=== PATIENT | female | born 1950 | race Caucasian/White ===

== ENCOUNTER 2020-03-15 16:30 | Outpatient (REF) | payer MEDICARE, SELFPAY | END 2020-03-15 16:31 | disposition home or self-care (01) | LOC: HO.LAB 16:30 | PROVIDERS: Visit Provider Internal Medicine | DX: Z20.822 Contact with and (suspected) exposure to COVID-19 (principal) | CPT/HCPCS: 36415; C9803; U0003 ==

== ENCOUNTER 2020-04-11 14:33 | Outpatient (REF) | payer MEDICARE, SELFPAY ==
[2020-04-11 15:01] LABS: MANUAL DIFF FLAG NO
[2020-04-11 15:04] LABS: Basophils Percent Auto 0.1 % (0-2); Eosinophils Absolute Auto 0.1 X10*3/uL (0.0-0.4); Eosinophils Percent Auto 1.2 % (0-4); Hematocrit 39.2 % (37-47); Hemoglobin 11.7 g/dl (12.0-16.0); Imm Gran Abs Auto 0.02 X10*3/uL (0.00-0.03); Imm Gran Pct Auto 0.3 % (0.0-0.4); Immature Retic Fraction 15.6 % (3.0-15.9); Lymphocytes Percent Auto 27.3 % (20-40); Mean Corpuscular HGB Conc 29.8 g/dl (31.0-35.0); Mean Corpuscular Hemoglobin 24.5 pg (27.0-33.0); Mean Platelet Volume 10.2 fL (9.4-12.3); Monocytes Absolute Auto 0.5 X10*3/uL (0.1-1.2); Monocytes Percent Auto 6.7 % (2-11); Neutrophils Absolute Auto 4.7 X10*3/uL (2.0-8.3); Neutrophils Percent Auto 64.4 % (45-73); Platelet Count 243 X10*3/uL (160-400); Red Blood Count 4.78 X10*6/uL (4.20-5.50); Red Cell Distribution Width 14.8 % (11.0-16.0); Retic HGB Equivalent 27.8 pg (30.0-35.0); Reticulocyte Percent 1.4 % (0.5-1.8); Reticulocytes Absolute 0.067 X10*6/uL (0.026-0.095); White Blood Count 7.3 X10*3/uL (4.8-10.8)
[2020-04-11 15:12] LABS: Estimated Average Glucose 128 mg/dL; Hemoglobin A1c % 6.1 %
[2020-04-11 16:00] LABS: Alanine Aminotransferase 18 U/L (0-31); Alkaline Phosphatase 106 U/L (39-117); Anion Gap 15 (12-20); Aspartate Amino Transferase 23 U/L (5-31); Bilirubin Total 0.6 mg/dL (0.0-1.0); Blood Urea Nitrogen 14 mg/dL (9-16); Calcium 8.8 mg/dL (8.4-10.2); Carbon Dioxide 27 mmol/L (22-29); Chloride 102 mmol/L (96-108); Cholesterol 105 mg/dL; Estimated Glomerular Filt Rate > 60; Glucose Random 101 mg/dL (60-115); HDL Cholesterol 34 mg/dL; Iron 47 mcg/dL (30-160); LDL Cholesterol Calculated 56 mg/dl; Percent Iron Saturation 12 % (15-50); Potassium 4.4 mmol/L (3.3-5.1); Sodium 140 mmol/L (135-145); Total Iron Binding Capacity 405 mcg/dL (228-428); Total Protein 6.8 g/dL (6.5-8.0); Triglycerides 75 mg/dL; Unsaturated Iron Binding 358 ug/dL
[2020-04-11 16:01] LABS: Creatinine Urine 208.41 mg/dL; Microalbum/Creatinine Ratio Ur 16.7 ug/mg cr
[2020-04-11 16:22] LABS: Ferritin 16 ng/mL (10-250); Free T4 (Free Thyroxine) 1.02 ng/dL (0.71-1.85); Thyroid Stimulating Hormone 1.38 uIU/mL (0.32-4.0); Vitamin D 25-OH Total 16.1 ng/mL (>30)
[2020-04-11 16:33] LABS: Folate > 20.0 ng/mL (> or = 4.0); Vitamin B12 172 pg/mL (200-900)
== END 2020-04-11 14:34 | disposition home or self-care (01) ==
LOC: HO.LAB 14:33
PROVIDERS: PCP Internal Medicine; Visit Provider Internal Medicine
DX: E78.2 Mixed hyperlipidemia (principal); E78.00 Pure hypercholesterolemia, unspecified; E11.65 Type 2 diabetes mellitus with hyperglycemia; I10 Essential (primary) hypertension; Z86.73 Personal history of transient ischemic attack (TIA), and cerebral infarction without residual deficits
CPT/HCPCS: 36415; 80053; 80061; 82043; 82306; 82607; 82728; 82746; 83036; 83540; 84439; 84443; 85025; 85045

== ENCOUNTER 2020-07-10 13:31 | Outpatient (REF) | payer MEDICARE, SELFPAY ==
--- NOTE | ~2020-07-10 | MM_ITS ---
EXAMINATION: MM SCREENING DIGITAL BREAST TOMOSYNTHESIS, BILATERAL CLINICAL INFORMATION: Screening. Asymptomatic. The lifetime risk of breast cancer based on the Tyrer-Cuzick Model is 8%. COMPARISON: Mammography: 03/19/2018, 02/17/2018, 08/31/2016, 11/06/2015, 10/30/2015 TECHNIQUE: Digital breast tomosynthesis is performed in both the craniocaudal and mediolateral oblique views along with computer-aided detection (CAD). Synthesized 2D images are generated from the tomosynthesis. FINDINGS: There are scattered areas of fibroglandular density (ACR BI-RADS breast composition Category b). Parenchymal pattern is similar to prior studies. There are scattered stable bilateral minor asymmetries. No developing density or interval mass or architectural abnormality. No abnormal calcifications. The axilla and skin contours are unremarkable. No significant changes. MM/MM tomosynthesis screening BI IMPRESSION: No mammographic evidence of malignancy. ASSESSMENT: BI-RADS 2: Benign RECOMMENDATION: Routine annual mammography screening. This patient's information was entered into a reminder system with a target due date for their next mammogram.
== END 2020-07-10 13:32 | disposition home or self-care (01) ==
LOC: HO.MAMMO 13:31
PROVIDERS: PCP Internal Medicine; Visit Provider Internal Medicine
DX: Z12.31 Encounter for screening mammogram for malignant neoplasm of breast (principal)
CPT/HCPCS: 77063; 77067

== ENCOUNTER → 2021-03-04 11:17 | Outpatient (BNVA) | payer MEDICARE, SELFPAY | PROVIDERS: PCP Internal Medicine; Referring Provider Internal Medicine; Visit Provider Nurse Practitioner | DX: Z12.11 Encounter for screening for malignant neoplasm of colon (principal); D12.6 Benign neoplasm of colon, unspecified | CPT/HCPCS: 99202 ==

== ENCOUNTER 2021-03-07 13:54 | Outpatient (REF) | payer MEDICARE, SELFPAY ==
--- NOTE | ~2021-03-07 | MM_ITS ---
EXAMINATION: BONE DENSITOMETRY CLINICAL INDICATION: Osteopenia. COMPARISON: Previous BD dated 02/17/2018 and baseline BD dated 04/17/2006. TECHNIQUE: Using a [employer] DXA System (software version: 13.1) manufactured by [employer], dual-energy x-ray absorptiometry was performed of the lumbar spine and left hip. The images are of good technical quality. Summary results are attached. FINDINGS: AP SPINE L1-L2 (excluding L3 and L4): The data of L1-L4 has been changed to exclude the L3 and L4 vertebral bodies, because hardware at these levels may cause overestimation of lumbar spine density. Current: BMD 1.205 g/cm2, Z-score 1.2, T-score 0.3, normal, 0.8% decrease from previous, 1.7% decrease from baseline (<5% change is not significant). Prior: BMD 1.196 g/cm2. Baseline: BMD 1.224 g/cm2. LEFT FEMUR, NECK: Current: BMD 0.793 g/cm2, Z-score -0.6, T-score -1.8, osteopenia. Prior: BMD 0.825 g/cm2. Baseline: BMD 0.890 g/cm2. LEFT FEMUR, TOTAL: Current: BMD 0.797 g/cm2, Z-score -0.8, T-score -1.7, osteopenia, 6.8% decrease from previous, 12.1% decrease from baseline (<5% change is not significant). Prior: BMD 0.855 g/cm2. Baseline: BMD 0.907 g/cm2. IDENTIFIED RISK FACTORS: Early menopause, history of fracture (adult), hysterectomy, low body weight, recurrent falls, height loss, secondary osteoporosis. HISTORY OF FRACTURE: No insufficiency fracture reported. . MEDICATIONS: Vitamin D. MM/XR DEXA axial skeleton IMPRESSION: 1. DIAGNOSIS: Osteopenia based on the lowest T-score value of -1.8 in the femoral neck applying World Health Organization criteria. 2. 10-YEAR FRACTURE RISK PREDICTION, FRAX: Major osteoporotic fracture (clinical spine, forearm, hip or shoulder) 16.2%. Hip fracture 2.6%. 3. Treatment Recommendations: NOF guidelines recommend consideration for treatment in postmenopausal women and men age 50 and older presenting with the following: -A hip or vertebral (clinical or morphometric) fracture. -T-score less than or equal to -2.5 at the femoral neck or spine after appropriate evaluation to exclude secondary causes. -Low bone mass at the hip or spine and a 10-year fracture probability by FRAX of greater than or equal to 3% for hip fracture or greater than or equal to 20% for major osteoporotic fracture based on the [place] adapted WHO algorithm. 4. Other Recommendations: All treatment decisions require clinical judgment and consideration of individual patient factors, including patient preferences, comorbidities, previous drug use, risk factors not captured in the FRAX model (e.g. frailty, falls, vitamin D deficiency, increased bone turnover, interval significant decline in bone density) and possible under or overestimation of fracture risk by FRAX. Additional medical evaluation for secondary cause of low bone mineral density may be appropriate. FUTURE SCAN RECOMMENDATION: People with diagnosed cases of osteoporosis or at high risk for fracture should have regular bone mineral density tests. For patients eligible for Medicare, routine testing is allowed once every 2 years. The testing frequency can be increased to one year for patients who have rapidly progressing disease, those who are receiving or discontinuing medical therapy to restore bone mass, or have additional risk factors.
== END 2021-03-07 13:55 | disposition home or self-care (01) ==
LOC: HO.MAMMO 13:54
PROVIDERS: PCP Internal Medicine; Visit Provider Internal Medicine
DX: Z13.820 Encounter for screening for osteoporosis (principal); M85.80 Other specified disorders of bone density and structure, unspecified site; Z78.0 Asymptomatic menopausal state; Z79.899 Other long term (current) drug therapy; Z87.81 Personal history of (healed) traumatic fracture; Z98.890 Other specified postprocedural states
CPT/HCPCS: 77080

== ENCOUNTER 2021-06-18 14:49 | Observation (INO) | payer MEDICARE, SELFPAY ==
[2021-06-18] VITALS (8 sets, daily range): BP systolic 157–183; BP diastolic 60–87; PULSE 64–80; RESP 10–19; TEMP 36.4–36.9; O2SAT 95–97; BMI 32.0
--- NOTE | ~2021-06-18 | XR_ITS ---
EXAMINATION: XR PELVIS CLINICAL INFORMATION: Pain to tailbone COMPARISON: None TECHNIQUE: AP view of the pelvis. FINDINGS: Incompletely visualized orthopedic hardware in the lower lumbar spine. No displaced sacral fracture, the mid and distal sacrum and coccyx are obscured by overlying bowel contents. Degenerative changes in both hips. XR/XR pelvis 1-2V IMPRESSION: No displaced sacral fracture. The mid and distal sacrum and coccyx are secured by overlying bowel contents.
--- NOTE | ~2021-06-18 | CT_ITS ---
CT ANGIOGRAM NECK WITH CONTRAST CT ANGIOGRAM BRAIN WITH CONTRAST CLINICAL INFORMATION: Dizziness. COMPARISON: CT head 06/18/2021. TECHNIQUE: Test bolus sequences followed by intravenous administration 75 mL of Omnipaque 350. Helical imaging was performed in the axial plane from the thoracic inlet to the skull vertex. Delayed postcontrast imaging of the head was also performed. The data was processed at the certified neurodiagnostic technologist workstation for generation of MIP sequences. Angled MIPs and volume rendered reformatted images were also generated at an offline 3D workstation under concurrent supervision. Stenoses are assessed in accordance with NASCET criteria unless otherwise indicated. This CT examination was performed using dose optimization techniques as appropriate, variously including the following: *Automated exposure control *Adjustment of mA and/or kV according to patient size (this includes techniques or standardized protocols for targeted exams where dose is matched to indication/reason for exam; i.e. extremities or head) *Use of iterative reconstruction technique FINDINGS: BRAIN: [There is no intracranial hemorrhage, hydrocephalus, extra-axial surface collection, midline shift, or other herniation pattern. Chopra to white matter differentiation is diffusely maintained without evidence of an evolved acute territorial infarct. The basilar cisterns are preserved. No significant soft tissue abnormality. No acute osseous abnormality. The paranasal sinuses and the mastoid air cells are well aerated.] CERVICAL SOFT TISSUES AND LUNG APICES: Postoperative changes following long segment laminectomy at the C3-C7 levels and posterior instrumented fusion at C3-T8 to. Surgical hardware appears intact and there is no evidence of hardware loosening. There is multilevel cervical spondylosis. Imaged upper lungs are clear. NECK CTA: There is atherosclerotic calcification throughout the aortic arch resulting in a moderate stenosis of the left subclavian artery origin. Left common carotid artery arises from the brachiocephalic artery, an anatomic variant. Atherosclerotic disease results in a moderate stenosis of the right vertebral artery origin. The vertebral arteries are codominant and widely patent throughout their cervical course. Retropharyngeal course of the right internal/external carotid arteries and the distal right common carotid artery. There is a surgical clip adjacent to the left carotid bifurcation presumably status post left carotid endarterectomy. Soft tissue encases the distal left common carotid artery, the left carotid bifurcation, and the proximal left cervical internal carotid artery which could reflect postoperative perivascular hematoma or intramural hematoma in the setting of of dissection which can be correlated with the timing of surgery. These vessels remain widely patent without the soft tissue resulting in any significant stenosis. BRAIN CTA: Atherosclerotic calcification results in a severe stenosis of the proximal right cavernous ICA and a moderate to severe stenosis of the right supraclinoid ICA. Atherosclerotic calcification also results in a moderate stenosis of the left cavernous ICA segment. The right A1 anterior cerebral artery is hypoplastic and not well assessed. No acute arterial occlusions intracranially. CT/CT angio head neck IMPRESSION: - No acute intracranial findings. - Atherosclerotic calcification results in a severe stenosis of the proximal right cavernous ICA and a moderate to severe stenosis of the right supraclinoid ICA. Atherosclerotic calcification also results in a moderate stenosis of the left cavernous ICA segment. - There is a surgical clip adjacent to the left carotid bifurcation presumably status post left carotid endarterectomy. Soft tissue encases the distal left common carotid artery, the left carotid bifurcation, and the proximal left cervical internal carotid artery which could reflect postoperative perivascular hematoma or intramural hematoma in the setting of of dissection which can be correlated with the timing of surgery. These vessels remain widely patent without the soft tissue resulting in any significant stenosis. - There is atherosclerotic calcification throughout the aortic arch resulting in a moderate stenosis of the left subclavian artery origin. - Atherosclerotic disease results in a moderate stenosis of the right vertebral artery origin.
--- NOTE | ~2021-06-18 | XR_ITS ---
EXAMINATION: XR CHEST CLINICAL INFORMATION: Weakness COMPARISON: Chest radiograph and chest CT 11/08/2019 TECHNIQUE: 2 views of the chest were obtained. FINDINGS: No significant abnormality is noted involving the heart, lungs, mediastinum, or soft tissues. Cervical spine fixation hardware is again seen. XR/XR chest 2V IMPRESSION: No acute intrathoracic disease.
--- NOTE | ~2021-06-18 | CT_ITS ---
EXAMINATION: CT HEAD WITHOUT CONTRAST CLINICAL INFORMATION: Fall. Headache. COMPARISON: None TECHNIQUE: Contiguous axial imaging was performed from the skull base to vertex without intravenous administration of contrast. This CT examination was performed using dose optimization techniques as appropriate, variously including the following: *Automated exposure control *Adjustment of mA and/or kV according to patient size (this includes techniques or standardized protocols for targeted exams where dose is matched to indication/reason for exam; i.e. extremities or head) *Use of iterative reconstruction technique DLP: 572 mGy-cm FINDINGS: There is no evidence of acute intracranial hemorrhage or territorial infarction. Incidental note of a 5 x 3 mm fat attenuation structure associated with the anterior falx (image 21, series 4), likely a small lipoma. No abnormal mass effect or midline shift is seen. Chopra to white matter differentiation is well preserved. No extra-axial fluid collections are identified. The ventricles are normal in size. There is no abnormal attenuation within the brain parenchyma. The osseous structures and soft tissues are normal. The mastoid air cells and visualized portions of the paranasal sinuses are well aerated. The orbits are notable for sequela of prior lens surgery. CT/CT head/brain wo con IMPRESSION: Incidental note of a tiny lipoma along the anterior falx. There is no acute intracranial abnormality.
--- NOTE | 2021-06-18 15:04 | ED.DIZZY ---
HPI - Dizziness General Chief Complaint: Dizziness Stated Complaint: DIZZY,WEAK,FALL LAST WEAK W/HEAD STRIKE Time Seen by Provider: 06/18/21 15:04 Source: patient Mode of arrival: ambulatory Limitations: no limitations History of Present Illness HPI Narrative: 70-year-old female presents to the emergency department complaining of headache dizziness and weakness. Patient states she had sensation near syncope vertigo and feels unstable on her feet this happened 1 week ago she fell and hit her head states she is on a blood thinner though none is listed in her medications she states she did fall hit the back of her head states her symptoms resolve she has had no dizziness headache and then the symptoms returned today without a fall she called her primary care doctor and was advised to come to the ED. Patient denies fevers chills nausea vomiting or diarrhea. MD elicited complaint: dizziness, lightheadedness, near syncope, vertigo and disequilibrium Related Data Home Medications Medication Instructions Recorded Confirmed clonazepam 0.5 mg tablet 0.5 mg PO BID 12/12/19 09/06/20 duloxetine 30 mg capsule,delayed 30 mg PO BID 12/12/19 09/06/20 release Previous Rx's Medication Instructions Recorded GRAB bar #1 ea 02/16/20 cyanocobalamin (vitamin B-12) 1,000 mcg PO DAILY #30 cap 04/11/20 1,000 mcg capsule clopidogrel 75 mg tablet 75 mg PO DAILY #90 tab 05/28/20 nystatin 100,000 unit/gram topical 1 appl TOPICAL TID #30 g 08/15/20 ointment miconazole nitrate 2 % topical 1 appl TOPICAL BID #71 g 08/25/20 powder (Zeasorb AF) lisinopril 10 mg tablet 10 mg PO DAILY #90 tab 10/09/20 fluticasone propionate 50 2 spray INTRANASAL DAILY #3 ea 10/12/20 mcg/actuation nasal spray,suspension (Flonase Allergy Relief) metformin 1,000 mg tablet 1,000 mg PO BID #180 tab 12/24/20 blood sugar diagnostic 1 strip MISCELLANEOUS TID #100 01/21/21 strip omega-3 acid ethyl esters 1 gram 2 cap PO BID #360 cap 01/31/21 capsule ropinirole 0.5 mg tablet 0.5 mg PO BEDTIME #90 tab 01/31/21 peg 3350-electrolytes 236 240 ml PO Q10M 1 Days #4000 ml 01/10/22 gram-22.74 gram-6.74 gram-5.86 gram solution (Golytely) dulaglutide 0.75 mg/0.5 mL 0.75 mg (0.5 mL) SUBCUT QWEEK 90 03/27/21 subcutaneous pen injector Days #2 ml (Trulicity) famotidine 20 mg tablet 20 mg PO BID 90 Days #180 tab 05/20/21 pen needle, diabetic 31 gauge x #100 ea 05/21/21 3/16 (BD Ultra-Fine Mini Pen Needle) insulin glargine 100 unit/mL (3 60 unit (0.6 mL) SUBCUT QPM #15 ml 05/31/21 mL) subcutaneous pen (Lantus Solostar U-100 Insulin) atorvastatin 40 mg tablet 40 mg PO DAILY #90 tab 06/12/21 pregabalin 200 mg capsule (Lyrica) 200 mg PO BID 90 Days #180 cap 06/14/21 pregabalin 50 mg capsule 50 mg PO BID PRN 90 Days #180 cap 06/14/21 Allergies Allergy/AdvReac Type Severity Reaction Status Date / Time No Known Allergies Allergy Verified 03/04/21 11:35 [No Known Allergies*] Review of Systems Review of Systems: Review of systems: General: Patient denies any fever chills recent illness or falls Musculoskeletal: Denies back pain or body aches or other injuries HEENT: denies headache, runny nose, ear pain Respiratory: denies shortness of breath, cough Cardiovascular: no chest pain or palpitations : denies dysuria, frequency Abdomen: no nausea vomiting denies abdominal pain Extremities: no swelling, no pain Skin: no diaphoresis Yes all other systems are reviewed and are negative [facility] Past Medical History Medical History (Updated 06/18/21 @ 19:54 by Willis Landry DO) Anxiety and depression Carotid stenosis 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 Diabetic nephropathy GERD (gastroesophageal reflux disease) History of CVA (cerebrovascular accident) Hypercholesterolemia with endogenous hyperglyceridemia Hypertension Obesity (BMI 30-39.9) Osteopenia Personal history of malignant neoplasm of cervix uteri Restless leg syndrome Restrictive lung disease Type 2 diabetes mellitus with hyperglycemia Surgical History (Updated 03/04/21 @ 11:36 by LYNETTE Farfan) History of bilateral cataract extraction History of carpal tunnel surgery History of colonoscopy with polypectomy History of loop electrical excision procedure (LEEP) History of lumbar fusion History of neck surgery Family History Family History (Updated 12/10/20 @ 15:11 by LYNETTE Emerson) Father Heart attack Mother Cancer Dementia Breast cancer Hemorrhage Social History Social History Housing: Other Housing Other:: Trailer Alcohol intake: never Patient Tobacco Use Status: Former Tobacco user Tobacco use type: Cigarette e-Cigarette/Vaping Use: Never Used Second Hand Smoke Exposure: No Advance Directives: No Advance Directives Information Provided: No service: No Current occupational status: disabled Physical Exam Vital Signs: Vital Signs: Last Vital Signs Temp 98.0 F 06/18/21 17:31 Pulse 77 06/18/21 18:21 Resp 12 06/18/21 18:21 BP 161/71 H 06/18/21 18:21 Pulse Ox 95 06/18/21 18:21 BMI result Body Mass Index 32.0 Neurological exam: CN II- XII tested. Patient is alert and oriented to person place and time. Patient has no dysphagia or dysarthia, denies good vision in all four vision [place] no nystagmus on exam, good strength to upper and lower extremities with normal reflexes to brachioradialis, wrist, patella and achilles. Negative romberg, good finger to nose and heel to ureña. General: Well-appearing well-nourished in no signs of distress HEENT: Normocephalic atraumatic Neck: No signs of JVD, no masses no tenderness or lymphadenopathy Cardiovascular: Regular rate and rhythm Respiratory: Clear to auscultation bilaterally Abdomen: Soft nontender no masses Extremities: Normal pedal pulses no signs of edema Skin: Dry warm no rashes Back: No tenderness full ROM NIH Stroke Scale Internal: Initial- Upon Arrival Level of Consciousness: Alert Level of Consciousness Questions: Answers both questions correctly Level of Consciousness Commands: Performs both tasks correctly Best Gaze: Normal Visual: No visual loss Facial Palsy: Normal Motor Arm (Right): No drift Motor Arm (Left): No drift Motor Leg (Right): No drift Motor Leg (Left): No drift Limb Ataxia: Absent Sensory: Normal Best Language: No aphasia Dysarthia: Normal Extinction and Inattention: No abnormality Score: 0 MDM - Dizziness MDM Narrative Medical decision making narrative: 70-year-old female multiple complaints he lives alone she probably go get over for CT scan of her head check labs and literally dimension there is nothing of a cousin symptoms unsure of what is the causal kind of dizziness is I will severe patient feeling better with fluids I will give her morphine for her pain to her right shoulder buttocks and back. 1731 patient still unable to ambulate CT is negative labs are unremarkable we tried to ambulate the patient again she failed will try with meclizine Maegan verbal try some Valium. A concern this could be a posterior circulation stroke is the patient has had a stroke in the past. She is on a blood thinners clopidogrel that I can see that she did state that she takes some she has multiple medications that could also make her weak and altered including ropinirole, pregabalin duloxetine and clonazepam 1918 No improvement with ambulation with meclizine or valium. Trauma workup okay unable to send home needs posterior circulation workup and MRI before discharge. 1952 I spoke with [facility] who agreed with the admission. Differential Diagnosis Differential diagnosis: Likely adverse reaction to drug, benign paroxysmal positional vertigo, orthostatic hypotension, vertebral basilar insufficiency, cerebrovascular accident, acute vestibular neuronitis and transient cerebral ischemia Medical Records Attestation: I reviewed the patient's medical records. Lab Data Attestation: I reviewed the patient's lab results. Result diagrams: 06/18/21 15:19 06/18/21 15:19 Labs: Lab Results 06/18/21 06/18/21 06/18/21 Range/Units 15:19 15:19 15:19 WBC 8.1 (4.8-10.8) X10*3/uL RBC 4.89 (4.20-5.50) X10*6/uL Hgb 11.8 L (12.0-16.0) g/dl Hct 39.4 (37.0-47.0) % MCV 80.6 (80.0-98.0) fL MCH 24.1 L (27.0-33.0) pg MCHC 29.9 L (31.0-35.0) g/dl RDW 14.5 (11.0-16.0) % Plt Count 221 (160-400) X10*3/uL MPV 10.2 (9.4-12.3) fL Immature Gran % (Auto) 0.4 (0.0-0.4) % Neut % (Auto) 65.0 (45-73) % Lymph % (Auto) 25.9 (20-40) % [place] % (Auto) 7.3 (2-11) % Eos % (Auto) 1.2 (0-4) % Baso % (Auto) 0.2 (0-2) % Lymph # (Auto) 2.1 (1.2-4.9) X10*3/uL [place] # (Auto) 0.6 (0.1-1.2) X10*3/uL Eos # (Auto) 0.1 (0.0-0.4) X10*3/uL Baso # (Auto) 0.0 (0.0-0.2) X10*3/uL Abs Immat Gran (auto) 0.03 (0.00-0.03) X10*3/uL Absolute Neuts (auto) 5.3 (2.0-8.3) x10*3/uL Absolute Nucleated RBC 0.000 (0.0-0.012) X10*3/uL Nucleated RBC % (auto) 0.0 (0.0-0.2) /100WBC Sodium 141 (135-145) mmol/L Potassium 4.4 (3.3-5.1) mmol/L Chloride 104 (96-108) mmol/L Carbon Dioxide 29 (22-29) mmol/L Anion Gap 12 (12-20) BUN 14 (9-16) mg/dL Creatinine 0.83 (0.5-1.4) mg/dL Estim Creat Clear Calc 68.8 Estimated GFR > 60 Random Glucose 97 (60-115) mg/dL Calcium 9.3 (8.4-10.2) mg/dL Total Bilirubin 0.5 (0.0-1.0) mg/dL Direct Bilirubin 0.2 (0.0-0.5) mg/dL AST 25 (5-31) U/L ALT 21 (0-31) U/L Alkaline Phosphatase 79 D (39-117) U/L Total Protein 6.7 (6.5-8.0) g/dL Albumin 3.7 (3.5-5.0) g/dL Lipase 16 (8-78) U/L COVID-19 (ELIF) Negative (Negative) COVID-19 Clin Com See Note ECG Data Attestation: I personally reviewed and interpreted this ECG as follows: ECG interpretation date: 06/18/21 ECG interpretation time: 15:35 Interpretation: Rate 72 normal sinus rhythm normal intervals no signs of ischemia Critical Care Time Critical Care Time Critical Care Time: Yes Total Critical Care Time: 45 Attestation: Posterior circulation workup with dizziness and inability to ambulate as well as trauma evaluation. Discharge Plan Discharge Clinical Impression: Dizziness, History of CVA (cerebrovascular accident), Acute posterior circulation transient ischemic attack Prescriptions: No Action (DME) GRAB bar See Rx Instructions .Route .MEDSUPPLY Qty: 1 0RF Rx Instructions: As directed cyanocobalamin (vitamin B-12) 1,000 mcg capsule 1,000 mcg PO DAILY Qty: 30 3RF clopidogrel 75 mg tablet 75 mg PO DAILY Qty: 90 2RF nystatin 100,000 unit/gram ointment 1 appl topical TID Qty: 30 5RF Zeasorb AF 2 % powder 1 appl topical BID Qty: 71 3RF lisinopril 10 mg tablet 10 mg PO DAILY Qty: 90 3RF fluticasone propionate [Flonase Allergy Relief] 50 mcg/actuation spray,suspension 2 spray intranasal DAILY Qty: 3 3RF Rx Instructions: administer into each nostril metformin 1,000 mg tablet 1,000 mg PO BID Qty: 180 2RF OneTouch Ultra Blue Test Strip Strip 1 strip miscellaneous TID Qty: 100 11RF omega-3 acid ethyl esters 1 gram capsule 2 cap PO BID Qty: 360 3RF ropinirole 0.5 mg tablet 0.5 mg PO BEDTIME Qty: 90 2RF Trulicity 0.75 mg/0.5 mL pen injector 0.75 mg subcut QWEEK 90 Days Qty: 2 3RF famotidine 20 mg tablet 20 mg PO BID 90 Days Qty: 180 2RF (DME) pen needle, diabetic [BD Ultra-Fine Mini Pen Needle] 31 gauge x 3/16 needle See Rx Instructions .ROUTE .MEDSUPPLY Qty: 100 3RF Rx Instructions: As directed inject 60 units of Lantus q.p.m. Lantus Solostar U-100 Insulin 100 unit/mL (3 mL) insulin pen 60 unit subcut QPM Qty: 15 11RF atorvastatin 40 mg tablet 40 mg PO DAILY Qty: 90 2RF pregabalin [Lyrica] 200 mg capsule 200 mg PO BID 90 Days Qty: 180 1RF Rx Instructions: take with 50 mg = 250 mg BID pregabalin 50 mg capsule 50 mg PO BID PRN (Reason: pain) 90 Days Qty: 180 1RF Rx Instructions: take with 200 mg = 250 mg BID duloxetine 30 mg capsule,delayed release(DR/EC) 30 mg PO BID 0RF clonazepam 0.5 mg tablet 0.5 mg PO BID 0RF peg 3350-electrolytes [Golytely] 236-22.74-6.74 -5.86 gram recon soln 240 ml PO Q10M 1 Days Qty: 4000 0RF Rx Instructions: until fecal effluent is clear; do not exceed a total volume of 2,000 mL
--- NOTE | 2021-06-18 15:10 | ECG_ITS ---
Test Reason : WEAKNESS Blood Pressure : / mmHG Vent. Rate : 072 BPM Atrial Rate : 072 BPM P-R Int : 136 ms QRS Dur : 072 ms QT Int : 380 ms P-R-T Axes : -10 014 048 degrees QTc Int : 416 ms Normal sinus rhythm Normal ECG When compared with ECG of 08-NOV-2019 22:09, No significant change was found Referred By: Willis Landry Electronically Signed By:DILAN PARMAR
[2021-06-18] MEDS: 0.9 % Sodium Chloride 1,000 ML 999 ML IV (15:22)
[2021-06-18 15:23] LABS: MANUAL DIFF FLAG NO
[2021-06-18] MEDS: Morphine Sulfate 4 MG/ML CARTRIDGE IVPUSH (15:25)
[2021-06-18] MEDS: Acetaminophen 325 MG TABLET 650 MG PO (15:26)
[2021-06-18 15:27] LABS: Basophils Percent Auto 0.2 % (0-2); Eosinophils Absolute Auto 0.1 X10*3/uL (0.0-0.4); Eosinophils Percent Auto 1.2 % (0-4); Hematocrit 39.4 % (37.0-47.0); Hemoglobin 11.8 g/dl (12.0-16.0); Imm Gran Abs Auto 0.03 X10*3/uL (0.00-0.03); Imm Gran Pct Auto 0.4 % (0.0-0.4); Lymphocytes Absolute Auto 2.1 X10*3/uL (1.2-4.9); Lymphocytes Percent Auto 25.9 % (20-40); Mean Corpuscular HGB Conc 29.9 g/dl (31.0-35.0); Mean Corpuscular Hemoglobin 24.1 pg (27.0-33.0); Mean Corpuscular Volume 80.6 fL (80.0-98.0); Mean Platelet Volume 10.2 fL (9.4-12.3); Monocytes Absolute Auto 0.6 X10*3/uL (0.1-1.2); Monocytes Percent Auto 7.3 % (2-11); Neutrophils Absolute Auto 5.3 x10*3/uL (2.0-8.3); Platelet Count 221 X10*3/uL (160-400); Red Blood Count 4.89 X10*6/uL (4.20-5.50); Red Cell Distribution Width 14.5 % (11.0-16.0); White Blood Count 8.1 X10*3/uL (4.8-10.8)
[2021-06-18 15:41] LABS: COVID-19 Test Negative (Negative); IDNOW Serial# 16C4AD1C
[2021-06-18 15:43] LABS: Alanine Aminotransferase 21 U/L (0-31); Albumin Level 3.7 g/dL (3.5-5.0); Alkaline Phosphatase 79 U/L (39-117); Anion Gap 12 (12-20); Aspartate Amino Transferase 25 U/L (5-31); Bilirubin Direct 0.2 mg/dL (0.0-0.5); Bilirubin Total 0.5 mg/dL (0.0-1.0); Blood Urea Nitrogen 14 mg/dL (9-16); Calcium 9.3 mg/dL (8.4-10.2); Carbon Dioxide 29 mmol/L (22-29); Chloride 104 mmol/L (96-108); Creatinine Clr Calc Pharmacy 68.8; Estimated Glomerular Filt Rate > 60; Glucose Random 97 mg/dL (60-115); Lipase 16 U/L (8-78); Potassium 4.4 mmol/L (3.3-5.1); Sodium 141 mmol/L (135-145); Total Protein 6.7 g/dL (6.5-8.0)
--- NOTE | 2021-06-18 17:48 | PC.NURSE ---
Pt received pain meds stated pain decreased with meds given. Pt noted to be sleeping. Per MD orders pt ambulated with tech and RN, pt unsteady on her feet and states she is very dizzy with standing and attempting to ambulate. MD made aware and meds to be given. Pt in stretcher safely at this time awaiting a PT consult.
[2021-06-18] MEDS: Meclizine HCl 12.5 MG TABLET PO (18:22)
--- NOTE | 2021-06-18 19:18 | PC.NURSE ---
Pt alert and oriented x4, calm and cooperative. Pt states pain in buttock persists but is manageable, does not want pain meds. Pt states she continues to have dizziness wit movement. Pt trialed for ambulation and noted to be dizzy and unsteady on feet, MD aware. Pt in x-ray now.
[2021-06-18] MEDS: diazePAM 10 MG/2 ML CARTRIDGE 5 MG IVPUSH (19:53)
--- NOTE | 2021-06-18 19:53 | PM.IMHP ---
History of Present Illness Date of Service: 06/18/21 Chief Complaint: dizziness 70-year-old female with a past medical history of hypertension, hyperlipidemia, diabetes, diabetic neuropathy, degenerative spine disease, carotid stenosis, anxiety, depression, restless leg syndrome, restrictive lung disease, obesity, osteoporosis, history of CVA, GERD presented to the hospital today with a chief complaint of dizziness. Patient reports that for the past 1 week she has been having intermittent episodes of dizziness worsens on changing position, movement; feels like room spinning and lightheaded; denies any chest pain or palpitations. Reports he had a fall about 1 week ago, had a head strike; denies any loss of consciousness. Denies any neck pain back pain or hip pain. Denies any chest pain or palpitations. Review of all other systems is negative except mentioned above ER course: Per ER team patient exam was nonfocal; CT head showed no acute findings; pelvis x-ray showed no acute fracture; given a trial of meclizine and Valium and patient still was symptomatic; admitted to the hospital for further management. 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 Diabetic nephropathy GERD (gastroesophageal reflux disease) History of CVA (cerebrovascular accident) Hypercholesterolemia with endogenous hyperglyceridemia Hypertension Obesity (BMI 30-39.9) Osteopenia Personal history of malignant neoplasm of cervix uteri Restless leg syndrome Restrictive lung disease Type 2 diabetes mellitus with hyperglycemia Family History (Updated 12/10/20 @ 15:11 by LYNETTE Emerson) Father Heart attack Mother Cancer Dementia Breast cancer Hemorrhage Surgical History (Updated 03/04/21 @ 11:36 by LYNETTE Farfan) History of bilateral cataract extraction History of carpal tunnel surgery History of colonoscopy with polypectomy History of loop electrical excision procedure (LEEP) History of lumbar fusion History of neck surgery Social History Housing: Other Housing Other:: Trailer Alcohol intake: never Patient Tobacco Use Status: Former Tobacco user Tobacco use type: Cigarette e-Cigarette/Vaping Use: Never Used Second Hand Smoke Exposure: No Use of substances other than those prescribed or required for medical reasons: No Advance Directives: No Advance Directives Information Provided: No service: No Current occupational status: disabled Meds Allergies Allergy/AdvReac Type Severity Reaction Status Date / Time No Known Allergies Allergy Verified 03/04/21 11:35 [No Known Allergies*] Active Medications: Current Medications Acetaminophen (Acetaminophen 325 Mg Tablet) 650 mg PO Q6H PRN PRN Reason: Pain, Mild (Pain Scale 1-3) Meclizine HCl (Meclizine Hcl 25 Mg Tablet) 25 mg PO Q8H PRN PRN Reason: vertigo Melatonin (Melatonin 3 Mg Tablet) 6 mg PO BEDTIME PRN PRN Reason: Insomnia Pharmacy Consult (Consult Rx Perform Med Rec) 1 each MISCELLANE ONCE STA Stop: 06/18/21 19:50 Senna (Sennosides 8.6 Mg Tablet) 17.2 mg PO BEDTIME PRN PRN Reason: Constipation Sodium Chloride (0.9 % Sodium Chloride Flush 3 Ml Syringe) 3 ml IVFLUSH QSHIST. [facility] Home Medications Medication Instructions Recorded Confirmed Last Taken Type clonazepam 0.5 mg tablet 0.5 mg PO BEDTIME PRN 12/12/19 06/18/21 Unknown History buspirone 10 mg tablet 1 tab PO BID 06/18/21 06/18/21 06/18/21 History clonazepam 1 mg tablet 1 mg PO BEDTIME PRN 06/18/21 06/18/21 Unknown History dulaglutide 0.75 mg/0.5 mL 0.75 mg SUBCUT WE 06/18/21 06/18/21 06/12/21 History subcutaneous pen injector (Trulicity) duloxetine 30 mg capsule,delayed 1 cap PO BEDTIME 06/18/21 06/18/21 06/17/21 History release duloxetine 60 mg capsule,delayed 1 cap PO DAILY 06/18/21 06/18/21 06/18/21 History release fluticasone propionate 50 2 spray INTRANASAL DAILY PRN 06/18/21 06/18/21 Unknown History mcg/actuation nasal spray,suspension (Flonase Allergy Relief) insulin glargine 100 unit/mL (3 60 unit SUBCUT BEDTIME 06/18/21 06/18/21 06/17/21 History mL) subcutaneous pen (Lantus Solostar U-100 Insulin) metformin 1,000 mg tablet 1,000 mg PO BIDWM 0406/18/21 06/18/21 History mirtazapine 15 mg tablet 1 tab PO BEDTIME PRN 06/18/21 06/18/21 Unknown History prednisolone acetate 1 % eye 1 drp OPHTHALMIC (EYE) BID 06/18/21 06/18/21 06/18/21 History drops,suspension Physical Exam Vital Signs and Narrative: Vital Signs: Last Vital Signs Temp 98.0 F 06/18/21 17:31 Pulse 77 06/18/21 18:21 Resp 12 06/18/21 18:21 BP 161/71 H 06/18/21 18:21 Pulse Ox 95 06/18/21 18:21 BMI result Body Mass Index 32.0 Gen: Appears be in no acute distress HEENT: NCAT, Moist mucosa. Pulmonary: Vesicular breath sounds, fair air entry CVS: Normal S1-S2 Abdomen: BS+, Soft, Nontender Extremities: Warm well perfused Neuro: Alert and awake. Grossly nonfocal. Normal [id number] and jldn-[id number]-frqa test. Gait not assessed. Results Labs CBC and Chem 7: 06/18/21 15:19 06/18/21 15:19 Labs: Laboratory Results - last 24 hr 06/18/21 06/18/21 06/18/21 15:19 15:19 15:19 MCV 80.6 MCH 24.1 L MCHC 29.9 L RDW 14.5 Plt Count 221 MPV 10.2 Immature Gran % (Auto) 0.4 Neut % (Auto) 65.0 Lymph % (Auto) 25.9 [place] % (Auto) 7.3 Eos % (Auto) 1.2 Baso % (Auto) 0.2 Lymph # (Auto) 2.1 [place] # (Auto) 0.6 Eos # (Auto) 0.1 Baso # (Auto) 0.0 Abs Immat Gran (auto) 0.03 Absolute Neuts (auto) 5.3 Absolute Nucleated RBC 0.000 Nucleated RBC % (auto) 0.0 Anion Gap 12 Estim Creat Clear Calc 68.8 Estimated GFR > 60 Random Glucose 97 Calcium 9.3 Total Bilirubin 0.5 Direct Bilirubin 0.2 AST 25 ALT 21 Alkaline Phosphatase 79 D Total Protein 6.7 Albumin 3.7 Lipase 16 COVID-19 (ELIF) Negative COVID-19 Clin Com See Note Imaging Radiologist's Impressions: Impressions Chest X-Ray 06/18/21 15:43 IMPRESSION: No acute intrathoracic disease. Head CT 06/18/21 15:43 IMPRESSION: Incidental note of a tiny lipoma along the anterior falx. There is no acute intracranial abnormality. Assessment and Plan (1) Dizziness: Status: Acute Plan 70-year-old female with a past medical history of hypertension, hyperlipidemia, diabetes, diabetic neuropathy, degenerative spine disease, carotid stenosis, anxiety, depression, restless leg syndrome, restrictive lung disease, obesity, osteoporosis, history of CVA, GERD presented to the hospital today with a chief complaint of dizziness. Dizziness: Patient reports room spinning Meclizine trial Fall precautions PT/OT eventually EKG nonischemic Troponin pending CT head showed no acute findings Will also obtain CT angio head and neck to rule out any vertebrobasilar insufficiency. Neurology consult History of CVA: Continue home Plavix/statin. History of hypertension/hyperlipidemia: Hold lisinopril; continue home statin. History of anxiety/depression: Continue home was per in/clonazepam/duloxetine History of diabetes: Will reduce the home Lantus to 20 units. Insulin sliding scale. Hold metformin. History of restless leg syndrome: Continue home ropinirole DVT prophylaxis: Subcu heparin Code status: Full code Quality Stroke Does the patient have a stroke diagnosis?: No VTE Prior VTE?: No VTE Risk Level:: Medical - moderate - high VTE Device Contraindication: Treatment Not Indicated VTE Drug Contraindication: N/A - Med Ordered
--- NOTE | 2021-06-18 20:29 | PC.NURSE ---
Addendum entered by Silke Atwood 06/19/21 06:53: Report given to SARIAH Leigh Original Note: report received from SARIAH Ramírez. pt is alert and oriented. resting comfortably in bed. pt on continuos cardiac monitoring. denies any chest pain or sob
--- NOTE | 2021-06-18 20:56 | PHA.MEDREC ---
Addendum entered by Moris Ray [facility] 06/18/21 20:56: Verified with patient that she still takes plavix Original Note: Pharmacy Consult ? Medication Reconciliation Pharmacy has completed the medication reconciliation.
--- NOTE | 2021-06-18 22:04 | MHC.CM.PN ---
HARRY 06/18. HCP at home. HCP/son Moris Gonzáles ([phone]).Vax/boosted x1/[employer]. Lives with daughter. Uses rollator walker and DM supplies. Has 21 hours [employer] services. Cannot remember company. PT pending. D/C plan: Home pending PT recommendations. No referrals placed. Family to provide transportation. CM to follow for d/c needs.
[2021-06-19] VITALS (10 sets, daily range): BP systolic 138–187; BP diastolic 64–92; PULSE 68–78; RESP 12–20; TEMP 36.1–37.2; O2SAT 90–98
[2021-06-19 05:47] LABS: Appearance Urine HAZY; Color Urine DK YELLOW; Glucose Urine UA NEG (NEG); Leukocyte Esterase Urine 1+ (NEG); Nitrite Urine NEG (NEG); PH 6.5 (5.0-8.0); UACC Culture Trigger YES; Urine Blood NEG (NEG); Urine Ketones NEG (NEG); Urine Protein NEG (NEG-TRACE)
[2021-06-19 05:59] LABS: Bacteria Urine TRACE /LPF; RBC Urine 0 /HPF (0); Squamous Epithelial Cell Urine TRACE /LPF; WBC Urine 0-2 /HPF (0-4)
[2021-06-19 07:00] LABS: MANUAL DIFF FLAG NO
[2021-06-19 07:15] LABS: Anion Gap 9 (12-20); Blood Urea Nitrogen 14 mg/dL (9-16); Calcium 8.9 mg/dL (8.4-10.2); Carbon Dioxide 29 mmol/L (22-29); Chloride 108 mmol/L (96-108); Creatinine Clr Calc Pharmacy 73.2; Estimated Glomerular Filt Rate > 60; Glucose Random 76 mg/dL (60-115); Potassium 3.9 mmol/L (3.3-5.1); Sodium 142 mmol/L (135-145)
[2021-06-19 07:21] LABS: Glucose, Whole Blood 74 mg/dL (60-115)
[2021-06-19 07:21] LABS: Basophils Percent Auto 0.3 % (0-2); Eosinophils Absolute Auto 0.1 X10*3/uL (0.0-0.4); Eosinophils Percent Auto 1.8 % (0-4); Hematocrit 36.1 % (37.0-47.0); Imm Gran Abs Auto 0.01 X10*3/uL (0.00-0.03); Imm Gran Pct Auto 0.2 % (0.0-0.4); Lymphocytes Absolute Auto 2.5 X10*3/uL (1.2-4.9); Lymphocytes Percent Auto 39.6 % (20-40); Mean Corpuscular HGB Conc 30.5 g/dl (31.0-35.0); Mean Corpuscular Hemoglobin 24.5 pg (27.0-33.0); Mean Corpuscular Volume 80.4 fL (80.0-98.0); Mean Platelet Volume 10.8 fL (9.4-12.3); Monocytes Absolute Auto 0.5 X10*3/uL (0.1-1.2); Monocytes Percent Auto 7.9 % (2-11); Neutrophils Absolute Auto 3.1 x10*3/uL (2.0-8.3); Neutrophils Percent Auto 50.2 % (45-73); Platelet Count 227 X10*3/uL (160-400); Red Blood Count 4.49 X10*6/uL (4.20-5.50); Red Cell Distribution Width 14.5 % (11.0-16.0); White Blood Count 6.2 X10*3/uL (4.8-10.8)
--- NOTE | 2021-06-19 07:38 | PC.NURSE ---
Report received, patient is resting comfortably on stretcher at this time. Patient is alert and oriented. Reports some pain and dizziness but improved since arrival. Respirations regular and even. Skin PWD. Will continue to monitor. Patient sitting more upright in bed and eating breakfast independently at this time.
[2021-06-19] MEDS: iohexoL 350 MG/ML 100 ML INFUS..BTL IV (09:26)
[2021-06-19] MEDS: busPIRone HCl 10 MG TABLET PO ×2 (09:31→22:15)
[2021-06-19] MEDS: DULoxetine HCl 60 MG CAPSULE.DR PO (09:31)
[2021-06-19] MEDS: Clopidogrel Bisulfate 75 MG TABLET PO (09:31)
[2021-06-19] MEDS: Cyanocobalamin (Vitamin B-12) 1,000 MCG TABLET 1000 MCG PO (09:31)
[2021-06-19] MEDS: Pregabalin 200 MG CAPSULE PO ×2 (09:31→22:14)
--- NOTE | 2021-06-19 10:20 | HO.PM.IMPN ---
Subjective Subjective Date of Service: 06/19/21 Interval History: seen and examined this AM is vague regarding her symptoms -- initially states that they are intermittent and then stating they are not improved reports she fell and hit her head about 1 week ago and since then she has had these symptoms she reports worsening dizziness with eye movement to the left Review of Systems negative except HPI Physical Exam Vital Signs: Vital Signs: Last Vital Signs Temp 97.9 F 06/19/21 07:13 Pulse 75 06/19/21 07:13 Resp 12 06/19/21 07:13 BP 173/80 H 06/19/21 07:13 Pulse Ox 94 06/19/21 07:13 BMI result Body Mass Index 32.0 Const: Other: General - no acute distress, appears comfortable Cardiovascular - regular rate and rhythm, S1-S2 Lungs - normal respiratory effort, clear to auscultation bilaterally, no wheezing Abdomen - soft, nontender, no rebound or guarding Extremities - no edema bilaterally Neuro - awake and alert, no focal deficits; no nystagmus appreciated Objective Data Active Medications Acetaminophen (Acetaminophen 325 Mg Tablet) 650 mg PO Q6H PRN PRN Reason: Pain, Mild (Pain Scale 1-3) Atorvastatin Calcium (Atorvastatin Calcium 40 Mg Tablet) 40 mg PO DAILY@2200 [facility] Buspirone HCl (Buspirone Hcl 10 Mg Tablet) 10 mg PO BID [facility] Last Admin: 06/19/21 09:31 Dose: 10 mg Documented by: CHANELL Clonazepam (Clonazepam 0.5 Mg Tablet) 0.5 mg PO BEDTIME PRN PRN Reason: if 1 mg not effective Clonazepam (Clonazepam 1 Mg Tablet) 1 mg PO BEDTIME PRN PRN Reason: Anxiety Clopidogrel Bisulfate (Clopidogrel Bisulfate 75 Mg Tablet) 75 mg PO DAILY [facility] Last Admin: 06/19/21 09:31 Dose: 75 mg Documented by: CHANELL Cyanocobalamin (Cyanocobalamin (Vitamin B-12) 1,000 Mcg Tablet) 1,000 mcg PO DAILY [facility] Last Admin: 06/19/21 09:31 Dose: 1,000 mcg Documented by: CHANELL Duloxetine HCl (Duloxetine Hcl 30 Mg Capsule.) 30 mg PO BEDTIME [facility] Duloxetine HCl (Duloxetine Hcl 60 Mg Capsule.) 60 mg PO DAILY [facility] Last Admin: 06/19/21 09:31 Dose: 60 mg Documented by: CHANELL Fluticasone Propionate (Fluticasone Propionate Nasal 16 Gm [place]) 2 spray NOSTRIL-B DAILY PRN PRN Reason: Allergy Symptoms Heparin Sodium (Porcine) (Heparin Sodium,Porcine 5,000 Unit/Ml Vial) 5,000 unit SUBCUT Q12H [facility] Last Admin: 06/18/21 23:55 Dose: Not Given Documented by: OKSANA-DORIICL Non-Admin Reason: Patient Refused Insulin Glargine (Insulin Glargine,Hum.Rec.Anlog 100 Unit/Ml 10 Ml Vial) 20 unit SUBCUT BEDTIME RAMONA Meclizine HCl (Meclizine Hcl 25 Mg Tablet) 25 mg PO Q8H PRN PRN Reason: vertigo Melatonin (Melatonin 3 Mg Tablet) 6 mg PO BEDTIME PRN PRN Reason: Insomnia Mirtazapine (Mirtazapine 15 Mg Tablet) 15 mg PO BEDTIME PRN PRN Reason: Sleep Prednisolone Acetate (Prednisolone Acetate 1 % Oph Susp 5 Ml Drpbtl) 1 drop EYE-BOTH BID [facility] Pregabalin (Pregabalin 200 Mg Capsule) 200 mg PO BID [facility] Last Admin: 06/19/21 09:31 Dose: 200 mg Documented by: CHANELL Ropinirole HCl (Ropinirole Hcl 0.5 Mg Tablet) 0.5 mg PO BEDTIME [facility]ONA Senna (Sennosides 8.6 Mg Tablet) 17.2 mg PO BEDTIME PRN PRN Reason: Constipation Sodium Chloride (0.9 % Sodium Chloride Flush 3 Ml Syringe) 3 ml IVFLUSH QSHIFT [facility] Last Admin: 06/19/21 09:32 Dose: Not Given Documented by: CHANELL Non-Admin Reason: Med Not Available Labs CBC & Chem 7: 06/19/21 06:50 06/19/21 06:50 Labs: Laboratory Results - last 24 hr 06/18/21 06/18/21 06/18/21 15:19 15:19 15:19 MCV 80.6 MCH 24.1 L MCHC 29.9 L RDW 14.5 Plt Count 221 MPV 10.2 Immature Gran % (Auto) 0.4 Neut % (Auto) 65.0 Lymph % (Auto) 25.9 [place] % (Auto) 7.3 Eos % (Auto) 1.2 Baso % (Auto) 0.2 Lymph # (Auto) 2.1 [place] # (Auto) 0.6 Eos # (Auto) 0.1 Baso # (Auto) 0.0 Abs Immat Gran (auto) 0.03 Absolute Neuts (auto) 5.3 Absolute Nucleated RBC 0.000 Nucleated RBC % (auto) 0.0 Anion Gap 12 Estim Creat Clear Calc 68.8 Estimated GFR > 60 POC Glucose Random Glucose 97 Calcium 9.3 Total Bilirubin 0.5 Direct Bilirubin 0.2 AST 25 ALT 21 Alkaline Phosphatase 79 D Total Protein 6.7 Albumin 3.7 Lipase 16 Urine Color Urine Appearance Urine pH Ur Specific [place] Urine Protein Urine Glucose (UA) Urine Ketones Urine Blood Urine Nitrite Ur Leukocyte Esterase Urine RBC Urine WBC Ur Squamous Epith Cells Urine Bacteria COVID-19 (ELIF) Negative COVID-19 Clin Com See Note 06/19/21 06/19/21 06/19/21 05:41 06:50 06:50 MCV 80.4 MCH 24.5 L MCHC 30.5 L RDW 14.5 Plt Count 227 MPV 10.8 Immature Gran % (Auto) 0.2 Neut % (Auto) 50.2 Lymph % (Auto) 39.6 [place] % (Auto) 7.9 Eos % (Auto) 1.8 Baso % (Auto) 0.3 Lymph # (Auto) 2.5 [place] # (Auto) 0.5 Eos # (Auto) 0.1 Baso # (Auto) 0.0 Abs Immat Gran (auto) 0.01 Absolute Neuts (auto) 3.1 Absolute Nucleated RBC 0.000 Nucleated RBC % (auto) 0.0 Anion Gap 9 L Estim Creat Clear Calc 73.2 Estimated GFR > 60 POC Glucose Random Glucose 76 Calcium 8.9 Total Bilirubin Direct Bilirubin AST ALT Alkaline Phosphatase Total Protein Albumin Lipase Urine Color DK YELLOW Urine Appearance HAZY Urine pH 6.5 Ur Specific [place] 1.020 Urine Protein NEG Urine Glucose (UA) NEG Urine Ketones NEG Urine Blood NEG Urine Nitrite NEG Ur Leukocyte Esterase 1+ H Urine RBC 0 Urine WBC 0-2 Ur Squamous Epith Cells TRACE Urine Bacteria TRACE COVID-19 (ELIF) COVID-19 Clin Com 06/19/21 07:16 MCV MCH MCHC RDW Plt Count MPV Immature Gran % (Auto) Neut % (Auto) Lymph % (Auto) Burt % (Auto) Eos % (Auto) Baso % (Auto) Lymph # (Auto) Burt # (Auto) Eos # (Auto) Baso # (Auto) Abs Immat Gran (auto) Absolute Neuts (auto) Absolute Nucleated RBC Nucleated RBC % (auto) Anion Gap Estim Creat Clear Calc Estimated GFR POC Glucose 74 Random Glucose Calcium Total Bilirubin Direct Bilirubin AST ALT Alkaline Phosphatase Total Protein Albumin Lipase Urine Color Urine Appearance Urine pH Ur Specific [place] Urine Protein Urine Glucose (UA) Urine Ketones Urine Blood Urine Nitrite Ur Leukocyte Esterase Urine RBC Urine WBC Ur Squamous Epith Cells Urine Bacteria COVID-19 (ELIF) COVID-19 Clin Com Assessment and Plan (1) Dizziness: Status: Acute Plan This is a 70 yo F with a PMH of DM, CVA, anxiety/dperession, HLD, GERD, DJD, amongst others who presented to the hospital with dizziness of about 1 week duration. She reports her symptoms started after a fall about 1 week ago with some head trauma. She has not seen a physician since this event. 1. Dizziness Difficult to ascertain etiology as the patient is a vague historian. CT head is negative; CTA pending she reports her symptoms have improved but then states she feels miserable Neurology evaluation pending May need an MRI to r/o posterior circulation CVA 2. DM type 2 lantus + sling scale hold orals POC QIDAC 3. HTN start her home meds 4. HLD statin 5. Prior CVA statin / antiplatelet Full Code DVT pptx, subcut heparin Reason for continued hospitalization: on going work up for persistent dizziness including further imaging studies + neurology consultation Quality Stroke Does the patient have a stroke diagnosis?: No VTE Prior VTE?: No VTE Risk Level:: Medical - moderate - high VTE Device Contraindication: Treatment Not Indicated VTE Drug Contraindication: N/A - Med Ordered
--- NOTE | 2021-06-19 10:46 | P.CNNE_ITS ---
History of Present Illness Data of Consult Service Date: 06/19/21 Primary Care Provider: Kina Blackburn MD [facility] Reason for consult: Dizziness and unsteadiness 70 years old woman with underlying history of diabetes I was asked to see for dizziness. She said that she woke up with dizziness yesterday but then also stated that this has happened before. Dizziness was a sense of unsteadiness when she has tried to walk. She denied that it was a sense of motion. At 1 point she fell so unsteady that she fell down. She hit her body and head on the ground and since then was having head and neck pain. She used to have headaches with this was little bit worse. There was no recent cold or flu-like illness or change in bowel bladder pattern. She did not pass out. She denied any tingling or numbness in her feet. 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 Diabetic nephropathy GERD (gastroesophageal reflux disease) History of CVA (cerebrovascular accident) Hypercholesterolemia with endogenous hyperglyceridemia Hypertension Obesity (BMI 30-39.9) Osteopenia Personal history of malignant neoplasm of cervix uteri Restless leg syndrome Restrictive lung disease Type 2 diabetes mellitus with hyperglycemia Family History Family History (Updated 12/10/20 @ 15:11 by LYNETTE Emerson) Father Heart attack Mother Cancer Dementia Breast cancer Hemorrhage Surgical History Surgical History (Updated 03/04/21 @ 11:36 by LYNETTE Farfan) History of bilateral cataract extraction History of carpal tunnel surgery History of colonoscopy with polypectomy History of loop electrical excision procedure (LEEP) History of lumbar fusion History of neck surgery Social History Social History Housing: Other Housing Other:: Trailer Alcohol intake: never Patient Tobacco Use Status: Former Tobacco user Tobacco use type: Cigarette e-Cigarette/Vaping Use: Never Used Second Hand Smoke Exposure: No Use of substances other than those prescribed or required for medical reasons: No Advance Directives: No Advance Directives Information Provided: No service: No Current occupational status: disabled Meds Allergies Allergy/AdvReac Type Severity Reaction Status Date / Time No Known Allergies Allergy Verified 03/04/21 11:35 [No Known Allergies*] Active Medications: Current Medications Acetaminophen (Acetaminophen 325 Mg Tablet) 650 mg PO Q6H PRN PRN Reason: Pain, Mild (Pain Scale 1-3) Atorvastatin Calcium (Atorvastatin Calcium 40 Mg Tablet) 40 mg PO DAILY@2200 [facility] Buspirone HCl (Buspirone Hcl 10 Mg Tablet) 10 mg PO BID [facility] Last Admin: 06/19/21 09:31 Dose: 10 mg Documented by: Clonazepam (Clonazepam 0.5 Mg Tablet) 0.5 mg PO BEDTIME PRN PRN Reason: if 1 mg not effective Clonazepam (Clonazepam 1 Mg Tablet) 1 mg PO BEDTIME PRN PRN Reason: Anxiety Clopidogrel Bisulfate (Clopidogrel Bisulfate 75 Mg Tablet) 75 mg PO DAILY [facility] Last Admin: 06/19/21 09:31 Dose: 75 mg Documented by: Cyanocobalamin (Cyanocobalamin (Vitamin B-12) 1,000 Mcg Tablet) 1,000 mcg PO DAILY [facility] Last Admin: 06/19/21 09:31 Dose: 1,000 mcg Documented by: Duloxetine HCl (Duloxetine Hcl 30 Mg Capsule.) 30 mg PO BEDTIME [facility] Duloxetine HCl (Duloxetine Hcl 60 Mg Capsule.) 60 mg PO DAILY [facility] Last Admin: 06/19/21 09:31 Dose: 60 mg Documented by: Fluticasone Propionate (Fluticasone Propionate Nasal 16 Gm [place]) 2 spray NOSTRIL-B DAILY PRN PRN Reason: Allergy Symptoms Heparin Sodium (Porcine) (Heparin Sodium,Porcine 5,000 Unit/Ml Vial) 5,000 unit SUBCUT Q12H [facility] Last Admin: 06/18/21 23:55 Dose: Not Given Documented by: Insulin Glargine (Insulin Glargine,Hum.Rec.Anlog 100 Unit/Ml 10 Ml Vial) 20 unit SUBCUT BEDTIME [facility] Insulin Human Lispro (Insulin Lispro 100 Unit/Ml 3 Ml Vial) 0 unit SUBCUT QIDACHS [facility]; Protocol Lisinopril (Lisinopril 10 Mg Tablet) 10 mg PO DAILY [facility]; Protocol Meclizine HCl (Meclizine Hcl 25 Mg Tablet) 25 mg PO Q8H PRN PRN Reason: vertigo Melatonin (Melatonin 3 Mg Tablet) 6 mg PO BEDTIME PRN PRN Reason: Insomnia Mirtazapine (Mirtazapine 15 Mg Tablet) 15 mg PO BEDTIME PRN PRN Reason: Sleep Prednisolone Acetate (Prednisolone Acetate 1 % Oph Susp 5 Ml Drpbtl) 1 drop EYE-BOTH BID [facility] Pregabalin (Pregabalin 200 Mg Capsule) 200 mg PO BID [facility] Last Admin: 06/19/21 09:31 Dose: 200 mg Documented by: Ropinirole HCl (Ropinirole Hcl 0.5 Mg Tablet) 0.5 mg PO BEDTIME [facility] Senna (Sennosides 8.6 Mg Tablet) 17.2 mg PO BEDTIME PRN PRN Reason: Constipation Sodium Chloride (0.9 % Sodium Chloride Flush 3 Ml Syringe) 3 ml IVFLUSH QSHIFT [facility] Last Admin: 06/19/21 09:32 Dose: Not Given Documented by: Home Medications Medication Instructions Recorded Confirmed Last Taken Type clonazepam 0.5 mg tablet 0.5 mg PO BEDTIME PRN 12/12/19 06/18/21 Unknown History buspirone 10 mg tablet 1 tab PO BID 06/18/21 06/18/21 06/18/21 History clonazepam 1 mg tablet 1 mg PO BEDTIME PRN 06/18/21 06/18/21 Unknown History dulaglutide 0.75 mg/0.5 mL 0.75 mg SUBCUT WE 06/18/21 06/18/21 06/12/21 History subcutaneous pen injector (Trulicity) duloxetine 30 mg capsule,delayed 1 cap PO BEDTIME 06/18/21 06/18/21 06/17/21 History release duloxetine 60 mg capsule,delayed 1 cap PO DAILY 06/18/21 06/18/21 06/18/21 History release fluticasone propionate 50 2 spray INTRANASAL DAILY PRN 06/18/21 06/18/21 Unknown History mcg/actuation nasal spray,suspension (Flonase Allergy Relief) insulin glargine 100 unit/mL (3 60 unit SUBCUT BEDTIME 06/18/21 06/18/21 06/17/21 History mL) subcutaneous pen (Lantus Solostar U-100 Insulin) metformin 1,000 mg tablet 1,000 mg PO BIDWM 06/18/21 06/18/21 06/18/21 History mirtazapine 15 mg tablet 1 tab PO BEDTIME PRN 06/18/21 06/18/21 Unknown History prednisolone acetate 1 % eye 1 drp OPHTHALMIC (EYE) BID 06/18/21 06/18/21 06/18/21 History drops,suspension Physical Exam Vital Signs: Vital Signs: Last Vital Signs Temp 97.9 F 06/19/21 07:13 Pulse 75 06/19/21 07:13 Resp 12 06/19/21 07:13 BP 173/80 H 06/19/21 07:13 Pulse Ox 94 06/19/21 07:13 BMI result Body Mass Index 32.0 Neuro: Other: alert and awake with normal spontaneity of speech fluency comprehension and affect. Pupils are equal and reactive to light and extraocular muscles are intact. Visual [place] are full. Face is symmetrical. Tongue was midline. There is no nystagmus. Visual [place] are full. Drslmi-[id number] testing is normal. Deep tendon reflexes are absent with flexor plantars. She is able to walk in a cautious gait holding hands. Speech is normal. There is no sign of tremor. Results Labs CBC & Chem 7: 06/19/21 06:50 06/19/21 06:50 Labs: Short CBC 06/18/21 06/19/21 Range/Units 15:19 06:50 WBC 8.1 6.2 (4.8-10.8) X10*3/uL Hgb 11.8 L 11.0 L (12.0-16.0) g/dl Hct 39.4 36.1 L (37.0-47.0) % Plt Count 221 227 (160-400) X10*3/uL BMP 06/18/21 06/19/21 15:19 06:50 Sodium 141 142 Potassium 4.4 3.9 Chloride 104 108 Carbon Dioxide 29 29 BUN 14 14 Creatinine 0.83 0.78 Calcium 9.3 8.9 Liver Function 06/18/21 Range/Units 15:19 Total Bilirubin 0.5 (0.0-1.0) mg/dL Direct Bilirubin 0.2 (0.0-0.5) mg/dL AST 25 (5-31) U/L ALT 21 (0-31) U/L Alkaline Phosphatase 79 D (39-117) U/L Albumin 3.7 (3.5-5.0) g/dL Urine 06/19/21 Range/Units 05:41 Urine Color DK YELLOW Urine Appearance HAZY Urine pH 6.5 (5.0-8.0) Ur Specific [place] 1.020 (1.005-1.025) Urine Protein NEG (NEG-TRACE) MG/DL Urine Glucose (UA) NEG (NEG) MG/DL noncontrast head CT revealed mild diffuse cerebral and cerebellar atrophy. CTA of brain and neck revealed mild atherosclerotic changes and intracranial vasculature but no distinct focal lesion in carotids or vertebral basilar system. Assessment and Plan (1) Multifactorial gait disorder: Status: Acute 70 years old woman who probably has combination of reasons to be dizzy or unsteady. He reported that this dizziness was rather unsteadiness when she would try to walk or stand up. Her examination reveals signs of peripheral neuropathy. There was diffuse cerebral and cerebellar atrophy, and some arthritis. I recommend an EMG nerve conduction study, which could be arranged as an outpatient to rule out any acute nature of neuropathy. Otherwise mainstay of management is involvement of PT OT and advising her to use a walker for amb ulation to avoid falls. Headache and neck pain was likely because of the recent fall. Fall was likely triggered by multiple factors making her unsteady. Clinical features were not suggestive of an acute lesion such as stroke. Procedures Date of Service Date of Service: 06/19/21
[2021-06-19] MEDS: prednisoLONE Acetate 1 % Oph Susp 5 ML DRPBTL 1 DROP EYE-BOTH ×2 (11:07→22:18)
--- NOTE | 2021-06-19 12:22 | MHC.CM.PN ---
Copy of HCP obtained from [facility]. Physical therapy eval is ordered and pending. Continue to monitor for d/c needs.
[2021-06-19] MEDS: Acetaminophen 325 MG TABLET 650 MG PO (13:10)
[2021-06-19] MEDS: lisinopriL 10 MG TABLET PO (13:10)
[2021-06-19] MEDS: Heparin Sodium,Porcine 5,000 UNIT/ML VIAL 5000 UNIT SUBCUT (13:11)
--- NOTE | 2021-06-19 13:14 | PC.NURSE ---
pt a&ox3, vss, NSR on monitor. pt c/o 10/10 pain in her buttocks and right arm. pt given pillow to reposition right arm. medicated per provider order - PRN tylenol given for pain. 20G IV left wrist - flushed and patent. no new orders at this time.
[2021-06-19] MEDS: 0.9 % Sodium Chloride Flush 3 ML SYRINGE IVFLUSH (15:34)
--- NOTE | 2021-06-19 15:35 | PC.NURSE ---
pt sleeping, IV flushed and patent.
--- NOTE | 2021-06-19 17:11 | PC.NURSE ---
pt requesting daughter nancy and lynsey be removed from contacts and to add daughter alejandrina menendez- [phone], this nurse called patient registration and spoke with benji who made the changes per patient request
--- NOTE | 2021-06-19 17:23 | PC.NURSE ---
called floor to give report- sent tiger text to nurse, expecing a call back
--- NOTE | 2021-06-19 17:32 | PC.NURSE ---
report called to floor
[2021-06-19 17:45] LABS: Glucose, Whole Blood 139 mg/dL (60-115)
[2021-06-19 17:45] LABS: Glucose, Whole Blood 101 mg/dL (60-115)
[2021-06-19 19:18] LABS: Glucose, Whole Blood 205 mg/dL (60-115)
[2021-06-19] MEDS: lisinopriL 5 MG TABLET PO (20:35)
[2021-06-19] MEDS: Insulin Glargine,Hum.rec.anlog 100 UNIT/ML 10 ML VIAL 20 UNIT SUBCUT (20:40)
[2021-06-19] MEDS: DULoxetine HCl 30 MG CAPSULE.DR PO (22:14)
[2021-06-19] MEDS: Atorvastatin Calcium 40 MG TABLET PO (22:14)
[2021-06-19] MEDS: Melatonin 3 MG TABLET 6 MG PO (22:15)
[2021-06-19] MEDS: Mirtazapine 15 MG TABLET PO (22:15)
[2021-06-19] MEDS: rOPINIRole HCL 0.5 MG TABLET PO (22:15)
[2021-06-19] MEDS: clonazePAM 1 MG TABLET PO (22:15)
[2021-06-20] MEDS: Heparin Sodium,Porcine 5,000 UNIT/ML VIAL 5000 UNIT SUBCUT ×2 (01:50→11:58)
[2021-06-20] MEDS: 0.9 % Sodium Chloride Flush 3 ML SYRINGE IVFLUSH ×2 (01:50→08:54)
[2021-06-20 03:23] VITALS: BP 142/58; PULSE 66; RESP 18; TEMP 36.1; O2SAT 92
[2021-06-20 07:21] LABS: Glucose, Whole Blood 98 mg/dL (60-115)
[2021-06-20 07:42] VITALS: BP 132/68; PULSE 76; RESP 18; TEMP 36.4; O2SAT 93
[2021-06-20] MEDS: Clopidogrel Bisulfate 75 MG TABLET PO (08:53)
[2021-06-20] MEDS: Cyanocobalamin (Vitamin B-12) 1,000 MCG TABLET 1000 MCG PO (08:53)
[2021-06-20] MEDS: Pregabalin 200 MG CAPSULE PO (08:53)
[2021-06-20] MEDS: DULoxetine HCl 60 MG CAPSULE.DR PO (08:53)
[2021-06-20] MEDS: lisinopriL 10 MG TABLET PO (08:53)
[2021-06-20] MEDS: busPIRone HCl 10 MG TABLET PO (08:54)
[2021-06-20] MEDS: prednisoLONE Acetate 1 % Oph Susp 5 ML DRPBTL 1 DROP EYE-BOTH (08:54)
[2021-06-20 10:58] LABS: Glucose, Whole Blood 177 mg/dL (60-115)
[2021-06-20 11:02] VITALS: BP 103/57; PULSE 65; RESP 17; TEMP 36.2; O2SAT 95
--- NOTE | 2021-06-20 11:40 | PM.DS ---
DS: Providers Provider Date of Service: 06/20/21 Date of admission: 06/18/21 19:50 Date of discharge: 06/20/21 Primary care physician: Kina Blackburn MD Consults: 06/18/21 19:50 Consult to Neurology Routine Consulting Provider: Neurology Nadine holbrook [facility] Reason for consultation: dizziness 06/18/21 23:33 Consult to Neurology Routine Consulting Provider: Neurology Nadine [facility] Reason for consultation: dizziness Attending physician on discharge: Isaak Caldwell Discharging clinician: Daily Li DS: Diagnosis Discharge Diagnosis (1) Multifactorial gait disorder: Status: Acute (2) Dizziness: Status: Acute DS: Summary Hospital Course Hospital Course: From H&P on day of admission 70-year-old female with a past medical history of hypertension, hyperlipidemia, diabetes, diabetic neuropathy, degenerative spine disease, carotid stenosis, anxiety, depression, restless leg syndrome, restrictive lung disease, obesity, osteoporosis, history of CVA, GERD presented to the hospital today with a chief complaint of dizziness.? Patient reports that for the past 1 week she has been having intermittent episodes of dizziness worsens on changing position, movement; feels like room spinning and lightheaded; denies any chest pain or palpitations.? Reports he had a fall about 1 week ago, had a head strike; denies any loss of consciousness.? Denies any neck pain back pain or hip pain.? Denies any chest pain or palpitations.? Review of all other systems is negative except mentioned above ER course: Per ER team patient exam was nonfocal; CT head showed no acute findings; pelvis x-ray showed no acute fracture; given a trial of meclizine and Valium and patient still was symptomatic; admitted to the hospital for further management. Dizziness: Brain CT showed no acute intracranial pathology. CTA showed primarily carotid disease bilaterally. There is concern about possible hematoma. She was seen in consultation by Neurology who felt her symptoms were likely multifactorial but did not represent any acute stroke. abnormal findings on CTA were likely due to previous surgery and not acute and would not explain her symptoms in any event. Neurology recommended outpatient EMG studies to evaluate for peripheral neuropathy. She was continued on her home statin and plavix. She was evaluated by Physical therapy who initially recommended short-term rehab. On the day of discharge the patient's symptoms of dizziness have completely resolved. She was re-evaluated by Physical therapy who recommended home with physical therapy. She is currently able to ambulate independently with the use of a walker and is eager to return home. Given the extent of intracranial carotid disease neurology has recommended maintaining high to normal blood pressure and to avoid hypotension. Recommend outpatient follow-up with PCP for close blood pressure monitoring. Status at Discharge Functional status at discharge: uses cane/walker Time Spent with Patient Time attestation: Total time spent providing and/or coordinating discharge services: Discharge coordination time: Greater than 30 minutes Quality: Safe Use of Opioids Does Pt have an Active Cancer Diagnosis on the Problem List?: No Quality: Stroke Does the patient have a stroke diagnosis?: No Physical Exam Vital Signs: Vital Signs: Last Vital Signs Temp 97.1 F 06/20/21 11:02 Pulse 65 06/20/21 11:02 Resp 17 06/20/21 11:02 BP 103/57 L 06/20/21 11:02 Pulse Ox 95 06/20/21 11:02 BMI result Body Mass Index 32.0 Const: General: cooperative, comfortable, alert and awake Nutritional Appearance: overweight Orientation/consciousness: patient oriented x3 Resp: Effort & Inspection: normal respiratory effort and able to speak in complete sentences Cardio: Rate: regular rate GI: Palpation (GI): Soft to palpation and nontender Neuro: General: patient oriented x3 Extrem: General: Yes no pedal edema DS: Data Data Completed and Pending Labs on day of discharge: Laboratory Results - last 24 hr 06/19/21 06/19/21 06/19/21 12:33 16:58 19:13 POC Glucose 101 139 H 205 H 06/20/21 06/20/21 07:18 10:54 POC Glucose 98 177 H Discharge Plan Discharge Patient Disposition: Home Health Service Discharge Diagnosis: Dizziness possible peripheral neuropathy Referrals: [facility] [Outside] - 1 Week Po,Kina Lemons MD [Primary Care Provider] - 1 Week Discharge Medications: Continued cyanocobalamin (vitamin B-12) 1,000 mcg capsule 1,000 mcg PO DAILY Qty: 30 3RF clopidogrel 75 mg tablet 75 mg PO DAILY Qty: 90 2RF lisinopril 10 mg tablet 10 mg PO DAILY Qty: 90 3RF omega-3 acid ethyl esters 1 gram capsule 2 cap PO BID Qty: 360 3RF ropinirole 0.5 mg tablet 0.5 mg PO BEDTIME Qty: 90 2RF atorvastatin 40 mg tablet 40 mg PO DAILY Qty: 90 2RF pregabalin [Lyrica] 200 mg capsule 200 mg PO BID 90 Days Qty: 180 1RF Rx Instructions: take with 50 mg = 250 mg BID pregabalin 50 mg capsule 50 mg PO BID PRN (Reason: pain) 90 Days Qty: 180 1RF Rx Instructions: take with 200 mg = 250 mg BID clonazepam 1 mg tablet 1 mg PO BEDTIME PRN (Reason: Anxiety) 0RF prednisolone acetate 1 % drops,suspension 1 drp ophthalmic (eye) BID 0RF buspirone 10 mg tablet 1 tab PO BID 0RF mirtazapine 15 mg tablet 1 tab PO BEDTIME PRN (Reason: Sleep) 0RF duloxetine 30 mg capsule,delayed release(DR/EC) 1 cap PO BEDTIME 0RF duloxetine 60 mg capsule,delayed release(DR/EC) 1 cap PO DAILY 0RF metformin 1,000 mg tablet 1,000 mg PO BIDWM 0RF fluticasone propionate [Flonase Allergy Relief] 50 mcg/actuation spray,suspension 2 spray intranasal DAILY PRN (Reason: Allergy Symptoms) 0RF Rx Instructions: administer into each nostril Lantus Solostar U-100 Insulin 100 unit/mL (3 mL) insulin pen 60 unit subcut BEDTIME 0RF Trulicity 0.75 mg/0.5 mL pen injector 0.75 mg subcut WE 0RF clonazepam 0.5 mg tablet 0.5 mg PO BEDTIME PRN (Reason: if 1 mg not effective) 0RF No Action (DME) GRAB bar See Rx Instructions .Route .MEDSUPPLY Qty: 1 0RF Rx Instructions: As directed (DME) pen needle, diabetic [BD Ultra-Fine Mini Pen Needle] 31 gauge x 3/16 needle See Rx Instructions .ROUTE .MEDSUPPLY Qty: 100 3RF Rx Instructions: As directed inject 60 units of Lantus q.p.m. Discharge Orders: Discharge Order (Routine); Ordered 06/20/21 Ordered By: Daily Li Diet: advance to usual diet Activity on Discharge: As tolerated Stand Alone Forms: Patient Portal Discharge page Care Plan Goals: see below Health Concerns: dizziness possible peripheral neuropathy Plan of Treatment: call to schedule outpatient neurology follow up for EMG study to evaluate for peripheral neuropathy call to schedule post- hospitalization discharge follow up with PCP you will be discharged home with home PT Assessment: see discharge summary
[2021-06-20] MEDS: Insulin Lispro 100 UNIT/ML 3 ML VIAL SUBCUT (11:58)
--- NOTE | 2021-06-20 12:59 | W.MHC.F2F ---
Service Date Service Date: 06/20/21 Encounter Date of encounter: 06/20/21 Reasons for Services Signs and symptoms assessed: falls, unsteady gait Reason for physical therapy: home safety and mobility, therapeutic exercises and gait/transfer training MD Overseeing Care: Kina Blackburn Homebound: Leaving the home is medically contraindicated at this time without the asist of a device and/or another person due th the listed conditions above and below. Reason homebound: unsteady gait / fall risk and poor balance / fall risk Certification: Based on the above findings, I certify that this patient is confined to the home and needs intermittent senior living care, physical therapy and/or speech therapy, or continues to need occupational therapy. The patient is under my care, and I have initiated the establishment of the plan of care. The patient will be followed by a physician who will periodically review the plan of care.
[2021-06-20 15:03] VITALS: BP 163/77; PULSE 69; RESP 20; TEMP 36.1; O2SAT 91
[2021-06-20 15:53] LABS: Glucose, Whole Blood 121 mg/dL (60-115)
--- NOTE | 2021-06-20 15:55 | MHC.CM.PN ---
Patient has been medically cleared for dc to home today, with services. [facility], who [facility] been made aware of today's dc.
== END 2021-06-20 17:15 | disposition home health service (06) ==
LOC: HO.ED 15:27 → HO.EDOVER 20:04 → HO.IMC 06-19 16:59
PROVIDERS: Family Medicine; Admitting Provider Hospitalist; Emergency Provider Student in an Organized Health Care Education/Training Program; PCP Internal Medicine; Visit Provider Physician Assistant Medical
DX: R42 Dizziness and giddiness (principal); R26.89 Other abnormalities of gait and mobility; R51.9 Headache, unspecified; E11.65 Type 2 diabetes mellitus with hyperglycemia; E11.21 Type 2 diabetes mellitus with diabetic nephropathy; I10 Essential (primary) hypertension; E78.2 Mixed hyperlipidemia; G25.81 Restless legs syndrome; J98.4 Other disorders of lung; F41.8 Other specified anxiety disorders; Z87.891 Personal history of nicotine dependence; Z20.822 Contact with and (suspected) exposure to COVID-19; Z91.81 History of falling; Z86.73 Personal history of transient ischemic attack (TIA), and cerebral infarction without residual deficits; Z73.6 Limitation of activities due to disability; Z79.4 Long term (current) use of insulin; Z79.899 Other long term (current) drug therapy
CPT/HCPCS: 36415; 70450; 70496; 70498; 71046; 72170; 80048; 80076; 81001; 82947; 83690; 85025; 87086; 87635; 93005; 96361; 96372; 96374; 96375; 97116; 97162; 99219; 99285; 99291; J2270; J3360; Q9967

== ENCOUNTER 2021-11-22 15:10 | Outpatient (REF) | payer OTHER, SELFPAY ==
[2021-11-22 15:35] LABS: MANUAL DIFF FLAG NO
[2021-11-22 17:12] LABS: Basophils Percent Auto 0.4 % (0-2); Eosinophils Absolute Auto 0.1 X10*3/uL (0.0-0.4); Eosinophils Percent Auto 1.8 % (0-4); Hematocrit 40.1 % (37.0-47.0); Hemoglobin 12.1 g/dl (12.0-16.0); Imm Gran Abs Auto 0.03 X10*3/uL (0.00-0.03); Imm Gran Pct Auto 0.4 % (0.0-0.4); Lymphocytes Absolute Auto 2.2 X10*3/uL (1.2-4.9); Lymphocytes Percent Auto 30.9 % (20-40); Mean Corpuscular HGB Conc 30.2 g/dl (31.0-35.0); Mean Corpuscular Hemoglobin 24.7 pg (27.0-33.0); Monocytes Absolute Auto 0.6 X10*3/uL (0.1-1.2); Monocytes Percent Auto 9.1 % (2-11); Neutrophils Absolute Auto 4.1 x10*3/uL (2.0-8.3); Neutrophils Percent Auto 57.4 % (45-73); Platelet Count 253 X10*3/uL (160-400); Red Blood Count 4.89 X10*6/uL (4.20-5.50); Red Cell Distribution Width 14.7 % (11.0-16.0); White Blood Count 7.1 X10*3/uL (4.8-10.8)
[2021-11-22 17:20] LABS: Estimated Average Glucose 137 mg/dL; Hemoglobin A1C 149.9952 umol/L; Hemoglobin A1c % 6.4 %
[2021-11-22 17:29] LABS: Creatinine Urine 230.16 mg/dL; Microalbum/Creatinine Ratio Ur 17.3 ug/mg cr
[2021-11-22 17:35] LABS: Alanine Aminotransferase 12 U/L (0-31); Albumin Level 4.1 g/dL (3.5-5.0); Alkaline Phosphatase 69 U/L (39-117); Anion Gap 16 (12-20); Aspartate Amino Transferase 12 U/L (5-31); Bilirubin Total 0.3 mg/dL (0.0-1.0); Blood Urea Nitrogen 17 mg/dL (9-16); Calcium 9.7 mg/dL (8.4-10.2); Carbon Dioxide 26 mmol/L (22-29); Chloride 104 mmol/L (96-108); Cholesterol 109 mg/dL; Estimated Glomerular Filt Rate > 60; Glucose Random 99 mg/dL (60-115); HDL Cholesterol 37 mg/dL; LDL Cholesterol Calculated 54 mg/dl; Potassium 4.7 mmol/L (3.3-5.1); Sodium 141 mmol/L (135-145); Total Protein 6.9 g/dL (6.5-8.0); Triglycerides 92 mg/dL
[2021-11-22 17:57] LABS: Thyroid Stimulating Hormone 2.15 uIU/mL (0.32-4.0); Vitamin D 25-OH Total 40.5 ng/mL (>30)
[2021-11-22 18:02] LABS: Folate 16.7 ng/mL (> or = 4.0); Vitamin B12 200 pg/mL (200-900)
== END 2021-11-22 15:11 | disposition home or self-care (01) ==
LOC: HO.LAB 15:10
PROVIDERS: PCP Internal Medicine; Visit Provider Internal Medicine
DX: E11.65 Type 2 diabetes mellitus with hyperglycemia (principal); E78.00 Pure hypercholesterolemia, unspecified; Z79.4 Long term (current) use of insulin
CPT/HCPCS: 36415; 80053; 80061; 82043; 82306; 82607; 82746; 83036; 84443; 85025

== ENCOUNTER 2022-01-04 14:47 | Emergency (ER) | payer OTHER, SELFPAY ==
--- NOTE | ~2022-01-04 | CT_ITS ---
EXAMINATION: CT CHEST WITH CONTRAST CLINICAL INFORMATION: Trauma. Hypoxia. Right-sided pain. COMPARISON: Most recent chest radiograph dated 06/18/2021 and CTA of the chest dated 11/08/2019. TECHNIQUE: Multidetector volumetric CT imaging of the chest was obtained after the administration of 85 mL of Omnipaque 350 intravenous contrast without immediate adverse reactions. Axial MIP volume rendering provided. Sagittal and coronal reformatted images were obtained. This CT examination was performed using dose optimization techniques as appropriate, variously including the following: *Automated exposure control *Adjustment of mA and/or kV according to patient size (this includes techniques or standardized protocols for targeted exams where dose is matched to indication/reason for exam; i.e. extremities or head) *Use of iterative reconstruction technique DLP: 1192 mGy-cm FINDINGS: AIR DUCT MECHANIC: Unremarkable. LUNGS: Bibasilar dependent atelectatic changes. No focal airspace consolidation. No pulmonary nodule or mass. The central airways are patent. MEDIASTINUM: No cardiomegaly. No pericardial effusion. No significant mediastinal or hilar lymphadenopathy. No septal bowing. No thoracic aortic dilatation or dissection. CORONARY ARTERY CALCIFICATION: Present. PLEURA: No pleural effusion or pneumothorax. AXILLA: No lymphadenopathy. UPPER ABDOMEN: Unremarkable OSSEOUS STRUCTURES: No acute fracture or dislocation. CT/CT chest w IV con IMPRESSION: 1. Bibasilar dependent atelectatic changes. No focal airspace consolidation. 2. No pulmonary nodule, mass, or airspace consolidation. 3. No significant lymphadenopathy. Fleischner guidelines were followed.
--- NOTE | ~2022-01-04 | XR_ITS ---
EXAMINATION: XR WRIST, RIGHT CLINICAL INFORMATION: Fall COMPARISON: None TECHNIQUE: PA, lateral, and oblique views of the right wrist. FINDINGS: The bones and soft tissues are normal. No fracture. Alignment is anatomic with normal joint spaces. Soft tissue calcification distal to the ulna possibly chondrocalcinosis. No erosions or abnormal soft tissue calcifications. XR/XR wrist RT min 3V IMPRESSION: 1. No radiographic evidence of acute fracture. Intra-articular Soft tissue calcification distal to the ulna possibly chondrocalcinosis. Cannot rule out CPPD. Please correlate with laboratory data.
--- NOTE | ~2022-01-04 | CT_ITS ---
EXAMINATION: CT HEAD WITHOUT CONTRAST CT CERVICAL SPINE WITHOUT CONTRAST CLINICAL INFORMATION: Pain following fall. Head and neck pain. COMPARISON: Most recent CT of the head dated 06/18/2021. TECHNIQUE: Contiguous axial imaging was performed from the skull base to vertex without intravenous administration of contrast. Contiguous axial CT images of the cervical spine were obtained without contrast. Sagittal and coronal reformats were provided and reviewed. This CT examination was performed using dose optimization techniques as appropriate, variously including the following: *Automated exposure control *Adjustment of mA and/or kV according to patient size (this includes techniques or standardized protocols for targeted exams where dose is matched to indication/reason for exam; i.e. extremities or head) *Use of iterative reconstruction technique DLP: 1116 mGy-cm FINDINGS: HEAD: There is no evidence of acute intracranial hemorrhage or territorial infarction. No abnormal mass effect or midline shift is seen. Chopra to white matter differentiation is well preserved. No extra-axial fluid collections are identified. Minimal prominence of the ventricles and sulci, unchanged. There is no abnormal attenuation within the brain parenchyma. The osseous structures and soft tissues are normal. The mastoid air cells and visualized portions of the paranasal sinuses are well aerated. CERVICAL SPINE: Posterior laminectomies at C3-C7. Associated posterior stabilization hardware. No hardware fracture. No perihardware lucency to suggest loosening or infection. No acute fracture or subluxation. No loss of vertebral body height. Multilevel loss of intervertebral disc height with endplate degenerative changes at C4-C7. No concerning lytic or blastic osseous lesion. Multilevel bilateral facet arthropathy and partial osseous bridging associated with the hardware. No lytic or blastic osseous lesion. Unremarkable prevertebral soft tissues. No abnormal soft tissue mass or fluid collection. Thyroid within normal limits. Visualized lung apices are clear. No significant central canal or neural foraminal stenosis. CT/CT cervical spine wo IV con IMPRESSION: HEAD: No acute intracranial hemorrhage or mass effect. CERVICAL SPINE: No acute fracture or subluxation. Posterior laminectomies and stabilization hardware without evidence of hardware complication. Multilevel degenerative disc disease and bilateral facet arthropathy without significant central canal or neural foraminal stenosis.
--- NOTE | ~2022-01-04 | CT_ITS ---
EXAMINATION: CT abdomen pelvis w IV con CLINICAL INFORMATION: Reason for Exam right flank pain s/p fall, tender abd COMPARISON: No prior CT available for comparison. TECHNIQUE: Multidetector volumetric imaging was performed from the superior aspect of the liver through the pubic symphysis 85 mL Omnipaque 350 injected Sagittal and coronal reformatted images were obtained on the technologist's workstation. This CT examination was performed using dose optimization techniques as appropriate, variously including the following: *Automated exposure control *Adjustment of mA and/or kV according to patient size (this includes techniques or standardized protocols for targeted exams where dose is matched to indication/reason for exam; i.e. extremities or head) *Use of iterative reconstruction technique DLP: 769 mGy-cm FINDINGS: LOWER THORAX: Mild atelectasis at lung bases. HEPATOBILIARY: No focal hepatic lesions. No biliary ductal dilatation. GALLBLADDER: Gallbladder unremarkable. SPLEEN: Spleen is normal in size. PANCREAS: Small atrophic pancreas. STOMACH AND GASTROINTESTINAL TRACT: Stomach is grossly unremarkable. Excess amount of stool in the colon especially cecum suggests constipation. No CT evidence of appendicitis. ADRENALS: No adrenal nodules. KIDNEYS/URETERS: No hydronephrosis, stones or solid mass lesions. URINARY BLADDER: Partially decompressed. PELVIC VISCERA: Unremarkable PERITONEUM: No free air or fluid. LYMPH NODES: No lymphadenopathy. VASCULAR:There are vascular, this commonly no aneurysm. BONES, ABDOMINAL WALL AND SOFT TISSUES: Degenerative osteoarthritic changes of hip joints, symphysis pubis, SI joints and lumbar spine, no fractures, no destructive bone lesion, hardware posterior fusion of L4 on L5 are intact. CT/CT abdomen pelvis w IV con IMPRESSION: 1. No solid organ injury. No CT evidence of acute intra-abdominal process to explain patient's pain symptoms. 2. Excess amount of stool in the colon especially cecum suggests constipation. 3. Atrophic pancreas. 4. Mild atelectasis at lung bases.
--- NOTE | 2022-01-04 15:26 | ED_ITS ---
HPI - Fall General Chief Complaint: Fall <CARLY De Dios Last Filed: 01/04/22 17:44> Stated Complaint: mechanical fall <CARLY De Dios Last Filed: 01/04/22 17:44> Time Seen by Provider: 01/04/22 15:14 <CARLY De Dios Last Filed: 01/04/22 17:44> Source: patient, EMS and old records reviewed <CARLY De Dios Last Filed: 01/04/22 17:44> Mode of arrival: EMS <CARLY De Dios Last Filed: 01/04/22 17:44> Limitations: no limitations <CARLY De Dios Last Filed: 01/04/22 17:44> History of Present Illness HPI Narrative: 71-year-old female with history of anxiety, depression, diabetes with polyneuropathy, HTN, HLD, unsteady gait, GERD, chronic low back pain who presents to the ER from home via EMS for evaluation of injuries sustained after a fall today At home. She states she was putting things away in the re frigerator when she suddenly lost balance and fell onto her right side. She hit her neck on a case of water bottles that were on the floor. She tried to use her right hand to stop her fall. Her [employer] NIT[employer] NEUTRALIZER heard her fall and came to the kitchen. EMS was called. On EMS arrival patient was found to be saturating 90% on room air with decreased breath sounds at the right base. She was placed on supplemental oxygen. She was noted to have a deformity of her right wrist and was placed in a immobilization. patient reports low back pain, right wrist pain and neck pain. She does have history of surgeries on her neck in the past. She is on Plavix but no other anticoagulation. She denies a headache at this time. <CARLY De Dios Last Filed: 01/04/22 17:44> complaint: fall <CARLY De Dios Last Filed: 01/04/22 17:44> Onset (ago): minute(s) <CARLY De Dios Last Filed: 01/04/22 17:44> Fall from: standing <CARLY De Dios Last Filed: 01/04/22 17:44> Fall witnessed: no <CARLY De Dios - Last Filed: 01/04/22 17:44> Place fall occurred: home <CARLY De Dios - Last Filed: 01/04/22 17:44> Loss of consciousness: none <CARLY De Dios - Last Filed: 01/04/22 17:44> Prolonged down time: no <CARLY De Dios - Last Filed: 01/04/22 17:44> Symptoms prior to fall: none <CARLY De Dios - Last Filed: 01/04/22 17:44> Context: history of frequent falls <CARLY De Dios - Last Filed: 01/04/22 17:44> Location of injury: neck and back <CARLY De Dios - Last Filed: 01/04/22 17:44> Location of injury - extremities: right: hand <CARLY De Dios - Last Filed: 01/04/22 17:44> Severity: moderate <CALRY De Dios - Last Filed: 01/04/22 17:44> Severity scale (1-10): 6 <CARLY De Dios - Last Filed: 01/04/22 17:44> Quality: aching <CARLY De Dios - Last Filed: 01/04/22 17:44> Associated symptoms (after fall): neck pain <CARLY De Dios - Last Filed: 01/04/22 17:44> Related Data Home Medications: Home Medications Medication Instructions Recorded Confirmed buspirone 10 mg tablet 1 tab PO BID 06/18/21 08/16/21 clonazepam 1 mg tablet 1 mg PO BEDTIME PRN Anxiety 06/18/21 08/16/21 insulin glargine 100 unit/mL (3 60 unit subcut BEDTIME 06/18/21 08/16/21 mL) subcutaneous pen (Lantus Solostar U-100 Insulin) mirtazapine 15 mg tablet 1 tab PO BEDTIME PRN Sleep 06/18/21 08/16/21 prednisolone acetate 1 % eye 1 drp ophthalmic (eye) BID 06/18/21 08/16/21 drops,suspension blood sugar diagnostic (OneTouch #10 ea 08/16/21 08/16/21 Ultra Test strips) Previous Rx's Medication Instructions Recorded GRAB bar #1 ea 02/16/20 cyanocobalamin (vitamin B-12) 1,000 mcg PO DAILY #30 caps 04/11/20 1,000 mcg capsule pen needle, diabetic 31 gauge x #100 ea 05/21/21/ (BD Ultra-Fine Mini Pen Needle) atorvastatin 40 mg tablet 40 mg PO DAILY #90 tabs 06/12/21 pregabalin 200 mg capsule (Lyrica) 200 mg PO BID 90 days #180 caps 07/05/21 pregabalin 50 mg capsule 50 mg PO BID PRN pain 90 days #180 07/05/21 caps dulaglutide 0.75 mg/0.5 mL 0.75 mg (0.5 mL) subcut WE #2 mL 07/11/21 subcutaneous pen injector (Trulicity) duloxetine 30 mg capsule,delayed 30 mg PO BEDTIME 90 days #90 caps 07/23/21 release duloxetine 60 mg capsule,delayed 60 mg PO DAILY 90 days #90 caps 07/23/21 release clopidogrel 75 mg tablet 75 mg PO DAILY #90 tabs 08/16/21 lisinopril 10 mg tablet 10 mg PO DAILY #90 tabs 09/09/21 ropinirole 0.5 mg tablet 0.5 mg PO BEDTIME #90 tabs 09/09/21 metformin 1,000 mg tablet 1,000 mg PO BIDWM #180 tabs 12/06/21 fluticasone propionate 50 2 spray intranasal DAILY PRN 12/30/21 mcg/actuation nasal Allergy Symptoms 30 days #16 grams spray,suspension (Flonase Allergy Relief) lidocaine 5 % topical patch 1 patch topical DAILY PRN pain #15 01/04/22 ea <CARLY De Dios - Last Filed: 01/04/22 17:44> Allergies/Adverse Reactions: Allergies Allergy/AdvReac Type Severity Reaction Status Date / Time No Known Allergies Allergy Verified 08/16/21 15:17 [No Known Allergies*] <CARLY De Dios - Last Filed: 01/04/22 17:44> Review of Systems Review of Systems: Constitutional: No Fever, No Chills ENT/Mouth: No sore throat, No Rhinorrhea, No Swallowing Difficulty Eyes: No Eye Pain, No Swelling, No Redness Cardiovascular: No Chest Pain, No SOB, No Orthopnea, No Edema Respiratory: No Cough, No Sputum, No Wheezing, No dyspnea Gastrointestinal: No Nausea, No Vomiting, No Diarrhea, No abdominal Pain Genitourinary: No Dysuria, No Urinary Frequency, No Hematuria Musculoskeletal: + joint pain, + Myalgias Skin: No Skin Lesions, No rash Neuro: No Weakness, No Numbness, No Dizziness, No Headache Psych: No Anxiety/Panic, No Depression Heme/Lymph: No Bruising, No Lymphadenopathy Endocrine: No Polyuria, No Polydipsia <CARLY De Dios - Last Filed: 01/04/22 17:44> [facility] Past Medical History Medical History: Medical History Carotid stenosis 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 Diabetic nephropathy Full dentures History of CVA (cerebrovascular accident) Multifactorial gait disorder Osteopenia Personal history of malignant neoplasm of cervix uteri Restless leg syndrome Restrictive lung disease <CARLY De Dios - Last Filed: 01/04/22 17:44> Surgical History: Surgical History History of bilateral cataract extraction History of carpal tunnel surgery History of colonoscopy with polypectomy History of loop electrical excision procedure (LEEP) History of lumbar fusion History of neck surgery History of partial hysterectomy <CARLY De Dios - Last Filed: 01/04/22 17:44> Family History Family History: Family History Father Heart attack Mother Cancer Dementia Breast cancer Hemorrhage <CARLY De Dios - Last Filed: 01/04/22 17:44> Social History Social History: Social History Household Members Other:: lives with adult daughter Housing: Other Housing Other:: Mobile home Are you a primary care tech to a significant other at home: No Do you presently have visiting nurse or other home services: Yes ([employer]ER) Alcohol intake: never Patient Tobacco Use Status: Former Tobacco user Quit Date: 2009 Tobacco use type: Cigarette Smoked in Last 30 Days: No e-Cigarette/Vaping Use: Never Used Second Hand Smoke Exposure: No Use of substances other than those prescribed or required for medical reasons: No Advance Directives: No Advance Directives Information Provided: No service: No Current occupational status: disabled Cognitive needs: Yes (walker/cane) Hearing needs: No Vision needs: Yes (glasses) <CARLY De Dios - Last Filed: 01/04/22 17:44> Physical Exam Vital Signs: Vital Signs: Last Vital Signs Temp 97.6 F 01/04/22 19:52 Pulse 91 01/04/22 19:52 Resp 17 01/04/22 19:52 BP 171/78 H 01/04/22 19:52 Pulse Ox 97 01/04/22 19:52 O2 Del Method 01/04/22 19:52 BMI result Body Mass Index 30.7 <CARLY De Dios - Last Filed: 01/04/22 17:44> Vital Signs: Last Vital Signs Temp 97.6 F 01/04/22 19:52 Pulse 91 01/04/22 19:52 Resp 17 01/04/22 19:52 BP 171/78 H 01/04/22 19:52 Pulse Ox 97 01/04/22 19:52 O2 Del Method 01/04/22 19:52 BMI result Body Mass Index 30.7 <CARLY Sanders - Last Filed: 01/04/22 23:08> Course Course Course Narrative: 71-year-old female with history of diabetes, polyneuropathy, anxiety, depression, GERD, obesity who presents to the ER for evaluation of a fall at home. She lost her balance, fell backward onto her right side and hitting her neck on a case of water that was on the floor. She reports neck pain, right wrist pain, right flank pain. She was hypoxic per EMS, 90% on room air with no history of smoking or COPD. She is not short of breath on arrival. She has lung sounds throughout. Doubt traumatic pneumothorax. Will get trauma workup with CT of her head, C-spine, chest, abdomen and pelvis. X-rays of her wrist are pending as well. Will also get EKG and troponin given age and comorbidities. She has no chest pain at this time and is hemodynamically stable. <CARLY De Dios - Last Filed: 01/04/22 17:44> Reevaluation(s) Reevaluation #1: Lab workup is unremarkable aside from a magnesium of 1.2. This was r eplaced with 2 g Mag sulfate IV. Troponin is negative. EKG is still pending. X-rays of her wrist do not show any acute abnormalities or fractures. Will place an Vineet wrap for strain/ sprain. She is pending her CT scan for her trauma workup. <CARLY De Dios - Last Filed: 01/04/22 17:44> Reevaluation #2: Chest CT with bibasilar dependent atelectasis, no airspace consolidation noted. CT of the abdomen and with no solid organ injury, no evidence of acute intra-abdominal process, noted to be constipated, atrophic pancreas. Head CT with no acute intracranial hemorrhage or mass effect. CT of the cervical spine with no acute fractures or subluxations. Hardware intact. EKG with normal sinus rhythm, no ST elevations or inversions concerning for ischemia. Troponin was negative. Pending repeat CMP to evaluate magnesium level. Also pending ambulatory trial. <CARLY Sanders - Last Filed: 01/04/22 23:08> Time: 20:10 <CARLY Sanders Last Filed: 01/04/22 23:08> Reevaluation #3: Patient ambulating with steady gait normal coordination. Neuro appears to be nonfocal. Patient feeling better. Pending repeat CMP. <CARLY Sanders - Last Filed: 01/04/22 23:08> Additional Reevaluation(s): Repeat CMP improved. Patient feeling well. Neuro nonfocal. Not complaining of any pain at this time. Ambulatory around department. At this time patient will be discharged. Educated on worrisome signs and symptoms and when to return and outlined on discharge. <CARLY Sanders Last Filed: 01/04/22 23:08> Medications Administered Discontinued Medications Generic Name Dose Route Start Last Admin Trade Name Freq PRN Reason Stop Dose Admin Acetaminophen 975 mg 01/04/22 17:22 01/04/22 19:51 Acetaminophen 325 Mg Tablet PO 01/04/22 17:23 975 mg ONCE ONE Administration Magnesium Sulfate 2 gm in 50 mls @ 25 mls/hr 01/04/22 16:31 01/04/22 20:23 Magnesium Sulfate/H2o IV 01/04/22 18:30 Infused ONCE ONE Infusion Iohexol 100 ml 01/04/22 18:35 01/04/22 18:36 Iohexol 350 Mg/Ml 100 Ml Infus..Btl IV 01/04/22 18:36 85 ml ONCE ONE Administration <CARLY De Dios - Last Filed: 01/04/22 17:44> Medications Administered Discontinued Medications Generic Name Dose Route Start Last Admin Trade Name Joe PRN Reason Stop Dose Admin Acetaminophen 975 mg 01/04/22 17:22 01/04/22 19:51 Acetaminophen 325 Mg Tablet PO 01/04/22 17:23 975 mg ONCE ONE Administration Magnesium Sulfate 2 gm in 50 mls @ 25 mls/hr 01/04/22 16:31 01/04/22 20:23 Magnesium Sulfate/H2o IV 01/04/22 18:30 Infused ONCE ONE Infusion Iohexol 100 ml 01/04/22 18:35 01/04/22 18:36 Iohexol 350 Mg/Ml 100 Ml Infus..Btl IV 01/04/22 18:36 85 ml ONCE ONE Administration <CARLY Sanders - Last Filed: 01/04/22 23:08> MDM - Fall Lab Data Result diagrams: : 01/04/22 15:48 01/04/22 20:55 <CARLY De Dios - Last Filed: 01/04/22 17:44> Labs: Lab Results 01/04/22 01/04/22 01/04/22 Range/Units 15:48 15:48 15:48 WBC 5.6 (4.8-10.8) X10*3/uL RBC 4.39 (4.20-5.50) X10*6/uL Hgb 10.9 L (12.0-16.0) g/dl Hct 36.1 L (37.0-47.0) % MCV 82.2 (80.0-98.0) fL MCH 24.8 L (27.0-33.0) pg MCHC 30.2 L (31.0-35.0) g/dl RDW 14.3 (11.0-16.0) % Plt Count 214 (160-400) X10*3/uL MPV 9.7 (9.4-12.3) fL Immature Gran % (Auto) 0.5 H (0.0-0.4) % Neut % (Auto) 51.7 (45-73) % Lymph % (Auto) 36.2 (20-40) % Falls % (Auto) 8.8 (2-11) % Eos % (Auto) 2.3 (0-4) % Baso % (Auto) 0.5 (0-2) % Lymph # (Auto) 2.0 (1.2-4.9) X10*3/uL Falls # (Auto) 0.5 (0.1-1.2) X10*3/uL Eos # (Auto) 0.1 (0.0-0.4) X10*3/uL Baso # (Auto) 0.0 (0.0-0.2) X10*3/uL Abs Immat Gran (auto) 0.03 (0.00-0.03) X10*3/uL Absolute Neuts (auto) 2.9 (2.0-8.3) x10*3/uL Absolute Nucleated RBC 0.000 (0.0-0.012) X10*3/uL Nucleated RBC % (auto) 0.0 (0.0-0.2) /100WBC PT 11.8 (10.0-13.1) SEC INR 1.0 (0.9-1.1) APTT 33.9 (26.0-36.4) SEC Sodium 141 (135-145) mmol/L Potassium 4.2 (3.3-5.1) mmol/L Chloride 102 (96-108) mmol/L Carbon Dioxide 28 (22-29) mmol/L Anion Gap 15 (12-20) BUN 11 (9-16) mg/dL Creatinine 0.80 (0.5-1.4) mg/dL Estim Creat Clear Calc 71.3 Estimated GFR > 60 Random Glucose 208 H (60-115) mg/dL Calcium 8.8 D (8.4-10.2) mg/dL Magnesium 1.2 L* (1.6-2.6) mg/dL Total Bilirubin 0.3 (0.0-1.0) mg/dL Direct Bilirubin < 0.2 (0.0-0.5) mg/dL AST 20 D (5-31) U/L ALT 16 (0-31) U/L Alkaline Phosphatase 75 (39-117) U/L Troponin I High Sens (<3.5-17.0) ng/L Total Protein 6.3 L (6.5-8.0) g/dL Albumin 3.6 (3.5-5.0) g/dL COVID-19 (ELIF) (Negative) COVID-19 Clin Com 01/04/22 01/04/22 01/04/22 Range/Units 15:48 16:38 20:55 WBC (4.8-10.8) X10*3/uL RBC (4.20-5.50) X10*6/uL Hgb (12.0-16.0) g/dl Hct (37.0-47.0) % MCV (80.0-98.0) fL MCH (27.0-33.0) pg MCHC (31.0-35.0) g/dl RDW (11.0-16.0) % Plt Count (160-400) X10*3/uL MPV (9.4-12.3) fL Immature Gran % (Auto) (0.0-0.4) % Neut % (Auto) (45-73) % Lymph % (Auto) (20-40) % Falls % (Auto) (2-11) % Eos % (Auto) (0-4) % Baso % (Auto) (0-2) % Lymph # (Auto) (1.2-4.9) X10*3/uL Falls # (Auto) (0.1-1.2) X10*3/uL Eos # (Auto) (0.0-0.4) X10*3/uL Baso # (Auto) (0.0-0.2) X10*3/uL Abs Immat Gran (auto) (0.00-0.03) X10*3/uL Absolute Neuts (auto) (2.0-8.3) x10*3/uL Absolute Nucleated RBC (0.0-0.012) X10*3/uL Nucleated RBC % (auto) (0.0-0.2) /100WBC PT (10.0-13.1) SEC INR (0.9-1.1) APTT (26.0-36.4) SEC Sodium 142 (135-145) mmol/L Potassium 4.2 (3.3-5.1) mmol/L Chloride 102 (96-108) mmol/L Carbon Dioxide 30 H (22-29) mmol/L Anion Gap 14 (12-20) BUN 10 (9-16) mg/dL Creatinine 0.78 (0.5-1.4) mg/dL Estim Creat Clear Calc 73.1 Estimated GFR > 60 Random Glucose 120 H (60-115) mg/dL Calcium 8.7 (8.4-10.2) mg/dL Magnesium 1.7 (1.6-2.6) mg/dL Total Bilirubin 0.3 (0.0-1.0) mg/dL Direct Bilirubin (0.0-0.5) mg/dL AST 21 (5-31) U/L ALT 18 (0-31) U/L Alkaline Phosphatase 77 (39-117) U/L Troponin I High Sens < 3.5 (<3.5-17.0) ng/L Total Protein 6.5 (6.5-8.0) g/dL Albumin 3.7 (3.5-5.0) g/dL COVID-19 (ELIF) Negative (Negative) COVID-19 Clin Com See Note <CARLY De Dios - Last Filed: 01/04/22 17:44> Lab Results 01/04/22 01/04/22 01/04/22 Range/Units 15:48 15:48 15:48 WBC 5.6 (4.8-10.8) X10*3/uL RBC 4.39 (4.20-5.50) X10*6/uL Hgb 10.9 L (12.0-16.0) g/dl Hct 36.1 L (37.0-47.0) % MCV 82.2 (80.0-98.0) fL MCH 24.8 L (27.0-33.0) pg MCHC 30.2 L (31.0-35.0) g/dl RDW 14.3 (11.0-16.0) % Plt Count 214 (160-400) X10*3/uL MPV 9.7 (9.4-12.3) fL Immature Gran % (Auto) 0.5 H (0.0-0.4) % Neut % (Auto) 51.7 (45-73) % Lymph % (Auto) 36.2 (20-40) % Falls % (Auto) 8.8 (2-11) % Eos % (Auto) 2.3 (0-4) % Baso % (Auto) 0.5 (0-2) % Lymph # (Auto) 2.0 (1.2-4.9) X10*3/uL Falls # (Auto) 0.5 (0.1-1.2) X10*3/uL Eos # (Auto) 0.1 (0.0-0.4) X10*3/uL Baso # (Auto) 0.0 (0.0-0.2) X10*3/uL Abs Immat Gran (auto) 0.03 (0.00-0.03) X10*3/uL Absolute Neuts (auto) 2.9 (2.0-8.3) x10*3/uL Absolute Nucleated RBC 0.000 (0.0-0.012) X10*3/uL Nucleated RBC % (auto) 0.0 (0.0-0.2) /100WBC PT 11.8 (10.0-13.1) SEC INR 1.0 (0.9-1.1) APTT 33.9 (26.0-36.4) SEC Sodium 141 (135-145) mmol/L Potassium 4.2 (3.3-5.1) mmol/L Chloride 102 (96-108) mmol/L Carbon Dioxide 28 (22-29) mmol/L Anion Gap 15 (12-20) BUN 11 (9-16) mg/dL Creatinine 0.80 (0.5-1.4) mg/dL Estim Creat Clear Calc 71.3 Estimated GFR > 60 Random Glucose 208 H (60-115) mg/dL Calcium 8.8 D (8.4-10.2) mg/dL Magnesium 1.2 L* (1.6-2.6) mg/dL Total Bilirubin 0.3 (0.0-1.0) mg/dL Direct Bilirubin < 0.2 (0.0-0.5) mg/dL AST 20 D (5-31) U/L ALT 16 (0-31) U/L Alkaline Phosphatase 75 (39-117) U/L Troponin I High Sens (<3.5-17.0) ng/L Total Protein 6.3 L (6.5-8.0) g/dL Albumin 3.6 (3.5-5.0) g/dL COVID-19 (ELIF) (Negative) COVID-19 Clin Com 01/04/22 01/04/22 01/04/22 Range/Units 15:48 16:38 20:55 WBC (4.8-10.8) X10*3/uL RBC (4.20-5.50) X10*6/uL Hgb (12.0-16.0) g/dl Hct (37.0-47.0) % MCV (80.0-98.0) fL MCH (27.0-33.0) pg MCHC (31.0-35.0) g/dl RDW (11.0-16.0) % Plt Count (160-400) X10*3/uL MPV (9.4-12.3) fL Immature Gran % (Auto) (0.0-0.4) % Neut % (Auto) (45-73) % Lymph % (Auto) (20-40) % Falls % (Auto) (2-11) % Eos % (Auto) (0-4) % Baso % (Auto) (0-2) % Lymph # (Auto) (1.2-4.9) X10*3/uL Falls # (Auto) (0.1-1.2) X10*3/uL Eos # (Auto) (0.0-0.4) X10*3/uL Baso # (Auto) (0.0-0.2) X10*3/uL Abs Immat Gran (auto) (0.00-0.03) X10*3/uL Absolute Neuts (auto) (2.0-8.3) x10*3/uL Absolute Nucleated RBC (0.0-0.012) X10*3/uL Nucleated RBC % (auto) (0.0-0.2) /100WBC PT (10.0-13.1) SEC INR (0.9-1.1) APTT (26.0-36.4) SEC Sodium 142 (135-145) mmol/L Potassium 4.2 (3.3-5.1) mmol/L Chloride 102 (96-108) mmol/L Carbon Dioxide 30 H (22-29) mmol/L Anion Gap 14 (12-20) BUN 10 (9-16) mg/dL Creatinine 0.78 (0.5-1.4) mg/dL Estim Creat Clear Calc 73.1 Estimated GFR > 60 Random Glucose 120 H (60-115) mg/dL Calcium 8.7 (8.4-10.2) mg/dL Magnesium 1.7 (1.6-2.6) mg/dL Total Bilirubin 0.3 (0.0-1.0) mg/dL Direct Bilirubin (0.0-0.5) mg/dL AST 21 (5-31) U/L ALT 18 (0-31) U/L Alkaline Phosphatase 77 (39-117) U/L Troponin I High Sens < 3.5 (<3.5-17.0) ng/L Total Protein 6.5 (6.5-8.0) g/dL Albumin 3.7 (3.5-5.0) g/dL COVID-19 (ELIF) Negative (Negative) COVID-19 Clin Com See Note <CARLY Sanders - Last Filed: 01/04/22 23:08> Discharge Plan Discharge Clinical Impression: Fall, Hypomagnesemia, Strain of right wrist, Neck pain, Back pain <CARLY De Dios - Last Filed: 01/04/22 17:44> Patient Disposition: Home, Self-Care <CARLY De Dios - Last Filed: 01/04/22 17:44> Additional Instructions: Take your medications as prescribed. If you were prescribed antibiotics today, it is important that you take your medication to their entirety, do not skip any doses, do not finish them early. Follow-up with your primary care provider this week. Return to the emergency department with new or worsening symptoms. Such as fev ers, chills, chest pain, shortness of breath, nausea, vomiting, dizziness, headache, vision changes, lethargy In case of emergency call 911 Unless otherwise contraindicated you can take ibuprofen every 6 hours, Tylenol every 4 as needed for pain or discomfort. <CARLY De Dios - Last Filed: 01/04/22 17:44> Prescriptions: New lidocaine 5 % adhesive patch,medicated 1 patch topical DAILY PRN (Reason: pain) Qty: 15 0RF Rx Instructions: leave on most painful area for up to 12 hrs No Action (DME) GRAB bar See Rx Instructions .Route .MEDSUPPLY Qty: 1 0RF Rx Instructions: As directed cyanocobalamin (vitamin B-12) 1,000 mcg capsule 1,000 mcg PO DAILY Qty: 30 3RF (DME) pen needle, diabetic [BD Ultra-Fine Mini Pen Needle] 31 gauge x 3/16 needle See Rx Instructions .ROUTE .MEDSUPPLY Qty: 100 3RF Rx Instructions: As directed inject 60 units of Lantus q.p.m. atorvastatin 40 mg tablet 40 mg PO DAILY Qty: 90 2RF pregabalin [Lyrica] 200 mg capsule 200 mg PO BID 90 Days Qty: 180 1RF Rx Instructions: take with 50 mg = 250 mg BID pregabalin 50 mg capsule 50 mg PO BID PRN (Reason: pain) 90 Days Qty: 180 1RF Rx Instructions: take with 200 mg = 250 mg BID Trulicity 0.75 mg/0.5 mL pen injector 0.75 mg subcut WE Qty: 2 12RF duloxetine 30 mg capsule,delayed release(DR/EC) 30 mg PO BEDTIME 90 Days Qty: 90 1RF duloxetine 60 mg capsule,delayed release(DR/EC) 60 mg PO DAILY 90 Days Qty: 90 1RF ropinirole 0.5 mg tablet 0.5 mg PO BEDTIME Qty: 90 2RF lisinopril 10 mg tablet 10 mg PO DAILY Qty: 90 3RF metformin 1,000 mg tablet 1,000 mg PO BIDWM Qty: 180 1RF fluticasone propionate [Flonase Allergy Relief] 50 mcg/actuation spray,suspension 2 spray intranasal DAILY PRN (Reason: Allergy Symptoms) 30 Days Qty: 16 3RF Rx Instructions: administer into each nostril clonazepam 1 mg tablet 1 mg PO BEDTIME PRN (Reason: Anxiety) prednisolone acetate 1 % drops,suspension 1 drp ophthalmic (eye) BID buspirone 10 mg tablet 1 tab PO BID mirtazapine 15 mg tablet 1 tab PO BEDTIME PRN (Reason: Sleep) insulin glargine [Lantus Solostar U-100 Insulin] 100 unit/mL (3 mL) insulin pen 60 unit subcut BEDTIME (DME) OneTouch Ultra Test Strip See Rx Instructions .ROUTE TID Qty: 10 Rx Instructions: test blood sugar three times a day clopidogrel 75 mg tablet 75 mg PO DAILY Qty: 90 2RF <CARLY De Dios - Last Filed: 01/04/22 17:44> Referrals: Po,Kina Lemons MD [Primary Care Provider] - 2 days <CARLY De Dios - Last Filed: 01/04/22 17:44> Interventions: ED Discharge Assessment Last Done: 01/04/22 21:57 <CARLY De Dios - Last Filed: 01/04/22 17:44>
[2022-01-04 15:38] VITALS: BP 146/72; BP 160/78; PULSE 103; PULSE 91; RESP 16; TEMP 36.8; O2SAT 90; O2SAT 96; BMI 30.7
--- NOTE | 2022-01-04 15:44 | ECG_ITS ---
Test Reason : FALL Blood Pressure : / mmHG Vent. Rate : 085 BPM Atrial Rate : 085 BPM P-R Int : 146 ms QRS Dur : 070 ms QT Int : 358 ms P-R-T Axes : -26 -01 029 degrees QTc Int : 426 ms Normal sinus rhythm RSR' or QR pattern in V1 suggests right ventricular conduction delay Left axis deviation Abnormal ECG When compared with ECG of 18-JUN-2021 15:17, No significant change was found Referred By: Rosalind Storm Electronically Signed By:RAMÓN TREJO MD
[2022-01-04 15:55] LABS: MANUAL DIFF FLAG NO
[2022-01-04 15:56] LABS: Basophils Percent Auto 0.5 % (0-2); Eosinophils Absolute Auto 0.1 X10*3/uL (0.0-0.4); Eosinophils Percent Auto 2.3 % (0-4); Hematocrit 36.1 % (37.0-47.0); Hemoglobin 10.9 g/dl (12.0-16.0); Imm Gran Abs Auto 0.03 X10*3/uL (0.00-0.03); Imm Gran Pct Auto 0.5 % (0.0-0.4); Lymphocytes Percent Auto 36.2 % (20-40); Mean Corpuscular HGB Conc 30.2 g/dl (31.0-35.0); Mean Corpuscular Hemoglobin 24.8 pg (27.0-33.0); Mean Corpuscular Volume 82.2 fL (80.0-98.0); Mean Platelet Volume 9.7 fL (9.4-12.3); Monocytes Absolute Auto 0.5 X10*3/uL (0.1-1.2); Monocytes Percent Auto 8.8 % (2-11); Neutrophils Absolute Auto 2.9 x10*3/uL (2.0-8.3); Neutrophils Percent Auto 51.7 % (45-73); Platelet Count 214 X10*3/uL (160-400); Red Blood Count 4.39 X10*6/uL (4.20-5.50); Red Cell Distribution Width 14.3 % (11.0-16.0); White Blood Count 5.6 X10*3/uL (4.8-10.8)
[2022-01-04 16:04] LABS: Prothrombin Time 11.8 SEC (10.0-13.1)
[2022-01-04 16:06] LABS: Partial Thromboplastin Time 33.9 SEC (26.0-36.4)
[2022-01-04 16:19] LABS: COVID-19 Test Negative (Negative)
[2022-01-04 16:32] LABS: Alanine Aminotransferase 16 U/L (0-31); Albumin Level 3.6 g/dL (3.5-5.0); Alkaline Phosphatase 75 U/L (39-117); Anion Gap 15 (12-20); Aspartate Amino Transferase 20 U/L (5-31); Bilirubin Direct < 0.2 mg/dL (0.0-0.5); Bilirubin Total 0.3 mg/dL (0.0-1.0); Blood Urea Nitrogen 11 mg/dL (9-16); Calcium 8.8 mg/dL (8.4-10.2); Carbon Dioxide 28 mmol/L (22-29); Chloride 102 mmol/L (96-108); Creatinine Clr Calc Pharmacy 71.3; Estimated Glomerular Filt Rate > 60; Glucose Random 208 mg/dL (60-115); Magnesium 1.2 mg/dL (1.6-2.6); Potassium 4.2 mmol/L (3.3-5.1); Sodium 141 mmol/L (135-145); Total Protein 6.3 g/dL (6.5-8.0)
[2022-01-04 17:05] LABS: Troponin-I High Sensitivity < 3.5 ng/L (<3.5-17.0)
[2022-01-04] MEDS: Magnesium Sulfate/H2O 2 GM/50 ML PIGGYBACK IV (18:02)
[2022-01-04] MEDS: iohexoL 350 MG/ML 100 ML INFUS..BTL IV (18:36)
[2022-01-04] MEDS: Acetaminophen 325 MG TABLET 975 MG PO (19:51)
[2022-01-04 19:52] VITALS: BP 171/78; PULSE 91; RESP 17; TEMP 36.4; O2SAT 97
--- NOTE | 2022-01-04 19:54 | PC.NURSE ---
Patient is alert, oriented to self, birthday, location, and year. She endorses 10/10 back and wrist pain- tylenol provided and awaiting imaging results. O2 98% on 2L NC so weaned to room air at this time with success. Patient able to move all extremities. Pupils are 5mm and equal/briskly reactive to light.
[2022-01-04 21:20] LABS: Alanine Aminotransferase 18 U/L (0-31); Albumin Level 3.7 g/dL (3.5-5.0); Alkaline Phosphatase 77 U/L (39-117); Anion Gap 14 (12-20); Aspartate Amino Transferase 21 U/L (5-31); Bilirubin Total 0.3 mg/dL (0.0-1.0); Blood Urea Nitrogen 10 mg/dL (9-16); Calcium 8.7 mg/dL (8.4-10.2); Carbon Dioxide 30 mmol/L (22-29); Chloride 102 mmol/L (96-108); Creatinine Clr Calc Pharmacy 73.1; Estimated Glomerular Filt Rate > 60; Glucose Random 120 mg/dL (60-115); Potassium 4.2 mmol/L (3.3-5.1); Sodium 142 mmol/L (135-145); Total Protein 6.5 g/dL (6.5-8.0)
[2022-01-04 23:02] LABS: Magnesium 1.7 mg/dL (1.6-2.6)
== END 2022-01-04 23:15 | disposition home or self-care (01) ==
PROVIDERS: Physician Assistant; Emergency Provider Emergency Medicine; PCP Internal Medicine
DX: M54.50 Low back pain, unspecified (principal); M54.2 Cervicalgia; S66.911A Strain of unspecified muscle, fascia and tendon at wrist and hand level, right hand, initial encounter; W01.198A Fall on same level from slipping, tripping and stumbling with subsequent striking against other object, initial encounter; E83.42 Hypomagnesemia; Z20.822 Contact with and (suspected) exposure to COVID-19; Y93.E9 Activity, other interior property and clothing maintenance; Y92.030 Kitchen in apartment as the place of occurrence of the external cause; Y99.9 Unspecified external cause status
CPT/HCPCS: 36415; 70450; 71260; 72125; 73110; 74177; 80048; 80053; 80076; 83735; 84484; 85025; 85610; 85730; 87635; 93005; 96365; 96366; 99284; J3475; Q9967

== ENCOUNTER 2022-03-04 14:17 | Outpatient (REF) | payer OTHER, SELFPAY ==
[2022-03-04 14:33] LABS: MANUAL DIFF FLAG NO
[2022-03-04 15:18] LABS: Basophils Percent Auto 0.4 % (0-2); Eosinophils Absolute Auto 0.2 X10*3/uL (0.0-0.4); Eosinophils Percent Auto 2.4 % (0-4); Hematocrit 38.5 % (37.0-47.0); Hemoglobin 11.6 g/dl (12.0-16.0); Imm Gran Abs Auto 0.04 X10*3/uL (0.00-0.03); Imm Gran Pct Auto 0.6 % (0.0-0.4); Immature Retic Fraction 29.8 % (3.0-15.9); Lymphocytes Percent Auto 30.2 % (20-40); Mean Corpuscular HGB Conc 30.1 g/dl (31.0-35.0); Mean Corpuscular Hemoglobin 25.5 pg (27.0-33.0); Mean Corpuscular Volume 84.6 fL (80.0-98.0); Monocytes Absolute Auto 0.6 X10*3/uL (0.1-1.2); Monocytes Percent Auto 9.1 % (2-11); Neutrophils Absolute Auto 3.9 x10*3/uL (2.0-8.3); Neutrophils Percent Auto 57.3 % (45-73); Platelet Count 224 X10*3/uL (160-400); Red Blood Count 4.55 X10*6/uL (4.20-5.50); Red Cell Distribution Width 14.5 % (11.0-16.0); Retic HGB Equivalent 28.5 pg (30.0-35.0); Reticulocytes Absolute 0.091 X10*6/uL (0.026-0.095); White Blood Count 6.7 X10*3/uL (4.8-10.8)
[2022-03-04 16:32] LABS: Iron 41 mcg/dL (30-160); Percent Iron Saturation 13 % (15-50); Total Iron Binding Capacity 313 mcg/dL (228-428); Unsaturated Iron Binding 272 ug/dL
[2022-03-04 16:50] LABS: Ferritin 13 ng/mL (10-250)
[2022-03-04 17:02] LABS: Vitamin B12 237 pg/mL (200-900)
== END 2022-03-04 14:18 | disposition home or self-care (01) ==
LOC: HO.LAB 14:17
PROVIDERS: PCP Internal Medicine; Visit Provider Internal Medicine
DX: D64.9 Anemia, unspecified (principal); E11.65 Type 2 diabetes mellitus with hyperglycemia; Z79.4 Long term (current) use of insulin
CPT/HCPCS: 36415; 82607; 82728; 82746; 83540; 85025; 85045

== ENCOUNTER 2022-04-02 15:00 | Outpatient (RCR) | payer OTHER, SELFPAY ==
--- NOTE | 2022-03-06 16:36 | MHC.PT.EP ---
[facility] [place] [facility] [place] Office [place] Office [address] Celio Carcamo [address] [phone] F: [phone] F: [phone] F: [phone] F: [phone] Physical Therapy Plan of Care Date of Evaluation: Date of Surgery: Diagnosis: Abnormalities of gait and balance. Assessment: Pt is a 71 y/o female referred to PT for eval and treat of abnormalities of gait and balance resulting in falls in the home secondary to decreased B LE strength, decreased balance, as well as complex cervical and lumbar spine Hx and diabetic neuropathy. Pt is deemed an appropriate candidate to receive skilled PT services to address their physical impairments in order to improve their functional ability. Frequency and Duration: The patient will be seen 2 x/ wk x 4 wks. Short Term Goals: Initiate HEP. Pt will demonstrate upright posture in 4WW or 2WW with ambulation. Care Home Goals: I with home program. Pt will demonstrate at least 1/2 MMT grade improvement of B knee extension; initial 4/5. Pt will demonstrate hip abd MMT improvement of at least 1/2 MMT grade; initial: 4-/5. Improve LEFO outcome questionnaire by at least 9 points in order to demonstrate improved LE function. Treatment Plan: Modalities to reduce pain, spasms and effusion. Manual therapy to restore motion and function. Therapeutic exercise to improve strength and flexibility. Neuromuscular re-education for posture and balance. Therapeutic activities to return to functional activities of daily living. Electronically signed by: Prem Lyn PT. Please sign and return to therapist. Thank you for your referral.
--- NOTE | 2022-05-05 09:22 | MHC.PT.DC ---
[facility] [place] Office [place] Office [place] Office [address] Celio Carcamo [address] [facility] [phone] F: [phone] F: [phone] F: [phone] F: [phone] Physical Therapy Discharge Report Diagnosis: Abnormalities of gait and balance. Date of Surgery: Date of Evaluation: 03/06/22 Date of Discharge: 05/05/22 Treatments to Date: 2 Cancellations to Date: 4 No Shows to Date: 2 Discharge Status: Visit Non-compliance Discharge Summary: . Electronically signed by: Prem Lyn PT Please sign and return to therapist. Thank you for your referral.
== END 2022-05-05 09:23 | disposition home or self-care (01) ==
LOC: HO.PTCHIC 15:00
PROVIDERS: PCP Internal Medicine; Visit Provider Internal Medicine
DX: M50.30 Other cervical disc degeneration, unspecified cervical region (principal); M51.36 Other intervertebral disc degeneration, lumbar region; R26.89 Other abnormalities of gait and mobility
CPT/HCPCS: 97110; 97163

== ENCOUNTER 2022-06-04 14:50 | Outpatient (RCR) | payer OTHER, SELFPAY ==
[2022-06-04 15:04] VITALS: BP 150/85
--- NOTE | 2022-07-15 15:17 | MHC.PT.DC ---
[facility] [place] Office [place] Office [place] Office [address] Celio Carcamo [address] [phone] F: [phone] F: [phone] F: [phone] F: [phone] Physical Therapy Discharge Report Diagnosis: Other abnormalities of gait and mobility. Date of Surgery: Date of Evaluation: 06/04/22 Date of Discharge: 07/15/22 Treatments to Date: 1 Cancellations to Date: 4 No Shows to Date: Discharge Status: Recommend MD Follow-up Discharge Summary: Cat presented to her evaluation reporting a recent fall and demonstrated R shoulder ROM loss, painful movement and significant ecchymosis of her R arm. She was encouraged to go to urgent care for assessment. Unfortunately she has not returned to PT as since and reports she has been having other medical issues and will have discharge from this point of care at this time. Electronically signed by: Prem Lyn PT. Please sign and return to therapist. Thank you for your referral.
== END 2022-07-15 15:16 | disposition home or self-care (01) ==
LOC: HO.PTCHIC 14:50
PROVIDERS: PCP Internal Medicine; Visit Provider Internal Medicine
DX: R26.89 Other abnormalities of gait and mobility (principal)
CPT/HCPCS: 97162

== ENCOUNTER 2022-06-10 14:54 | Outpatient (REF) | payer OTHER, SELFPAY ==
--- NOTE | ~2022-06-10 | XR_ITS ---
X-RAY RIGHT HUMERUS, RIGHT ELBOW, RIGHT FOREARM, RIGHT WRIST AND RIGHT HAND CLINICAL HISTORY: Pain. COMPARISON: No similar priors. TECHNIQUE: 2 views of the right humerus. 2 views of the right elbow. 2 views of the right forearm. 4 views of the right wrist/hand. FINDINGS: Right humerus: No acute fractures or subluxation. Equivocal decreased acromiohumeral interval, suboptimally assessed due to patient's positioning. Query subtle calcifications at the insertion site of the supraspinatus tendon. Right elbow: No acute fractures or subluxation. Bony productive changes in the medial and lateral epicondyles of the humerus, suggesting degenerative changes. Soft tissue thickening in the region of the olecranon bursae. Right forearm: No acute fractures or malalignment. Right wrist/hand: No acute fractures or malalignment. 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 Mild degenerative osteophyte arthritis of the first CMC joint. No erosions. XR/XR hand wrist RT IMPRESSION: 1. No acute fractures or malalignment. 2. Soft tissue thickening in the region of the olecranon bursae, currently with olecranon bursitis. 3. Equivocal decreased acromiohumeral interval, suboptimally assessed due to patient's positioning, suggesting the presence of rotator cuff disease. 4. Subtle calcifications at the insertion site of the supraspinatus tendon which could be related with calcific tendinitis. 5. Mild degenerative changes in the elbow and wrist with chondrocalcinosis in the ulnocarpal joint.
--- NOTE | ~2022-06-10 | XR_ITS ---
X-RAY RIGHT HUMERUS, RIGHT ELBOW, RIGHT FOREARM, RIGHT WRIST AND RIGHT HAND CLINICAL HISTORY: Pain. COMPARISON: No similar priors. TECHNIQUE: 2 views of the right humerus. 2 views of the right elbow. 2 views of the right forearm. 4 views of the right wrist/hand. FINDINGS: Right humerus: No acute fractures or subluxation. Equivocal decreased acromiohumeral interval, suboptimally assessed due to patient's positioning. Query subtle calcifications at the insertion site of the supraspinatus tendon. Right elbow: No acute fractures or subluxation. Bony productive changes in the medial and lateral epicondyles of the humerus, suggesting degenerative changes. Soft tissue thickening in the region of the olecranon bursae. Right forearm: No acute fractures or malalignment. Right wrist/hand: No acute fractures or malalignment. 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 Mild degenerative osteophyte arthritis of the first CMC joint. No erosions. XR/XR forearm RT 2V IMPRESSION: 1. No acute fractures or malalignment. 2. Soft tissue thickening in the region of the olecranon bursae, currently with olecranon bursitis. 3. Equivocal decreased acromiohumeral interval, suboptimally assessed due to patient's positioning, suggesting the presence of rotator cuff disease. 4. Subtle calcifications at the insertion site of the supraspinatus tendon which could be related with calcific tendinitis. 5. Mild degenerative changes in the elbow and wrist with chondrocalcinosis in the ulnocarpal joint.
--- NOTE | ~2022-06-10 | XR_ITS ---
X-RAY RIGHT HUMERUS, RIGHT ELBOW, RIGHT FOREARM, RIGHT WRIST AND RIGHT HAND CLINICAL HISTORY: Pain. COMPARISON: No similar priors. TECHNIQUE: 2 views of the right humerus. 2 views of the right elbow. 2 views of the right forearm. 4 views of the right wrist/hand. FINDINGS: Right humerus: No acute fractures or subluxation. Equivocal decreased acromiohumeral interval, suboptimally assessed due to patient's positioning. Query subtle calcifications at the insertion site of the supraspinatus tendon. Right elbow: No acute fractures or subluxation. Bony productive changes in the medial and lateral epicondyles of the humerus, suggesting degenerative changes. Soft tissue thickening in the region of the olecranon bursae. Right forearm: No acute fractures or malalignment. Right wrist/hand: No acute fractures or malalignment. 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 Mild degenerative osteophyte arthritis of the first CMC joint. No erosions. XR/XR humerus RT IMPRESSION: 1. No acute fractures or malalignment. 2. Soft tissue thickening in the region of the olecranon bursae, currently with olecranon bursitis. 3. Equivocal decreased acromiohumeral interval, suboptimally assessed due to patient's positioning, suggesting the presence of rotator cuff disease. 4. Subtle calcifications at the insertion site of the supraspinatus tendon which could be related with calcific tendinitis. 5. Mild degenerative changes in the elbow and wrist with chondrocalcinosis in the ulnocarpal joint.
--- NOTE | ~2022-06-10 | XR_ITS ---
X-RAY RIGHT HUMERUS, RIGHT ELBOW, RIGHT FOREARM, RIGHT WRIST AND RIGHT HAND CLINICAL HISTORY: Pain. COMPARISON: No similar priors. TECHNIQUE: 2 views of the right humerus. 2 views of the right elbow. 2 views of the right forearm. 4 views of the right wrist/hand. FINDINGS: Right humerus: No acute fractures or subluxation. Equivocal decreased acromiohumeral interval, suboptimally assessed due to patient's positioning. Query subtle calcifications at the insertion site of the supraspinatus tendon. Right elbow: No acute fractures or subluxation. Bony productive changes in the medial and lateral epicondyles of the humerus, suggesting degenerative changes. Soft tissue thickening in the region of the olecranon bursae. Right forearm: No acute fractures or malalignment. Right wrist/hand: No acute fractures or malalignment. 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 Mild degenerative osteophyte arthritis of the first CMC joint. No erosions. XR/XR elbow RT 2V IMPRESSION: 1. No acute fractures or malalignment. 2. Soft tissue thickening in the region of the olecranon bursae, currently with olecranon bursitis. 3. Equivocal decreased acromiohumeral interval, suboptimally assessed due to patient's positioning, suggesting the presence of rotator cuff disease. 4. Subtle calcifications at the insertion site of the supraspinatus tendon which could be related with calcific tendinitis. 5. Mild degenerative changes in the elbow and wrist with chondrocalcinosis in the ulnocarpal joint.
== END 2022-06-10 14:55 | disposition home or self-care (01) ==
LOC: HO.XRAY 14:54
PROVIDERS: Visit Provider Nurse Practitioner Family
DX: M79.601 Pain in right arm (principal)
CPT/HCPCS: 73060; 73070; 73090; 73110; 73130

== ENCOUNTER 2022-07-15 18:01 | Emergency (ER) | payer OTHER, SELFPAY ==
--- NOTE | ~2022-07-15 | XR_ITS ---
EXAMINATION: XR KNEE, RIGHT CLINICAL INFORMATION: Fall. Pain. COMPARISON: None available. TECHNIQUE: Four views of the right knee. FINDINGS: No fracture. No dislocation. No joint effusion. Joint narrowing of the femoral tibial joint with chondrocalcinosis. No bone erosion or bone spurs. No focal bone lesion. Vascular calcification soft tissues of the distal thigh proximal calf. XR/XR knee RT 3V IMPRESSION: 1. No acute abnormality. 2. Degenerative joint disease of the knee with chondrocalcinosis.
--- NOTE | ~2022-07-15 | CT_ITS ---
EXAMINATION: CT HEAD WITHOUT IV CONTRAST INDICATION: Headache status-post fall. COMPARISON: CT head dated 01/04/2022. TECHNIQUE: Multidetector CT acquisitions of the head was obtained without IV contrast. This CT examination was performed using dose optimization techniques as appropriate, variously including the following: *Automated exposure control *Adjustment of mA and/or kV according to patient size (this includes techniques or standardized protocols for targeted exams where dose is matched to indication/reason for exam; i.e. extremities or head) *Use of iterative reconstruction technique DLP: 922 mGy-cm (head and cervical spine) FINDINGS: There is no intracranial hemorrhage, hydrocephalus, extra-axial surface collection, midline shift, or other herniation pattern. Chopra to white matter differentiation is diffusely maintained without evidence of an evolved acute territorial infarct. There are small bilateral basal ganglia lacunar infarctions. There is mild patchy low attenuation change in the periventricular white space. The basilar cisterns are preserved. No significant soft tissue abnormality. No acute osseous abnormality. There is mild bilateral ethmoid, right maxillary and bilateral sphenoid chamber sinusitis. The mastoid air cells are well aerated. CT/CT cervical spine wo IV con IMPRESSION: 1. No acute intracranial abnormality. 2. There is paranasal sinusitis. EXAMINATION: CT CERVICAL SPINE WITHOUT CONTRAST CLINICAL INFORMATION: Neck pain status-post fall. COMPARISON: CT cervical spine dated 01/04/2022. TECHNIQUE: Without the addition of intravenous contrast, multiple contiguous transaxial sections are obtained through the cervical splenic. Multiplanar reformatted images are submitted. This CT examination was performed using dose optimization techniques as appropriate, variously including the following: *Automated exposure control *Adjustment of mA and/or kV according to patient size (this includes techniques or standardized protocols for targeted exams where dose is matched to indication/reason for exam; i.e. extremities or head) *Use of iterative reconstruction technique DLP: See above. FINDINGS: Again, there have been laminectomies extending from C3 through C7. There has been posterior fusion hardware extending from C3 through T2. No hardware failure or loosening is seen. There is no acute fracture or spondylolisthesis. This multi-level cervical degenerative disc disease and spondylosis. The dens is intact. No prevertebral soft tissue swelling is noted. The lung apices appear clear. IMPRESSION: No acute fracture or spondylolisthesis is seen. There are stable postoperative changes, including multi-level laminectomies and posterior fusions. No hardware failure or loosening is seen. Fleischner guidelines were followed.
--- NOTE | ~2022-07-15 | CT_ITS ---
EXAMINATION: CT CHEST, ABDOMEN AND PELVIS WITH CONTRAST CLINICAL INFORMATION: Chest, abdominal and back pain status-post fall. COMPARISON: CT examinations of the chest, abdomen and pelvis dated 01/04/2022. TECHNIQUE: Multidetector volumetric imaging was performed from the thoracic inlet through the pubic symphysis following administration of 85 mL Omnipaque 350 intravenous contrast. Sagittal and coronal reformatted images were obtained on the technologist workstation. This CT examination was performed using dose optimization techniques as appropriate, variously including the following: *Automated exposure control. *Adjustment of mA and/or kV according to patient size (this includes techniques or standardized protocols for targeted exams where dose is matched to indication/reason for exam, i.e., extremities or head). *Use of iterative reconstruction technique. DLP: 994 mGy-cm. FINDINGS: CHEST: LUNGS: The lungs are clear with no evidence of inflammation or noncalcified nodules. A small benign, calcified nodule is seen at the posterior left base. There is mild bibasilar dependent hypoaeration. MEDIASTINUM: The thyroid is unremarkable. There is no thoracic aortic aneurysm or dissection. There are atherosclerotic calcifications of the great vessel origins and thoracic aorta. No mediastinal or hilar lymphadenopathy is seen. PERICARDIUM/PLEURA: There is no significant effusion. No pleural mass or thickening. CHEST WALL/AXILLA: Unremarkable. ABDOMEN/PELVIS: LIVER, GALLBLADDER, BILIARY TREE: The liver is normal in size, shape, and generally diminished in attenuation. No focal hepatic lesion or biliary ductal dilatation is present. The gallbladder is unremarkable with no evidence of radiopaque gallstones, gallbladder wall thickening, or pericholecystic inflammatory changes. PANCREAS: Unremarkable. SPLEEN: Unremarkable. ADRENAL GLANDS: Unremarkable. KIDNEYS AND URETERS: The kidneys are normal in size, shape, and attenuation. No hydronephrosis or hydroureter or calculi seen. There is mild nonspecific bilateral perinephric stranding. BLADDER: Unremarkable. GASTROINTESTINAL TRACT: The small and large bowel are unremarkable. The appendix is unremarkable. ABDOMINAL WALL: No significant hernia is demonstrated. LYMPH NODES: There are shotty, nonpathologically enlarged celiac axis lymph nodes. No sizable abdominopelvic lymphadenopathy is seen. VASCULAR: There is moderate aortoiliac atherosclerotic calcification. No abdominal aortic aneurysm or dissection is seen. PELVIC VISCERA: The uterus and adnexa are unremarkable. OSSEOUS STRUCTURES: There is moderate to marked degenerative disc disease extending from L2-L3 through L5-S1. There is multi-level thoracolumbar spondylosis, most pronounced at L3-L4. There has been a prior posterior fusion at L4-L5. No acute or aggressive osseous abnormality is seen. CT/CT abdomen pelvis w IV con IMPRESSION: 1. No acute thoracic or abdominopelvic traumatic injury is seen. No pneumothorax is seen. There is no pleural effusion or ascites. No free intraperitoneal air is noted. There is no parenchymal organ laceration seen. No acute osseous abnormality is noted. 2. There is mild hepatic steatosis.
[2022-07-15 18:03] VITALS: BP 174/77; PULSE 95; RESP 18; TEMP 36.8; O2SAT 93; BMI 31.6
--- NOTE | 2022-07-15 18:05 | ED_ITS ---
HPI - General Adult General Chief complaint: Fall Stated complaint: migraine/swelling of legs Time Seen by Provider: 07/15/22 20:38 Source: patient Mode of arrival: EMS Limitations: no limitations History of Present Illness HPI narrative: Patient apparently fell 1 week ago unsteady gait with history of diabetes hyp ertension on Plavix complaining of dizziness and swelling of the leg denies nausea no vomiting has some headache family concerned because of the fall patient did go to a hospital in to get evaluated patient does feel weak and dizzy for last 1 month Related Data Home Medications Medication Instructions Recorded Confirmed buspirone 10 mg tablet 1 tab PO BID 06/18/21 07/15/22 clonazepam 1 mg tablet 1 mg PO BEDTIME PRN Anxiety 06/18/21 07/15/22 clonazepam 1 mg tablet 0.5 mg PO BEDTIME PRN Sleep 07/15/22 07/15/22 dulaglutide 0.75 mg/0.5 mL 0.75 mg subcut WE 07/15/22 07/15/22 subcutaneous pen injector (Trulicity) duloxetine 30 mg capsule,delayed 1 cap PO DAILY 07/15/22 07/15/22 release duloxetine 60 mg capsule,delayed 1 cap PO BEDTIME 07/15/22 07/15/22 release pregabalin 200 mg capsule (Lyrica) 200 mg PO BID 07/15/22 07/15/22 Previous Rx's Medication Instructions Recorded GRAB bar #1 ea 02/16/20 cyanocobalamin (vitamin B-12) 1,000 mcg PO DAILY #30 caps 04/11/20 1,000 mcg capsule lisinopril 10 mg tablet 10 mg PO DAILY #90 tabs 09/09/21 pregabalin 50 mg capsule 50 mg PO BID PRN pain 90 days #180 01/23/22 caps pen needle, diabetic 31 gauge x #100 ea 02/01/22 3/16 (BD Ultra-Fine Mini Pen Needle) atorvastatin 40 mg tablet 40 mg PO DAILY #90 tabs 04/01/22 fluticasone propionate 50 2 spray intranasal DAILY PRN 04/23/22 mcg/actuation nasal Allergy Symptoms 30 days #16 grams spray,suspension (Flonase Allergy Relief) clopidogrel 75 mg tablet 75 mg PO DAILY #90 tabs 05/06/22 metformin 1,000 mg tablet 1,000 mg PO BIDWM #180 tabs 05/22/22 ropinirole 0.5 mg tablet 0.5 mg PO BEDTIME #90 tabs 05/22/22 blood sugar diagnostic (OneTouch #10 ea 06/24/22 Ultra Test strips) insulin glargine 100 unit/mL (3 60 unit (0.6 mL) subcut BEDTIME 07/03/22 mL) subcutaneous pen (Lantus #15 mL Solostar U-100 Insulin) magnesium oxide 400 mg PO DAILY #30 tabs 07/15/22 Allergies Allergy/AdvReac Type Severity Reaction Status Date / Time No Known Allergies Allergy Verified 06/10/22 14:06 [No Known Allergies*] Review of Systems Review of Systems: Yes all other systems are reviewed and are negative [facility] Past Medical History Medical History Anxiety and depression Candidal intertrigo Carotid stenosis ROCKY II (cervical intraepithelial neoplasia II) Colon cancer screening Degenerative joint disease of cervical and lumbar spine Diabetic nephropathy Fall Full dentures GERD (gastroesophageal reflux disease) History of CVA (cerebrovascular accident) Hypertension Lower back pain Multifactorial gait disorder Multifactorial gait disorder Obesity (BMI 30-39.9) Osteopenia Peripheral neuropathy Personal history of malignant neoplasm of cervix uteri Restless leg syndrome Restrictive lung disease Right arm pain Routine gynecological examination Type 2 diabetes mellitus with hyperglycemia Surgical History History of bilateral cataract extraction History of carpal tunnel surgery History of colonoscopy with polypectomy History of loop electrical excision procedure (LEEP) History of lumbar fusion History of neck surgery History of partial hysterectomy Family History Family History Father Heart attack Mother Cancer Dementia Breast cancer Hemorrhage Social History Social History Household Members Other:: Daughter Housing: Other Housing Other:: Mobile Home Are you a primary personal care service provider to a significant other at home: No Do you presently have visiting nurse or other home services: Yes (daughter is [employer]) Alcohol intake: never Patient Tobacco Use Status: Tobacco use Unknown Tobacco use type: Cigarette Smoked in Last 30 Days: No e-Cigarette/Vaping Use: Never Used Second Hand Smoke Exposure: No Use of substances other than those prescribed or required for medical reasons: No Advance Directives: Yes Advance Directives on File: Yes Advance Directives Date on File: 06/19/21 service: No Current occupational status: disabled Cognitive needs: Yes (walker/cane) Hearing needs: No Vision needs: Yes (glasses) Physical Exam ED Vital Signs: Vital Signs - 24 hr 07/15/22 18:03 07/15/22 20:45 07/15/22 21:04 Temperature 98.3 F 98 F Pulse Rate 95 85 77 Respiratory Rate 18 14 Blood Pressure 174/77 H 197/95 H 170/84 H Pulse Oximetry 93 100 Oxygen Delivery Method Room Air Room Air 07/15/22 21:04 07/15/22 21:18 07/15/22 22:00 Temperature 97.1 F Pulse Rate 84 88 76 Respiratory Rate 12 Blood Pressure 210/95 H 201/95 H 175/82 H Pulse Oximetry 97 Oxygen Delivery Method Room Air 07/15/22 23:40 Temperature 97.9 F Pulse Rate 77 Respiratory Rate 10 L Blood Pressure 178/78 H Pulse Oximetry 100 Oxygen Delivery Method Room Air BMI result Body Mass Index 31.6 Appearance: Alert. Oriented X3. No acute distress. Eyes: PERRLA, No Nystagmus ENT: Pharynx normal. Oral Mucosa moist Neck: Normal inspection. Neck supple. CVS: Normal heart rate and rhythm. Pulses normal. Respiratory: No respiratory distress. Equal air entry bilateral, no wheezing/rales/rhonchi Abdomen: Soft and nontender. Bowel sounds are present, no mass palpable, no CVA tenderness Skin: Skin warm and dry. Normal skin color. Normal skin turgor. Extremities: 1+ lower extremity edema. No calf tenderness Neuro: Oriented X 3. No motor deficit. No sensory deficit.No cerebellar signs , cranial nerves II-XII intact Course Course Course Narrative: RME: 71-year-old female with a past medical history of hypertension, hyperlipidemia, diabetes, diabetic neuropathy, degenerative spine disease, carotid stenosis, anxiety, depression, restless leg syndrome, restrictive lung disease, obesity, osteoporosis, history of CVA, GERD presented to the?ED c/o CRUZ, chest pain, right knee and bilateral feet pain s/p multiple falls at home. Reports intermittent lightheadedness/dizziness, + hitting head during falls, denies LOC Patient diffusely tender on exam, in wheely walker EKG, labs, orthostatics, granda scan, x-rays ordered Full HPI, ROS and PE to be performed by primary ED provider. Medications Administered Discontinued Medications Generic Name Dose Route Start Last Admin Trade Name Joe PRN Reason Stop Dose Admin Magnesium Sulfate 2 gm in 50 mls @ 100 mls/hr 07/15/22 21:03 07/15/22 23:30 Magnesium Sulfate/H2o IV 07/15/22 21:32 Infused ONCE ONE Infusion Iohexol 100 ml 07/15/22 20:40 07/15/22 20:41 Iohexol 350 Mg/Ml 100 Ml Infus..Btl IV 07/15/22 20:41 85 ml ONCE ONE Administration Medical Decision Making Medical Decision Making [facility] Narrative: Patient's CT scan of the head C-spine chest and abdomen negative for acute likely a mechanical fall with weakness secondary to hypomagnesemia of 1.0 which was replaced in the ER patient will be discharged home on magnesium oxide tablets advised to follow with PCP for rechecking of magnesium level Lab Data [facility] Lab Attestation statement: I reviewed the patient's lab results. 07/15/22 18:52 07/15/22 18:52 Labs: Lab Results 07/15/22 07/15/22 07/15/22 Range/Units 18:52 18:52 18:52 WBC 6.6 (4.8-10.8) X10*3/uL RBC 4.85 (4.20-5.50) X10*6/uL Hgb 12.0 (12.0-16.0) g/dl Hct 39.1 (37.0-47.0) % MCV 80.6 (80.0-98.0) fL MCH 24.7 L (27.0-33.0) pg MCHC 30.7 L (31.0-35.0) g/dl RDW 14.4 (11.0-16.0) % Plt Count 209 (160-400) X10*3/uL MPV 9.6 (9.4-12.3) fL Immature Gran % (Auto) 0.3 (0.0-0.4) % Neut % (Auto) 67.3 (45-73) % Lymph % (Auto) 24.1 (20-40) % [place] % (Auto) 6.0 (2-11) % Eos % (Auto) 2.0 (0-4) % Baso % (Auto) 0.3 (0-2) % Lymph # (Auto) 1.6 (1.2-4.9) X10*3/uL [place] # (Auto) 0.4 (0.1-1.2) X10*3/uL Eos # (Auto) 0.1 (0.0-0.4) X10*3/uL Baso # (Auto) 0.0 (0.0-0.2) X10*3/uL Abs Immat Gran (auto) 0.02 (0.00-0.03) X10*3/uL Absolute Neuts (auto) 4.5 (2.0-8.3) x10*3/uL Absolute Nucleated RBC 0.000 (0.0-0.012) X10*3/uL Nucleated RBC % (auto) 0.0 (0.0-0.2) /100WBC Sodium 141 (135-145) mmol/L Potassium 4.3 (3.3-5.1) mmol/L Chloride 105 (96-108) mmol/L Carbon Dioxide 26 (22-29) mmol/L Anion Gap 14 (12-20) BUN 10 (9-16) mg/dL Creatinine 0.89 (0.5-1.4) mg/dL Estim Creat Clear Calc 62.8 Estimated GFR > 60 POC Glucose (60-115) mg/dL Random Glucose 283 H (60-115) mg/dL Calcium 9.6 D (8.4-10.2) mg/dL Magnesium 1.0 L* (1.6-2.6) mg/dL Total Bilirubin 0.4 (0.0-1.0) mg/dL Direct Bilirubin 0.1 (0.0-0.5) mg/dL AST 12 (5-31) U/L ALT 15 (0-31) U/L Alkaline Phosphatase 82 (39-117) U/L Troponin I High Sens 2.9 (<3.5-17.0) ng/L Total Protein 6.7 (6.5-8.0) g/dL Albumin 3.7 (3.5-5.0) g/dL Urine Color Urine Appearance Urine pH (5.0-9.0) Ur Specific [place] (1.005-1.025) Urine Protein (Neg-Trace) mg/dL Urine Glucose (UA) (Negative) mg/dL Urine Ketones (Negative) mg/dL Urine Blood (Negative) Urine Nitrite (Negative) Ur Leukocyte Esterase (Negative) 07/15/22 07/15/22 Range/Units 21:21 22:41 WBC (4.8-10.8) X10*3/uL RBC (4.20-5.50) X10*6/uL Hgb (12.0-16.0) g/dl Hct (37.0-47.0) % MCV (80.0-98.0) fL MCH (27.0-33.0) pg MCHC (31.0-35.0) g/dl RDW (11.0-16.0) % Plt Count (160-400) X10*3/uL MPV (9.4-12.3) fL Immature Gran % (Auto) (0.0-0.4) % Neut % (Auto) (45-73) % Lymph % (Auto) (20-40) % [place] % (Auto) (2-11) % Eos % (Auto) (0-4) % Baso % (Auto) (0-2) % Lymph # (Auto) (1.2-4.9) X10*3/uL [place] # (Auto) (0.1-1.2) X10*3/uL Eos # (Auto) (0.0-0.4) X10*3/uL Baso # (Auto) (0.0-0.2) X10*3/uL Abs Immat Gran (auto) (0.00-0.03) X10*3/uL Absolute Neuts (auto) (2.0-8.3) x10*3/uL Absolute Nucleated RBC (0.0-0.012) X10*3/uL Nucleated RBC % (auto) (0.0-0.2) /100WBC Sodium (135-145) mmol/L Potassium (3.3-5.1) mmol/L Chloride (96-108) mmol/L Carbon Dioxide (22-29) mmol/L Anion Gap (12-20) BUN (9-16) mg/dL Creatinine (0.5-1.4) mg/dL Estim Creat Clear Calc Estimated GFR POC Glucose 204 H (60-115) mg/dL Random Glucose (60-115) mg/dL Calcium (8.4-10.2) mg/dL Magnesium (1.6-2.6) mg/dL Total Bilirubin (0.0-1.0) mg/dL Direct Bilirubin (0.0-0.5) mg/dL AST (5-31) U/L ALT (0-31) U/L Alkaline Phosphatase (39-117) U/L Troponin I High Sens (<3.5-17.0) ng/L Total Protein (6.5-8.0) g/dL Albumin (3.5-5.0) g/dL Urine Color Yellow Urine Appearance Clear Urine pH 7.5 (5.0-9.0) Ur Specific [place] >= 1.030 H (1.005-1.025) Urine Protein Negative (Neg-Trace) mg/dL Urine Glucose (UA) Negative (Negative) mg/dL Urine Ketones Negative (Negative) mg/dL Urine Blood Negative (Negative) Urine Nitrite Negative (Negative) Ur Leukocyte Esterase Negative (Negative) Independent Interpretation I performed an independent interpretation of an: EKG Interpretation: Normal sinus rhythm heart rate 80 beats per minute normal interval normal axis no acute ST change and no acute ischemia Discharge Plan Discharge Clinical Impression: Fall, Hypomagnesemia Patient Disposition: Home, Self-Care Instructions: Fall Prevention for Older Adults (ED), Hypomagnesemia (ED) Additional Instructions: Care and caution is advised Have food containing high magnesium Take magnesium tablet daily as prescribed Follow with PCP in 1 week to recheck magnesium level Prescriptions: New magnesium oxide 400 mg magnesium tablet 400 mg PO DAILY Qty: 30 0RF No Action (DME) GRAB bar See Rx Instructions .Route .MEDSUPPLY Qty: 1 0RF Rx Instructions: As directed cyanocobalamin (vitamin B-12) 1,000 mcg capsule 1,000 mcg PO DAILY Qty: 30 3RF lisinopril 10 mg tablet 10 mg PO DAILY Qty: 90 3RF pregabalin 50 mg capsule 50 mg PO BID PRN (Reason: pain) 90 Days Qty: 180 1RF Rx Instructions: take with 200 mg = 250 mg BID (DME) pen needle, diabetic [BD Ultra-Fine Mini Pen Needle] 31 gauge x 3/16 needle See Rx Instructions .ROUTE .MEDSUPPLY Qty: 100 3RF Rx Instructions: As directed inject 60 units of Lantus q.p.m. atorvastatin 40 mg tablet 40 mg PO DAILY Qty: 90 2RF fluticasone propionate [Flonase Allergy Relief] 50 mcg/actuation spray,suspension 2 spray intranasal DAILY PRN (Reason: Allergy Symptoms) 30 Days Qty: 16 3RF Rx Instructions: administer into each nostril clopidogrel 75 mg tablet 75 mg PO DAILY Qty: 90 2RF ropinirole 0.5 mg tablet 0.5 mg PO BEDTIME Qty: 90 2RF metformin 1,000 mg tablet 1,000 mg PO BIDWM Qty: 180 1RF (DME) OneTouch Ultra Test Strip See Rx Instructions .ROUTE TID Qty: 10 0RF Rx Instructions: test blood sugar three times a day insulin glargine [Lantus Solostar U-100 Insulin] 100 unit/mL (3 mL) insulin pen 60 unit subcut BEDTIME Qty: 15 10RF clonazepam 1 mg tablet 1 mg PO BEDTIME PRN (Reason: Anxiety) buspirone 10 mg tablet 1 tab PO BID clonazepam 1 mg tablet 0.5 mg PO BEDTIME PRN (Reason: Sleep) duloxetine 30 mg capsule,delayed release(DR/EC) 1 cap PO DAILY duloxetine 60 mg capsule,delayed release(DR/EC) 1 cap PO BEDTIME pregabalin [Lyrica] 200 mg capsule 200 mg PO BID Rx Instructions: take with 50 mg = 250 mg BID Trulicity 0.75 mg/0.5 mL pen injector 0.75 mg subcut WE Interventions: ED Discharge Assessment Last Done: 07/15/22 23:52 Discharge Date/Time: 07/15/22 23:55
--- NOTE | 2022-07-15 18:10 | ECG_ITS ---
Test Reason : CHEST PAIN Blood Pressure : / mmHG Vent. Rate : 080 BPM Atrial Rate : 080 BPM P-R Int : 138 ms QRS Dur : 076 ms QT Int : 362 ms P-R-T Axes : -06 014 039 degrees QTc Int : 417 ms Normal sinus rhythm Cannot rule out Anterior infarct (cited on or before 15-JUL-2022) - could be related to lead placement Borderline ECG When compared with ECG of 04-JAN-2022 18:35, Questionable change in initial forces of Anterior leads Referred By: Aliza Devi Electronically Signed By:DILAN PARMAR
[2022-07-15 18:56] LABS: MANUAL DIFF FLAG NO
[2022-07-15 18:58] LABS: Basophils Percent Auto 0.3 % (0-2); Eosinophils Absolute Auto 0.1 X10*3/uL (0.0-0.4); Hematocrit 39.1 % (37.0-47.0); Imm Gran Abs Auto 0.02 X10*3/uL (0.00-0.03); Imm Gran Pct Auto 0.3 % (0.0-0.4); Lymphocytes Absolute Auto 1.6 X10*3/uL (1.2-4.9); Lymphocytes Percent Auto 24.1 % (20-40); Mean Corpuscular HGB Conc 30.7 g/dl (31.0-35.0); Mean Corpuscular Hemoglobin 24.7 pg (27.0-33.0); Mean Corpuscular Volume 80.6 fL (80.0-98.0); Mean Platelet Volume 9.6 fL (9.4-12.3); Monocytes Absolute Auto 0.4 X10*3/uL (0.1-1.2); Neutrophils Absolute Auto 4.5 x10*3/uL (2.0-8.3); Neutrophils Percent Auto 67.3 % (45-73); Platelet Count 209 X10*3/uL (160-400); Red Blood Count 4.85 X10*6/uL (4.20-5.50); Red Cell Distribution Width 14.4 % (11.0-16.0); White Blood Count 6.6 X10*3/uL (4.8-10.8)
[2022-07-15 19:19] LABS: Troponin-I High Sensitivity 2.9 ng/L (<3.5-17.0)
[2022-07-15 19:23] LABS: Alanine Aminotransferase 15 U/L (0-31); Albumin Level 3.7 g/dL (3.5-5.0); Alkaline Phosphatase 82 U/L (39-117); Anion Gap 14 (12-20); Aspartate Amino Transferase 12 U/L (5-31); Bilirubin Direct 0.1 mg/dL (0.0-0.5); Bilirubin Total 0.4 mg/dL (0.0-1.0); Blood Urea Nitrogen 10 mg/dL (9-16); Calcium 9.6 mg/dL (8.4-10.2); Carbon Dioxide 26 mmol/L (22-29); Chloride 105 mmol/L (96-108); Creatinine Clr Calc Pharmacy 62.8; Estimated Glomerular Filt Rate > 60; Glucose Random 283 mg/dL (60-115); Potassium 4.3 mmol/L (3.3-5.1); Sodium 141 mmol/L (135-145); Total Protein 6.7 g/dL (6.5-8.0)
--- NOTE | 2022-07-15 20:15 | ECG_ITS ---
Test Reason : FALL Blood Pressure : / mmHG Vent. Rate : 073 BPM Atrial Rate : 073 BPM P-R Int : 138 ms QRS Dur : 074 ms QT Int : 366 ms P-R-T Axes : -12 006 022 degrees QTc Int : 403 ms Normal sinus rhythm Normal ECG When compared with ECG of 15-JUL-2022 18:42, No significant change was found Referred By: Jevon Roberts Electronically Signed By:DILAN PARMAR
--- NOTE | 2022-07-15 20:29 | PHA.MEDREC ---
Pharmacy Consult ? Medication Reconciliation Pharmacy has completed the medication reconciliation.
[2022-07-15] MEDS: iohexoL 350 MG/ML 100 ML INFUS..BTL IV (20:41)
[2022-07-15 20:45] VITALS: BP 197/95; PULSE 85; RESP 14; TEMP 36.6; O2SAT 100
[2022-07-15 21:04] VITALS: BP 170/84; BP 210/95; PULSE 77; PULSE 84
[2022-07-15 21:18] VITALS: BP 201/95; PULSE 88
[2022-07-15] MEDS: Magnesium Sulfate/H2O 2 GM/50 ML PIGGYBACK IV (21:20)
[2022-07-15 21:26] LABS: Glucose, Whole Blood 204 mg/dL (60-115)
[2022-07-15 22:00] VITALS: BP 175/82; PULSE 76; RESP 12; TEMP 36.2; O2SAT 97
[2022-07-15 22:48] LABS: Appearance Urine Clear; Color Urine Yellow; Glucose Urine UA Negative (Negative); Leukocyte Esterase Urine Negative (Negative); Nitrite Urine Negative (Negative); PH 7.5 (5.0-9.0); Specific Gravity - Urine >= 1.030 (1.005-1.025); Urine Blood Negative (Negative); Urine Ketones Negative (Negative); Urine Protein Negative (Neg-Trace)
--- NOTE | 2022-07-15 23:31 | PC.NURSE ---
Pt ambulating multiple times to bathroom with personal walker, stand by assist for standing and ambulating, steady slow gait. No acute distress noted.
[2022-07-15 23:40] VITALS: BP 178/78; PULSE 77; RESP 10; TEMP 36.6; O2SAT 100
== END 2022-07-15 23:55 | disposition home or self-care (01) ==
PROVIDERS: Physician Assistant; Emergency Provider Internal Medicine; PCP Internal Medicine
DX: E83.42 Hypomagnesemia (principal); R42 Dizziness and giddiness; G43.909 Migraine, unspecified, not intractable, without status migrainosus; M79.89 Other specified soft tissue disorders; E11.9 Type 2 diabetes mellitus without complications; I10 Essential (primary) hypertension; Z91.81 History of falling; R11.0 Nausea; E78.5 Hyperlipidemia, unspecified
CPT/HCPCS: 36415; 70450; 71260; 72125; 73562; 74177; 80048; 80076; 81003; 82947; 83735; 84484; 85025; 93005; 96365; 96366; 99284; 99285; J3475; Q9967

== ENCOUNTER 2022-11-14 11:44 | Outpatient (AMB) | payer OTHER, SELFPAY ==
--- NOTE | 2022-11-14 11:48 | MHC.PC.OV ---
Vital Signs 11/14/22 11:50 Height 5 ft 5 in Weight 197 lb 4 oz BMI 32.8 BP 138/78 Blood Pressure Location Lt brachial Position Sitting Pulse 89 Pulse Source Pulse Oximeter Pulse Oximetry (%) 92 Oxygen Delivery Method Room Air Intake Visit Reasons: Annual Physical Intake Note: Patient is here today for a physical. 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 Agent Required: No Hydrometer Calibrator: Not Required per policy Accompanied by: Self / Same As Patient Allergies No Known Allergies [No Known Allergies*] Allergy (Verified 11/14/22 12:16) Medication List - Last Reconciled 11/14/22 by SANTOSH Benoit atorvastatin 40 mg PO DAILY bisacodyl (Dulcolax (bisacodyl)) 10 mg (2 x 5 mg) PO ONCE 1 day blood sugar diagnostic ([employer] Ultra Test strips) TEST BLOOD SUGAR THREE TIMES A DAY FOR DIABETES MELLITUS buspirone 1 tab PO BID clonazepam 1 mg PO BEDTIME PRN clonazepam 0.5 mg PO BEDTIME PRN clopidogrel 75 mg PO DAILY cyanocobalamin (vitamin B-12) 1,000 mcg PO DAILY dulaglutide (Trulicity) 0.75 mg subcut WE duloxetine 1 cap PO DAILY duloxetine 1 cap PO BEDTIME fluticasone propionate 50 mcg/actuation (Flonase Allergy Relief) 2 sprays intranasal DAILY PRN 30 days [GRAB bar As directed] insulin glargine (Lantus Solostar U-100 Insulin) 60 units (0.6 mL) subcut BEDTIME lisinopril 10 mg PO DAILY magnesium oxide 400 mg PO DAILY metformin 1,000 mg PO BIDWM pen needle, diabetic (BD Ultra-Fine Mini Pen Needle) As directed inject 60 units of Lantus q.p.m. polyethylene glycol 3350 (Miralax) 238 grams PO ONCE 1 day pregabalin 50 mg PO BID PRN 90 days pregabalin (Lyrica) 200 mg PO BID 30 days ropinirole 0.5 mg PO BEDTIME Tobacco use date assessed: 11/14/22 Fall risk assessment: 2 + Falls in past year Last assessed Fall Risk: 11/14/22 Dental Screening Dental Screen Date: 11/14/22 Did you have a dental visit in the last 12 months?: No Did you have a dental problem in the last 6 months where you did not have access to dental care?: No Was dental information given to patient?: No HPI HPI Comments History of Present Illness Details 71-year-old obese female with a history of hypercholesterolemia lumbar degenerative disc disease GERD generalized anxiety disorder controlled diabetes mellitus, hypertension and peripheral neuropathy history of CVA in 2012. Patient of Dr. Blackburn ;last seen in August presents today for physical exam. Patient denies chest pain, palpitations, shortness of breath and syncope. Hemoglobin A1c today elevated at 8.9%, discussed increasing her Trulicity however patient declines at this time states she would to decrease her A1c by following a low-carbohydrate diet. Patient requesting refill on duloxetine however she states she is prescribed by her psychiatry medication provider, patient recommended to with them for refill. Eye exam: Last summer, recommended annually. Colonoscopy: States was supposed to go in September 2022, states the prep does not work for her. Cologuard considered however patient has history of tubular adenoma so she was recommended follow-up with Gastroenterology to have colonoscopy screening. Mammogram: ordered. 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) Osteopenia History of CVA (cerebrovascular accident) Anxiety and depression Hypertension Type 2 diabetes mellitus with hyperglycemia Surgical History History of carotid endarterectomy History of partial hysterectomy History of colonoscopy with polypectomy History of bilateral cataract extraction History of carpal tunnel surgery History of lumbar fusion History of loop electrical excision procedure (LEEP) History of neck surgery Family History Father Heart attack Mother Cancer Dementia Breast cancer Hemorrhage Social History (Updated 11/14/22 @ 11:57 by LYNETTE Santiago) Household Members Other:: Daughter Housing: Other Housing Other:: Mobile Home Are you a primary medicare specialist to a significant other at home: No Do you presently have visiting nurse or other home services: Yes (daughter is QUANTITY SURVEYOR) Alcohol intake: never Patient Tobacco Use Status: Former Tobacco user Quit Date: 2009 Tobacco use type: Cigarette e-Cigarette/Vaping Use: Never Used Second Hand Smoke Exposure: Yes Advance Directives Date on File: 06/19/21 service: No Current occupational status: disabled Cognitive needs: Yes (walker/cane) Hearing needs: No Vision needs: Yes (glasses) Questionnaire Thrive Questionnaire Date Thrive assessed: 08/16/21 CHERYL-7 AMB Questionnaire CHERYL-7 Date CHERYL - 7 assessed: 06/10/22 Source: Developed by Drs. Luther Huddleston, Summer Guadalupe, Thomas Melissa and colleagues, with an educational jen from [employer]. Review of Systems Const Denies chills, Denies fatigue, Denies fever(s) and Denies poor appetite Eyes Denies no additional complaints ENT Reports Normal hearing present Card Denies chest pain, Denies syncope, Denies rapid heart rate and Denies dyspnea Resp Denies cough and Denies dyspnea GI Denies change in stool character, Denies constipation, Denies diarrhea, Denies nausea and Denies vomiting Denies urinary frequency, Denies dysuria and Denies urinary urgency Neuro Reports Normal hearing present, Denies confusion and Denies syncope Psych Denies confusion Endo Denies fatigue Physical exam (Primary Care) Vital Signs: Last Vital Signs Pulse 89 11/14/22 11:50 BP 138/78 11/14/22 11:50 Pulse Ox 92 11/14/22 11:50 Oxygen Delivery Method Room Air 11/14/22 11:50 BMI result Body Mass Index 32.8 Tobacco/Smoking Status: Tobacco use Status Tobacco use date assessed 11/14/22 11/14/22 11:59 Patient Tobacco Use Status Former Tobacco user 11/14/22 11:59 Tobacco use type Cigarette 11/14/22 11:59 e-Cigarette/Vaping Use Never Used 11/14/22 11:59 Thrive Assessment: Date of Thrive Assessment Date Thrive assessed 08/16/21 11/14/22 11:59 Const General: No confusion Orientation/consciousness: No confusion HENMT Head: Yes normocephalic and Yes atraumatic Ears: external ears normal and TM's normal bilaterally General nose exam: Normal external nose present and Normal nasal mucous membranes and turbinates present Face and sinus: Yes normal facial exam and Yes sinuses nontender Mouth: moist mucous membranes Throat: Yes tonsils normal Eyes Conjunctivae: conjunctivae normal Sclerae: sclerae normal Pupils: Equal, round and reactive pupils present and Pupils normal by confrontation EOM: EOMs intact bilaterally Direct Ophthalmoscopy: normal light reflex Neck Neck: Yes no lymphadenopathy and Yes supple Thyroid: Thyroid normal Chest Chest palpation & inspection: normal inspection of the chest Resp Effort & Inspection: normal respiratory effort Auscultation: clear to auscultation bilaterally, no crackles, no rhonchi and no wheezes Cardio Rate: regular rate Rhythm: regular rhythm Peripheral pulses: radial pulses present and dorsalis pedis present GI Inspection: Yes normal to inspection Palpation (GI): Soft to palpation, nontender and No hepatosplenomegaly present Auscultation: normoactive bowel sounds Skin General skin exam: no rashes or lesions noted Neuro General: No confusion Cranial nerves: Yes Equal, round and reactive pupils present and Yes Normal hearing present Cognition (Neuro): normal cognition Gait exam (Neuro): Normal gait present Motor exam (neuro): 5/5 motor strength present throughout Deep tendon reflexes (DTR's): Right brachioradialis reflex intensity grade: 2+, Left brachioradialis reflex intensity grade: 2+, Right patellar reflex intensity grade: 2+ and Left patellar reflex intensity grade: 2+ Extrem General: No edema Results AMB Hemoglobin A1c AMB Hemoglobin A1c 8.9 % Last Edit by LYNETTE Santiago on 11/14/22 12:04 Results Reviewed Results Reviewed: Laboratory Last Values Hgb A1c (Clinic) 8.9 % (4.0-6.0) H 11/14/22 11:48 Assessment and Plan Assessment & Plan (1) Type 2 diabetes mellitus with hyperglycemia: Code(s): E11.65 - Type 2 diabetes mellitus with hyperglycemia Qualifiers: Diabetes mellitus custodial insulin use: with custodial use Qualified Code(s): E11.65 - Type 2 diabetes mellitus with hyperglycemia; 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 Patient advised to follow low-carbohydrate diet, hemoglobin A1c goal less than 7.5% Discussed increasing Trulicity however patient declines at this time would like to follow low-carbohydrate diet to see if she can decrease her A1c on her own. (2) Hypertension: Code(s): I10 - Essential (primary) hypertension Qualifiers: Hypertension type: essential hypertension Qualified Code(s): I10 - Essential (primary) hypertension Plan: Continue on lisinopril. Blood pressure within goal today. (3) Hypercholesterolemia: Code(s): E78.00 - Pure hypercholesterolemia, unspecified Plan: Fasting lipid panel ordered. Continue on atorvastatin. Follow low-cholesterol diet. (4) Physical exam, annual: Code(s): Z00.00 - Encounter for general adult medical examination without abnormal findings Plan: Follow up in 1 year. Plan Follow up in 3 months. Orders: Orders MM screening mammo BI Today Z12.31 - Encounter for screening mammogram for malignant neoplasm of breast AMB Hemoglobin A1c Today E11.65 - Type 2 diabetes mellitus with hyperglycemia Complete Blood Count Auto Diff Today Z13.0 - Encounter for screening for diseases of the blood and blood-forming organs and certain disorders involving the immune mechanism Comprehensive [place]. 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
[2022-11-14 11:50] VITALS: BP 138/78; PULSE 89; O2SAT 92; BMI 32.8
== END 2022-11-14 12:26 | disposition home or self-care (01) ==
PROVIDERS: PCP Internal Medicine; Visit Provider Nurse Practitioner Family
DX: Z00.00 Encounter for general adult medical examination without abnormal findings (principal); E11.65 Type 2 diabetes mellitus with hyperglycemia; Z79.4 Long term (current) use of insulin; I10 Essential (primary) hypertension; E78.00 Pure hypercholesterolemia, unspecified
CPT/HCPCS: 83036; 99397

== ENCOUNTER 2022-12-03 23:19 | Emergency (ER) | payer OTHER, SELFPAY ==
[2022-12-03 23:24] VITALS: BP 192/62; PULSE 77; RESP 16; TEMP 36.4; O2SAT 94; BMI 30.7
--- NOTE | 2022-12-04 01:05 | PC.NURSE ---
pt has blister about 3 cm wide, 5cm long on left inner foot. Reports she fell a few days ago and the blister has been slowly forming since. Tender to palpation. No discharge
[2022-12-04 04:15] VITALS: BP 194/102; PULSE 82; RESP 17; TEMP 36.4; O2SAT 99
--- NOTE | 2022-12-04 04:15 | PC.NURSE ---
Rn in room to introduce herself. Patient very upset d/t wait time. This RN very apologetic, vitals complete with BP elevated. Pt repors having high bp but does not remember what medications she takes. Offered food, and drinks but patient declined. Warm blanket given and will recheck BP shortly.
--- NOTE | 2022-12-04 05:53 | PC.NURSE ---
Patient growing increasingly frustrated with wait time. This RN discussed with charge and notified but will not be able to see patient. Due to downtime and other critical patients with higher acuity, wait times have increased. Patient notified and informed that another provider would be in at 0630.
--- NOTE | 2022-12-04 06:17 | ED.GENADULT ---
HPI - General Adult General Chief complaint: Skin/Abscess/Foreign Body Stated complaint: large blister on foot Time Seen by Provider: 12/04/22 06:16 Source: patient and family Mode of arrival: ambulatory History of Present Illness HPI narrative: Blister to medial aspect of left foot after patient states that she bumped it on a piece of furniture. She denies any pain to the foot. Related Data Home Medications Medication Instructions Recorded Confirmed buspirone 10 mg tablet 1 tab PO BID 06/18/21 11/14/22 clonazepam 1 mg tablet 1 mg PO BEDTIME PRN Anxiety 06/18/21 11/14/22 clonazepam 1 mg tablet 0.5 mg PO BEDTIME PRN Sleep 07/15/22 11/14/22 dulaglutide 0.75 mg/0.5 mL 0.75 mg subcut WE 07/15/22 11/14/22 subcutaneous pen injector (Trulicity) duloxetine 30 mg capsule,delayed 1 cap PO DAILY 07/15/22 11/14/22 release duloxetine 60 mg capsule,delayed 1 cap PO BEDTIME 07/15/22 11/14/22 release Previous Rx's Medication Instructions Recorded GRAB bar #1 ea 02/16/20 cyanocobalamin (vitamin B-12) 1,000 mcg PO DAILY #30 caps 04/11/20 1,000 mcg capsule pen needle, diabetic 31 gauge x #100 ea 02/01/22/ (BD Ultra-Fine Mini Pen Needle) atorvastatin 40 mg tablet 40 mg PO DAILY #90 tabs 04/01/22 clopidogrel 75 mg tablet 75 mg PO DAILY #90 tabs 05/06/22 metformin 1,000 mg tablet 1,000 mg PO BIDWM #180 tabs 05/22/22 ropinirole 0.5 mg tablet 0.5 mg PO BEDTIME #90 tabs 05/22/22 insulin glargine 100 unit/mL (3 60 unit (0.6 mL) subcut BEDTIME 07/26/22 mL) subcutaneous pen (Lantus #15 mL Solostar U-100 Insulin) fluticasone propionate 50 2 spray intranasal DAILY PRN 08/21/22 mcg/actuation nasal Allergy Symptoms 30 days #16 grams spray,suspension (Flonase Allergy Relief) bisacodyl 5 mg tablet,delayed 10 mg (2 x 5 mg) PO ONCE 1 day #2 07/05/23 release (Dulcolax (bisacodyl)) tabs polyethylene glycol 3350 17 238 g PO ONCE 1 day #238 grams 08/27/22 gram/dose oral powder (Miralax) lisinopril 10 mg tablet 10 mg PO DAILY #90 tabs 09/04/22 pregabalin 200 mg capsule (Lyrica) 200 mg PO BID 30 days #60 caps 10/17/22 pregabalin 50 mg capsule 50 mg PO BID PRN pain 90 days #180 10/17/22 caps blood sugar diagnostic (OneTouch #200 ea 10/29/22 Ultra Test strips) magnesium oxide 400 mg (241.3 mg 400 mg PO DAILY #30 tabs 11/10/22 magnesium) tablet Allergies Allergy/AdvReac Type Severity Reaction Status Date / Time No Known Allergies Allergy Verified 12/03/22 23:23 [No Known Allergies*] Review of Systems Review of Systems: Pertinent positives and negatives as stated in HPI [facility] Past Medical History Source: nursing notes reviewed Medical History Right arm pain Routine gynecological examination Fall Multifactorial gait disorder Peripheral neuropathy Full dentures Multifactorial gait disorder Colon cancer screening Lower back pain Candidal intertrigo Restrictive lung disease Carotid stenosis GERD (gastroesophageal reflux disease) Personal history of malignant neoplasm of cervix uteri Diabetic nephropathy Restless leg syndrome Obesity (BMI 30-39.9) 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) Osteopenia History of CVA (cerebrovascular accident) Anxiety and depression Hypertension Type 2 diabetes mellitus with hyperglycemia Surgical History History of carotid endarterectomy History of partial hysterectomy History of colonoscopy with polypectomy History of bilateral cataract extraction History of carpal tunnel surgery History of lumbar fusion History of loop electrical excision procedure (LEEP) History of neck surgery Family History Family History Father Heart attack Mother Cancer Dementia Breast cancer Hemorrhage Social History Social History Household Members Other:: Daughter Housing: Other Housing Other:: Mobile Home Are you a primary insurance healthcare consultant to a significant other at home: No Do you presently have visiting nurse or other home services: Yes (daughter is BUSINESS ANALYTICS DIRECTOR) Alcohol intake: never Patient Tobacco Use Status: Former Tobacco user Quit Date: 2009 Tobacco use type: Cigarette Smoked in Last 30 Days: No e-Cigarette/Vaping Use: Never Used Second Hand Smoke Exposure: Yes Use of substances other than those prescribed or required for medical reasons: No Advance Directives: Yes Advance Directives on File: Yes Advance Directives Date on File: 06/19/21 service: No Current occupational status: disabled Cognitive needs: Yes (walker/cane) Hearing needs: No Vision needs: Yes (glasses) Physical Exam ED Vital Signs: Vital Signs - 24 hr 12/03/22 23:24 12/04/22 04:15 Temperature 97.5 F 97.6 F Pulse Rate 77 82 Respiratory Rate 16 17 Blood Pressure 192/62 H 194/102 H Pulse Oximetry 94 99 Oxygen Delivery Method Room Air Room Air BMI result Body Mass Index 30.7 VITAL SIGNS: Reviewed. GENERAL: Well developed, well nourished, in no acute distress. HEAD: Normocephalic/atraumatic EYES: PERRLA, EOMI LUNGS: Normal breath sounds. No adventitious sounds or accessory muscle use. SpO2<99> CARDIOVASCULAR: Regular rate and rhythm without noted murmurs ABDOMEN: Soft, non-tender, non-distended with bowel sounds. MUSCULOSKELETAL: No tenderness, deformities, or effusions noted on gross inspection. EXTREMITIES: No cyanosis, clubbing or edema. LEFT FOOT: 4.5 cm blister without noted bloody component SKIN: Inspection of the skin reveals no rashes NEUROLOGIC: Alert and oriented x 4. Strength and sensation to light touch were grossly intact x 4. Medical Decision Making Medical Decision Making MDM Narrative: 71-year-old female with a benign appearing blister to the medial aspect of her left foot and no underlying deformity, drained blister with an 18 gauge needle and then wrapped the foot. She was then discharged home with instructions to follow-up with the primary care doctor. Discharge Plan Discharge Clinical Impression: Blister of foot without infection Patient Disposition: Home, Self-Care Instructions: Blister (ED) Additional Instructions: 1. Resume all home medications as prescribed 2. Please follow-up with your primary care doctor in the next 1-2 days. Return to the ER for any worsening symptoms. Prescriptions: No Action (DME) GRAB bar See Rx Instructions .Route .MEDSUPPLY Qty: 1 0RF Rx Instructions: As directed cyanocobalamin (vitamin B-12) 1,000 mcg capsule 1,000 mcg PO DAILY Qty: 30 3RF (DME) pen needle, diabetic [BD Ultra-Fine Mini Pen Needle] 31 gauge x 3/16 needle See Rx Instructions .ROUTE .MEDSUPPLY Qty: 100 3RF Rx Instructions: As directed inject 60 units of Lantus q.p.m. atorvastatin 40 mg tablet 40 mg PO DAILY Qty: 90 2RF clopidogrel 75 mg tablet 75 mg PO DAILY Qty: 90 2RF ropinirole 0.5 mg tablet 0.5 mg PO BEDTIME Qty: 90 2RF metformin 1,000 mg tablet 1,000 mg PO BIDWM Qty: 180 1RF insulin glargine [Lantus Solostar U-100 Insulin] 100 unit/mL (3 mL) insulin pen 60 unit subcut BEDTIME Qty: 15 10RF fluticasone propionate [Flonase Allergy Relief] 50 mcg/actuation spray,suspension 2 spray intranasal DAILY PRN (Reason: Allergy Symptoms) 30 Days Qty: 16 3RF Rx Instructions: administer into each nostril bisacodyl [Dulcolax (bisacodyl)] 5 mg tablet,delayed release (DR/EC) 10 mg PO ONCE 1 Days Qty: 2 0RF Rx Instructions: take at noon the day before colonoscopy polyethylene glycol 3350 [Miralax] 17 gram/dose powder 238 g PO ONCE 1 Days Qty: 238 0RF Rx Instructions: Take as directed by mouth the day before your procedure. lisinopril 10 mg tablet 10 mg PO DAILY Qty: 90 3RF pregabalin 50 mg capsule 50 mg PO BID PRN (Reason: pain) 90 Days Qty: 180 0RF Rx Instructions: take with 200 mg = 250 mg BID pregabalin [Lyrica] 200 mg capsule 200 mg PO BID 30 Days Qty: 60 0RF Rx Instructions: take with 50 mg = 250 mg BID (DME) OneTouch Ultra Test Strip See Rx Instructions .ROUTE .COMPLEX Qty: 200 0RF Dose Instruction: TEST BLOOD SUGAR THREE TIMES A DAY FOR DIABETES MELLITUS Rx Instructions: TEST BLOOD SUGAR THREE TIMES A DAY FOR DIABETES MELLITUS magnesium oxide 400 mg (241.3 mg magnesium) tablet 400 mg PO DAILY Qty: 30 3RF clonazepam 1 mg tablet 1 mg PO BEDTIME PRN (Reason: Anxiety) buspirone 10 mg tablet 1 tab PO BID clonazepam 1 mg tablet 0.5 mg PO BEDTIME PRN (Reason: Sleep) duloxetine 30 mg capsule,delayed release(DR/EC) 1 cap PO DAILY duloxetine 60 mg capsule,delayed release(DR/EC) 1 cap PO BEDTIME Trulicity 0.75 mg/0.5 mL pen injector 0.75 mg subcut WE Referrals: Alexey,Kina Lemons MD [Primary Care Provider] - Interventions: ED Discharge Assessment Last Done: 12/04/22 06:24 Discharge Date/Time: 12/04/22 06:25
== END 2022-12-04 06:25 | disposition home or self-care (01) ==
PROVIDERS: Emergency Provider Student in an Organized Health Care Education/Training Program; PCP Internal Medicine
DX: S90.822A Blister (nonthermal), left foot, initial encounter (principal); W22.03XA Walked into furniture, initial encounter; E11.9 Type 2 diabetes mellitus without complications; I10 Essential (primary) hypertension; E78.00 Pure hypercholesterolemia, unspecified; Z87.891 Personal history of nicotine dependence; Z79.899 Other long term (current) drug therapy; Z79.4 Long term (current) use of insulin; Y93.9 Activity, unspecified; Y92.9 Unspecified place or not applicable; Y99.9 Unspecified external cause status
CPT/HCPCS: 99282; 99284

== ENCOUNTER 2023-04-20 09:28 | Outpatient (REF) | payer OTHER, SELFPAY ==
[2023-04-20 09:56] LABS: MANUAL DIFF FLAG NO
[2023-04-20 10:10] LABS: Basophils Percent Auto 0.3 % (0-2); Eosinophils Absolute Auto 0.1 X10*3/uL (0.0-0.4); Eosinophils Percent Auto 1.5 % (0-4); Hematocrit 41.6 % (37.0-47.0); Hemoglobin 12.6 g/dl (12.0-16.0); Imm Gran Abs Auto 0.03 X10*3/uL (0.00-0.03); Imm Gran Pct Auto 0.4 % (0.0-0.4); Lymphocytes Percent Auto 29.1 % (20-40); Mean Corpuscular HGB Conc 30.3 g/dl (31.0-35.0); Mean Corpuscular Hemoglobin 25.5 pg (27.0-33.0); Mean Corpuscular Volume 84.2 fL (80.0-98.0); Mean Platelet Volume 10.4 fL (9.4-12.3); Monocytes Absolute Auto 0.6 X10*3/uL (0.1-1.2); Monocytes Percent Auto 9.4 % (2-11); Neutrophils Percent Auto 59.3 % (45-73); Platelet Count 197 X10*3/uL (160-400); Red Blood Count 4.94 X10*6/uL (4.20-5.50); Red Cell Distribution Width 14.4 % (11.0-16.0); White Blood Count 6.7 X10*3/uL (4.8-10.8)
[2023-04-20 11:29] LABS: Alanine Aminotransferase 18 U/L (0-31); Albumin Level 3.7 g/dL (3.5-5.0); Alkaline Phosphatase 105 U/L (39-117); Anion Gap 13 (12-20); Aspartate Amino Transferase 15 U/L (5-31); Bilirubin Total 0.4 mg/dL (0.0-1.0); Blood Urea Nitrogen 11 mg/dL (9-16); Calcium 9.3 mg/dL (8.4-10.2); Carbon Dioxide 30 mmol/L (22-29); Chloride 102 mmol/L (96-108); Cholesterol 127 mg/dL (<200); Estimated Glomerular Filt Rate > 60; Glucose Fasting 193 mg/dL (60-99); HDL Cholesterol 30 mg/dL (>40); LDL Cholesterol Calculated 74 mg/dL (<100); Potassium 4.5 mmol/L (3.3-5.1); Sodium 140 mmol/L (135-145); Triglycerides 119 mg/dL (<150)
[2023-04-20 11:44] LABS: TSH reflex Free T4 2.01 uIU/mL (0.32-4.0)
== END 2023-04-20 09:29 | disposition home or self-care (01) ==
LOC: HO.LAB 09:28
PROVIDERS: Nurse Practitioner Family; PCP Internal Medicine; Visit Provider Internal Medicine
DX: E11.65 Type 2 diabetes mellitus with hyperglycemia (principal); Z13.29 Encounter for screening for other suspected endocrine disorder; Z13.0 Encounter for screening for diseases of the blood and blood-forming organs and certain disorders involving the immune mechanism; Z13.220 Encounter for screening for lipoid disorders
CPT/HCPCS: 36415; 80053; 80061; 84443; 85025

== ENCOUNTER 2023-05-07 11:00 | Outpatient (AMB) | payer OTHER, SELFPAY ==
[2023-05-07 11:03] VITALS: BP 152/90; PULSE 106; O2SAT 90; BMI 33.1
--- NOTE | 2023-05-07 11:03 | A.OFFPC_ITS ---
Vital Signs 05/07/23 11:03 Height 5 ft 5 in Weight 199 lb BMI 33.1 BP 152/90 H Blood Pressure Location Lt brachial Position Sitting Pulse 106 H Pulse Source Pulse Oximeter Pulse Oximetry (%) 90 L Oxygen Delivery Method Room Air Intake Visit Reasons: DM/HTN follow up Allergies No Known Allergies [No Known Allergies*] Allergy (Verified 05/07/23 11:04) Medication List - Last Reconciled 05/07/23 by Kina Blackburn MD atorvastatin 40 mg PO DAILY bisacodyl (Dulcolax (bisacodyl)) 10 mg (2 x 5 mg) PO ONCE 1 day blood sugar diagnostic ([employer] Ultra Test strips) TEST BLOOD SUGAR THREE TIMES A DAY FOR DIABETES MELLITUS buspirone 1 tab PO BID clonazepam 1 mg PO BEDTIME PRN clonazepam 0.5 mg PO BEDTIME PRN clopidogrel 75 mg PO DAILY cyanocobalamin (vitamin B-12) 1,000 mcg PO DAILY dulaglutide (Trulicity) 1.5 mg (0.5 mL) subcut QWEEK duloxetine 1 cap PO DAILY duloxetine 1 cap PO BEDTIME fluticasone propionate 50 mcg/actuation (Flonase Allergy Relief) 2 sprays intranasal DAILY PRN 30 days [GRAB bar As directed] insulin glargine (Lantus Solostar U-100 Insulin) 60 units (0.6 mL) subcut BEDTIME lisinopril 20 mg PO DAILY magnesium oxide 400 mg PO DAILY metformin 1,000 mg PO BIDWM pen needle, diabetic (BD Ultra-Fine Mini Pen Needle) As directed inject 60 units of Lantus q.p.m. polyethylene glycol 3350 (Miralax) 238 grams PO ONCE 1 day pregabalin 50 mg PO BID PRN 90 days pregabalin (Lyrica) 200 mg PO BID 30 days ropinirole 0.5 mg PO BEDTIME Tobacco use date assessed: 05/07/23 Fall risk assessment: 2 + Falls in past year Last assessed Fall Risk: 05/07/23 Dental Screening Dental Screen Date: 05/07/23 Did you have a dental visit in the last 12 months?: No Did you have a dental problem in the last 6 months where you did not have access to dental care?: No Was dental information given to patient?: Patient has dentist HPI DM/HTN follow up HPI Details 72-year-old obese female with diabetes m ellitus hypertension hypercholesterolemia GERD coming in for follow-up. March 2023 blood work . patient complains of having tremors and concern that mom has question of Parkinson's. Otherwise needs to have colonoscopy wants to have it done in [facility], mammogram request made also. [facility] Medical History (Updated 05/07/23 @ 11:40 by Kina Blackburn MD) Colon cancer screening Right arm pain Routine gynecological examination Fall Multifactorial gait disorder Peripheral neuropathy Full dentures Multifactorial gait disorder Lower back pain Candidal intertrigo Restrictive lung disease Carotid stenosis GERD (gastroesophageal reflux disease) Personal history of malignant neoplasm of cervix uteri Diabetic nephropathy Restless leg syndrome Obesity (BMI 30-39.9) 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) Osteopenia History of CVA (cerebrovascular accident) Anxiety and depression Hypertension Type 2 diabetes mellitus with hyperglycemia Surgical History History of carotid endarterectomy History of partial hysterectomy History of colonoscopy with polypectomy History of bilateral cataract extraction History of carpal tunnel surgery History of lumbar fusion History of loop electrical excision procedure (LEEP) History of neck surgery Family History Father Heart attack Mother Cancer Dementia Breast cancer Hemorrhage Social History Household Members Other:: Daughter Housing: Other Housing Other:: Mobile Home Are you a primary customer care team coach to a significant other at home: No Do you presently have visiting nurse or other home services: Yes (daughter is FOREST WORKER) Alcohol intake: never Comment: unsteady gait Patient Tobacco Use Status: Former Tobacco user Quit Date: 2009 Tobacco use type: Cigarette e-Cigarette/Vaping Use: Never Used Second Hand Smoke Exposure: Yes Advance Directives Date on File: 06/19/21 service: No Current occupational status: disabled Cognitive needs: Yes (walker/cane) Hearing needs: No Vision needs: Yes (glasses) Questionnaire PHQ-9 Over the last 2 weeks, how often have you been bothered by any of the following problems? 1. Little interest or pleasure in doing things: nearly every day 2. Feeling down, depressed, or hopeless: nearly every day 3. Trouble falling or staying asleep, or sleeping too much: not at all 4. Feeling tired or having little energy: nearly every day 5. Poor appetite or overeating: not at all 6. Feeling bad about yourself - or that you are a failure or have let yourself or your family down: more than half the days 7. Trouble concentrating on things, such as reading the newspaper or watching television: not at all 8. Moving or speaking so slowly that other people could have noticed. Or the opposite - being so fidgety or restless that you have been moving around a lot more than usual: not at all 9. Thoughts that you would be better off or of hurting yourself in some way: not at all Total score: 11 Depression Screening Interpretation: Positive Depression Screening Done: Yes Source: Developed by Drs. Luther Huddleston, Summer Guadalupe, Thomas Melissa and colleagues, with an educational jen from [employer]. Thrive Questionnaire Date Thrive assessed: 05/07/23 I am a: Patient What is your living situation today?: I have a steady place to live Within the past 12 months, did the food you bought not last and you didn't have the money to get more?: Never true Within the past 12 months, did you worry whether your food would run out before you got money to buy more?: Never true Do you have trouble paying for medicines?: No Do you have trouble getting transportation to medical appointments?: No Do you have trouble paying your heating and electricity bill?: No Do you have trouble taking care of your child, family member or friend?: No Do you have trouble with day-to-day activities such as bathing, preparing meals, shopping, managing finances, etc.?: No Are you currently unemployed and looking for a job?: No Are you interested in more education?: No Currently or been in a relationship where the following occur: no concerns reported THRIVE Score: 0 AUDIT C Alcohol Use Questionnaire (AUDIT-C) 1. How often do you have a drink containing alcohol?: Never Total Score: 0 Score Reviewed/Action Taken: No CHERYL-7 AMB Questionnaire CHERYL-7 Date CHERYL - 7 assessed: 05/07/23 Feeling nervous, anxious, or on edge: 1 = Several days Not being able to stop or control worryin = Several days Worrying too much about different things: 1 = Several days Trouble relaxin = Not at all Being so restless that it is hard to sit still: 0 = Not at all Becoming easily annoyed or irritable: 0 = Not at all Feeling afraid as if something awful might happen: 0 = Not at all Total CHERYL-7 score (0-4 normal; 5-9 mild; 10-14 moderate; 15-21 severe): 3 Source: Developed by Drs. Luther Huddleston, Summer Guadalupe, Thomas Melissa and colleagues, with an educational jen from [employer]. Physical exam (Primary Care) Vital Signs: Last Vital Signs Pulse 106 H 05/07/23 11:03 BP 152/90 H 05/07/23 11:03 Pulse Ox 90 L 05/07/23 11:03 Oxygen Delivery Method Room Air 05/07/23 11:03 BMI result Body Mass Index 33.1 Tobacco/Smoking Status: Tobacco use Status Tobacco use date assessed 05/07/23 05/07/23 11:06 Patient Tobacco Use Status Former Tobacco user 05/07/23 11:06 Tobacco use type Cigarette 05/07/23 11:06 e-Cigarette/Vaping Use Never Used 05/07/23 11:06 PHQ-9: PHQ-9 Score PHQ-9: Total score 11 05/07/23 11:29 Depression Screening Interpretation: Positive Thrive Assessment: Date of Thrive Assessment Date Thrive assessed 05/07/23 05/07/23 11:06 Currently or been in a relationship where the following occur: no concerns reported Const General: alert; No acute distress Eyes Conjunctivae: conjunctivae normal Resp Auscultation: clear to auscultation bilaterally Cardio Rate: regular rate Rhythm: regular rhythm GI Inspection: Yes normal to inspection Extrem General: Yes normal to inspection and No edema Results AMB Hemoglobin A1c AMB Hemoglobin A1c 8.5 % Last Edit by Daily Roberts CMA on 05/07/23 11 :40 Assessment and Plan Assessment & Plan (1) Type 2 diabetes mellitus with hyperglycemia: Comment: Eye and lasik Code(s): E11.65 - Type 2 diabetes mellitus with hyperglycemia Qualifiers: Diabetes mellitus manager terminal insulin use: with usp use Qualified Code(s): E11.65 - Type 2 diabetes mellitus with hyperglycemia; Z79.4 - intermission coordinator (current) use of insulin Plan: Decrease the amount of carbohydrate intake, pasta, bread, rice and potatoes are all sugar and that is aside from all the sweet stuff, remember that fruits are good but they are Sweet also. Hemoglobin A1c goal of less than 7.0. Patient on Trulicity 0.75 Lantus at 60 units once a day metformin 1000 mg twice a day hemoglobin A1c is 8.5. Will increase the dose of Trulicity (2) Obesity (BMI 30-39.9): Code(s): E66.9 - Obesity, unspecified Plan: Diet and exercise (3) Hypertension: Code(s): I10 - Essential (primary) hypertension Qualifiers: Hypertension type: essential hypertension Qualified Code(s): I10 - Essential (primary) hypertension Plan: Continue with blood pressure medication. Decrease salt intake and exercise presently on lisinopril 10 mg once a day. Blood pressure remains to be high increase lisinopril (4) GERD (gastroesophageal reflux disease): Code(s): K21.9 - Gastro-esophageal reflux disease without esophagitis Qualifiers: Esophagitis presence: without esophagitis Qualified Code(s): K21.9 - Gastro-esophageal reflux disease without esophagitis Plan: Avoid the foods that causes that usually spicy foods, tomato products, juices, coffee, soda and foods that your sensitive to. After eating do not lie down, allow 3-4 hours before in lie down. And keep the head of bed above 30 degrees to avoid the acid from going up. (5) Hypercholesterolemia: Code(s): E78.00 - Pure hypercholesterolemia, unspecified Plan: Avoid fried foods, chicken skin, eggs, butter margarine, pastries and meat. Be it pork or beef they have a lot of cholesterol LDL goal of less than 100 and triglyceride of less than 150. On atorvastatin 40 mg once a day March 2023 blood work at goal cholesterol (6) Breast cancer screening by mammogram: Code(s): Z12.31 - Encounter for screening mammogram for malignant neoplasm of breast Plan: Reminded about mammogram (7) Colon cancer screening: Code(s): Z12.11 - Encounter for screening for malignant neoplasm of colon Plan: Reminded about colonoscopy (8) Osteopenia: Code(s): M85.80 - Other specified disorders of bone density and structure, unspecified site Plan: Reminded about bone density test (9) Tremor: Code(s): R25.1 - Tremor, unspecified Plan: referral to neurologist Orders: Orders AMB Hemoglobin A1c Today Z13.9 - Encounter for screening, unspecified XR DEXA axial skeleton Today M81.0 - Age-related osteoporosis without current pathological fracture, M85.80 - Other specified disorders of bone density and structure, unspecified site MM tomosynthesis screening BI Today Z12.31 - Encounter for screening mammogram for malignant neoplasm of breast Referrals Neurology Referral R25.1 - Tremor, unspecified Gastroenterology Referral Z12.11 - Encounter for screening for malignant neoplasm of colon Medications: New dulaglutide (Trulicity) 1.5 mg (0.5 mL) subcut QWEEK 2 mL 3RF E11.65 - Type 2 diabetes mellitus with hyperglycemia, Z79.4 - intermission coordinator (current) use of insulin Changed From lisinopril 10 mg PO DAILY 90 tabs 3RF I10 - Essential (primary) hypertension To lisinopril 20 mg PO DAILY 30 tabs 3RF I10 - Essential (primary) hypertension Refilled pregabalin take with 200 mg = 250 mg BID 50 mg PO BID 90 days PRN 180 caps 0RF pain M79.2 - Neuralgia and neuritis, unspecified metformin 1,000 mg PO BIDWM 180 tabs 1RF E11.65 - Type 2 diabetes mellitus with hyperglycemia, Z79.4 - intermission coordinator (current) use of insulin Coding Level of Care Code Est Pt Level 4 (70134) Diagnoses Type 2 diabetes mellitus with hyperglycemia, with long-term current use of insulin E11.65; Z79.4 Diabetes mellitus manager terminal insulin use: with manager terminal use Obesity (BMI 30-39.9) E66.9 Essential hypertension I10 Hypertension type: essential hypertension Gastroesophageal reflux disease without esophagitis K21.9 Esophagitis presence: without esophagitis Hypercholesterolemia E78.00 Breast cancer screening by mammogram Z12.31 Colon cancer screening Z12.11 Osteopenia M85.80 Tremor R25.1 Additional Codes PHQ-9 - 72317 - PHQ-9 Billing: ([id number])
== END 2023-05-07 11:48 | disposition home or self-care (01) ==
PROVIDERS: PCP Internal Medicine; Visit Provider Internal Medicine
DX: E11.65 Type 2 diabetes mellitus with hyperglycemia (principal); Z79.4 Long term (current) use of insulin; I10 Essential (primary) hypertension; K21.9 Gastro-esophageal reflux disease without esophagitis; E78.00 Pure hypercholesterolemia, unspecified; M85.80 Other specified disorders of bone density and structure, unspecified site; R25.1 Tremor, unspecified
CPT/HCPCS: 83036; 99214

== ENCOUNTER 2023-08-04 10:47 | Outpatient (AMB) | payer OTHER, SELFPAY ==
[2023-08-04 10:54] VITALS: BP 158/82; PULSE 104; O2SAT 94; BMI 32.3
--- NOTE | 2023-08-04 10:54 | MHC.PC.OV ---
Vital Signs 08/04/23 10:54 Height 5 ft 5 in Weight 194 lb BMI 32.3 BP 158/82 H Blood Pressure Location Lt brachial Position Sitting Pulse 104 H Pulse Source Pulse Oximeter Pulse Oximetry (%) 94 Oxygen Delivery Method Room Air Intake Visit Reasons: [facility] [place] Allergies No Known Allergies [No Known Allergies*] Allergy (Verified 08/04/23 10:54) Medication List - Last Reconciled 08/04/23 by Kina Blackburn MD atorvastatin 40 mg PO DAILY bisacodyl (Dulcolax (bisacodyl)) 10 mg (2 x 5 mg) PO ONCE 1 day blood sugar diagnostic ([employer] Ultra Test strips) TEST BLOOD SUGAR THREE TIMES A DAY FOR DIABETES MELLITUS buspirone 1 tab PO BID clonazepam 1 mg PO BEDTIME PRN clonazepam 0.5 mg PO BEDTIME PRN clopidogrel 75 mg PO DAILY cyanocobalamin (vitamin B-12) 1,000 mcg PO DAILY dulaglutide (Trulicity) 1.5 mg (0.5 mL) subcut QWEEK duloxetine 1 cap PO DAILY duloxetine 1 cap PO BEDTIME fluticasone propionate 50 mcg/actuation (Flonase Allergy Relief) 2 sprays intranasal DAILY PRN 30 days [GRAB bar As directed] insulin glargine (Lantus Solostar U-100 Insulin) 60 units (0.6 mL) subcut BEDTIME lisinopril 20 mg PO DAILY magnesium oxide 400 mg PO DAILY metformin 1,000 mg PO BIDWM pen needle, diabetic (BD Ultra-Fine Mini Pen Needle) As directed inject 60 units of Lantus q.p.m. polyethylene glycol 3350 (Miralax) 238 grams PO ONCE 1 day pregabalin 50 mg PO BID PRN 90 days pregabalin (Lyrica) 200 mg PO BID 30 days ropinirole 0.5 mg PO BEDTIME Tobacco use date assessed: 05/07/23 Fall risk assessment: 1 Fall in past year Last assessed Fall Risk: 08/04/23 Dental Screening Dental Screen Date: 08/04/23 Did you have a dental visit in the last 12 months?: No Did you have a dental problem in the last 6 months where you did not have access to dental care?: No Was dental information given to patient?: No HPI [facility] [place] HPI Details 72-year-old obese female with a history of diabetes mellitus hypertension GERD hypercholesterolemia last seen in 05/13/2023. Patient is due for colonoscopy, mammogram bone density.. ER visit 07/21/2023 right-sided chest discomfort after fall in the tub has polysubstance abuse patient admits of using fentanyl in the ER. PAtient states she went to a [facility] and when she entered smoke filed and was able to inhale- states she does not use drugs. 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 walk with a walker [facility] Medical History (Updated 08/04/23 @ 11:36 by Kina Blackburn MD) Colon cancer screening Right arm pain Routine gynecological examination Fall Multifactorial gait disorder Peripheral neuropathy Full dentures Multifactorial gait disorder Lower back pain Candidal intertrigo Restrictive lung disease Carotid stenosis GERD (gastroesophageal reflux disease) Personal history of malignant neoplasm of cervix uteri Diabetic nephropathy Restless leg syndrome Obesity (BMI 30-39.9) 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) Osteopenia History of CVA (cerebrovascular accident) Anxiety and depression Hypertension Type 2 diabetes mellitus with hyperglycemia Surgical History History of carotid endarterectomy History of partial hysterectomy History of colonoscopy with polypectomy History of bilateral cataract extraction History of carpal tunnel surgery History of lumbar fusion History of loop electrical excision procedure (LEEP) History of neck surgery Family History Father Heart attack Mother Cancer Dementia Breast cancer Hemorrhage Social History Household Members Other:: Daughter Housing: Other Housing Other:: Mobile Home Are you a primary family member caretaker to a significant other at home: No Do you presently have visiting nurse or other home services: Yes (daughter is HOSPICE NURSE PRACTITIONER) Alcohol intake: never Comment: unsteady gait Patient Tobacco Use Status: Former Tobacco user Tobacco use type: Cigarette e-Cigarette/Vaping Use: Never Used Second Hand Smoke Exposure: Yes Advance Directives Date on File: 06/19/21 service: No Current occupational status: disabled Cognitive needs: Yes (walker/cane) Hearing needs: No Vision needs: Yes (glasses) Questionnaire PHQ-9 Over the last 2 weeks, how often have you been bothered by any of the following problems? 1. Little interest or pleasure in doing things: nearly every day 2. Feeling down, depressed, or hopeless: nearly every day 3. Trouble falling or staying asleep, or sleeping too much: not at all 4. Feeling tired or having little energy: nearly every day 5. Poor appetite or overeating: not at all 6. Feeling bad about yourself - or that you are a failure or have let yourself or your family down: more than half the days 7. Trouble concentrating on things, such as reading the newspaper or watching television: not at all 8. Moving or speaking so slowly that other people could have noticed. Or the opposite - being so fidgety or restless that you have been moving around a lot more than usual: not at all 9. Thoughts that you would be better off or of hurting yourself in some way: not at all Total score: 11 Depression Screening Interpretation: Positive Depression Screening Done: Yes Source: Developed by Drs. Luther Huddleston, Summer Guadalupe, Thomas Melissa and colleagues, with an educational jen from [employer]. Thrive Questionnaire Date Thrive assessed: 05/07/23 AUDIT C Alcohol Use Questionnaire (AUDIT-C) 1. How often do you have a drink containing alcohol?: Never Total Score: 0 Score Reviewed/Action Taken: No CHERYL-7 AMB Questionnaire CHERYL-7 Date CHERYL - 7 assessed: 05/07/23 Source: Developed by Drs. Luther Huddleston, Thomas Hammonds and colleagues, with an educational jen from [employer]. Physical exam (Primary Care) Vital Signs: Last Vital Signs Pulse 104 H 08/04/23 10:54 BP 158/82 H 08/04/23 10:54 Pulse Ox 94 08/04/23 10:54 Oxygen Delivery Method Room Air 08/04/23 10:54 BMI result Body Mass Index 32.3 Tobacco/Smoking Status: Tobacco use Status Tobacco use date assessed 05/07/23 08/04/23 10:55 Patient Tobacco Use Status Former Tobacco user 08/04/23 10:55 Tobacco use type Cigarette 08/04/23 10:55 e-Cigarette/Vaping Use Never Used 08/04/23 10:55 PHQ-9: PHQ-9 Score PHQ-9: Total score 11 08/04/23 11:17 Depression Screening Interpretation: Positive Thrive Assessment: Date of Thrive Assessment Date Thrive assessed 05/07/23 08/04/23 10:55 Const General: alert; No acute distress Eyes Conjunctivae: conjunctivae normal Resp Auscultation: clear to auscultation bilaterally Cardio Rate: regular rate Rhythm: regular rhythm GI Inspection: Yes normal to inspection Extrem General: Yes normal to inspection and No edema Results AMB Hemoglobin A1c AMB Hemoglobin A1c 9.0 % Last Edit by Daily Roberts CMA on 08/04/23 11:08 Results Reviewed Results Reviewed: Laboratory Last Values Hgb A1c (Clinic) 9.0 % (4.0-6.0) H 08/04/23 10:55 Assessment and Plan Assessment & Plan (1) Recurrent falls: Code(s): R29.6 - Repeated falls Plan: Discussion regarding polysubstance abuse- Patient denies this using. (2) Polysubstance abuse: Comment: July 2023 patient denies using drugs Code(s): F19.10 - Other psychoactive substance abuse, uncomplicated Plan: Patient denies using drugs. (3) Hypercholesterolemia: Code(s): E78.00 - Pure hypercholesterolemia, unspecified Plan: Avoid fried foods, chicken skin, eggs, butter margarine, pastries and meat. Be it pork or beef they have a lot of cholesterol on atorvastatin 40 mg once a day 04/14/2023 last blood work (4) Type 2 diabetes mellitus with hyperglycemia: Comment: Eye and lasik Code(s): E11.65 - Type 2 diabetes mellitus with hyperglycemia Qualifiers: Diabetes mellitus terminal clerk insulin use: with terminal clerk use Qualified Code(s): E11.65 - Type 2 diabetes mellitus with hyperglycemia; Z79.4 - [facility] (current) use of insulin Plan: Decrease the amount of carbohydrate intake, pasta, bread, rice and potatoes are all sugar and that is aside from all the sweet stuff, remember that fruits are good but they are Sweet also. Hemoglobin A1c goal of less than 7.0 patient on Trulicity 1.5 mg once a week Lantus 60 units metformin a 1000 mg twice a day. States 'has not started on trulicity (5) Hypertension: Code(s): I10 - Essential (primary) hypertension Qualifiers: Hypertension type: essential hypertension Qualified Code(s): I10 - Essential (primary) hypertension Plan: Continue with blood pressure medication. Decrease salt intake and exercise on lisinopril 20 mg once a day (6) Obesity (BMI 30-39.9): Code(s): E66.9 - Obesity, unspecified Plan: Diet and exercise (7) GERD (gastroesophageal reflux disease): Code(s): K21.9 - Gastro-esophageal reflux disease without esophagitis Qualifiers: Esophagitis presence: without esophagitis Qualified Code(s): K21.9 - Gastro-esophageal reflux disease without esophagitis Plan: Avoid the foods that causes that usually spicy foods, tomato products, juices, coffee, soda and foods that your sensitive to. After eating do not lie down, allow 3-4 hours before in lie down. And keep the head of bed above 30 degrees to avoid the acid from going up. (8) Tubular adenoma of colon: Comment: Discovered on last scope 6 years ago at [facility] Code(s): D12.6 - Benign neoplasm of colon, unspecified Plan: Patient is reminded about colonoscopy- has a schedule August 10, (9) Recurrent depression: Comment: [place] Code(s): F33.9 - Major depressive disorder, recurrent, unspecified Plan: [facility] [place] counselling. on med Orders: Orders AMB Hemoglobin A1c Today Z13.9 - Encounter for screening, unspecified Medications: Changed From dulaglutide (Trulicity) 1.5 mg (0.5 mL) subcut QWEEK 2 mL 3RF E11.65 - Type 2 diabetes mellitus with hyperglycemia, Z79.4 - termite exterminator (current) use of insulin To dulaglutide 0.75 mg (0.5 mL) subcut QWEEK 2.5 mL 3RF 30 days E11.65 - Type 2 diabetes mellitus with hyperglycemia, Z79.4 - [facility] (current) use of insulin Coding Level of Care Code Est Pt Level 4 (15347) Complex EM visit Add On G2211 Diagnoses Recurrent falls R29.6 Polysubstance abuse F19.10 Hypercholesterolemia E78.00 Type 2 diabetes mellitus with hyperglycemia, with long-term current use of insulin E11.65; Z79.4 Diabetes mellitus alf insulin use: with terminal clerk use Essential hypertension I10 Hypertension type: essential hypertension Obesity (BMI 30-39.9) E66.9 Gastroesophageal reflux disease without esophagitis K21.9 Esophagitis presence: without esophagitis Tubular adenoma of colon D12.6 Recurrent depression F33.9 Additional Codes PHQ-9 - 50186 - PHQ-9 Billing: ([id number])
== END 2023-08-04 11:37 | disposition home or self-care (01) ==
PROVIDERS: PCP Internal Medicine; Visit Provider Internal Medicine
DX: E11.65 Type 2 diabetes mellitus with hyperglycemia (principal); F19.10 Other psychoactive substance abuse, uncomplicated; Z79.4 Long term (current) use of insulin; F33.9 Major depressive disorder, recurrent, unspecified; R29.6 Repeated falls; E78.00 Pure hypercholesterolemia, unspecified; I10 Essential (primary) hypertension; E66.9 Obesity, unspecified; K21.9 Gastro-esophageal reflux disease without esophagitis; D12.6 Benign neoplasm of colon, unspecified
CPT/HCPCS: 83036; 99214; G2211

== ENCOUNTER 2023-11-19 12:19 | Outpatient (AMB) | payer OTHER, SELFPAY ==
--- NOTE | 2023-11-19 12:23 | A.OFFPC_ITS ---
Vital Signs 11/19/23 12:26 Height 5 ft 5 in Weight 182 lb BMI 30.3 BP 142/90 H Blood Pressure Location Lt brachial Position Sitting Pulse 89 Pulse Source Pulse Oximeter Pulse Oximetry (%) 96 Oxygen Delivery Method Room Air Intake Visit Reasons: PE Intake Note: Patient here for a physical exam Primary Products Inspectors Required: No Accompanied by: Self / Same As Patient Allergies No Known Allergies [No Known Allergies*] Allergy (Verified 11/19/23 12:27) Medication List - Last Reconciled 11/19/23 by Kina Blackburn MD atorvastatin 40 mg PO DAILY bisacodyl (Dulcolax (bisacodyl)) 10 mg (2 x 5 mg) PO ONCE 1 day blood sugar diagnostic ([employer] Ultra Test strips) TEST BLOOD SUGAR THREE TIMES A DAY FOR DIABETES MELLITUS buspirone 1 tab PO BID clonazepam 1 mg PO BEDTIME PRN clopidogrel 75 mg PO DAILY cyanocobalamin (vitamin B-12) 1,000 mcg PO DAILY dulaglutide 0.75 mg (0.5 mL) subcut QWEEK 30 days duloxetine 1 cap PO DAILY duloxetine 1 cap PO BEDTIME fluticasone propionate 50 mcg/actuation (Flonase Allergy Relief) 2 sprays intranasal DAILY PRN 30 days [GRAB bar As directed] insulin glargine (Lantus Solostar U-100 Insulin) 60 units (0.6 mL) subcut BEDTIME lisinopril 40 mg PO DAILY magnesium oxide 400 mg PO DAILY metformin 1,000 mg PO BIDWM pen needle, diabetic (BD Ultra-Fine Mini Pen Needle) As directed inject 60 units of Lantus q.p.m. polyethylene glycol 3350 (Miralax) 238 grams PO ONCE 1 day pregabalin 50 mg PO BID PRN 90 days pregabalin (Lyrica) 200 mg PO BID 30 days ropinirole 0.5 mg PO BEDTIME Tobacco use date assessed: 05/07/23 Fall risk assessment: 2 + Falls in past year Last assessed Fall Risk: 11/19/23 Dental Screening Dental Screen Date: 08/04/23 HPI PE HPI Details 72-year-old obese female(noted 12 lb rush ght loss) with a history of polysubstance abuse, hypercholesterolemia diabetes mellitus hypertension GERD and recurrent depression coming in for follow-up. Patient was last seen in 08/13/2023. PAitent nmissed on counselling appointment and so was kicked out- asking for referral again and asking for clonazepam refill. will be seeing GI soon for colon test PENDING SALE TO [facility] Medical History (Updated 11/19/23 @ 12:55 by Kina Blackburn MD) Colon cancer screening Right arm pain Routine gynecological examination Fall Multifactorial gait disorder Peripheral neuropathy Full dentures Multifactorial gait disorder Lower back pain Candidal intertrigo Restrictive lung disease Carotid stenosis GERD (gastroesophageal reflux disease) Personal history of malignant neoplasm of cervix uteri Diabetic nephropathy Restless leg syndrome Obesity (BMI 30-39.9) 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) Osteopenia History of CVA (cerebrovascular accident) Anxiety and depression Hypertension Type 2 diabetes mellitus with hyperglycemia Surgical History History of carotid endarterectomy History of partial hysterectomy History of colonoscopy with polypectomy History of bilateral cataract extraction History of carpal tunnel surgery History of lumbar fusion History of loop electrical excision procedure (LEEP) History of neck surgery Family History Father Heart attack Mother Cancer Dementia Breast cancer Hemorrhage Social History (Updated 11/19/23 @ 12:52 by Kina Blackburn MD) Household Members Other:: Daughter Housing: Other Housing Other:: Mobile Home Are you a primary respiratory care faculty to a significant other at home: No Do you presently have visiting nurse or other home services: Yes (daughter is PEDICURIST) Alcohol intake: never Comment: unsteady gait Patient Tobacco Use Status: Former Tobacco user Tobacco use type: Cigarette Years Smoked: 1989 e-Cigarette/Vaping Use: Never Used Second Hand Smoke Exposure: Yes Advance Directives Date on File: 06/19/21 service: No Current occupational status: disabled Cognitive needs: Yes (walker/cane) Hearing needs: No Vision needs: Yes (glasses) Questionnaire PHQ-9 Over the last 2 weeks, how often have you been bothered by any of the following problems? 1. Little interest or pleasure in doing things: more than half the days 2. Feeling down, depressed, or hopeless: more than half the days 3. Trouble falling or staying asleep, or sleeping too much: more than half the days 4. Feeling tired or having little energy: more than half the days 5. Poor appetite or overeating: several days 6. Feeling bad about yourself - or that you are a failure or have let yourself or your family down: more than half the days 7. Trouble concentrating on things, such as reading the newspaper or watching television: not at all 8. Moving or speaking so slowly that other people could have noticed. Or the opposite - being so fidgety or restless that you have been moving around a lot more than usual: more than half the days 9. Thoughts that you would be better off or of hurting yourself in some way: not at all Total score: 13 Source: Developed by Drs. Lutehr Huddleston, Summer Guadalupe, Thomas Melissa and colleagues, with an educational jen from [employer]. Thrive Questionnaire Date Thrive assessed: 11/19/23 I am a: Patient What is your living situation today?: I have a steady place to live Within the past 12 months, did the food you bought not last and you didn't have the money to get more?: Often true Within the past 12 months, did you worry whether your food would run out before you got money to buy more?: Often true Do you have trouble paying for medicines?: No Do you have trouble getting transportation to medical appointments?: No Do you have trouble paying your heating and electricity bill?: I choose not to answer this question Do you have trouble taking care of your child, family member or friend?: No Do you have trouble with day-to-day activities such as bathing, preparing meals, shopping, managing finances, etc.?: I choose not to answer this question Are you currently unemployed and looking for a job?: No Are you interested in more education?: No Please select the resources that you would like help with: None Currently or been in a relationship where the following occur: I choose not to answer THRIVE Score: 2 AUDIT C Alcohol Use Questionnaire (AUDIT-C) 1. How often do you have a drink containing alcohol?: Never Total Score: 0 CHERYL-7 AMB Questionnaire CHERYL-7 Date CHERYL - 7 assessed: 11/19/23 Feeling nervous, anxious, or on edge: 2 = More than half the days Not being able to stop or control worryin = Not at all Worrying too much about different things: 2 = More than half the days Trouble relaxin = Not at all Being so restless that it is hard to sit still: 0 = Not at all Becoming easily annoyed or irritable: 1 = Several days Feeling afraid as if something awful might happen: 1 = Several days Total CHERYL-7 score (0-4 normal; 5-9 mild; 10-14 moderate; 15-21 severe): 6 Source: Developed by Drs. Luther Huddleston, Summer Guadalupe, Thomas Melissa and colleagues, with an educational jen from [employer]. Review of Systems Const Denies poor appetite and Denies weakness Eyes Denies no additional complaints ENT Reports Normal hearing present, Denies dizziness, Denies nasal congestion, Denies tinnitus and Denies sore throat Card Denies chest pain, Denies syncope, Denies rapid heart rate and Denies dyspnea Resp Denies cough and Denies dyspnea GI Denies change in stool character, Reports constipation, Denies diarrhea, Denies nausea and Denies vomiting Denies urinary frequency, Denies difficulty voiding and Denies dysuria Neuro Reports Normal hearing present, Denies confusion, Denies dizziness, Denies syncope and Denies weakness Psych Denies confusion Physical exam (Primary Care) Vital Signs: Last Vital Signs Pulse 89 11/19/23 12:26 BP 142/90 H 11/19/23 12:26 Pulse Ox 96 11/19/23 12:26 Oxygen Delivery Method Room Air 11/19/23 12:26 BMI result Body Mass Index 30.3 Tobacco/Smoking Status: Tobacco use Status Tobacco use date assessed 05/07/23 11/19/23 12:24 Patient Tobacco Use Status Former Tobacco user 11/19/23 12:24 Tobacco use type Cigarette 11/19/23 12:24 e-Cigarette/Vaping Use Never Used 11/19/23 12:24 PHQ-9: PHQ-9 Score PHQ-9: Total score 13 11/19/23 12:33 Thrive Assessment: Date of Thrive Assessment Date Thrive assessed 11/19/23 11/19/23 12:24 Currently or been in a relationship where the following occur: I choose not to answer Const General: No confusion Orientation/consciousness: No confusion HENMT Head: Yes normocephalic Ears: external ears normal and TM's normal bilaterally Face and sinus: Yes normal facial exam Mouth: moist mucous membranes Throat: Yes tonsils normal Eyes Conjunctivae: conjunctivae normal Pupils: Equal, round and reactive pupils present and Pupil accommodation reflex normal Direct Ophthalmoscopy: normal light reflex Neck Neck: No lymphadenopathy Thyroid: Thyroid normal Chest Chest palpation & inspection: normal inspection of the chest Resp Effort & Inspection: normal respiratory effort and no audible wheezes Auscultation: clear to auscultation bilaterally, no crackles, no wheezes and lung sounds not diminished Cardio Rate: regular rate Rhythm: regular rhythm Peripheral pulses: radial pulses present and dorsalis pedis present GI Palpation (GI): no masses Auscultation: normal bowel sounds and normoactive bowel sounds Rectal Exam - Female: deferred Skin General skin exam: no rashes or lesions noted Rashes: no rashes Neuro General: No confusion Cranial nerves: Yes Equal, round and reactive pupils present and Yes Normal hearing present Cognition (Neuro): normal cognition Gait exam (Neuro): Normal gait present Motor exam (neuro): 5/5 motor strength present throughout Deep tendon reflexes (DTR's): Right brachioradialis reflex intensity grade: 2+, Left brachioradialis reflex intensity grade: 2+, Right patellar reflex intensity grade: 2+ and Left patellar reflex intensity grade: 2+ Extrem General: No edema Results AMB Hemoglobin A1c AMB Hemoglobin A1c 7.6 % Last Edit by LYNETTE Lazcano on 11/19/23 12:3 4 Results Reviewed Results Reviewed: Laboratory Last Values Hgb A1c (Clinic) 7.6 % (4.0-6.0) H 11/19/23 12:22 Assessment and Plan Assessment & Plan (1) Annual physical exam: Code(s): Z00.00 - Encounter for general adult medical examination without abnormal findings Plan: Patient is advised to eat healthy, keep well hydrated, keep active and have adequate sleep. (2) Obesity (BMI 30-39.9): Code(s): E66.9 - Obesity, unspecified Plan: Noted weight loss 12 lb (3) GERD (gastroesophageal reflux disease): Code(s): K21.9 - Gastro-esophageal reflux disease without esophagitis Qualifiers: Esophagitis presence: without esophagitis Qualified Code(s): K21.9 - Gastro-esophageal reflux disease without esophagitis Plan: Avoid the foods that causes that usually spicy foods, tomato products, juices, coffee, soda and foods that your sensitive to. After eating do not lie down, allow 3-4 hours before in lie down. And keep the head of bed above 30 degrees to avoid the acid from going up. (4) Hypertension: Code(s): I10 - Essential (primary) hypertension Qualifiers: Hypertension type: essential hypertension Qualified Code(s): I10 - Essential (primary) hypertension Plan: Continue with blood pressure medication. Decrease salt intake and exercise patient takes lisinopril 20 mg once a day (5) Type 2 diabetes mellitus with hyperglycemia: Comment: Eye and lasik Code(s): E11.65 - Type 2 diabetes mellitus with hyperglycemia Qualifiers: Diabetes mellitus intermission coordinator insulin use: with group home use Qualified Code(s): E11.65 - Type 2 diabetes mellitus with hyperglycemia; Z79.4 - terminal press operator (current) use of insulin Plan: Decrease the amount of carbohydrate intake, pasta, bread, rice and potatoes are all sugar and that is aside from all the sweet stuff, remember that fruits are good but they are Sweet also. Patient on Trulicity and insulin Lantus 60 with metformin a 1000 mg twice a day (6) Hypercholesterolemia: Code(s): E78.00 - Pure hypercholesterolemia, unspecified Plan: Avoid fried foods, chicken skin, eggs, butter margarine, pastries and meat. Be it pork or beef they have a lot of cholesterol LDL goal of less than 100 and triglyceride of less than 150 on atorvastatin 40 mg once a day (7) Breast cancer screening by mammogram: Code(s): Z12.31 - Encounter for screening mammogram for malignant neoplasm of breast Plan: Patient is reminded about mammogram (8) Tubular adenoma of colon: Comment: Discovered on last scope 6 years ago at [facility] Code(s): D12.6 - Benign neoplasm of colon, unspecified Plan: Patient is reminded about colonoscopy also (9) Recurrent depression: Comment: [place] Code(s): F33.9 - Major depressive disorder, recurrent, unspecified Plan: Continue with present medication with buspirone clonazepam duloxetine (10) Urgency incontinence: Code(s): N39.41 - Urge incontinence Orders: Orders AMB Hemoglobin A1c Today E11.65 - Type 2 diabetes mellitus with hyperglycemia, Z79.4 - FPC (current) use of insulin MM tomosynthesis screening BI Today Z12.31 - Encounter for screening mammogram for malignant neoplasm of breast XR DEXA axial skeleton Today M81.0 - Age-related osteoporosis without current pathological fracture, M85.80 - Other specified disorders of bone density and structure, unspecified site Comprehensive Met. Panel Today Z12.31 - Encounter for screening mammogram for malignant neoplasm of breast UA CC w/rflx Micro + Cult Today N39.41 - Urge incontinence, R30.0 - Dysuria Referrals Psychiatry Referral F33.9 - Major depressive disorder, recurrent, unspecified Medications: New clonazepam 1 mg PO BEDTIME PRN 30 tabs 0RF Anxiety F33.9 - Major depressive disorder, recurrent, unspecified Changed From lisinopril 20 mg PO DAILY 90 tabs 1RF I10 - Essential (primary) hypertension To lisinopril 40 mg PO DAILY 90 tabs 1RF I10 - Essential (primary) hypertension Coding Level of Care Code Est Pt Prev Care >65y(37801) Diagnoses Annual physical exam Z00.00 Obesity (BMI 30-39.9) E66.9 Gastroesophageal reflux disease without esophagitis K21.9 Esophagitis presence: without esophagitis Essential hypertension I10 Hypertension type: essential hypertension Type 2 diabetes mellitus with hyperglycemia, with long-term current use of insulin E11.65; Z79.4 Diabetes mellitus intermission coordinator insulin use: with group home use Hypercholesterolemia E78.00 Breast cancer screening by mammogram Z12.31 Tubular adenoma of colon D12.6 Recurrent depression F33.9 Urgency incontinence N39.41
[2023-11-19 12:26] VITALS: BP 142/90; PULSE 89; O2SAT 96; BMI 30.3
== END 2023-11-19 13:10 | disposition home or self-care (01) ==
PROVIDERS: PCP Internal Medicine; Visit Provider Internal Medicine
DX: Z00.00 Encounter for general adult medical examination without abnormal findings (principal); E11.65 Type 2 diabetes mellitus with hyperglycemia; Z79.4 Long term (current) use of insulin; Z68.30 Body mass index [BMI] 30.0-30.9, adult; E66.9 Obesity, unspecified; F33.9 Major depressive disorder, recurrent, unspecified; K21.9 Gastro-esophageal reflux disease without esophagitis; I10 Essential (primary) hypertension; E78.00 Pure hypercholesterolemia, unspecified; Z12.31 Encounter for screening mammogram for malignant neoplasm of breast; D12.6 Benign neoplasm of colon, unspecified; N39.41 Urge incontinence

== ENCOUNTER → 2023-11-19 12:19 | Outpatient (BNVA) | payer OTHER, SELFPAY | PROVIDERS: PCP Internal Medicine; Visit Provider Internal Medicine | DX: Z00.01 Encounter for general adult medical examination with abnormal findings (principal); E66.9 Obesity, unspecified; Z68.30 Body mass index [BMI] 30.0-30.9, adult; K21.9 Gastro-esophageal reflux disease without esophagitis; I10 Essential (primary) hypertension; E11.65 Type 2 diabetes mellitus with hyperglycemia; Z79.4 Long term (current) use of insulin; E78.00 Pure hypercholesterolemia, unspecified; D12.6 Benign neoplasm of colon, unspecified; F33.9 Major depressive disorder, recurrent, unspecified; N39.41 Urge incontinence; Z71.3 Dietary counseling and surveillance | CPT/HCPCS: 83036; 99397 ==

== ENCOUNTER 2023-12-30 12:43 | Outpatient (REF) | payer OTHER, SELFPAY ==
--- NOTE | ~2023-12-30 | MM_ITS ---
EXAMINATION: MM SCREENING DIGITAL BREAST TOMOSYNTHESIS, BILATERAL CLINICAL INFORMATION: Screening. Asymptomatic. COMPARISON: Mammography: Comparison is made with available priors TECHNIQUE: Digital breast mammography with tomosynthesis is performed in both the craniocaudal and mediolateral oblique views along with computer-aided detection (CAD). FINDINGS: There are scattered areas of fibroglandular density (ACR BI-RADS breast composition Category b). Bilateral scattered focal asymmetries are stable dating back to 2017. There are no significant masses, abnormal calcifications, or other abnormalities. MM/MM tomosynthesis screening BI IMPRESSION: No mammographic evidence of malignancy. ASSESSMENT: BI-RADS BI-RADS 2 - Benign Findings RECOMMENDATION: Routine annual mammography screening. 1 year F/U This examination should not preclude the clinical evaluation of a suspicious palpable abnormality. This patient's information was entered into a reminder system with a target due date for their next mammogram. Electronically signed by: Su Pablo DO 01/08/2024 01:40 PM JAN
--- NOTE | ~2023-12-30 | MM_ITS ---
EXAMINATION: BONE DENSITOMETRY CLINICAL INDICATION: Age-related osteoporosis without current pathological fracture. COMPARISON: Previous BD dated 03/07/2021 and baseline BD dated 04/17/2006. TECHNIQUE: Using a [employer] DXA System (software version: 13.1) manufactured by [employer], dual-energy x-ray absorptiometry was performed of the lumbar spine and left hip. The images are of good technical quality. Summary results are attached. FINDINGS: AP SPINE L1-L2 (excluding L3 and L4): The data of L1-L4 has been changed to exclude the L3 and L4 vertebral bodies, because significant degenerative change at these levels may cause overestimation of lumbar spine density. Current: BMD 1.427 g/cm2, Z-score 3.3, T-score 2.2, normal, 18.4% increase from previous, 16.6% increase from baseline (<5% change is not significant). Prior: BMD 1.205 g/cm2. Baseline: BMD 1.224 g/cm2. LEFT FEMUR, NECK: Current: BMD 0.913 g/cm2, Z-score 0.6, T-score -0.9, normal. Prior: BMD 0.793 g/cm2. Baseline: BMD 0.890 g/cm2. LEFT FEMUR, TOTAL: Current: BMD 0.912 g/cm2, Z-score 0.5, T-score -0.8, normal, 14.4% increase from previous, 0.6% increase from baseline (<5% change is not significant). Prior: BMD 0.797 g/cm2. Baseline: BMD 0.907 g/cm2. IDENTIFIED RISK FACTORS: History of adult fracture. Recurrent falls. Height loss. Parental hip fracture. Hysterectomy. Menopause. HISTORY OF FRACTURE: Wrist. Shoulder/humerus. MEDICATIONS: Calcium supplement and/or multivitamin. Vitamin D. MM/XR DEXA axial skeleton IMPRESSION: 1. DIAGNOSIS: Normal bone density based on the lowest T-score value of -0.9 in the femoral neck applying World Health Organization criteria. 2. 10-YEAR FRACTURE RISK PREDICTION, FRAX: According to the guidelines, FRAX calculation should only be performed on patients in the osteopenia bone density category. Therefore, FRAX was not performed on this patient. 3. Treatment Recommendations: NOF guidelines recommend consideration for treatment in postmenopausal women and men age 50 and older presenting with the following: -A hip or vertebral (clinical or morphometric) fracture. -T-score less than or equal to -2.5 at the femoral neck or spine after appropriate evaluation to exclude secondary causes. -Low bone mass at the hip or spine and a 10-year fracture probability by FRAX of greater than or equal to 3% for hip fracture or greater than or equal to 20% for major osteoporotic fracture based on the [place] adapted WHO algorithm. 4. Other Recommendations: All treatment decisions require clinical judgment and consideration of individual patient factors, including patient preferences, comorbidities, previous drug use, risk factors not captured in the FRAX model (e.g. frailty, falls, vitamin D deficiency, increased bone turnover, interval significant decline in bone density) and possible under or overestimation of fracture risk by FRAX. FUTURE SCAN RECOMMENDATION: People with diagnosed cases of osteoporosis or at high risk for fracture should have regular bone mineral density tests. For patients eligible for Medicare, routine testing is allowed once every 2 years. The testing frequency can be increased to one year for patients who have rapidly progressing disease, those who are receiving or discontinuing medical therapy to restore bone mass, or have additional risk factors. Electronically signed by: Emily Virgen MD 01/06/2024 04:47 PM JAN WALKER
== END 2023-12-30 12:44 | disposition home or self-care (01) ==
LOC: HO.MAMMO 12:43
PROVIDERS: PCP Internal Medicine; Visit Provider Internal Medicine
DX: Z12.31 Encounter for screening mammogram for malignant neoplasm of breast (principal); M81.0 Age-related osteoporosis without current pathological fracture; M85.80 Other specified disorders of bone density and structure, unspecified site
CPT/HCPCS: 77063; 77067; 77080

== ENCOUNTER → 2023-12-30 12:45 | Outpatient (BNV) | payer OTHER, SELFPAY | PROVIDERS: PCP Internal Medicine; Visit Provider Internal Medicine | DX: Z12.31 Encounter for screening mammogram for malignant neoplasm of breast (principal) | CPT/HCPCS: 77063; 77067 ==

== ENCOUNTER 2024-01-11 07:28 | Emergency (ER) | payer OTHER, SELFPAY ==
[2024-01-11] VITALS (8 sets, daily range): BP systolic 148–203; BP diastolic 72–95; PULSE 88–100; RESP 16–20; TEMP 36.6; O2SAT 90–98; BMI 30.8
--- NOTE | ~2024-01-11 | CT_ITS ---
EXAMINATION: CT HEAD WITHOUT CONTRAST CLINICAL INFORMATION: Fall, right forehead hematoma, headache R/O fractu COMPARISON: CT dated July 15, 2022 TECHNIQUE: Contiguous axial imaging was performed from the skull base to vertex without intravenous administration of contrast. This CT examination was performed using dose optimization techniques as appropriate, variously including the following: *Automated exposure control *Adjustment of mA and/or kV according to patient size (this includes techniques or standardized protocols for targeted exams where dose is matched to indication/reason for exam; i.e. extremities or head) *Use of iterative reconstruction technique DLP: 641 mGy-cm FINDINGS: Soft tissue contusion/hematoma right forehead extending to the superior right preseptal orbit. The bony calvarium is intact. The skull base is intact. There is a 4 mm maximal thickness hyperdensity along the anterior mid interhemispheric falx involving mostly the superior frontal region. No mass effect, midline shift, hydrocephalus or herniation. Chopra-white matter differentiation is normal. There is a 6 mm fat density in the anterior inferior interhemispheric falx. Bilateral multifocal patchy deep periventricular white matter hypodensities involving centrum semiovale and nina radiata and probably the cerebellum. Posterior cranial fossa contents demonstrated no acute intracranial hemorrhage or mass effect. Sellar/suprasellar region demonstrated no gross hemorrhage or mass effect. Calcified plaques in the cavernous supraclinoid segments both ICA and V4 segments Tympanic cavities and mastoid air cells are aerated. No air-fluid levels in the included paranasal sinuses. CT/CT head/brain wo IV con IMPRESSION: 4 mm acute subdural hemorrhage, anterior mid interhemispheric falx. Soft tissue contusion/hematoma right forehead. No acute fracture. Small vessel occlusive disease. Discussed with the emergency physician Dr. Wes Noble at 9:20 AM.. Electronically signed by: Raul Saenz MD 01/11/2024 09:27 AM [facility] [place]
--- NOTE | ~2024-01-11 | CT_ITS ---
EXAMINATION: CT FACIAL BONES WITHOUT CONTRAST CLINICAL INFORMATION: Status post fall. Hematoma, right forehead/periorbital. COMPARISON: None available. TECHNIQUE: Contiguous axial images through the maxillofacial bones using 1.5 mm collimation with bone and soft tissue algorithm. Sagittal and coronal reformatted images acquired. This CT examination was performed using dose optimization techniques as appropriate, variously including the following: *Automated exposure control *Adjustment of mA and/or kV according to patient size (this includes techniques or standardized protocols for targeted exams where dose is matched to indication/reason for exam; i.e. extremities or head) *Use of iterative reconstruction technique DLP: 268 mGy-cm FINDINGS: Right orbit: Heterogeneous hyperdense preseptal to upper right orbit extending into the right femoral head/frontal soft tissue scalp. The alignment is intact. No hematoma, intraconal or extraconal compartment right orbit. Right orbital rim is intact. Right orbital fissures and orbital apex are intact. Right zygomatic arc is intact. Extraocular muscles demonstrate normal morphology. Left orbit: Left thyroid is intact. No gross hematoma in the preseptal compartment. No hematoma in the intraconal or the extraconal compartment. The extraocular muscles demonstrate normal morphology. The left orbital rim is intact. The left orbital fissures and orbital apex are intact. The left zygomatic arch is intact. Nasal bones, nasal septum and vomer demonstrated no acute cortical disruption. Maxillae/pterygoid plates are intact. Mandible is intact. Temporomandibular joints are intact with normal alignment. Edentulous, maxilla and mandible. Mucosal thickening without air-fluid levels in the ethmoid air cells and maxillary sinuses. Osteopenia versus osteoporosis. Sound Engineer Audio Control spaces, parapharyngeal spaces and included carotid spaces demonstrate no gross hematoma or fluid collections. Skull base, nasopharynx oropharynx and hypopharynx demonstrated no gross fluid collection or masses. Tympanic cavities and included mastoid air cells are aerated. Metallic hardware from a posterior cervical fusion no fully included in the exam. Calcified plaques in the cavernous supraclinoid segments both ICA. CT/CT facial bones wo IV con IMPRESSION: Hematoma/soft tissue contusion, right preseptal orbit. No retrobulbar hematoma. No acute fracture. Electronically signed by: Raul Saenz MD 01/11/2024 09:16 AM EST
--- NOTE | ~2024-01-11 | CT_ITS ---
EXAMINATION: CT CERVICAL SPINE WITHOUT CONTRAST CLINICAL INFORMATION: Status post fall. Neck pain. COMPARISON: CT dated July 15, 2022 TECHNIQUE: Contiguous axial images through the cervical spine from the skull base to T1 using 3 mm collimation with bone and soft tissue algorithm. Sagittal and coronal reformatted images acquired. This CT examination was performed using dose optimization techniques as appropriate, variously including the following: *Automated exposure control *Adjustment of mA and/or kV according to patient size (this includes techniques or standardized protocols for targeted exams where dose is matched to indication/reason for exam; i.e. extremities or head) *Use of iterative reconstruction technique DLP: 403 mGy-cm FINDINGS: Craniocervical junction is intact. Degenerative changes in the periodontal C1 region involving the jaime ligament. Status post posterior cervical fusion with transpedicular screws from C3 to T2. Incomplete ankylosis, C4 C7. Osteopenia versus osteoporosis. C1 is intact. C2 is intact. C3: No acute fracture. Status post bilateral laminectomy and posterior spinous process resection. C4: No acute fracture. Status post bilateral laminectomy and posterior spinous process resection. C5: No acute fracture. Status post bilateral laminectomy and posterior spinous processes resection. C6: No acute fracture. Status post bilateral laminectomy and posterior spinous process resection. C7: No acute fracture. No gross malalignment. Reverse curvature apex at C5-6. No prevertebral compartment hematoma. Retropharyngeal trajectory right carotic artery. Calcified plaques in the right ICA/carotid bulb. Bilateral apical lung scarring. No dominant nodules in the thyroid gland. CT/CT cervical spine wo IV con IMPRESSION: Multilevel spondylosis without acute fracture or trauma-related listhesis. Overall no gross change. Fleischner guidelines were followed. Electronically signed by: Raul Saenz MD 01/11/2024 09:39 AM JAN
--- NOTE | 2024-01-11 07:36 | ED_ITS ---
HPI - Fall General Chief Complaint: Fall Stated Complaint: Fall, Hit Head,+ thiners, no LOC, r eyebrow lump Time Seen by Provider: 01/11/24 07:29 Source: patient and EMS Mode of arrival: EMS Limitations: no limitations History of Present Illness ED Provider: Dr. Wes Noble HPI Narrative: 70-year-old female with a past medical history of hypertension, hyperlipidemia, diabetes, diabetic neuropathy, degenerative spine disease, carotid stenosis, anxiety, depression, restless leg syndrome, restrictive lung disease, obesity, osteoporosis, history of CVA, GERD who presents emergency department for evaluation of trip, fall and head injury. The patient states she was in her home and walking towards the bathroom when she tripped and fell falling forward and striking her head. The patient denies any loss of consciousness. She did have dizziness with nausea and since the fall she was developed a severe headache which is 10/10. Patient was also complaining of right elbow pain and pain in both of her knees. Patient did sustain a small abrasion to her right elbow and states that her tetanus shot was given within the last 5 years. Related Data Home Medications ?Medication ?Instructions ?Recorded ?Confirmed buspirone 10 mg tablet 1 tab PO BID 06/18/21 11/19/23 duloxetine 30 mg capsule,delayed 1 cap PO DAILY 07/15/22 11/19/23 release duloxetine 60 mg capsule,delayed 1 cap PO BEDTIME 07/15/22 11/19/23 release Previous Rx's ?Medication ?Instructions ?Recorded GRAB bar #1 ea 02/16/20 cyanocobalamin (vitamin B-12) 1,000 mcg PO DAILY #30 caps 04/11/20 1,000 mcg capsule pen needle, diabetic 31 gauge x #100 ea 02/01/22/16 (BD Ultra-Fine Mini Pen Needle) atorvastatin 40 mg tablet 40 mg PO DAILY #90 tabs 04/01/22 ropinirole 0.5 mg tablet 0.5 mg PO BEDTIME #90 tabs 05/22/22 bisacodyl 5 mg tablet,delayed 10 mg (2 x 5 mg) PO ONCE 1 day #2 08/27/22 release (Dulcolax (bisacodyl)) tabs polyethylene glycol 3350 17 238 g PO ONCE 1 day #238 grams 08/27/22 gram/dose oral powder (Miralax) insulin glargine 100 unit/mL (3 60 unit (0.6 mL) subcut BEDTIME 01/13/23 mL) subcutaneous pen (Lantus #15 mL Solostar U-100 Insulin) clopidogrel 75 mg tablet 75 mg PO DAILY #90 tabs 04/21/23 blood sugar diagnostic (OneTouch #200 ea 08/17/23 Ultra Test strips) fluticasone propionate 50 2 spray intranasal DAILY PRN 08/17/23 mcg/actuation nasal Allergy Symptoms 30 days #16 grams spray,suspension (Flonase Allergy Relief) pregabalin 50 mg capsule 50 mg PO BID PRN pain 90 days #180 10/16/23 caps dulaglutide 0.75 mg/0.5 mL 0.75 mg (0.5 mL) subcut QWEEK 30 10/22/23 subcutaneous pen injector days #2.5 mL metformin 1,000 mg tablet 1,000 mg PO BIDWM #180 tabs 11/03/23 magnesium oxide 400 mg (241.3 mg 400 mg PO DAILY #30 tabs 11/18/23 magnesium) tablet clonazepam 1 mg tablet 1 mg PO BEDTIME PRN Anxiety #30 11/19/23 tabs lisinopril 40 mg tablet 40 mg PO DAILY #90 tabs 11/19/23 pregabalin 200 mg capsule (Lyrica) 200 mg PO BID 30 days #60 caps 01/06/24 Allergies Allergy/AdvReac Type Severity Reaction Status Date / Time No Known Allergies Allergy Verified 01/11/24 07:37 [No Known Allergies*] Review of Systems 2 Review of Systems: Yes all other systems are reviewed and are negative PENDING SALE TO [facility] Past Medical History PENDING SALE TO [facility] Narrative: Social history: She lives at home with her daughter. 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) Osteopenia History of CVA (cerebrovascular accident) Anxiety and depression Hypertension Type 2 diabetes mellitus with hyperglycemia Surgical History History of carotid endarterectomy History of partial hysterectomy History of colonoscopy with polypectomy History of bilateral cataract extraction History of carpal tunnel surgery History of lumbar fusion History of loop electrical excision procedure (LEEP) History of neck surgery Family History Family History Father Heart attack Mother Cancer Dementia Breast cancer Hemorrhage Social History Social History (Updated 11/19/23 @ 12:52 by Kina Blackburn MD) Household Members Other:: Daughter Housing: Other Housing Other:: Mobile Home Are you a primary long term care phlebotomist to a significant other at home: No Do you presently have visiting nurse or other home services: Yes (daughter is [employer]) Alcohol intake: never Comment: unsteady gait Patient Tobacco Use Status: Former Tobacco user Tobacco use type: Cigarette Years Smoked: 1989 e-Cigarette/Vaping Use: Never Used Second Hand Smoke Exposure: Yes Use of substances other than those prescribed or required for medical reasons: No Advance Directives: Yes Advance Directives on File: Yes Advance Directives Date on File: 06/19/21 service: No Current occupational status: disabled Cognitive needs: Yes (walker/cane) Hearing needs: No Vision needs: Yes (glasses) Physical Exam 2 Vital Signs: Vital Signs: Last Vital Signs Temp 97.9 F 01/11/24 11:11 Pulse 94 01/11/24 11:11 Resp 16 01/11/24 11:11 BP 148/72 H 01/11/24 11:11 Pulse Ox 95 01/11/24 11:11 O2 Del Method Nasal Cannula 01/11/24 11:11 O2 Flow Rate 3 01/11/24 11:11 BMI result Body Mass Index 30.8 Blood pressure elevated 197/86 Exam: General: Awake, alert, in distress secondary to her headache and face pain, answers all questions appropriately Head: Normocephalic, 4 x 4 cm ecchymotic hematoma to the right forehead with right periorbital ecchymosis and upper I lid swelling EENT: PERRL, sclera normal, conjunctiva normal, nose normal , ears normal, throat without erythema or exudates Neck: Supple, no adenopathy Lung: breath sounds symmetric, no wheezing, rales or rhonchi Chest: symmetric movement, nontender Heart: regular rate and rhythm, normal S1, S2 no murmurs or rubs Abdomen: soft, non-tender, nondistended, normal bowel sounds Back: no vertebral tenderness, no CVAT Extremities: no deformities, moves all extremities symmetrically, no pain with movement of her hip knee or ankle joints bilaterally, small puncture wound/abrasion to the right elbow with ecchymosis Neuro: Awake, alert, oriented, normal speech, cranial nerves intact, moves all extremities symmetrically Psych: Pleasant, cooperative Medications Administered Discontinued Medications Generic Name Dose Route Start Last Admin Trade Name Freq PRN Reason Stop Dose Admin Bacitracin 1 appl 01/11/24 10:17 01/11/24 10:28 Bacitracin Oint 0.9 Gm Packet TOPICAL 01/11/24 10:18 1 appl ONCE ONE Administration Protocol Hydromorphone HCl 0.5 mg 01/11/24 10:10 01/11/24 10:17 Hydromorphone Hcl 0.5 Mg/0.5 Ml Syringe IVPUSH 01/11/24 10:11 0.5 mg ONCE ONE Administration Protocol Magnesium Sulfate/Dextrose 1 gm in 100 mls @ 100 mls/hr 01/11/24 10:15 01/11/24 10:28 Magnesium Sulfate/D5w IV 01/11/24 11:14 100 mls/hr ONCE ONE Administration Nicardipine HCl 25 mg/ Sodium 250 mls @ 0 mls/hr 01/11/24 10:30 01/11/24 10:48 Chloride IVCONT 5 mg/hr .Q0M RAMONA 50 mls/hr Administration Protocol Per Protocol Morphine Sulfate 2 mg 01/11/24 07:37 01/11/24 07:48 Morphine Sulfate 4 Mg/Ml Cartridge IVPUSH 01/11/24 07:38 2 mg ONCE STA Administration Protocol Morphine Sulfate 4 mg 01/11/24 08:17 01/11/24 08:21 Morphine Sulfate 4 Mg/Ml Cartridge IVPUSH 01/11/24 08:18 4 mg ONCE STA Administration Protocol Ondansetron HCl 4 mg 01/11/24 07:37 01/11/24 07:48 Ondansetron Hcl 4 Mg/2 Ml Vial IVPUSH 01/11/24 07:38 4 mg ONCE ONE Administration Medical Decision Making Medical Decision Making MDM Narrative: 70-year-old female with a past medical history of hypertension, hyperlipidemia, diabetes, diabetic neuropathy, degenerative spine disease, carotid stenosis, anxiety, depression, restless leg syndrome, restrictive lung disease, obesity, osteoporosis, history of CVA, GERD who presents emergency department for evaluation of trip, fall with head injury without LOC, right forehead ecchymotic hematoma with right periorbital ecchymosis. Patient complained of 10/10 headache. She had a small right ecchymotic abrasion to her right elbow with full range of motion of all of her joints without pain including her hip and knee joints. Patient was complaining of a 10/10 headache. Vital signs did reveal elevated blood pressure with systolic blood pressure ranging from to 203 to 181 and diastolics ranging from 86 to 92. Differential diagnosis: ?Includes but is not limited to skull fracture, intracranial bleed, right orbital fracture, cervical fracture, cervical sprain, anemia, electrolyte abnormalities Following evaluation was ordered: CBC, CMP, magnesium, lipase, PT/INR, PTT, troponin, urinalysis, COVID-19, influenza, RSV Course: 10:47 CT scan of the cervical spine and facial bones did not reveal any acute fractures. CT scan of the head without IV contrast did reveal an acute 4 mm subdural hematoma at the falx. I did discuss this patient's presentation and CT findings with the [facility] trauma surgeon, and he accepted the patient as an ED to ED transfer. Given the subdural hematoma and elevated blood pressure the patient will was started on nicardipine drip with a goal of getting the patient's blood pressure between the 140 and 160 range. Patient was initially treated with morphine 2 mg IV and then 4 mg IV with only minimal relief for pain. She was given Dilaudid 0.5 mg IV with some improvement of her headache. He was also given Zofran 4 mg IV for nausea. I did discuss the findings with the patient in the need to transfer to [facility] for higher level of care. I also discuss the patient's findings in the need for transfer with her daughter, Babs Squires at . Admission/Observation Consideration of admission/observation: Escalation of care including admission/observation considered (Yes) Consult Healthcare Provider Management of the patient was discussed with: Documentation Engineer ([facility], trauma surgeon, ) Lab Data MDM Lab Attestation statement: I reviewed the patient's lab results. My independent interpretation patient's laboratory evaluation is as follows: CBC was normal with an H&H of 13.2 and 41.5 with a platelet count of 223. WBC was normal 9500. PT/INR and PTT were normal. Glucose elevated 165. Magnesium low 1.3. LFTs were normal. Lipase was normal. High sensitive troponin I was below detectable limits. 01/11/24 09:47 01/11/24 09:47 Labs: Lab Results 01/11/24 01/11/24 Range/Units 09:47 10:19 WBC 9.5 (4.8-10.8) X10*3/uL RBC 4.87 (4.20-5.50) X10*6/uL Hgb 13.2 (12.0-16.0) g/dl Hct 41.5 (37.0-47.0) % MCV 85.2 (80.0-98.0) fL MCH 27.1 (27.0-33.0) pg MCHC 31.8 (31.0-35.0) g/dl RDW 13.3 (11.0-16.0) % Plt Count 223 (160-400) X10*3/uL MPV 10.7 (9.4-12.3) fL Immature Gran % (Auto) 0.2 (0.0-0.4) % Neut % (Auto) 53.1 (45-73) % Lymph % (Auto) 37.5 (20-40) % Addison % (Auto) 7.6 (2-11) % Eos % (Auto) 1.5 (0-4) % Baso % (Auto) 0.1 (0-2) % Lymph # (Auto) 3.6 (1.2-4.9) X10*3/uL Addison # (Auto) 0.7 (0.1-1.2) X10*3/uL Eos # (Auto) 0.1 (0.0-0.4) X10*3/uL Baso # (Auto) 0.0 (0.0-0.2) X10*3/uL Abs Immat Gran (auto) 0.02 (0.00-0.03) X10*3/uL Absolute Neuts (auto) 5.0 (2.0-8.3) x10*3/uL Absolute Nucleated RBC 0.000 (0.0-0.012) X10*3/uL Nucleated RBC % (auto) 0.0 (0.0-0.2) /100WBC PT 11.4 (10.9-12.4) SEC INR 1.0 (0.9-1.1) APTT 32.6 (26.0-36.8) SEC Sodium 140 (135-145) mmol/L Potassium 3.8 (3.3-5.1) mmol/L Chloride 103 (96-108) mmol/L Carbon Dioxide 28 (22-29) mmol/L Anion Gap 13 (12-20) BUN 8 L (9-16) mg/dL Creatinine 0.89 (0.5-1.4) mg/dL Estim Creat Clear Calc 60.2 Estimated GFR > 60 Random Glucose 165 H (60-115) mg/dL Calcium 9.8 (8.4-10.2) mg/dL Magnesium 1.3 L* (1.6-2.6) mg/dL Total Bilirubin 0.5 (0.0-1.0) mg/dL AST 21 (5-31) U/L ALT 22 (0-31) U/L Alkaline Phosphatase 105 (39-117) U/L Troponin I High Sens < 2.7 (<3.5-17.0) ng/L Total Protein 7.0 (6.5-8.0) g/dL Albumin 3.7 (3.5-5.0) g/dL Lipase 16 (8-78) U/L Influenza Type A (PCR) NEGATIVE (Negative) Influenza Type B (PCR) NEGATIVE (Negative) RSV RNA Qual (PCR) NEGATIVE (Negative) SARS-CoV-2 RNA (RT-PCR) NEGATIVE (Negative) Independent Interpretation I performed an independent interpretation of an: EKG Interpretation: My interpretation patient's 12 EKG done at 00:53 hours is as follows: Normal sinus rhythm with a rate of 97, normal HI interval, prolonged QRS duration of 136 milliseconds and prolonged QTC interval 477 milliseconds, left bundle-branch block, when compared to 07/15/2022 the left bundle-branch block was present and is not new Radiology Impression Discussion of test interpretation with radiology: I have reviewed the radiologist's reading. Radiologist Impression: CT head/brain wo IV con IMPRESSION: 4 mm acute subdural hemorrhage, anterior mid interhemispheric falx. Soft tissue contusion/hematoma right forehead. No acute fracture. Small vessel occlusive disease. Discussed with the emergency physician Dr. Wes Noble at 9:20 AM.. Electronically signed by: Raul Saenz MD CT cervical spine wo IV con IMPRESSION: Multilevel spondylosis without acute fracture or trauma-related listhesis. Overall no gross change. Fleischner guidelines were followed. Electronically signed by: Raul Saenz MD CT facial bones wo IV con IMPRESSION: Hematoma/soft tissue contusion, right preseptal orbit. No retrobulbar hematoma. No acute fracture. Electronically signed by: Raul Saenz MD 01/11/2024 09:16 AM [facility] [place] Dictated By: Raul Mane MD Independent Historian Clinical information obtained from an independent historian. History obtained from or confirmed by: Other (Daughter, Babs) External Record Review External record reviewed: Inpatient record Chronic Conditions Patient?s care impacted by: Diabetes and Hypertension Critical Care Time Critical Care Time Critical Care Time: Yes Total Critical Care Time: 45 Attestation: Critical Care: The patient was critically ill with a high probability of imminent or life threatening deterioration. I spent greater than 30 minutes of discontinuous time evaluating the patient,delivering critical care at the bedside, discussing and evaluating pertinent data with consultants. Critical care time does not include time spent performing separately billable procedures or teaching. Total time spent performing critical care was 45 minutes. Discharge Plan Discharge Clinical Impression: Fall, Acute subdural hematoma, Contusion of face, Periorbital ecchymosis of right eye Patient Disposition: er [facility] Transfer Details: [facility] ED Prescriptions: No Action (DME) GRAB bar See Rx Instructions .Route .MEDSUPPLY Qty: 1 0RF Rx Instructions: As directed cyanocobalamin (vitamin B-12) 1,000 mcg capsule 1,000 mcg PO DAILY Qty: 30 3RF (DME) pen needle, diabetic [BD Ultra-Fine Mini Pen Needle] 31 gauge x 3/16 needle See Rx Instructions .ROUTE .MEDSUPPLY Qty: 100 3RF Rx Instructions: As directed inject 60 units of Lantus q.p.m. atorvastatin 40 mg tablet 40 mg PO DAILY Qty: 90 2RF ropinirole 0.5 mg tablet 0.5 mg PO BEDTIME Qty: 90 2RF bisacodyl [Dulcolax (bisacodyl)] 5 mg tablet,delayed release (DR/EC) 10 mg PO ONCE 1 Days Qty: 2 0RF Rx Instructions: take at noon the day before colonoscopy polyethylene glycol 3350 [Miralax] 17 gram/dose powder 238 g PO ONCE 1 Days Qty: 238 0RF Rx Instructions: Take as directed by mouth the day before your procedure. insulin glargine [Lantus Solostar U-100 Insulin] 100 unit/mL (3 mL) insulin pen 60 unit subcut BEDTIME Qty: 15 10RF clopidogrel 75 mg tablet 75 mg PO DAILY Qty: 90 2RF (DME) OneTouch Ultra Test Strip See Rx Instructions .ROUTE .COMPLEX Qty: 200 10RF Dose Instruction: TEST BLOOD SUGAR THREE TIMES A DAY FOR DIABETES MELLITUS Rx Instructions: TEST BLOOD SUGAR THREE TIMES A DAY FOR DIABETES MELLITUS fluticasone propionate [Flonase Allergy Relief] 50 mcg/actuation spray,suspension 2 spray intranasal DAILY PRN (Reason: Allergy Symptoms) 30 Days Qty: 16 10RF Rx Instructions: administer into each nostril pregabalin 50 mg capsule 50 mg PO BID PRN (Reason: pain) 90 Days Qty: 180 0RF Rx Instructions: take with 200 mg = 250 mg BID dulaglutide 0.75 mg/0.5 mL pen injector 0.75 mg subcut QWEEK 30 Days Qty: 2.5 3RF metformin 1,000 mg tablet 1,000 mg PO BIDWM Qty: 180 1RF magnesium oxide 400 mg (241.3 mg magnesium) tablet 400 mg PO DAILY Qty: 30 1RF pregabalin [Lyrica] 200 mg capsule 200 mg PO BID 30 Days Qty: 60 0RF Rx Instructions: take with 50 mg = 250 mg BID buspirone 10 mg tablet 1 tab PO BID duloxetine 30 mg capsule,delayed release(DR/EC) 1 cap PO DAILY duloxetine 60 mg capsule,delayed release(DR/EC) 1 cap PO BEDTIME lisinopril 40 mg tablet 40 mg PO DAILY Qty: 90 1RF clonazepam 1 mg tablet 1 mg PO BEDTIME PRN (Reason: Anxiety) Qty: 30 0RF Referrals: Po,Kina Lemons MD [Primary Care Provider] - Interventions: Acute Care Transfer Worksheet (ED) Last Done: 01/11/24 11:11 Discharge Date/Time: 01/11/24 11:12 Print Language: Syriac
--- NOTE | 2024-01-11 07:37 | ECG_ITS ---
Test Reason : FALL Blood Pressure : / mmHG Vent. Rate : 097 BPM Atrial Rate : 097 BPM P-R Int : 146 ms QRS Dur : 136 ms QT Int : 376 ms P-R-T Axes : 061 -19 091 degrees QTc Int : 477 ms Normal sinus rhythm Left bundle branch block Abnormal ECG When compared with ECG of 15-JUL-2022 20:15, Left bundle branch block is now Present Referred By: Wes Noble Electronically Signed By:MIGUEL CAMPA MD
[2024-01-11] MEDS: ondansetron HCL 4 MG/2 ML VIAL IVPUSH (07:48)
[2024-01-11] MEDS: Morphine Sulfate 4 MG/ML CARTRIDGE 2 MG IVPUSH (07:48)
[2024-01-11] MEDS: Morphine Sulfate 4 MG/ML CARTRIDGE IVPUSH (08:21)
[2024-01-11 09:51] LABS: MANUAL DIFF FLAG NO
[2024-01-11 09:54] LABS: Basophils Percent Auto 0.1 % (0-2); Eosinophils Absolute Auto 0.1 X10*3/uL (0.0-0.4); Eosinophils Percent Auto 1.5 % (0-4); Hematocrit 41.5 % (37.0-47.0); Hemoglobin 13.2 g/dl (12.0-16.0); Imm Gran Abs Auto 0.02 X10*3/uL (0.00-0.03); Imm Gran Pct Auto 0.2 % (0.0-0.4); Lymphocytes Absolute Auto 3.6 X10*3/uL (1.2-4.9); Lymphocytes Percent Auto 37.5 % (20-40); Mean Corpuscular HGB Conc 31.8 g/dl (31.0-35.0); Mean Corpuscular Hemoglobin 27.1 pg (27.0-33.0); Mean Corpuscular Volume 85.2 fL (80.0-98.0); Mean Platelet Volume 10.7 fL (9.4-12.3); Monocytes Absolute Auto 0.7 X10*3/uL (0.1-1.2); Monocytes Percent Auto 7.6 % (2-11); Neutrophils Percent Auto 53.1 % (45-73); Platelet Count 223 X10*3/uL (160-400); Red Blood Count 4.87 X10*6/uL (4.20-5.50); Red Cell Distribution Width 13.3 % (11.0-16.0); White Blood Count 9.5 X10*3/uL (4.8-10.8)
[2024-01-11 09:57] LABS: Prothrombin Time 11.4 SEC (10.9-12.4)
[2024-01-11 10:00] LABS: Partial Thromboplastin Time 32.6 SEC (26.0-36.8)
[2024-01-11 10:15] LABS: Alanine Aminotransferase 22 U/L (0-31); Albumin Level 3.7 g/dL (3.5-5.0); Alkaline Phosphatase 105 U/L (39-117); Anion Gap 13 (12-20); Aspartate Amino Transferase 21 U/L (5-31); Bilirubin Total 0.5 mg/dL (0.0-1.0); Blood Urea Nitrogen 8 mg/dL (9-16); Calcium 9.8 mg/dL (8.4-10.2); Carbon Dioxide 28 mmol/L (22-29); Chloride 103 mmol/L (96-108); Creatinine Clr Calc Pharmacy 60.2; Estimated Glomerular Filt Rate > 60; Glucose Random 165 mg/dL (60-115); Lipase 16 U/L (8-78); Magnesium 1.3 mg/dL (1.6-2.6); Potassium 3.8 mmol/L (3.3-5.1); Sodium 140 mmol/L (135-145); Troponin-I High Sensitivity < 2.7 ng/L (<3.5-17.0)
[2024-01-11] MEDS: HYDROmorphone HCl 0.5 MG/0.5 ML SYRINGE IVPUSH (10:17)
[2024-01-11] MEDS: Magnesium Sulfate/D5W 1 GM/100 ML PIGGYBACK IV (10:28)
[2024-01-11] MEDS: Bacitracin Oint 0.9 GM PACKET 1 APPL TOPICAL (10:28)
[2024-01-11] MEDS: niCARdipine HCL 25 MG in 0.9 % Sodium Chloride 240 ML 50 MG IVCONT (10:48)
[2024-01-11 11:11] LABS: Influenza A PCR NEGATIVE (Negative); Influenza B PCR NEGATIVE (Negative); Resp Syncy Virus RNA Qual PCR NEGATIVE (Negative); SARS COV2 PCR INHOUSE NEGATIVE (Negative)
== END 2024-01-11 11:12 | disposition short-term general hospital (02) ==
PROVIDERS: Emergency Provider Emergency Medicine Emergency Medical Services; PCP Internal Medicine
DX: S06.5X0A Traumatic subdural hemorrhage without loss of consciousness, initial encounter (principal); S00.11XA Contusion of right eyelid and periocular area, initial encounter; S00.83XA Contusion of other part of head, initial encounter; W18.30XA Fall on same level, unspecified, initial encounter; E11.9 Type 2 diabetes mellitus without complications; I10 Essential (primary) hypertension; E78.5 Hyperlipidemia, unspecified; Z87.891 Personal history of nicotine dependence; Y93.89 Activity, other specified; Y92.039 Unspecified place in apartment as the place of occurrence of the external cause; Y99.9 Unspecified external cause status; Z79.02 Long term (current) use of antithrombotics/antiplatelets; Z79.899 Other long term (current) drug therapy; Z79.4 Long term (current) use of insulin; Z03.818 Encounter for observation for suspected exposure to other biological agents ruled out
CPT/HCPCS: 0241U; 36415; 70450; 70486; 72125; 80053; 83690; 83735; 84484; 85025; 85610; 85730; 93005; 96374; 96375; 96376; 99285; J1171; J2270; J2404; J2405; J3475

== ENCOUNTER → 2024-01-11 07:37 | Outpatient (BNV) | payer OTHER, SELFPAY | PROVIDERS: Emergency Provider Emergency Medicine Emergency Medical Services; PCP Internal Medicine; Visit Provider Internal Medicine Cardiovascular Disease | DX: R94.31 Abnormal electrocardiogram [ECG] [EKG] (principal) | CPT/HCPCS: 93010 ==

== ENCOUNTER → 2024-01-11 07:38 | Outpatient (BNV) | payer OTHER, SELFPAY | PROVIDERS: Emergency Provider Emergency Medicine Emergency Medical Services; PCP Internal Medicine; Visit Provider Radiology Diagnostic Radiology | DX: S00.83XA Contusion of other part of head, initial encounter (principal); M54.2 Cervicalgia | CPT/HCPCS: 70450; 70486; 72125 ==

== ENCOUNTER 2024-02-26 12:50 | Outpatient (AMB) | payer OTHER, SELFPAY ==
--- NOTE | 2024-02-26 13:00 | A.OFFPC_ITS ---
Vital Signs 02/26/24 13:01 Height 5 ft 5 in Weight 181 lb 8 oz BMI 30.2 BP 130/60 Blood Pressure Location Lt brachial Position Sitting Pulse 98 Pulse Source Pulse Oximeter Pulse Oximetry (%) 93 Oxygen Delivery Method Room Air Intake Visit Reasons: DM/ED follow up [facility] 01/29 Allergies No Known Allergies [No Known Allergies*] Allergy (Verified 02/26/24 13:04) Tobacco use date assessed: 02/26/24 Fall risk assessment: 2 + Falls in past year Last assessed Fall Risk: 02/26/24 Dental Screening Dental Screen Date: 02/26/24 Did you have a dental visit in the last 12 months?: No Did you have a dental problem in the last 6 months where you did not have access to dental care?: No Was dental information given to patient?: Yes HPI DM/ED follow up [facility] 01/29 HPI Details The patient is a 73-year-old female presenting with concerns following a fall that resulted in head trauma and a subsequent intracranial hemorrhage. The incident occurred outside the bathroom door, where the patient was unsure of what caused the fall as there were no apparent obstacles. Following the fall, she experienced a headache and was evaluated in the emergency department, where an intracranial hemorrhage was identified. The hemorrhage has shown resolution over time, but the fall instigated significant concern due to the head impact. The patient has been on clopidogrel, a blood thinner, which necessitates caution in managing falls. She reported no recent episodes of hypoglycemia. The patient acknowledges the use of chlorazepam, although this has not been renewed as she is waiting for a therapist's appointment. She mentioned pregabalin use but denies it causes sleepiness. Current management includes a weekly Trulicity injection, which will be increased. Additionally, the patient reports significant insomnia. She previously utilized zolpidem (Ambien), which was discontinued upon her relocation back from [place] due to age-related concerns. She has also trialed Seroquel at 25 mg during rehabilitation, which she found intolerable. Insomnia persists with diff iculty falling asleep until late hours. [facility] Medical History (Updated 02/26/24 @ 13:25 by Kina Blackburn MD) Colon cancer screening Right arm pain Routine gynecological examination Fall Multifactorial gait disorder Peripheral neuropathy Full dentures Multifactorial gait disorder Lower back pain Candidal intertrigo Restrictive lung disease Carotid stenosis GERD (gastroesophageal reflux disease) Personal history of malignant neoplasm of cervix uteri Diabetic nephropathy Restless leg syndrome Obesity (BMI 30-39.9) 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) Osteopenia History of CVA (cerebrovascular accident) Anxiety and depression Hypertension Type 2 diabetes mellitus with hyperglycemia Surgical History History of carotid endarterectomy History of partial hysterectomy History of colonoscopy with polypectomy History of bilateral cataract extraction History of carpal tunnel surgery History of lumbar fusion History of loop electrical excision procedure (LEEP) History of neck surgery Family History Father Heart attack Mother Cancer Dementia Breast cancer Hemorrhage Social History (Updated 11/19/23 @ 12:52 by Kina Blackburn MD) Household Members Other:: Daughter Housing: Other Housing Other:: Mobile Home Are you a primary director career services to a significant other at home: No Do you presently have visiting nurse or other home services: Yes (daughter is BALLOON ARTIST) Alcohol intake: never Comment: unsteady gait Patient Tobacco Use Status: Former Tobacco user Tobacco use type: Cigarette Years Smoked: stopped 1989 e-Cigarette/Vaping Use: Never Used Second Hand Smoke Exposure: Yes Advance Directives Date on File: 06/19/21 service: No Current occupational status: disabled Cognitive needs: Yes (walker/cane) Hearing needs: No Vision needs: Yes (glasses) Questionnaire Thrive Questionnaire Date Thrive assessed: 02/26/24 CHERYL-7 AMB Questionnaire CHERYL-7 Date CHERYL - 7 assessed: 11/19/23 Source: Developed by Drs. Luther Huddleston, Summer Guadalupe, Thomas Melissa and colleagues, with an educational jen from [employer]. Physical exam (Primary Care) Vital Signs: Last Vital Signs Pulse 98 02/26/24 13:01 BP 130/60 02/26/24 13:01 Pulse Ox 93 02/26/24 13:01 Oxygen Delivery Method Room Air 02/26/24 13:01 BMI result Body Mass Index 30.2 Tobacco/Smoking Status: Tobacco use Status Tobacco use date assessed 02/26/24 02/26/24 13:06 Patient Tobacco Use Status Former Tobacco user 02/26/24 13:06 Tobacco use type Cigarette 02/26/24 13:06 e-Cigarette/Vaping Use Never Used 02/26/24 13:06 Thrive Assessment: Date of Thrive Assessment Date Thrive assessed 02/26/24 02/26/24 13:06 Const General: alert; No acute distress Eyes Conjunctivae: conjunctivae normal Resp Auscultation: clear to auscultation bilaterally Cardio Rate: regular rate Rhythm: regular rhythm GI Inspection: Yes normal to inspection Extrem General: Yes normal to inspection and No edema Results AMB Hemoglobin A1c AMB Hemoglobin A1c 7.8 % Last Edit by Ninfa Zurita CMA on 02/26/24 13:13 Results Reviewed Results Reviewed: Laboratory Last Values Hgb A1c (Clinic) 7.8 % (4.0-6.0) H 02/26/24 13:12 Coding Level of Care Code Est Pt Level 4 (48105) Diagnoses Subdural hematoma S06.5XAA Essential hypertension I10 Hypertension type: essential hypertension Gastroesophageal reflux disease without esophagitis K21.9 Esophagitis presence: without esophagitis Type 2 diabetes mellitus with hyperglycemia, with long-term current use of insulin E11.65; Z79.4 Diabetes mellitus long term acute care registered nurse insulin use: with long term acute care registered nurse use Lumbar degenerative disc disease M51.36 Insomnia G47.00 Assessment & Plan Assessment & Plan (1) Subdural hematoma: Comment: FallJanuary 2024 Code(s): S06.5XAA - Traumatic subdural hemorrhage with loss of consciousness status unknown, initial encounter Category: Medical Plan: Patient is doing good. (2) Hypertension: Code(s): I10 - Essential (primary) hypertension Category: Medical Qualifiers: Hypertension type: essential hypertension Qualified Code(s): I10 - Essential (primary) hypertension Plan: Continue with blood pressure medication. Decrease salt intake and exercise (3) GERD (gastroesophageal reflux disease): Code(s): K21.9 - Gastro-esophageal reflux disease without esophagitis Category: Medical Qualifiers: Esophagitis presence: without esophagitis Qualified Code(s): K21.9 - Gastro-esophageal reflux disease without esophagitis Plan: Avoid the foods that causes that usually spicy foods, tomato products, juices, coffee, soda and foods that your sensitive to. After eating do not lie down, allow 3-4 hours before in lie down. And keep the head of bed above 30 degrees to avoid the acid from going up. 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 Hemoglobin A1c goal of less than 7.0. Continue with metformin insulin Trulicity. But will increase the Trulicity does (5) Lumbar degenerative disc disease: Code(s): M51.36 - Other intervertebral disc degeneration, lumbar region Category: Medical Plan: Advised to continue to be active (6) Insomnia: Code(s): G47.00 - Insomnia, unspecified Category: Medical Plan: Medication Ambien 5 mg at bedtime as needed Plan and nutrition. Orders: Orders AMB Hemoglobin A1c Today Z13.9 - Encounter for screening, unspecified Complete Blood Count Auto Diff 3 Months E78.00 - Pure hypercholesterolemia, unspecified Free T4 (Free Thyroxine) 3 Months E78.00 - Pure hypercholesterolemia, unspecified Thyroid Stimulating Hormone 3 Months E78.00 - Pure hypercholesterolemia, unspecified Vitamin B12 and Folate 3 Months E78.00 - Pure hypercholesterolemia, unspecified Vitamin D 25-OH Total 3 Months E78.00 - Pure hypercholesterolemia, unspecified Lipid Panel 3 Months E78.00 - Pure hypercholesterolemia, unspecified Comprehensive Met. Panel 3 Months E78.00 - Pure hypercholesterolemia, unspecified Microalbumin, Random (w Creat) 3 Months E11.65 - Type 2 diabetes mellitus with hyperglycemia, E78.00 - Pure hypercholesterolemia, unspecified Creatinine Urine 3 Months E11.65 - Type 2 diabetes mellitus with hyperglycemia, E78.00 - Pure hypercholesterolemia, unspecified Hemoglobin A1c 3 Months E78.00 - Pure hypercholesterolemia, unspecified Magnesium 3 Months F41.1 - Generalized anxiety disorder Medications: New zolpidem (Ambien) 5 mg PO BEDTIME 30 tabs 0RF G47.00 - Insomnia, unspecified Changed From dulaglutide 0.75 mg (0.5 mL) subcut QWEEK 30 days 2.5 mL 3RF E11.65 - Type 2 diabetes mellitus with hyperglycemia, Z79.4 - retirement (current) use of insulin To dulaglutide 1.5 mg (0.5 mL) subcut QWEEK 1 month 2.5 mL 6RF E11.65 - Type 2 diabetes mellitus with hyperglycemia, Z79.4 - retirement (current) use of insulin
[2024-02-26 13:01] VITALS: BP 130/60; PULSE 98; O2SAT 93; BMI 30.2
--- OUTSIDE RECORDS SUMMARY | 2024-02-26 14:23 | XMS_ITS | Clinical Summary ---
Author Organization Unknown Care Team Providers Care Pole Maker Name Role Phone AMINAH SCHAEFER, YUSRA Unavailable Unavailable HAKEEM ROLLE, NAOMI Unavailable Unavailable Payers Payer Name Policy Type Policy Number Effective Date Expira tion Date [facility] [place] [place] [id number] [place] [id number] [place] [id number] Problems Condition Name Condition Details Condition Category Status Onset Date Resolution Date Last Treatment Date Treating Clinician Comments ANXIETY DISORDER, UNSPECIFIED Active 2023-02 00:00: 00 TRAUM SUBDR HEM WITH LOC STATUS UNKNOWN, INITIAL ENCOUNTER Active 2023-02 00:00: 00 TYPE 2 DIABETES MELLITUS WITHOUT COMPLICATION S Active 2023-02 00:00: 00 OTHER ABNORMALITIE S OF GAIT AND MOBILITY Active 2023-02 00:00: 00 MUSCLE WEAKNESS (GENERALIZED ) Active 2023-02 00:00: 00 Allergies, Adverse Reactions, Alerts Allergy Name Allergy Type Status Severity Reaction(s) Onset Date Inactive Date Treating Clinician Comments MORPHINE ANALOUGES Propensity to adverse reactions Active 2023-02 06:35: 51 Medications Ordered Medication Name Filled Medication Name Start Date Stop Date Current Medication? Ordering Clinician Indication Dosage Frequency Signature (SIG) Comments Components clopidogrel 75 mg tablet 07-23 00:00: 00 01-20 23:59 :00 No [id number] Per instruc tions DAILY Per instructio ns DAILY (route: oral) Med Classific ation: Hematolog ical Agents lisinopril 10 mg tablet 07-15 00:00: 00 07-23 00:00 :00 No [id number] Per instruc tions DAILY Per instructio ns DAILY (route: oral) Med Classific ation: Cardiovas cular Therapy Agents pregabalin 200 mg capsule 07-23 00:00: 00 01-20 23:59 :00 No [id number] Per instruc tions DAILY Per instructio ns DAILY (route: oral) Med Classific ation: Central Nervous System Agents Lantus Solostar U-100 Insulin 100 unit/mL (3 mL) subcutaneou s pen 07-23 00:00: 00 01-20 23:59 :00 No [id number] Per instruc tions (06 ML) SUBCUTANEO USLY AT BEDTIME Per instructio ns (06 ML) SUBCUTANEO USLY AT BEDTIME (route: subcutaneo us) Med Classific ation: Endocrine clonazepam 1 mg tablet 07-23 00:00: 00 01-20 23:59 :00 No [id number] Per instruc tions AT BEDTIME NEEDED Per instructio ns AT BEDTIME NEEDED (route: oral) Med Classific ation: Central Nervous System Agents atorvastati n 40 mg tablet 07-23 00:00: 00 01-20 23:59 :00 No [id number] 1 tablet DAILY 1 tablet DAILY (route: oral) Med Classific ation: Cardiovas cular Therapy Agents buspirone 10 mg tablet 07-23 00:00: 00 01-20 23:59 :00 No [id number] 1 tablet 2 TIMES DAILY 1 tablet 2 TIMES DAILY (route: oral) Med Classific ation: Central Nervous System Agents duloxetine 60 mg capsule,del ayed release 07-23 00:00: 00 01-20 23:59 :00 No [id number] 1 capsule DAILY 1 capsule DAILY (route: oral) Med Classific ation: Central Nervous System Agents magnesium 400 mg (as magnesium oxide) tablet 07-23 00:00: 00 01-20 23:59 :00 No [id number] 1 tablet DAILY 1 tablet DAILY (route: oral) Med Classific ation: Electroly te Balance-N utritiona l Products metformin 1,000 mg tablet 07-23 00:00: 00 01-20 23:59 :00 No [id number] 1 tablet 2 TIMES DAILY 1 tablet 2 TIMES DAILY (route: oral) Med Classific ation: Endocrine pregabalin 50 mg capsule 07-23 00:00: 00 01-20 23:59 :00 No [id number] 1 capsule DAILY 1 capsule DAILY (route: oral) Med Classific ation: Central Nervous System Agents Trulicity 0.75 mg/0.5 mL subcutaneou s pen injector 07-23 00:00: 00 08-10 23:59 :00 No [id number] 0.5 mL WEEKLY 0.5 mL WEEKLY (route: subcutaneo us) Med Classific ation: Endocrine lisinopril 20 mg tablet 07-23 00:00: 00 01-20 23:59 :00 No [id number] 1 tablet DAILY 1 tablet DAILY (route: oral) Med Classific ation: Cardiovas cular Therapy Agents Trulicity 0.75 mg/0.5 mL subcutaneou s pen injector 08-10 00:00: 00 01-20 23:59 :00 No [id number] 0.75 mg WEEKLY 0.75 mg WEEKLY (route: subcutaneo us) Med Classific ation: Endocrine acetaminoph en 325 mg capsule 2023-02 00:00: 00 Yes [id number] 1 capsule EVERY 4 HOURS 1 capsule EVERY 4 HOURS (route: oral) Med Classific ation: Analgesic , Anti-infl ammatory or Antipyret ic acetaminoph en 325 mg capsule 2023-02 00:00: 00 Yes [id number] 3 capsule EVERY 8 HOURS 3 capsule EVERY 8 HOURS (route: oral) Med Classific ation: Analgesic , Anti-infl ammatory or Antipyret ic Admelog U-100 Insulin lispro 100 unit/mL subcutaneou s solution 2023-02 00:00: 00 02-08 23:59 :00 No [id number] 2-12 unit 3 TIMES DAILY 2-12 unit 3 TIMES DAILY (route: subcutaneo us) Med Classific ation: Endocrine amlodipine 5 mg tablet 2023-02 00:00: 00 Yes [id number] 1 tablet BEDTIME 1 tablet BEDTIME (route: oral) Med Classific ation: Cardiovas cular Therapy Agents Dulcolax (bisacodyl) 10 mg rectal suppository 2023-02 00:00: 00 Yes [id number] 1 supposi tory, rectal EVERY PM 1 suppositor y, rectal EVERY PM (route: rectal) Med Classific ation: Gastroint estinal Therapy Agents duloxetine 30 mg capsule,del ayed release 2023-02 00:00: 00 Yes [id number] 1 capsule 2 TIMES DAILY 1 capsule 2 TIMES DAILY (route: oral) Med Classific ation: Central Nervous System Agents folic acid 1 mg tablet 2023-02 00:00: 00 Yes [id number] 1 tablet EVERY AM 1 tablet EVERY AM (route: oral) Med Classific ation: Electroly te Balance-N utritiona l Products insulin glargine-yf gn (U-100) 100 unit/mL subcutaneou s solution 2023-02 00:00: 00 Yes [id number] 50 unit BEDTIME 50 unit BEDTIME (route: subcutaneo us) Med Classific ation: Endocrine lidocaine 5 % topical cream 2023-02 00:00: 00 Yes [id number] 1 inch 4 TIMES DAILY 1 inch 4 TIMES DAILY (route: topical) Med Classific ation: Dermatolo gical lisinopril 40 mg tablet 2023-02 00:00: 00 Yes [id number] 1 tablet EVERY AM 1 tablet EVERY AM (route: oral) Med Classific ation: Cardiovas cular Therapy Agents magnesium 400 mg (as magnesium oxide) capsule 2023-02 00:00: 00 Yes [id number] 1 capsule EVERY AM 1 capsule EVERY AM (route: oral) Med Classific ation: Electroly te Balance-N utritiona l Products metformin 1,000 mg tablet 2023-02 00:00: 00 Yes [id number] 1 tablet 2 TIMES DAILY 1 tablet 2 TIMES DAILY (route: oral) Med Classific ation: Endocrine mirtazapine 15 mg tablet 2023-02 00:00: 00 Yes [id number] 1 tablet BEDTIME 1 tablet BEDTIME (route: oral) Med Classific ation: Central Nervous System Agents oxycodone 5 mg capsule 2023-02 00:00: 00 Yes [id number] 1 capsule DIRECTED 1 capsule DIRECTED (route: oral) Med Classific ation: Analgesic , Anti-infl ammatory or Antipyret ic Plavix 75 mg tablet 2023-02 00:00: 00 Yes [id number] 1 tablet EVERY PM 1 tablet EVERY PM (route: oral) Med Classific ation: Hematolog ical Agents pregabalin 225 mg capsule 2023-02 00:00: 00 Yes [id number] 1 capsule 2 TIMES DAILY 1 capsule 2 TIMES DAILY (route: oral) Med Classific ation: Central Nervous System Agents ropinirole 0.25 mg tablet 2023-02 00:00: 00 Yes [id number] 1 tablet EVERY PM 1 tablet EVERY PM (route: oral) Med Classific ation: Central Nervous System Agents simvastatin 80 mg tablet 2023-02 00:00: 00 Yes [id number] 1 tablet BEDTIME 1 tablet BEDTIME (route: oral) Med Classific ation: Cardiovas cular Therapy Agents aspirin 81 mg tablet,alicia yed release 2023-02 00:00: 00 Yes [id number] 1 tablet EVERY AM 1 tablet EVERY AM (route: oral) Med Classific ation: Hematolog ical Agents cefdinir 300 mg capsule 2023-02 00:00: 00 Yes [id number] 1 capsule BEDTIME 1 capsule BEDTIME (route: oral) Med Classific ation: Anti-Infe ctive Agents ClearLax 17 gram oral powder packet 2023-02 00:00: 00 Yes [id number] 1 powder in packet EVERY AM 1 powder in packet EVERY AM (route: oral) Med Classific ation: Gastroint estinal Therapy Agents naloxone 4 mg/actuatio n nasal spray 2023-02 00:00: 00 Yes [id number] Per instruc tions NEEDED Per instructio ns NEEDED (route: nasal) Med Classific ation: Antidotes and other Reversal Agents omega-3 acid ethyl esters 1 gram capsule 2023-02 00:00: 00 Yes [id number] 2 capsule 2 TIMES DAILY 2 capsule 2 TIMES DAILY (route: oral) Med Classific ation: Cardiovas cular Therapy Agents ondansetron 4 mg disintegrat ing tablet 2023-02 00:00: 00 Yes [id number] 1 tablet EVERY 8 HOURS 1 tablet EVERY 8 HOURS (route: oral) Med Classific ation: Gastroint estinal Therapy Agents simethicone 80 mg chewable tablet 2023-02 00:00: 00 Yes [id number] 1 tablet 2 TIMES DAILY 1 tablet 2 TIMES DAILY (route: oral) Med Classific ation: Gastroint estinal Therapy Agents Trulicity 0.75 mg/0.5 mL subcutaneou s pen injector 2023-02 00:00: 00 Yes [id number] 0.5 mL WEEKLY 0.5 mL WEEKLY (route: subcutaneo us) Med Classific ation: Endocrine Vital Signs Vital Name Observation Time Observation Value Commen ts Temperature 2024-02-11 16:00:00.000 98.1 [degF] Temperature 2024-02-03 11:00:00.000 98.6 [degF] BMI (%) 2024-02-11 16:00:00.000 29 kg/m2 BMI (%) 2024-02-03 11:00:00.000 27 kg/m2 Height 2024-02-11 16:00:00.000 65 [in_us] Height 2024-02-03 11:00:00.000 65 [in_us] Pulse 2024-02-11 16:00:00.000 96 /min Pulse 2024-02-03 11:00:00.000 60 /min O2 Saturation (%) 2024-02-11 16:00:00.000 99 % O2 Saturation (%) 2024-02-03 11:02:00.000 98 % Respirations 2024-02-11 16:00:00.000 18 /min Respirations 2024-02-03 11:00:00.000 18 /min Weight (lbs) 2024-02-11 16:00:00.000 176 [lb_av] Weight (lbs) 2024-02-03 11:00:00.000 167 [lb_av] Systolic Blood Pressure 2024-02-11 16:00:00.000 154 mm [Hg] Systolic Blood Pressure 2024-02-03 11:00:00.000 140 mm [Hg] Diastolic Blood Pressure 2024-02-11 16:00:00.000 84 mm [Hg] Diastolic Blood Pressure 2024-02-03 11:00:00.000 80 mm [Hg] Plan of Treatment Planned Activity Planned Date Details Comments Future Scheduled Test SKILLED NU RSE TO PERFORM HOME SAFETY AND FALL ASSESSMENT AND PROVIDE INSTRUCTION TO IMPLEMENT HOME SAFETY AND FALL PREVENTION STRATEGIES. [code = SKILLED NURSE TO PERFORM HOME SAFETY AND FALL ASSESSMENT AND PROVIDE INSTRUCTION TO IMPLEMENT HOME SAFETY AND FALL PREVENTION STRATEGIES.] Future Scheduled Test SKILLED NU RSE FOR OBSERVATION AND ASSESSMENT OF PATIENTS PAIN LEVEL AND EFFECTIVENESS OF PAIN MANAGEMENT REGIMEN. SKILLED NURSE TO INSTRUCT PATIENT/CAREGIVER REGARDING PHARMACOLOGIC AND NON-PHARMACOLOGIC PAIN CONTROL MEASURES. SKILLED NURSE TO REPORT TO PHYSICIAN IF PAIN IS UNCONTROLLED WITH CURRENT PAIN MANAGEMENT REGIMEN. [code = SKILLED NURSE FOR OBSERVATION AND ASSESSMENT OF PATIENTS PAIN LEVEL AND EFFECTIVENESS OF PAIN MANAGEMENT REGIMEN. SKILLED NURSE TO INSTRUCT PATIENT/CAREGIVER REGARDING PHARMACOLOGIC AND NON-PHARMACOLOGIC PAIN CONTROL MEASURES. SKILLED NURSE TO REPORT TO PHYSICIAN IF PAIN IS UNCONTROLLED WITH CURRENT PAIN MANAGEMENT REGIMEN.] Future Scheduled Test PATIENT CRUZ S A RISK OF HOSPITALIZATION AND ED USE. SKILLED NURSE TO ESTABLISH SUPPORT MEASURES TO MINIMIZE RISK OF HOSPITALIZATION AND ED USE, AND INSTRUCT PATIENT/CAREGIVER ON METHODS TO REDUCE AVOIDABLE HOSPITALIZATION AND ED USE. [code = PATIENT HAS A RISK OF HOSPITALIZATION AND ED USE. SKILLED NURSE TO ESTABLISH SUPPORT MEASURES TO MINIMIZE RISK OF HOSPITALIZATION AND ED USE, AND INSTRUCT PATIENT/CAREGIVER ON METHODS TO REDUCE AVOIDABLE HOSPITALIZATION AND ED USE.] Future Scheduled Test SKILLED NU RSE TO PROVIDE INSTRUCTION TO PATIENT/CAREGIVER RELATED TO DISCHARGE PLANNING. [code = SKILLED NURSE TO PROVIDE INSTRUCTION TO PATIENT/CAREGIVER RELATED TO DISCHARGE PLANNING.] Future Scheduled Test SKILLED NU RSE WILL MAINTAIN SITUATIONAL AWARENESS FOR SAFETY AND WILL NOTIFY CLINICAL CHEMICAL TANK WORKER AND PHYSICIAN/PROVIDER WITH ANY CHANGE IN CONDITION. [code = SKILLED NURSE WILL MAINTAIN SITUATIONAL AWARENESS FOR SAFETY AND WILL NOTIFY CLINICAL CHEMICAL TANK WORKER AND PHYSICIAN/PROVIDER WITH ANY CHANGE IN CONDITION.] Future Scheduled Test SKILLED NU RSE TO O/A OF PATIENTS MENTAL/BEHAVIORAL STATUS, ASSESS VITAL SIGNS 3WK8 ALLOW 2 PRNS FOR MEDICATION MANAGEMENT. [code = SKILLED NURSE TO O/A OF PATIENTS MENTAL/BEHAVIORAL STATUS, ASSESS VITAL SIGNS 3WK8 ALLOW 2 PRNS FOR MEDICATION MANAGEMENT.] Future Scheduled Test SKILLED NU RSE TO REVIEW PATIENT MEDICATIONS. INSTRUCT PATIENT/CAREGIVER ON MONITORING OF EFFECTIVENESS, ADVERSE DRUG REACTIONS, SIDE EFFECTS OF ALL MEDICATIONS (PRESCRIPTION/-OTC), AND HOW AND WHEN TO REPORT PROBLEMS. [code = SKILLED NURSE TO REVIEW PATIENT MEDICATIONS. INSTRUCT PATIENT/CAREGIVER ON MONITORING OF EFFECTIVENESS, ADVERSE DRUG REACTIONS, SIDE EFFECTS OF ALL MEDICATIONS (PRESCRIPTION/-OTC), AND HOW AND WHEN TO REPORT PROBLEMS.] Future Scheduled Test SKILLED NU RSE FOR O/A AND SKILLED TEACHING RELATED TO MANAGEMENT OF DEPRESSIVE SYMPTOMS AND/OR DEPRESSION. SN TO REPORT SIGNIFICANT CHANGE IN DEPRESSIVE SYMPTOMS TO CLINICAL PROVIDER FOR EARLY INTERVENTION. [code = SKILLED NURSE FOR O/A AND SKILLED TEACHING RELATED TO MANAGEMENT OF DEPRESSIVE SYMPTOMS AND/OR DEPRESSION. SN TO REPORT SIGNIFICANT CHANGE IN DEPRESSIVE SYMPTOMS TO CLINICAL PROVIDER FOR EARLY INTERVENTION.] Future Scheduled Test SKILLED NU RSE TO ASSESS PATIENTS PSYCHOSOCIAL STATUS TO IDENTIFY POTENTIAL ISSUES THAT MAY COMPLICATE THE PROVISION OF THE PLAN OF CARE INCLUDING THE PATIENTS ABILITY TO ACCESS COMMUNITY RESOURCES AND PSYCHOSOCIAL SUPPORT SERVICES. [code = SKILLED NURSE TO ASSESS PATIENTS PSYCHOSOCIAL STATUS TO IDENTIFY POTENTIAL ISSUES THAT MAY COMPLICATE THE PROVISION OF THE PLAN OF CARE INCLUDING THE PATIENTS ABILITY TO ACCESS COMMUNITY RESOURCES AND PSYCHOSOCIAL SUPPORT SERVICES.] Future Scheduled Test SKILLED NU RSE FOR O/A AND TEACHING OF DIABETIC MANAGEMENT INCLUDING BLOOD SUGAR MONITORING/USE OF GLUCOMETER, DIABETIC DIET, LOWER EXTREMITY SKIN INSPECTION, PROPER SKIN/FOOT CARE, AND SIGNS AND SYMPTOMS HYPO/HYPERGLYCEMIA TO REPORT. [code = SKILLED NURSE FOR O/A AND TEACHING OF DIABETIC MANAGEMENT INCLUDING BLOOD SUGAR MONITORING/USE OF GLUCOMETER, DIABETIC DIET, LOWER EXTREMITY SKIN INSPECTION, PROPER SKIN/FOOT CARE, AND SIGNS AND SYMPTOMS HYPO/HYPERGLYCEMIA TO REPORT.] Future Scheduled Test SKILLED NU RSE FOR O/A OF MUSCULOSKELETAL STATUS AND TEACHING ON MEASURES TO MANAGE FALL RISK AND TO MAINTAIN SAFETY WITH ACTIVITY [code = SKILLED NURSE FOR O/A OF MUSCULOSKELETAL STATUS AND TEACHING ON MEASURES TO MANAGE FALL RISK AND TO MAINTAIN SAFETY WITH ACTIVITY] Future Scheduled Test SKILLED NU RSE FOR O/A AND SKILLED TEACHING OF COPING SKILLS TO MANAGE ANXIETY AND MAINTAIN SAFETY. [code = SKILLED NURSE FOR O/A AND SKILLED TEACHING OF COPING SKILLS TO MANAGE ANXIETY AND MAINTAIN SAFETY.] Future Scheduled Test SKILLED NU RSE FOR O/A OF ALTERED MOOD [code = SKILLED NURSE FOR O/A OF ALTERED MOOD] Goal Patient Goal - P ATIENT VERBALIZED GOAL OF IMPROVING STAMINA, STRENGH AND AMBULATION. Goal Provider Goal - PATIENT/CAREGIVER WILL VERBALIZE/DEMONSTRATE EFFECTIVE HOME SAFETY AND FALL PREVENTION STRATEGIES THROUGHOUT CERTIFICATION PERIOD. Goal Provider Goal - PATIENT/CAREGIVER WILL DEMONSTRATE UNDERSTANDING OF PHARMACOLOGIC AND NONPHARMACOLOGIC PAIN CONTROL MEASURES AND PATIENT WILL HAVE IMPROVEMENT IN PAIN INTERFERING WITH ACTIVITY EVIDENCED BY PAIN CONTROLLED AT LEVEL OF 0OR LESS BY END OF CERTIFICATION PERIOD. Goal Provider Goal - PATIENT WILL HAVE SUPPORT MEASURES ESTABLISHED TO PREVENT HOSPITALIZATION AND ED USE AND PATIENT/CAREGIVER WILL VERBALIZE/DEMONSTRATE METHODS TO REDUCE AVOIDABLE HOSPITALIZATION AND ED USE BY END OF EPISODE. Goal Provider Goal - PATIENT/CAREGIVER WILL VERBALIZE UNDERSTANDING OF DISCHARGE PLANNING INSTRUCTIONS BY DATE OF DISCHARGE. Goal Provider Goal - PATIENT WILL REMAIN SAFE IN THE COMMUNITY AND WILL BE FREE OF DANGER TO SELF AND OTHERS THROUGHOUT THE CERTIFICATION PERIOD. Goal Provider Goal - ALTERED MENTAL/BEHAVIORAL STATUS WILL BE IDENTIFIED PROMPTLY AND INTERVENTION INITIATED QUICKLY TO MINIMIZE ASSOCIATED RISKS THROUGHOUT CERTIFICATION PERIOD. Goal Provider Goal - PATIENT/CAREGIVER WILL VERBALIZE UNDERSTANDING OF EDUCATION PROVIDED ON MEDICATIONS BY THE END OF THE CERTIFICATION PERIOD. Goal Provider Goal - PATIENT WILL REMAIN SAFE WITHOUT DECOMPENSATION IN DEPRESSIVE CONDITION, WHILE MAINTAINING OPTIMAL LEVEL OF MENTAL HEALTH AND WELL BEING THROUGHOUT CERTIFICATION PERIOD. Goal Provider Goal - PSYCHOSOCIAL NEEDS WILL BE IDENTIFIED AND PLAN IMPLEMENTED TO MINIMIZE RISK THROUGHOUT CERTIFICATION PERIOD. Goal Provider Goal - PATIENT/CAREGIVER WILL VERBALIZE/DEMONSTRATE KNOWLEDGE OF DIABETIC MANAGEMENT. CHANGES IN DIABETIC STATUS WILL BE IDENTIFIED AND REPORTED TO PHYSICIAN FOR PROMPT INTERVENTION THROUGHOUT THE CERTIFICATION PERIOD. Goal Provider Goal - PATIENT/CAREGIVER WILL VERBALIZE/DEMONSTRATE ABILITY TO MANAGE FALL RISK MUSCULOSKELETAL DISEASE WHILE MAINTAINING SAFETY THROUGHOUT THE EPISODE. Goal Provider Goal - PATIENT WILL BE ABLE TO PERFORM DAILY FUNCTIONS AND HAVE OPTIMAL IMPROVEMENT IN LEVEL OF ANXIETY THROUGHOUT CERTIFICATION PERIOD. Goal Provider Goal - PATIENT WILL BE ABLE TO PERFORM DAILY FUNCTIONS AND HAVE OPTIMAL IMPROVEMENT IN MOOD STABILITY THROUGHOUT CERTIFICATION PERIOD. Encounters Start Date/Time End Date/Time Encounter Type Admission Type Attending [facility] Care [facility] Care Department Encounter ID Discharge Date Discharge Status Discharge Condition Discharge Reason Percent Goals Met 2024-02-03 00:00:00 2024-04-02 00:00:00 Outpatient NAOMI BELTRAN [facility] [id number]
--- OUTSIDE RECORDS SUMMARY | 2024-02-26 14:24 | XMS_ITS | Continuity of Care Document ---
Author Organization [facility] Address [address] [place] [address] Phone Care Team Providers Care Satellite Dish Technician Name Role Phone Provider, Conversion Unavailable Unavailable [...] Diagnoses Date Provider Providers Copied on Encounter [address] [place], [id number], [place] tel:[phone] [facility] No Information 4 Provider Conversion. . 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 [address] [place] [address], [address], [place]. tel:[phone] [place] [address] [place], [id number], [place] tel:[phone] [facility] No Information 3 Joey Stover. [address] [place] [address], [address], [place]. tel:[phone] [place] [address] [place], [id number], [place] tel:[phone] [facility] No Information 3 Provider Conversion. . [address] [place], [id number], [place] tel:[phone] [facility] No Information 3 Unidentified Provider. [address] [place] [address], [facility], . [address] , [place], [place], [id number], tel:[phone] [facility] No Information 2 Unidentified Provider. [address] [place] [address], [facility], . [address] , [place], [place], [id number], tel:[phone] [facility] No Information 2 Unidentified Provider. [address] [place] [address], [facility], . [address] , [place], [place], [id number], tel:[phone] [facility] No Information 1 Unidentified Provider. [address] [place] [address], [facility], . Family History Family Member Type Diagnosis Age At Onset No Information Payers Payer name Insurance type Covered republican ID Authoriza tion(s) No Information Social History [...]
== END 2024-02-26 13:31 | disposition home or self-care (01) ==
PROVIDERS: PCP Internal Medicine; Visit Provider Internal Medicine
DX: S06.5XAA Traumatic subdural hemorrhage with loss of consciousness status unknown, initial encounter (principal); E11.65 Type 2 diabetes mellitus with hyperglycemia; Z79.4 Long term (current) use of insulin; I10 Essential (primary) hypertension; K21.9 Gastro-esophageal reflux disease without esophagitis; M51.369 Other intervertebral disc degeneration, lumbar region without mention of lumbar back pain or lower extremity pain; G47.00 Insomnia, unspecified

== ENCOUNTER → 2024-02-26 12:50 | Outpatient (BNVA) | payer OTHER, SELFPAY | PROVIDERS: PCP Internal Medicine; Visit Provider Internal Medicine | DX: I10 Essential (primary) hypertension (principal); K21.9 Gastro-esophageal reflux disease without esophagitis; E11.65 Type 2 diabetes mellitus with hyperglycemia; M51.369 Other intervertebral disc degeneration, lumbar region without mention of lumbar back pain or lower extremity pain; G47.00 Insomnia, unspecified; S06.5XAA Traumatic subdural hemorrhage with loss of consciousness status unknown, initial encounter; X58.XXXA Exposure to other specified factors, initial encounter; Y93.9 Activity, unspecified; Y92.9 Unspecified place or not applicable; Y99.9 Unspecified external cause status; Z79.4 Long term (current) use of insulin | CPT/HCPCS: 83036; 99212 ==

== ENCOUNTER 2024-04-15 13:52 | Outpatient (AMB) | payer OTHER, SELFPAY ==
--- NOTE | 2024-04-15 14:09 | MHC.PC.OV ---
Vital Signs 04/15/24 14:12 Height 5 ft 5 in Weight 180 lb 4 oz BMI 30.0 BP 150/90 H Blood Pressure Location Lt brachial Position Sitting Pulse 100 Pulse Source Pulse Oximeter Temp 97.1 F Temp Source Temporal Artery Scan Pulse Oximetry (%) 96 Oxygen Delivery Method Room Air Intake Visit Reasons: hip pain Intake Note: Patient is here to follow up on Left Hip pain. Division Chair Required: No Laser Systems Engineer: Present Accompanied by: Daughter Allergies No Known Allergies [No Known Allergies*] Allergy (Verified 04/15/24 14:11) Tobacco use date assessed: 04/15/24 Fall risk assessment: No Falls in past year Last assessed Fall Risk: 04/15/24 Dental Screening Dental Screen Date: 02/26/24 HPI hip pain HPI Details 73-year-old female with past medical history of GERD, obesity, hypertension, diabetes mellitus, polysubstance abuse, depression, generalized anxiety disorder last seen 03/19 coming in for acute problem. Presenting with hip pain that began a couple of months ago. There have been no recent falls, but there was a significant fall in December leading to hospitalization for a brain hematoma. Hip and knee x-rays were not obtained post-fall. Previous physical therapy targeted general mobility and gait, not specifically the hip. Hip pain worsens while sitting and walking, extending down to the knee. There is also reported pain in the right wrist, attributed to using the wrist as a brace during falls and left knee pain, primarily due to recurrent falls onto the knees. The patient has recently developed left calf pain within the last week, raising concerns over possible deep vein thrombosis related to ongoing clopidogrel therapy. There is a noted ganglion cyst on the wrist, symptomatic with pain and increasing in size, accompanied by noticeable vein prominence. 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) Osteopenia History of CVA (cerebrovascular accident) Anxiety and depression Hypertension Type 2 diabetes mellitus with hyperglycemia Surgical History History of carotid endarterectomy History of partial hysterectomy History of colonoscopy with polypectomy History of bilateral cataract extraction History of carpal tunnel surgery History of lumbar fusion History of loop electrical excision procedure (LEEP) History of neck surgery Family History Father Heart attack Mother Cancer Dementia Breast cancer Hemorrhage Social History Household Members Other:: Daughter Housing: Other Housing Other:: Mobile Home Are you a primary care partner to a significant other at home: No Do you presently have visiting nurse or other home services: Yes (daughter is VICE PRESIDENT OF DEVELOPMENT) Alcohol intake: never Comment: unsteady gait Patient Tobacco Use Status: Former Tobacco user Tobacco use type: Cigarette Years Smoked: stopped 1989 e-Cigarette/Vaping Use: Never Used Second Hand Smoke Exposure: Yes Advance Directives Date on File: 06/19/21 service: No Current occupational status: disabled Cognitive needs: Yes (walker/cane) Hearing needs: No Vision needs: Yes (glasses) Questionnaire PHQ-9 Over the last 2 weeks, how often have you been bothered by any of the following problems? 1. Little interest or pleasure in doing things: not at all 2. Feeling down, depressed, or hopeless: not at all 3. Trouble falling or staying asleep, or sleeping too much: not at all 4. Feeling tired or having little energy: not at all 5. Poor appetite or overeating: not at all 6. Feeling bad about yourself - or that you are a failure or have let yourself or your family down: not at all 7. Trouble concentrating on things, such as reading the newspaper or watching television: not at all 8. Moving or speaking so slowly that other people could have noticed. Or the opposite - being so fidgety or restless that you have been moving around a lot more than usual: not at all 9. Thoughts that you would be better off or of hurting yourself in some way: not at all Total score: 0 Depression Screening Interpretation: Negative Depression Screening Done: Yes Source: Developed by Drs. Luther Huddleston, Summer Guadalupe, Thomas Melissa and colleagues, with an educational jen from [employer]. Thrive Questionnaire Date Thrive assessed: 02/26/24 AUDIT C Alcohol Use Questionnaire (AUDIT-C) 1. How often do you have a drink containing alcohol?: Never 3. How often do you have six or more drinks on one occasion?: Never Total Score: 0 CHERYL-7 AMB Questionnaire CHERYL-7 Date CHERYL - 7 assessed: 04/15/24 Feeling nervous, anxious, or on edge: 0 = Not at all Not being able to stop or control worryin = Not at all Worrying too much about different things: 0 = Not at all Trouble relaxin = Not at all Being so restless that it is hard to sit still: 0 = Not at all Becoming easily annoyed or irritable: 0 = Not at all Feeling afraid as if something awful might happen: 0 = Not at all Total CHERYL-7 score (0-4 normal; 5-9 mild; 10-14 moderate; 15-21 severe): 0 Source: Developed by Drs. Luther Huddleston, Summer Guadalupe, Thomas Melissa and colleagues, with an educational jen from [employer]. Review of Systems Const Denies body aches, Denies chills, Denies fever(s), Denies headache(s) and Denies poor appetite Eyes Reports no additional complaints ENT Denies dysphagia, Denies dizziness, Denies headache(s) and Denies odynophagia Card Denies chest pain, Denies syncope, Denies edema, Denies irregular heart rhythm, Denies lightheadedness and Denies dyspnea Resp Denies cough and Denies dyspnea GI Denies abdominal pain, Denies constipation, Denies dysphagia, Denies diarrhea, Denies nausea, Denies odynophagia and Denies vomiting Reports no additional complaints Musc Reports as per HPI and Reports abnormal gait Skin/Breast Reports system reviewed and no additional complaints, except as documented Neuro Reports abnormal gait, Denies dizziness, Denies syncope and Denies headache(s) Psych Reports no additional complaints Physical exam (Primary Care) Vital Signs: Last Vital Signs Temp 97.1 F 04/15/24 14:12 Pulse 100 04/15/24 14:12 BP 150/90 H 04/15/24 14:12 Pulse Ox 96 04/15/24 14:12 Oxygen Delivery Method Room Air 04/15/24 14:12 BMI result Body Mass Index 30.0 Tobacco/Smoking Status: Tobacco use Status Tobacco use date assessed 04/15/24 04/15/24 14:17 Patient Tobacco Use Status Former Tobacco user 04/15/24 14:17 Tobacco use type Cigarette 04/15/24 14:17 e-Cigarette/Vaping Use Never Used 04/15/24 14:17 PHQ-9: PHQ-9 Score PHQ-9: Total score 0 04/15/24 14:17 Depression Screening Interpretation: Negative Thrive Assessment: Date of Thrive Assessment Date Thrive assessed 02/26/24 04/15/24 14:17 Const General: cooperative, healthy appearing, comfortable and no acute distress Orientation/consciousness: patient oriented x3 HENMT Head: Yes normocephalic Ears: hearing grossly normal bilaterally General nose exam: Normal external nose present Eyes General: appearance normal, both eyes and all related structures Conjunctivae: conjunctivae normal Neck Neck: Yes full ROM and Yes no lymphadenopathy Resp Effort & Inspection: normal respiratory effort Auscultation: clear to auscultation bilaterally, no crackles, no rales, no rhonchi and no wheezes Cardio Rate: regular rate Rhythm: regular rhythm Back/Spine/Pelvis Other: Tenderness to palpation over lateral aspect of the left hip Skin General skin exam: no rashes or lesions noted Neuro General: patient oriented x3 Gait exam (Neuro): Normal gait present Extrem Other: Tenderness to palpation over left knee and left calf. Bony protrusion over left knee concerning for bone spur with extreme tenderness to palpation. Soft mass dorsal aspect of right wrist tenderness to palpation unable to complete good exam General: Yes normal to inspection, Yes full ROM and No edema Psych Affect: normal affect Attitude: cooperative Insight: Good insight present (Psych) Judgement: Good judgement present (Psych) Coding Level of Care Code Est Pt Level 4 (38955) Diagnoses Hypercholesterolemia E78.00 Type 2 diabetes mellitus with hyperglycemia, with long-term current use of insulin E11.65; Z79.4 Diabetes mellitus parts counterman insulin use: with parts counterman use Obesity (BMI 30-39.9) E66.9 Essential hypertension I10 Hypertension type: essential hypertension Lower extremity pain M79.606 Right wrist pain M25.531 Left knee pain M25.562 Left hip pain M25.552 Assessment & Plan Assessment & Plan (1) Hypercholesterolemia: Code(s): E78.00 - Pure hypercholesterolemia, unspecified Category: Medical Plan: Avoid foods that are high in cholesterol such as red meat, fried foods, eggs and baked goods. Triglyceride goal of less than 150 and LDL goal of less than 70. (2) Type 2 diabetes mellitus with hyperglycemia: Comment: Eye and lasik Code(s): E11.65 - Type 2 diabetes mellitus with hyperglycemia Category: Medical Qualifiers: Diabetes mellitus fdc insulin use: with parts counterman use Qualified Code(s): E11.65 - Type 2 diabetes mellitus with hyperglycemia; Z79.4 - exterminator helper termite (current) use of insulin Plan: Decrease the amount of carbohydrates such as pasta, bread, rice, and potatoes and limit the amount of sweets. Although fruits are generally healthy they should be eaten in moderation as they are still high in sugar. Hemoglobin A1c goal of less than 7%. (3) Obesity (BMI 30-39.9): Code(s): E66.9 - Obesity, unspecified Category: Medical Plan: Healthy diet and regular exercise is encouraged. (4) Hypertension: Code(s): I10 - Essential (primary) hypertension Category: Medical Qualifiers: Hypertension type: essential hypertension Qualified Code(s): I10 - Essential (primary) hypertension Plan: Continue on current blood pressure medication. Avoid salt intake and encourage healthy diet and regular exercise. (5) Lower extremity pain: Code(s): M79.606 - Pain in leg, unspecified Category: Medical Plan: Calf pain raises suspicion for DVT, particularly with the use of clopidogrel. An ultrasound is ordered stat, with potential anticoagulation therapy contingent on findings. On exam patient has extreme tenderness to palpation of left calf and mild swelling concerning for DVT. Given patient has adopted more of a sedentary lifestyle DVT should be ruled out stat ultrasound. (6) Right wrist pain: Code(s): M25.531 - Pain in right wrist Category: Medical Plan: On exam there is a soft mass concerning for ganglion cyst however there is extreme tenderness on palpation. An x-ray will determine the extent of any underlying issues, with potential aspiration or excision discussed based on results. (7) Left knee pain: Code(s): M25.562 - Pain in left knee Category: Medical Plan: Left knee pain warrants x-ray evaluation for possible injury from frequent falls, followed by conservative management as deemed appropriate. (8) Left hip pain: Code(s): M25.552 - Pain in left hip Category: Medical Plan: A comprehensive evaluation for hip pain is required, with x-rays ordered to investigate possibilities of fracture or arthritis. Given muscle relaxer for nighttime pain. Plan Patient was informed and verbally consented to the use of an ambient scribe for clinic note documentation during this visit. This note was constructed using voice recognition software. While every effort has been made to ensure accuracy and shoe stainer, still areas may have been included sometimes these areas may affect the content or meeting of the given symptoms. Total time spent caring for the patient today was 20 minutes. This includes time spent before the visit reviewing the chart, time spent during the visit, and time spent after the visit and documentation. Orders: Orders US venous duplex LE LT Today M79.606 - Pain in leg, unspecified XR hip LT w PEL1V Today M25.552 - Pain in left hip XR knee LT 2V Today M25.562 - Pain in left knee XR hand wrist RT Today M25.531 - Pain in right wrist Medications: New methocarbamol 500 mg PO BEDTIME 30 tabs 0RF Refilled zolpidem (Ambien) 5 mg PO BEDTIME 30 tabs 0RF G47.00 - Insomnia, unspecified
[2024-04-15 14:12] VITALS: BP 150/90; PULSE 100; TEMP 36.2; O2SAT 96
--- OUTSIDE RECORDS SUMMARY | 2024-04-15 14:19 | XMS_ITS | Encounter Summary ---
Author Organization [facility] Address [address] [place] [address] Care Team Providers Care Door Slinger Name Role Phone Shabnam Frias DO Primary Care Pro vider Unavailable Kina Blackburn MD Primary Care Provider Unavailabl e Encounter Details Date Type Department Care Team Description 09/05[facility] [address] [place] [address] Fer Lomeli MD Social History Tobacco Use Types Packs/Day Years Used Date Smoking Tobacco: Former Cigarettes 2 34 Smokeless Tobacco: Never Comments:quit 2005 Alcohol Use Standard Drinks/Week Comments No 0 (1 standard drink = 0.6 oz pur e alcohol) Sex Assigned at Date Recorded Not on file documented as of this encounter Plan of Treatment Not on file documented as of this encounter Visit Diagnoses Not on filedocumented in this encounter Care Teams Door Slinger Relationship Specialty Start Date End Date Shabnam Frias DO PCP - General Internal Medicine 08/30/14 08/05/17 Kina Blackburn MD PCP - General Internal Medicine 08/06/17 documented as of this encounter
--- OUTSIDE RECORDS SUMMARY | 2024-04-15 14:19 | XMS_ITS | Encounter Summary ---
Author Organization [facility] Address [address] [place] [address] Care Team Providers Care Heel Sewer Name Role Phone Shabnam Frias DO Primary Care Pro vider Unavailable Kina Blackburn MD Primary Care Provider Unavailabl e Reason for Visit * Reason Onset Date Comments Provider Call Back 09/11/2016 Encounter Details Date Type Department Care Team Description 09/11/2016 Telephone Adult Medicine [address] [address] Shabnam Frias DO Provider Call Back Social History Tobacco Use Types Packs/Day Years Used Date Smoking Tobacco: Former Cigarettes 2 34 Smokeless Tobacco: Never Comments:quit 2006 Alcohol Use Standard Drinks/Week Comments No 0 (1 standard drink = 0.6 oz pur e alcohol) Sex Assigned at Date Recorded Not on file documented as of this encounter Miscellaneous Notes * Telephone Encounter - Shabnam Chowdhury DO - 09/12/2016 8:23 PM EDT Thank you, I spoke to hosp Dr. Brown yesterday. Made note in fyi * Telephone Encounter - Juliana Mckeon R.N. - 09/11/2016 3:31 PM EDT Pt is at [facility] and states she is in pain, explained that as an inpatient she needs to discuss with the provider ordering her care at [facility], will discuss with her nurses. Call and let them know to discuss with pt * Telephone Encounter - Sofie Vann M.A. - 09/11/2016 3:23 PM EDT To triage to eval * Telephone Encounter - Regi Mosqueda - 09/11/2016 3:18 PM EDT Caller requesting call back from provider: Is the caller the patient? YES If caller is not the patient, what is the callers name? N/A Callers relationship to patient? N/A If person calling is not the patient themselves, is there a verbal release in FYI or permanent comments for this person: NO Reason for call back: Pt needs to speak with Dr. Haque or nurse, pt is in a rehab facility, from a bad fall and the oxycodone is not helping with the pain. Pt crying and is very bad pain and would like to speak to someone. Caller offered to speak with the nurse for assistance: YES Response: Patient offered to speak with nurse for assistance and patient agreed. Message forwarded to nurse. documented in this encounter Plan of Treatment Not on file documented as of this encounter Visit Diagnoses Not on filedocumented in this encounter Care Teams Heel Sewer Relationship Specialty Start Date End Date Shabnam Frias DO PCP - General Internal Medicine 08/30/14 08/05/17 Kina Blackburn MD PCP - General Internal Medicine 08/06/17 documented as of this encounter
--- OUTSIDE RECORDS SUMMARY | 2024-04-15 14:19 | XMS_ITS | Encounter Summary ---
Author Organization [facility] Address [address] [place] [address] Care Team Providers Care Business Services Representative Name Role Phone Shabnam Frias DO Primary Care Pro vider Unavailable Kina Blackburn MD Primary Care Provider Unavailabl e Encounter Details Date Type Department Care Team Description 12/18/2014 Controlled Substance Contract with Plan Medical Records [address] [place] [id number] Abstract, Provider Social History Tobacco Use Types Packs/Day Years Used Date Smoking Tobacco: Former Comments:quit 2005 Alcohol Use Standard Drinks/Week Comments Not Asked 0 (1 standard drink = 0.6 oz pur e alcohol) Sex Assigned at Date Recorded Not on file documented as of this encounter Plan of Treatment Not on file documented as of this encounter Visit Diagnoses Not on filedocumented in this encounter Care Teams Business Services Representative Relationship Specialty Start Date End Date Shabnam Frias DO PCP - General Internal Medicine 08/30/14 08/05/17 Kina Blackburn MD PCP - General Internal Medicine 08/06/17 documented as of this encounter
--- OUTSIDE RECORDS SUMMARY | 2024-04-15 14:19 | XMS_ITS | Encounter Summary ---
Author Organization [facility] Address [address] [place] [address] Care Team Providers Care Operative Supervisor Name Role Phone Shabnam Frias DO Primary Care Pro vider Unavailable PoKina MD Primary Care Provider Unavailabl e Reason for Visit * Reason Onset Date Comments Testing 06/14/2015 UDS Encounter Details Date Type Department Care Team Description 06/14/2015 Telephone Adult Medicine [address] [address] Shabnam Frias DO Testing (UDS) Social History Tobacco Use Types Packs/Day Years Used Date Smoking Tobacco: Former Comments:quit 2006 Alcohol Use Standard Drinks/Week Comments Not Asked 0 (1 standard drink = 0.6 oz pur e alcohol) Sex Assigned at Date Recorded Not on file documented as of this encounter Miscellaneous Notes * Telephone Encounter - Vivienne Mason M.A. - 06/21/2015 3:57 PM EDT Lab informed to do confirmation on benzo and opiate * Telephone Encounter - Shabnam Chowdhury DO - 06/17/2015 6:45 PM EDT Pls ask benzo and opiate to be sent for confirmation * Telephone Encounter - Sofie Vann M.A. - 06/15/2015 3:59 PM EDT Component Value Date URINEOXYCOD POSITIVE 06/14/2015 URBENZO POSITIVE 06/14/2015 URAMPHETAMIN NEGATIVE 06/14/2015 URMARIJUANA NEGATIVE 06/14/2015 UROPIATES POSITIVE 06/14/2015 URBARBITUATE NEGATIVE 06/14/2015 URCOCAINE NEGATIVE 06/14/2015 HYDROCODONE Negative 12/14/2014 Pt came in for her uds * Telephone Encounter - Sofie Vann M.A. - 06/14/2015 11:31 AM EDT Pt advised to report to the lab within 24 hours for uds documented in this encounter Plan of Treatment Scheduled Orders Name Type Priority Associated Diagnoses Orde r Schedule [facility] DRUG SCREENING OPIATES 1 OR MORE Lab Routine Encounter for long-term (current) use of other high-risk medications Expected: 06/14/2015, Expires: 06/13/2016 [facility] DRUG SCREENING BENZODIAZEPINES 1-12 Lab Routine Encounter for long-term (current) use of other high-risk medications Expected: 06/14/2015, Expires: 06/13/2016 documented as of this encounter Results * ASSAY, DIHYDROCODEINONE (06/14/2015 4:18 PM EDT) HYDROCODONE UR GCMS Negative . ng/mL 06/20/2015 8:49 AM EDT [facility] HYDROMORPHONE UR GCMS Negative . ng/mL 06/20/2015 8:49 AM EDT [facility] Comment: Performed at: ?? - [facility] [address] [place] [address] ??[id number] Associate Attorney: Davy Frazier MD, Phone: ??[phone] 06/14/2015 4:18 PM EDT 06/14/2015 4:19 PM EDT Shabnam Carrillo [employer] DO LAB Performing Organization Address City/[facility]/ZIP Co de Phone Number LIAT ROSA * (ABNORMAL) OXYCODONE, URINE (06/14/2015 4:18 PM EDT) URINE OXYCODONE LEVEL POSITIVE( A) NEGATIVE 06/14/2015 6:15 PM EDT [facility] Comment: CONFIRMED Semi-quantitative urine assay for screening purposes only. Unconfirmed screening results should not be used for non-medical purposes. ALTERNATE METHOD CONFIRMATION DONE UPON REQUEST ONLY 06/14/2015 4:18 PM EDT 06/14/2015 4:19 PM EDT Shabnam [employer] LAB Performing Organization Address [facility] [[email or web address]] Co de Phone Number [facility] [address] [facility] * (ABNORMAL) DRUG OF ABUSE SCREEN (06/14/2015 4:18 PM EDT) AMPHETAMINE, URINE NEGATIVE NEGATIVE 06/14/2015 5:56 PM EDT [facility] BARBITURATES, URINE NEGATIVE NEGATIVE 06/14/2015 5:56 PM T [facility] BENZODIAZEPINE, URINE POSITIVE(A) NEGATIVE 06/14/2015 6:15 PM T [facility] Comment: CONFIRMED Semi-quantitative urine assay for screening purposes only. Unconfirmed screening results should not be used for non-medical purposes. ALTERNATE METHOD CONFIRMATION DONE UPON REQUEST ONLY COCAINE, URINE NEGATIVE NEGATIVE 06/14/2015 5:56 PM EDT [facility] OPIATES, URINE POSITIVE(A) NEGATIVE 6 6:15 PM [facility] Comment: CONFIRMED Semi-quantitative urine assay for screening purposes only. Unconfirmed screening results should not be used for non-medical purposes. ALTERNATE METHOD CONFIRMATION DONE UPON REQUEST ONLY MARIJUANA(THC), URINE NEGATIVE NEGATIVE 06/14/2015 5:56 PM T [facility] 06/14/2015 4:18 PM EDT 06/14/2015 4:19 PM EDT Shabnam Chowdhury DO LAB Performing Organization Address City/State/[facility] [[email or web address]] Co de Phone Number [facility] MEDICAL [address] documented in this encounter Visit Diagnoses Diagnosis Encounter for long-term (current) use of other high-risk medications- Primary Encounter for long-term (current) use of other medications documented in this encounter Care Teams Operative Supervisor Relationship Specialty Start Date End Date Shabnam Frias DO PCP - General Internal Medicine 08/30/14 08/05/17 Kina Blackburn MD PCP - General Internal Medicine 08/06/17 documented as of this encounter
--- OUTSIDE RECORDS SUMMARY | 2024-04-15 14:19 | XMS_ITS | Encounter Summary ---
Author Organization [facility] Address [address] [place] [address] Care Team Providers Care Binding Machine Operator Name Role Phone Shabnam Frias DO Primary Care Pro vider Unavailable Kina Blackburn MD Primary Care Provider Unavailabl e Encounter Details Date Type Department Care Team Description 04/08/2016 Business Doc Medical Records [address] [place] [id number] Abstract, Provider Social History Tobacco Use Types [...] on filedocumented in this encounter Care Teams Binding Machine Operator Relationship Specialty Start Date End Date Shabnam Frias DO PCP - General Internal Medicine 08/30/14 08/05/17 Kina Blackburn MD PCP - General Internal Medicine 08/06/17 documented as of this encounter
--- OUTSIDE RECORDS SUMMARY | 2024-04-15 14:19 | XMS_ITS | Encounter Summary ---
Author Organization [facility] Address [address] [place] [address] Care Team Providers Care Director Community Center Name Role Phone Shabnam Frias DO Primary Care Pro vider Unavailable Kina Blackburn MD Primary Care Provider Unavailabl e Encounter Details Date Type Department Care Team Description 07/25/2016 Refill Adult Medicine [address] [address] Shabnam Frias DO Social History Tobacco Use Types Packs/Day Years [...] on filedocumented in this encounter Care Teams Director Community Center Relationship Specialty Start Date End Date Shabnam Frias DO PCP - General Internal Medicine 08/30/14 08/05/17 Kina Blackburn MD PCP - General Internal Medicine 08/06/17 documented as of this encounter
--- OUTSIDE RECORDS SUMMARY | 2024-04-15 14:19 | XMS_ITS | Encounter Summary ---
Author Organization [facility] Address [address] [place] [address] Care Team Providers Care Barrel Ribs Solderer Name Role Phone Shabnam Frias DO Primary Care Pro vider Unavailable Kina Blackburn MD Primary Care Provider Unavailabl e Encounter Details Date Type Department Care Team Description 05/23/2015 Refill Adult Medicine [address] [address] Shabnam Frias DO Social History Tobacco Use [...] on filedocumented in this encounter Care Teams Barrel Ribs Solderer Relationship Specialty Start Date End Date Shabnam Frias DO PCP - General Internal Medicine 08/30/14 08/05/17 Kina Blackburn MD PCP - General Internal Medicine 08/06/17 documented as of this encounter
--- OUTSIDE RECORDS SUMMARY | 2024-04-15 14:19 | XMS_ITS | Encounter Summary ---
Author Organization [facility] Address [address] [place] [address] Care Team Providers Care Brattice Builder Name Role Phone Shabnam Frias DO Primary Care Pro vider Unavailable Kina Blackburn MD Primary Care Provider Unavailabl e Encounter Details Date Type Department Care Team Description 06/03/2016 [facility] Medical Records [address] [place] [id number] Abstract, Provider Social History Tobacco Use Types [...] on filedocumented in this encounter Care Teams Brattice Builder Relationship Specialty Start Date End Date Shabnam Frias DO PCP - General Internal Medicine 08/30/14 08/05/17 Kina Blackburn MD PCP - General Internal Medicine 08/06/17 documented as of this encounter
--- OUTSIDE RECORDS SUMMARY | 2024-04-15 14:19 | XMS_ITS | Encounter Summary ---
Author Organization [facility] Address [address] [place] [address] Care Team Providers Care City Auditor Name Role Phone Shabnam Frias DO Primary Care Pro vider Unavailable Kina Blackburn MD Primary Care Provider Unavailabl e Encounter Details Date Type Department Care Team Description 12/14/2015 Release of Information Medical Records [address] [place] [address] Abstract, Provider Social History Tobacco Use Types [...] on filedocumented in this encounter Care Teams City Auditor Relationship Specialty Start Date End Date Shabnam Frias DO PCP - General Internal Medicine 08/30/14 08/05/17 Kina Blackburn MD PCP - General Internal Medicine 08/06/17 documented as of this encounter
--- OUTSIDE RECORDS SUMMARY | 2024-04-15 14:19 | XMS_ITS | Encounter Summary ---
Author Organization [facility] Address [address] [place] [address] Care Team Providers Care Safety And Occupational Health Manager Name Role Phone Shabnam Frias DO Primary Care Pro vider Unavailable PoKina MD Primary Care Provider Unavailabl e Reason for Visit * Reason Onset Date Comments Medication 08/27/2016 Encounter Details Date Type Department Care Team Description 08/27/2016 Telephone Adult Medicine [address] [address] Shabnam Frias DO Medication Social History Tobacco Use Types Packs/Day Years Used Date Smoking Tobacco: Former Cigarettes 2 34 Smokeless Tobacco: Never Comments:quit 2005 Alcohol Use Standard Drinks/Week Comments No 0 (1 standard drink = 0.6 oz pur e alcohol) Sex Assigned at Date Recorded Not on file documented as of this encounter Miscellaneous Notes * Telephone Encounter - Sofie Vann M.A. - 09/02/2016 4:43 PM EDT [facility] to pcp for review * Telephone Encounter - Sofie Vann M.A. - 09/02/2016 4:37 PM EDT I pulled MAssPAt on 08/22/16 Oxycodone 10mg #112 were filled * Telephone Encounter - Juliana Mckeon R.N. - 09/02/2016 2:40 PM EDT Did pt fill rx of 08/22 for 112 oxycodone ? * Telephone Encounter - Sofie Vann M.A. - 08/27/2016 4:33 PM EDT Vivienne was advised by pt's insurance that the following medications will be covered: Oxycodone HCL ER in 10mg, 15mg, 20mg or 30mg -OR- Xtampza ER in 9mg., 13.5mg, 18mg, or 36 mg. documented in this encounter Plan of Treatment Not on file documented as of this encounter Visit Diagnoses Not on filedocumented in this encounter Care Teams Safety And Occupational Health Manager Relationship Specialty Start Date End Date Shabnam Frias DO PCP - General Internal Medicine 08/30/14 08/05/17 Kina Blackburn MD PCP - General Internal Medicine 08/06/17 documented as of this encounter
--- OUTSIDE RECORDS SUMMARY | 2024-04-15 14:19 | XMS_ITS | Encounter Summary ---
Author Organization [facility] Address [address] [place] [address] Care Team Providers Care Control Clerk Name Role Phone Shabnam Frias DO Primary Care Pro vider Unavailable Kina Blackburn MD Primary Care Provider Unavailabl e Encounter Details Date Type Department Care Team Description 02/21/2015 Wellness Visit Medical Records [address] [place] [id number] Shabnam Frias DO Social History Tobacco Use [...] on filedocumented in this encounter Care Teams Control Clerk Relationship Specialty Start Date End Date Shabnam Frias DO PCP - General Internal Medicine 08/30/14 08/05/17 Kina Blackburn MD PCP - General Internal Medicine 08/06/17 documented as of this encounter
--- OUTSIDE RECORDS SUMMARY | 2024-04-15 14:19 | XMS_ITS | Encounter Summary ---
Author Organization [facility] Address [address] [place] [address] Care Team Providers Care Boilermaker Loftsman Name Role Phone Shabnam Frias DO Primary Care Pro vider Unavailable Kina Blackburn MD Primary Care Provider Unavailabl e Encounter Details Date Type Department Care Team Description 09/08/2011 [facility] Medical Records [address] [place] [address] Abstract, Provider Social History Tobacco Use Types [...] on filedocumented in this encounter Care Teams Boilermaker Loftsman Relationship Specialty Start Date End Date Shabnam Frias DO PCP - General Internal Medicine 08/30/14 08/05/17 Kina Blackburn MD PCP - General Internal Medicine 08/06/17 documented as of this encounter
--- OUTSIDE RECORDS SUMMARY | 2024-04-15 14:19 | XMS_ITS | Encounter Summary ---
Author Organization [facility] Address [address] [place] [address] Care Team Providers Care Critical Care Paramedic Name Role Phone Shabnam Frias DO Primary Care Pro vider Unavailable PoKina MD Primary Care Provider Unavailabl e Encounter Details Date Type Department Care Team Description 11/27/2015 Orders Only Adult Medicine [address] [address] Shabnam Frias DO Temporal pain (Primary Dx) Social History Tobacco Use Types Packs/Day Years Used Date Smoking Tobacco: Former Comments:quit 2005 Alcohol Use Standard Drinks/Week Comments No 0 (1 standard drink = 0.6 oz pur e alcohol) Sex Assigned at Date Recorded Not on file documented as of this encounter Plan of Treatment Not on file documented as of this encounter Results * C-REACTIVE PROTEIN HIGH SENSITIVITY (11/27/2015 2:45 PM EDT) Pathologist [facility] CARDIO CRP- HIGH SENSITIVE 1.6 mg/L 11/27/2015 5:41 PM EDT [facility] Comment: Cardio CRP Relative Risk Categories Low ? <1.0 mg/L Average ?? 1.0 - 3.0 mg/L High ?>3.0 mg/L Levels >10.0 should be ignored and repeated when the patient is stable and infection or inflammation is ruled out. HRT (estrogens) consistently increase cardio CRP levels. Risk estimates for women on HRT may need to be calibrated downward. 11/27/2015 2:45 PM EDT 11/27/2015 2:46 PM EDT Shabnam Chowdhury DO LAB [facility] * RBC SEDIMENTATION RATE, NON-AUTO (11/27/2015 2:45 PM EDT) ESR 8 0 - 30 mm/hr 11/27/2015 6:12 PM EDT [facility] 11/27/2015 2:45 PM EDT 11/27/2015 2:46 PM EDT Shabnam Chowdhury DO LAB Performing Organization Address City[facility] Co de Phone Number [address] documented in this encounter Visit Diagnoses Diagnosis Temporal pain- Primary Headache documented in this encounter Care Teams Critical Care Paramedic Relationship Specialty Start Date End Date Shabnam Frias DO PCP - General Internal Medicine 08/30/14 08/05/17 Kina Blackburn MD PCP - General Internal Medicine 08/06/17 documented as of this encounter
--- OUTSIDE RECORDS SUMMARY | 2024-04-15 14:19 | XMS_ITS | Encounter Summary ---
Author Organization [facility] Address [address] [place] [address] Care Team Providers Care Bending Press Operator Name Role Phone Shabnam Frias DO Primary Care Pro vider Unavailable Kina Blcakburn MD Primary Care Provider Unavailabl e Encounter Details Date Type Department Care Team Description 11/01/2015 [facility] Medical Records [address] [place] [address] Abstract, Provider Social History Tobacco Use Types [...] on filedocumented in this encounter Care Teams Bending Press Operator Relationship Specialty Start Date End Date Shabnam Frias DO PCP - General Internal Medicine 08/30/14 08/05/17 Kina Blackburn MD PCP - General Internal Medicine 08/06/17 documented as of this encounter
--- OUTSIDE RECORDS SUMMARY | 2024-04-15 14:19 | XMS_ITS ---
Author Name PATRICK MARMOLEJO, RN, VIOLET, ZAIN Address [address] [place] [address] Phone [phone] [facility] [facility] Care Team Providers Care Practice Director Name Role Phone ZAIN NGUYEN Unavailable [phone] Unavailable Unavailable Unavailable Unavailable Unavailable [phone] Reason for Referral Not Available Allergies, adverse reactions, alerts No known allergies History of medication use Medication Class Instructions Start Date End Date metFORMIN 1000 mg Tab TAKE 1 TABLET BY M OUTH 2 TIMES A DAY WITH MEALS 2023-05-07 No Data Available DULoxetine 60 mg Cap delayed rel TAKE 1 CAPSULE BY MOUTH TWICE A DAY 2023-04-29 No Data Available Pregabalin 200 mg Cap TAKE 1 CAPSULE BY MOUTH TWICE DAILY WITH 50 MG TO EQUAL 250 MG TWICE DAILY 2023-07-17 No Data Available OneTouch Ultra Strip USE TO TEST BLOOD S UGAR 3 TIMES DAILY FOR DIABETES MELLITUS 2022-12-29 No Data Available MAGNESIUM OXIDE 400 MG TABLET TAKE 1 TABLET (400 MG TOTAL) BY MOUTH 2 TIMES A DAY 2023-06-11 No Data Available Fluticasone Propionate 50 MCG/ACT Suspension INSTILL 2 SPRAYS IN EACH NOSTRIL DAILY NEEDED FOR ALLERGY SYMPTOMS 2023-04-21 No Data Available Lantus SoloStar 100 UNIT/ML Solution Pen-injector INJECT 60 UNITS (0.6 ML) SUBCUTANEOUSLY AT BEDTIME 2023-01-13 No Data Available clonazePAM 1 mg Tab TAKE 1 TABLET ORALLY BEDTIME NEEDED FOR ANXIETY 2023-08-25 No Data Available Trulicity 0.75 mg/0.5ML Solution Auto-injector Subcutaneous INJECT 0.75 MG (0.5 ML) SUBCUTANEOUSLY EVERY WEEK FOR 30 DAYS 2023-08-04 No Data Available Lisinopril 40 mg Tab TAKE 1 TABLET BY MO UTH EVERY DAY 2023-09-21 No Data Available GaviLyte-G 236 GM Solution PER INSTRUCTIONS FROM GI. 2 2024-02-03 Acetaminophen 325 mg Tab TAKE 3 TABLETS (975 MG TOTAL) BY MOUTH EVERY 8 (EIGHT) HOURS FOR 10 DAYS. 2024-01-30 No Data Available Senna-Time 8.6 mg Tab TAKE 2 TABLETS BY MOUTH AT BEDTIME. 2024-01-30 No Data Available Ondansetron 4 mg Tab Disintegrating TAKE 1 TABLET (4 MG) BY MOUTH EVERY 8 HOURS NEEDED FOR NAUSEA AND VOMITING FOR UP TO 7 DAYS 2024-01-30 No Data Available Lidocaine 5 % Oint APPLY TOPICALLY 3 TO 4 TIMES DAILY TO POSTERIOR NECK NEEDED FOR NECK PAIN 2024-01-30 No Data Available [facility] Gentle Laxative 10 mg Suppository INSERT 1 SUPPOSITORY (10 MG TOTAL) INTO THE RECTUM 1 (ONE) TIME EACH DAY IF NEEDED FOR CONSTIPATION. 2024-01-30 No Data Available Cefdinir 300 mg Cap TAKE 1 CAPSULE (300 MG TOTAL) BY MOUTH 2 (TWO) TIMES A DAY FOR 12 DAYS. 2024-01-30 No Data Available Problem List No known problems Encounters Encounters Type Facility Date of Service Diagnosis/Co mplaint RN, CN or CP time with patient by phone; use with 1111F, BP, A1c or other CPTII codes [facility], ([place]) 02/03/2024 Encounter for other specifie d aftercare RN, CN or CP time with patient by phone; use with 1111F, BP, A1c or other CPTII codes [facility], ([place]) 02/03/2024 Social History Sex Female History of Procedures Procedures Service Procedure code Service date Servicing provider Phone# RN, CN or CP time with patient by phone; use with 1111F, BP, A1c or other CPTII codes 35778 2024-02-03 No Data Available No Data Avai lable Medications prescribed in hospital were reviewed and reconciled against what they were taking prior to admission during today's visit. (1111F) 1111F 2024-02-03 No Data Available No Data Availa ble Functional Status No Information Mental Status No Information Assessments Not Available Plan of Care Date of Service Plans 2024-02-03 08:12:04 Appointment schedule d for: Feb 11, 2024, 1:00 PM
--- OUTSIDE RECORDS SUMMARY | 2024-04-15 14:19 | XMS_ITS | Encounter Summary ---
Author Organization [facility] Address [address] [place] [address] Care Team Providers Care Computer Support Technician Name Role Phone Shabnam Frias DO Primary Care Pro vider Unavailable Kina Blackburn MD Primary Care Provider Unavailabl e Encounter Details Date Type Department Care Team Description 10/07/2016 [facility] Medical Records [address] [place] [id number] Abstract, Provider Social History Tobacco Use Types [...] on filedocumented in this encounter Care Teams Computer Support Technician Relationship Specialty Start Date End Date Shabnam Frias DO PCP - General Internal Medicine 08/30/14 08/05/17 Kina Blackburn MD PCP - General Internal Medicine 08/06/17 documented as of this encounter
--- OUTSIDE RECORDS SUMMARY | 2024-04-15 14:19 | XMS_ITS | Clinical Summary ---
Author Organization [facility] Address [address] [place] [address] Phone Care Team Providers Care [employer]man Name Role Phone Kina Blackburn MD Primary Care Provider [phone] Allergies Active Allergy Reactions Criticality Noted Date Comments Melatonin GI intolerance Medium 01/15/2024 Morphine 10/30/2015 Upset stomach,headache,still takes Medications clopidogreL (PLAVIX) 75 mg tablet Take 1 tablet (75 mg total) by mouth 1 (one) time each day. Active DULoxetine (CYMBALTA) [address] capsule Take by mouth 2 (two) times a day. Take 60 mg each morning and 30 mg nightly Active folic acid (FOLVITE) 1 mg tablet Take 1 tablet (1 mg total) by mouth 1 (one) time each day. Active rOPINIRole (REQUIP) 0.25 mg tablet Take 1 tablet (0.25 mg total) by mouth 3 (three) times a day. Active simethicone (MYLICON) 80 mg chewable tablet Chew 1 tablet (80 mg total) 2 (two) times a day. PRN FOR GAS Active simvastatin (ZOCOR) 80 mg tablet Take 1 tablet (80 mg total) by mouth at bedtime. Active aspirin 81 mg EC tablet Take 1 tablet (81 mg total) by mouth 1 (one) time each day. Active insulin glargine (LANTUS) 100 unit/mL injection Inject 30 Units under the skin at bedtime. Active lisinopril (PRINIVIL,ZESTR IL) 40 mg tablet Take 1 tablet (40 mg total) by mouth 1 (one) time each day. Active dulaglutide (TRULICITY) 0.75 mg/0.5 mL pen injector injection Inject 0.5 mL (0.75 mg total) under the skin every 7 (seven) days. Active metFORMIN (GLUCOPHAGE) 1,000 mg tablet Take 1 tablet (1,000 mg total) by mouth 2 (two) times a day with meals. Active mirtazapine (REMERON) 15 mg tablet Take 1 tablet (15 mg total) by mouth at bedtime. Active naloxone (NARCAN) 4 mg/0.1 mL nasal spray Administer 1 each (4 mg total) into affected nostril(s). Give 4 mg (1 spray) into one nostril. May repeat every 2-3 minutes if needed, alternating nostrils, until medical assistance becomes available. Active omega-3 acid ethyl esters (LOVAZA) 1 gram capsule Take 2 capsules (2 g total) by mouth 2 (two) times a day. Active pregabalin (LYRICA) 200 mg capsule Take 1 capsule (200 mg total) by mouth 2 (two) times a day. Max Daily Amount: 400 mg Active lidocaine (XYLOCAINE) 5 % ointment Apply topically 4 (four) times a day. 3-4 times daily prn neck pain, apply to posterior neck for pain prn 35.44 g 01/30/20 24 Active bisacodyL (DULCOLAX) 10 mg suppository Insert 1 suppository (10 mg total) into the rectum 1 (one) time each day if needed for constipation. 12 suppository 01/30/20 24 Active oxyCODONE (OXY-IR) 5 mg immediate release capsule Take 1-2 capsules (5-10 mg total) by mouth every 6 (six) hours if needed for severe pain or moderate pain. 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 01/28/2024 Restless leg syndrome 01/28/2024 Anxiety 01/28/2024 Acute kidney injury 01/28/2024 Subdural hematoma 01/15/2024 Encounters Date Type Department Care Team Description 01/28/2024 2:06 AM EST - 01/30/2024 4:33 PM EST Hospital Encounter [facility] Surgical Unit [address] [place] [address] Donnie Mcfarland MD Santoyo-Pacheco, Omar D, MD Discharge Disposition: [place] [facility] Plan of Care Documentation [facility] [address] [place] [phone] 01/20/2024 Plan of Care Documentation [facility] [address] [place] [phone] 01/19/2024 1:22 PM EST - 01/19/2024 4:51 PM EST Emergency [facility] Emergency [address] [place] [address] Rex Menchaca MD Post-traumatic headache, not intractable, unspecified chronicity pattern (Primary Dx) Discharge Disposition: Rehab Facility 01/15/2024 3:44 PM EST - 01/28/2024 1:00 AM EST Hospital Encounter [facility] [address] [place] [address] Jenn Uribe DO Subdural hematoma (CMS/HCC) (Primary Dx) Discharge Disposition: Short Term Hospital from Last 3 Months Surgical History Surgery Date Site/Laterality Comments TOTAL ABDOMINAL HYSTERECTOMY W/ BILATERAL SALPINGOOPHORECTOMY CAROTID ENDARTERECTOMY COLONOSCOPY 05/08/2015 ESOPHAGOGASTRODUODENOSCOPY 06/14/2010 CATARACT EXTRACTION CARPAL TUNNEL RELEASE Bilateral LUMBAR SPINE SURGERY 02/23/2013 - 02/22/2014 Medical History Medical History Date Comments CVA (cerebral vascular accident) (CMS/HCC) HTN (hypertension) HLD (hyperlipidemia) DM (diabetes mellitus) (CMS/HCC) Subdural hematoma (CMS/HCC) Adenocarcinoma of cervix (CMS/HCC) Restless leg syndrome GERD (gastroesophageal reflux disease) Thyroid nodule Anxiety Family History Medical History Relation Name Comments Coronary artery disease Brother Hypertension Brother Cataracts Father Coronary artery disease Father Hypertension Father Hypothyroidism Father Breast cancer Mother Cataracts Mother Dementia Mother Hypertension Mother Hypothyroidism Mother Relation Name Status Comments Brother Father Mother Social History Tobacco Use Types Packs/Day Years Used Date Smoking Tobacco: Former Cigarettes Q uit: 1984 Smokeless Tobacco: Former Tobacco Cessation:Counseling Given: Yes Alcohol Use Standard Drinks/Week Comments Not Currently 0 (1 standard drink = 0.6 oz pur e alcohol) 20 years ago Health Literacy Answer Date Recorded How often do you need to hav e someone help you when you read instructions, pamphlets, or other written material from your doctor or pharmacy? Never 01/16/2024 Caregiver: How often do you need to have someone help you when you read instructions, pamphlets, or other written material from your doctor or pharmacy? Not on file 01/16/2024 Transportation Answer Date Recorded Has the lack of transportati on kept you from meetings, work, or from getting things needed for daily living? No Has the lack of transportati on kept you from medical appointments or from getting medications? No 01/15/2024 Social Isolation Answer Date Recorded How often do you feel lonely or isolated from those around you? Sometimes 01/15/2024 Interpersonal Safety Answer Date Record ed Physical Abuse 01/28/2024 Verbal Abuse 01/28/2024 Comments No Sex and Gender Information Value Date Recorded Sex Assigned at Not on file Legal Sex Female 8:05 AM EST Gender Identity Not on file Sexual Orientation Straight 01/28/2024 2: 32 AM EST Obstetrics History Last Filed Vital Signs Vital Sign Reading Time Taken Comments Blood Pressure 131/65 01/30/2024 3:34 PM EST Pulse 85 01/30/2024 3:34 PM EST Temperature 35.9 ??C (96.7 ??F) 01/30/2024 3:34 PM ES T Respiratory Rate 14 01/30/2024 3:34 PM EST Oxygen Saturation 93% 01/30/2024 3:34 PM EST Inhaled Oxygen Concentration - - Weight 79.7 kg (175 lb 9.6 oz) 01/28/2024 3:00 A M EST Height 180 cm (5' 10.87 ) 01/28/2024 3:00 AM EST Body Mass Index 24.58 01/28/2024 3:00 AM EST Plan of Treatment Health Maintenance Due Date Last Done Comments Diabetes: Annual Foot Exam 1960 Diabetes: Annual Retina Eye Exam 1960 RSV Immunization Patients 60+ Years Old (1 - Risk 60-74 years 1-dose series) 2010 Breast Cancer Screening 10/30/2018 10/30/2016 COVID-19 Vaccine ( season) 2023 03/13/2021, 05/23/2020, 05/02/2020 Cholesterol Screening (Lipid Panel) 01/14/2024 Colorectal Cancer Screening: Colonoscopy 01/14/2024 Diabetes: Annual Urine Albumin-Creatinine Ratio (uACR) 01/14/2024 Diabetes: Blood Sugar Control Test (HGBA1C) 01/14/2024 Hepatitis C Screening 01/14/2024 Medicare Annual Wellness Visit 01/14/2024 Depression Screening 01/14/2025 01/15/2024 Social Influencers of Health Screening 01/15/2025 01/16/2024 Diabetes: Annual GFR (Glomerular Filtration Rate) 01/29/2025 01/30/2024, 01/29/2024, 01/28/2024, Additional history exists Falls Risk Assessment 01/29/2025 01/30/2024 Hypertension/CHF/CAD Annual BMP Blood Test 01/29/2025 01/30/2024, 01/29/2024, 01/28/2024, Additional history exists Osteoporosis Screening (Bone Density Screening) 04/30/2026 04/30/2016 DTaP,Tdap,and Td Vaccines (3 - Td or Tdap) 12/26/2027 12/25/2017, 08/27/2016 Influenza Vaccine Completed 12/12/2023, , 03/13/2021, Additional history exists Pneumococcal Vaccine: 50+ Years Completed 12/12/2023, 12/26/2017, 12/19/2016, Additional history exists Zoster Vaccines Completed 12/12/2023, 01/18/2018 HIB Vaccines Aged Out No longer eligi ble based on patient's age to complete this topic HPV Vaccines Aged Out No longer eligi ble based on patient's age to complete this topic Hepatitis A Vaccines Aged Out No long er eligible based on patient's age to complete this topic Hepatitis B Vaccines Aged Out No long er eligible based on patient's age to complete this topic IPV Vaccines Aged Out No longer eligi ble based on patient's age to complete this topic MMR Vaccines Aged Out No longer eligi ble based on patient's age to complete this topic Meningococcal ACWY Vaccine Aged Out N o longer eligible based on patient's age to complete this topic Meningococcal B Vacine Aged Out No lo nger eligible based on patient's age to complete this topic RSV Immunization Patients Under 20 months Aged Out No longer eligible based on patient's age to complete this topic Varicella Vaccines Aged Out No longer eligible based on patient's age to complete this topic Procedures Procedure Name Priority Date/Time Associated Diagnosis Comments POCT GLUCOSE BLOOD Routine 01/30/2024 3: 36 PM EST POCT GLUCOSE BLOOD Routine 01/30/2024 11 :26 AM EST POCT GLUCOSE BLOOD Routine 01/30/2024 7: 38 AM EST CBC WITH AUTO DIFFERENTIAL Routine 01/30/2024 6:31 AM EST MAGNESIUM Routine 01/30/2024 6:31 AM EST CBC AND DIFFERENTIAL Routine 01/30/2024 6:31 AM EST BASIC METABOLIC PANEL Routine 01/30/2024 6:31 AM EST POCT GLUCOSE BLOOD Routine 01/29/2024 7: 29 PM EST POCT GLUCOSE BLOOD Routine 01/29/2024 6: 03 PM EST POCT GLUCOSE BLOOD Routine 01/29/2024 4: 22 PM EST POCT GLUCOSE BLOOD Routine 01/29/2024 10 :57 AM EST POCT GLUCOSE BLOOD Routine 01/29/2024 8: 26 AM EST CBC WITH AUTO DIFFERENTIAL Routine 01/29/2024 6:53 AM EST MAGNESIUM Routine 01/29/2024 6:53 AM EST CBC AND DIFFERENTIAL Routine 01/29/2024 6:53 AM EST BASIC METABOLIC PANEL Routine 01/29/2024 6:53 AM EST POCT GLUCOSE BLOOD Routine 01/28/2024 9: 22 PM EST US RETROPERITONEAL COMPLETE Routine 01/28/2024 4:54 PM EST POCT GLUCOSE BLOOD Routine 01/28/2024 4: 24 PM EST POCT GLUCOSE BLOOD Routine 01/28/2024 11 :27 AM EST POCT GLUCOSE BLOOD Routine 01/28/2024 9: 05 AM EST CBC WITH AUTO DIFFERENTIAL Routine 01/28/2024 5:42 AM EST CBC AND DIFFERENTIAL Routine 01/28/2024 5:42 AM EST BASIC METABOLIC PANEL Routine 01/28/2024 5:42 AM EST CHOPRA URINE CULTURE TUBE Routine 01/27/2024 9:35 PM EST URINALYSIS WITH REFLEX MICROSCOPIC AND CULTURE Routine 01/27/2024 9:35 PM EST URINALYSIS WITH REFLEX MICROSCOPIC AND CULTURE Routine 01/27/2024 9:35 PM EST CULTURE URINE Routine 01/27/2024 9:35 PM EST POCT GLUCOSE BLOOD Routine 01/27/2024 8: 17 PM EST POCT GLUCOSE BLOOD Routine 01/27/2024 4: 11 PM EST XR CHEST 2 VIEWS Routine 01/27/2024 1:[address] HEAD WO CONTRAST STAT 01/27/2024 1 :35 PM EST POCT GLUCOSE BLOOD Routine 01/27/2024 11 :10 AM EST CULTURE BLOOD STAT 01/27/2024 9:35 AM EST CBC WITH AUTO DIFFERENTIAL Routine 01/27/2024 9:26 AM EST MAGNESIUM Routine 01/27/2024 9:26 AM EST COMPREHENSIVE METABOLIC PANEL Routine 01/27/2024 9:26 AM EST CBC AND DIFFERENTIAL Routine 01/27/2024 9:26 AM EST BLOOD CULTURE PATHOGENS BY PCR Routine 01/27/2024 9:26 AM EST CULTURE BLOOD STAT 01/27/2024 9:26 AM EST POCT GLUCOSE BLOOD Routine 01/27/2024 7: 33 AM EST POCT GLUCOSE BLOOD Routine 01/26/2024 7: 59 PM EST POCT GLUCOSE BLOOD Routine 01/26/2024 3: 53 PM EST POCT GLUCOSE BLOOD Routine 01/26/2024 11 :21 AM EST POCT GLUCOSE BLOOD Routine 01/26/2024 7: 17 AM EST POCT GLUCOSE BLOOD Routine 01/25/2024 8: 17 PM EST POCT GLUCOSE BLOOD Routine 01/25/2024 4: 00 PM EST POCT GLUCOSE BLOOD Routine 01/25/2024 11 :07 AM EST POCT GLUCOSE BLOOD Routine 01/25/2024 7: 26 AM EST POCT GLUCOSE BLOOD Routine 01/24/2024 8: 11 PM EST POCT GLUCOSE BLOOD Routine 01/24/2024 3: 16 PM EST POCT GLUCOSE BLOOD Routine 01/24/2024 11 :04 AM EST POCT GLUCOSE BLOOD Routine 01/24/2024 7: 43 AM EST POCT GLUCOSE BLOOD Routine 01/23/2024 8: 25 PM EST POCT GLUCOSE BLOOD Routine 01/23/2024 3: 32 PM EST POCT GLUCOSE BLOOD Routine 01/23/2024 11 :23 AM EST POCT GLUCOSE BLOOD Routine 01/23/2024 7: 40 AM EST POCT GLUCOSE BLOOD Routine 01/22/2024 8: 09 PM EST POCT GLUCOSE BLOOD Routine 01/22/2024 3: 51 PM EST POCT GLUCOSE BLOOD Routine 01/22/2024 10 :58 AM EST POCT GLUCOSE BLOOD Routine 01/22/2024 7: 17 AM EST POCT GLUCOSE BLOOD Routine 01/21/2024 8: 37 PM EST POCT GLUCOSE BLOOD Routine 01/21/2024 4: 33 PM EST POCT GLUCOSE BLOOD Routine 01/21/2024 12 :27 PM EST POCT GLUCOSE BLOOD Routine 01/21/2024 7: 43 AM EST COMPLETE BLOOD COUNT Routine 01/21/2024 5:50 AM EST COMPREHENSIVE METABOLIC PANEL Routine 01/21/2024 5:50 AM EST POCT GLUCOSE BLOOD Routine 01/20/2024 8: 44 PM EST RESPIRATORY VIRUS PANEL MOLECULAR STUDY Routine 01/20/2024 12:15 PM EST POCT GLUCOSE BLOOD Routine 01/20/2024 11 :04 AM EST POCT GLUCOSE BLOOD Routine 01/20/2024 7: 22 AM EST CBC WITH AUTO DIFFERENTIAL Routine 01/20/2024 5:43 AM EST CBC AND DIFFERENTIAL Routine 01/20/2024 5:43 AM EST SST - GOLD Routine 01/20/2024 5:41 AM EST EXTRA TUBES Routine 01/20/2024 5:41 AM EST ECG 12-LEAD Routine 01/20/2024 5:14 AM EST POCT GLUCOSE BLOOD Routine 01/19/2024 8: 27 PM EST POCT GLUCOSE BLOOD Routine 01/19/2024 4: [address] HEAD WO CONTRAST STAT 01/19/2024 1 :46 PM EST POCT GLUCOSE BLOOD Routine 01/19/2024 1: 30 PM EST ECG 12-LEAD Routine 01/19/2024 12:59 PM EST POCT GLUCOSE BLOOD Routine 01/19/2024 11 :29 AM EST POCT GLUCOSE BLOOD Routine 01/19/2024 7 :13 AM EST MAGNESIUM Routine 01/19/2024 5:50 AM EST COMPLETE BLOOD COUNT Routine 01/19/2024 5:50 AM EST BASIC METABOLIC PANEL Routine 01/19/2024 5:50 AM EST POCT GLUCOSE BLOOD Routine 01/18/2024 8: 25 PM EST POCT GLUCOSE BLOOD Routine 01/18/2024 3: 57 PM EST POCT GLUCOSE BLOOD Routine 01/18/2024 11 :03 AM EST POCT GLUCOSE BLOOD Routine 01/18/2024 7: 30 AM EST MAGNESIUM Routine 01/18/2024 5:49 AM EST BASIC METABOLIC PANEL Routine 01/18/2024 5:49 AM EST POCT GLUCOSE BLOOD Routine 01/17/2024 7: 56 PM EST MAGNESIUM Routine 01/17/2024 5:58 PM EST POCT GLUCOSE BLOOD Routine 01/17/2024 3: 23 PM EST TROPONIN I HIGH SENSITIVITY Routine 01/17/2024 12:06 PM EST POCT GLUCOSE BLOOD Routine 01/17/2024 11 :04 AM EST ECG 12-LEAD Routine 01/17/2024 10:27 AM EST THYROID STIMULATING HORMONE WITH REFLEX TO FREE T4 AND FREE T3 Routine 01/17/2024 10:22 AM EST MAGNESIUM Routine 01/17/2024 10:22 AM EST COMPLETE BLOOD COUNT Routine 01/17/2024 10:22 AM EST BASIC METABOLIC PANEL Routine 01/17/2024 10:22 AM EST POCT GLUCOSE BLOOD Routine 01/17/2024 9: 46 AM EST POCT GLUCOSE BLOOD Routine 01/17/2024 7: 44 AM EST POCT GLUCOSE BLOOD Routine 01/16/2024 7: 58 PM EST POCT GLUCOSE BLOOD Routine 01/16/2024 3: [address] HEAD WO CONTRAST STAT 01/16/2024 1 1:50 AM EST POCT GLUCOSE BLOOD Routine 01/16/2024 11 :12 AM EST POCT GLUCOSE BLOOD Routine 01/16/2024 10 :16 AM EST POCT GLUCOSE BLOOD Routine 01/16/2024 7: 21 AM EST SST - GOLD Routine 01/16/2024 6:01 AM EST EXTRA TUBES Routine 01/16/2024 6:01 AM EST CBC WITH AUTO DIFFERENTIAL Routine 01/16/2024 6:00 AM EST CBC AND DIFFERENTIAL Routine 01/16/2024 6:00 AM EST POCT GLUCOSE BLOOD Routine 01/15/2024 9: 21 PM EST POCT GLUCOSE BLOOD Routine 01/15/2024 5: 23 PM EST ECG ANNOTATED 01/15/2024 ECG ANNOTATED 01/15/2024 SCR MAMMO BI INCL CAD Routine 10/30/2016 2:30 PM EDT Family history of malignant neoplasm of breast Encounter for screening mammogram for malignant neoplasm of breast DXA BONE DENSITY STUDY 1+ SITS AXIAL SKEL Routine 04/30/2016 2:09 PM EST Hyperlipidemia, unspecified Essential (primary) hypertension Type 2 diabetes mellitus with diabetic polyneuropathy (CMS/HCC) Type 2 diabetes mellitus with other diabetic neurological complication (CMS/HCC) from Last 3 Months or Most Recently Relevant to Health Maintenance Results * (ABNORMAL) POCT Glucose, blood (01/30/2024 3:36 PM EST) Only the most recent of64 resultswithin the time period is included. [facility] Glucose POCT 183(H) 70 - 100 mg/dL 01/30/2024 3:37 PM [facility] Blood Capillary blood specimen / Unknown 01/30/2024 3:36 PM EST 01/30/2024 3:38 PM EST Pradip Vega MD LAB POINT OF C ARE TEST DOCKED DEVICE UNSOLICITED RESULTS Final Result [facility] [address] [place] [address], * (ABNORMAL) CBC auto differential (01/30/2024 6:31 AM EST) Only the most recent of6 resultswithin the time period is included. [facility] WBC 7.6 4.8 - 10.8 K/mcL LAB HEMETOLOGY METHOD 01/30/2024 7:09 AM [facility] RBC 4.10 3.80 - 4.80 M/mcL LAB HEMETOLOGY METHOD 01/30/2024 7:09 AM [facility] Hemoglobin 10.7(L) 11.5 - 16.0 g/dL LAB HEMETOLOGY METHOD 01/30/2024 7:09 AM [facility] Hematocrit 35.1 35.0 - 47.0 % LAB HEMETOLOGY METHOD 01/30/2024 7:09 AM [facility] MCV 86.7 79.0 - 98.0 FL LAB HEMETOLOGY METHOD 01/30/2024 7:09 AM [facility] MCH 26.4(L) 27.0 - 32.0 pcg LAB HEMETOLOGY METHOD 01/30/2024 7:09 AM [facility] MCHC 30.5(L) 32.0 - 37.0 g/dL LAB HEMETOLOGY METHOD 01/30/2024 7:09 AM [facility] RDW 14.2 11.0 - 15.0 % LAB HEMETOLOGY METHOD 01/30/2024 7:09 AM [facility] Platelets 213 130 - 400 K/mcL LAB HEMETOLOGY METHOD 01/30/2024 7:09 AM [facility] MPV 10.9 7.0 - 11.0 FL LAB HEMETOLOGY METHOD 01/30/2024 7:09 AM [facility] NRBC 0.0 <1.0 % LAB HEMETOLOGY METHOD 01/30/2024 7:09 AM [facility] NRBC Absolute 0.00 <0.10 K/mcL LAB HEMETOLOGY METHOD 01/30/2024 7:09 AM [facility] Neutrophils Relative 64.5 % LAB HEMETOLOGY METHOD 01/30/2024 7:09 AM [facility] Lymphocytes Relative 21.1 % LAB HEMETOLOGY METHOD 01/30/2024 7:09 AM [facility] Monocytes Relative 13.3 % LAB HEMETOLOGY METHOD 01/30/2024 7:09 AM [facility] Eosinophils Relative 0.3 % LAB HEMETOLOGY METHOD 01/30/2024 7:09 AM [facility] Basophils Relative 0.1 % LAB HEMETOLOGY METHOD 01/30/2024 7:09 AM [facility] Immature Granulocytes Relative 0.7 % LAB HEMETOLOGY METHOD 01/30/2024 7:09 AM [facility] Neutrophils Absolute 4.89 1.50 - 7.00 K/mcL LAB HEMETOLOGY METHOD 01/30/2024 7:09 AM EST [facility] Lymphocytes Absolute 1.60 1.00 - 5.00 K/mcL LAB HEMETOLOGY METHOD 01/30/2024 7:09 AM EST [facility] Monocytes Absolute 1.01(H) 0.20 - 1.00 K/[facility] LAB HEMETOLOGY METHOD 01/30/2024 7:09 AM EST [facility] Eosinophils Absolute 0.02 0.00 - 0.50 K/[facility] LAB HEMETOLOGY METHOD 01/30/2024 7:09 AM EST [facility] Basophils Absolute 0.01 0.00 - 0.20 K/[facility] LAB HEMETOLOGY METHOD 01/30/2024 7:09 AM [facility] Immature Granulocytes Absolute 0.05(H) 0.00 - 0.03 K/[facility] HEMETOLOGY METHOD 01/30/2024 7:09 AM [facility] Blood Venous blood specimen / Unknown Venipuncture / Unknown 01/30/2024 6:31 AM EST 01/30/2024 6:54 AM EST Pradip Vega MD LAB BLOOD ORDERABLES F inal Result [facility] [address] [place] [address], * (ABNORMAL) Magnesium (01/30/2024 6:31 AM EST) Only the most recent of7 resultswithin the time period is included. Magnesium 1.6(L) 1.9 - 2.6 mg/dL LAB CHEMISTRY METHOD 01/30/2024 7:35 AM EST [facility] Blood Venous blood specimen / Unknown Venipuncture / Unknown 01/30/2024 6:31 AM EST 01/30/2024 6:54 AM EST Pradip Vega MD LAB BLOOD ORDERABLES F inal Result [facility] [address] [place] [address], * (ABNORMAL) Basic metabolic panel (01/30/2024 6:31 AM EST) Only the most recent of6 resultswithin the time period is included. Sodium 139 133 - 145 mmol/L LAB CHEMISTRY METHOD 01/30/2024 7:35 AM [facility] Potassium 5.3 3.5 - 5.5 mmol/L LAB CHEMISTRY METHOD 01/30/2024 7:35 AM [facility] Chloride 105 96 - 110 mmol/L LAB CHEMISTRY METHOD 01/30/2024 7:35 AM [facility] CO2 29 21 - 32 mmol/L LAB CHEMISTRY METHOD 01/30/2024 7:35 AM [facility] Anion Gap 5 3 - 11 LAB CHEMISTRY METHOD 01/30/2024 7:35 AM [facility] Glucose 175(H) 70 - 100 mg/dL LAB CHEMISTRY METHOD 01/30/2024 7:35 AM [facility] BUN 21 5 - 25 mg/dL LAB CHEMISTRY METHOD 01/30/2024 7:35 AM [facility] Creatinine 1.07 0.50 - 1.10 mg/dL LAB CHEMISTRY METHOD 01/30/2024 7:35 AM [facility] eGFR 55(L) >=60 mL/min/1. 73m2 LAB CHEMISTRY METHOD 01/30/2024 7:35 AM [facility] Comment:Calculation based on the??Chronic Kidney Disease Epidemiology Collaboration (CKD-EPI) equation refit??without adjustment for race. BUN/Creatinine Ratio 19.6 LAB CHEMISTRY METHOD 01/30/2024 7:35 AM [facility] Calcium 9.6 8.5 - 10.5 mg/dL LAB CHEMISTRY METHOD 01/30/2024 7:35 AM EST [facility] Blood Venous blood specimen / Unknown Venipuncture / Unknown 01/30/2024 6:31 AM EST 01/30/2024 6:54 AM EST us Pradip Vega MD LAB BLOOD ORDERABLES F inal Result [facility] [address] [place] [address], [place] [phone] * US Retroperitoneal Complete (01/28/2024 4:54 PM EST) Anatomical Region Laterality Modality Body Ultrasound 01/28/2024 5:09 PM EST Impressions 01/28/2024 5:09 PM EST No stone or hydronephrosis of the kidneys. The right ureteral jet is not visualized. This document has been electronically signed by: Sheyla Glass MD on 01/28/2024 17:09:51 Narrative 01/28/2024 5:09 PM EST US Renal Comparison: None Findings: Right kidney normal size and echotexture, 11 cm length. Left kidney normal size and echotexture, 11 cm length. No hydronephrosis of either kidney. Normal color Doppler. Urinary bladder is unremarkable. The left ureteral jet is seen. The right side jet is not visualized. Procedure Note Sheyla Glass MD - 01/28/2024 US Renal Comparison: None Findings: Right kidney normal size and echotexture, 11 cm length. Left kidney normal size and echotexture, 11 cm length. No hydronephrosis of either kidney. Normal color Doppler. Urinary bladder is unremarkable. The left ureteral jet is seen. The right side jet is not visualized. IMPRESSION: No stone or hydronephrosis of the kidneys. The right ureteral jet is not visualized. This document has been electronically signed by: Sheyla Glass MD on 01/28/2024 17:09:51 us Pradip Vega MD IMG US PROCEDURES Daniela l Result * (ABNORMAL) Urinalysis with reflex microscopic and culture (01/27/2024 9:35 PM EST) Specific [place] Urine 1.022 1.003 - 1.030 LAB URINALYSIS - AUTOMATED METHOD 01/27/2024 10:02 PM [facility] pH, Urine 6.0 5.0 - 8.0 pH LAB URINALYSIS - AUTOMATED METHOD 01/27/2024 10:02 PM [facility] Leukocytes, Urine Small(A) Negative LAB URINALYSIS - AUTOMATED METHOD 01/27/2024 10:02 PM [facility] Nitrite, Urine Negative Negative LAB URINALYSIS - AUTOMATED METHOD 01/27/2024 10:02 PM [facility] Protein, Urine 300(A) <=Trace mg/dL LAB URINALYSIS - AUTOMATED METHOD 01/27/2024 10:02 PM [facility] Glucose, Urine 100(A) Negative mg/dL LAB URINALYSIS - AUTOMATED METHOD 01/27/2024 10:02 PM [facility] Ketones, Urine Trace(A) Negative mg/dL LAB URINALYSIS - AUTOMATED METHOD 01/27/2024 10:02 PM [facility] Urobilinogen, Urine 1.0 0.2 - 1.0 mg/dL LAB URINALYSIS - AUTOMATED METHOD 01/27/2024 10:02 PM [facility] Bilirubin, Urine Negative Negative LAB URINALYSIS - AUTOMATED METHOD 01/27/2024 10:02 PM [facility] Blood, Urine Trace(A) Negative LAB URINALYSIS - AUTOMATED METHOD 01/27/2024 10:02 PM [facility] RBC, Urine 3.0 0 - 4 /HPF LAB URINALYSIS - AUTOMATED METHOD 01/27/2024 10:02 PM [facility] WBC, Urine 143.4(H) 0 - 4 /HPF LAB URINALYSIS - AUTOMATED METHOD 01/27/2024 10:02 PM [facility] Squamous Epithelial, Urine 20 0 - 60 /LPF LAB URINALYSIS - AUTOMATED METHOD 01/27/2024 10:02 PM [facility] Bacteria, Urine Many(A) Negative /HPF LAB URINALYSIS - AUTOMATED METHOD 01/27/2024 10:02 PM [facility] Hyaline Casts, Urine 5.5(H) 0 - 3 /LPF LAB URINALYSIS - AUTOMATED METHOD 01/27/2024 10:02 PM [facility] Urine Urine specimen from urinary conduit / Unknown Non-blood Collection / Unknown 01/27/2024 9:35 PM EST 01/27/2024 9:44 PM EST [facility] LAB URINE ORDERABLES Daniela l Result Performing Organization Address [facility]/ZIP Co de Phone Number [facility] [address] [place] [address], [place] [phone] * Chopra urine culture tube (01/27/2024 9:35 PM EST) Pathologist [facility] Extra Tube Hold for add-ons. 01/27/2024 11:01 PM EST [facility] Comment:Auto resulted. Urine Urine specimen from urinary conduit / Unknown Non-blood Collection / Unknown 01/27/2024 9:35 PM EST 01/27/2024 9:44 PM EST [email or web address] LAB URINE ORDERABLES Daniela l Result Performing Organization Address [facility]/ZIP Co de Phone Number [facility] [address] [place] [address], [place] [phone] * (ABNORMAL) Culture urine (01/27/2024 9:35 PM EST) Culture, Urine >100,000 CFU/mL Escherichia coli(A) KELECHI 01/29/2024 9:59 AM EST [facility] Urine Urine specimen from urinary conduit / Unknown Non-blood Collection / Unknown 01/27/2024 9:35 PM EST 01/27/2024 10:02 PM EST Narrative Organism Antibiotic Method Susceptibility Escherichia coli Amoxicillin/Clavulanate KELECHI <=2 ug/ml: Susceptible Escherichia coli Ampicillin/Sulbactam KELECHI <=2 ug/ml: Susceptible Escherichia coli Piperacillin/Tazobactam KELECHI <=4 ug/ml: Susceptible Escherichia coli Cefazolin (Urine) KELECHI <=1 ug/ml: Susceptible Escherichia coli Cefoxitin KELECHI <=4 ug/ml: Susceptible Escherichia coli Ceftazidime KELECHI <=0.5 ug/ml: Susceptible Escherichia coli Ceftriaxone KELECHI <=0.25 ug/ml: Susceptible Escherichia coli Cefepime KELECHI <=0.12 ug/ml: Susceptible Escherichia coli Meropenem KELECHI <=0.25 ug/ml: Susceptible Escherichia coli Amikacin KELECHI 4 ug/ml: Susceptible Escherichia coli Gentamicin KELECHI <=1 ug/ml: Susceptible Escherichia coli Ciprofloxacin KELECHI <=0.06 ug/ml: Susceptible Escherichia coli Levofloxacin KELECHI <=0.12 ug/ml: Susceptible Escherichia coli Nitrofurantoin KELECHI <=16 ug/ml: Susceptible Escherichia coli Trimethoprim/Sulfamethoxazole KELECHI <=20 ug/ml: Susceptible us Jenn Uribe DO LAB MICROBIOLOGY - GENERA L ORDERABLES Final Result [facility] [address] [place] [address], * XR Chest 2 Views (01/27/2024 1:50 PM EST) Anatomical Region Laterality Modality Body Radiographic Kesha ging 01/27/2024 1:55 PM EST Impressions 01/27/2024 2:00 PM EST No acute findings. -------- FINAL REPORT -------- Dictated By: Nomi Steele Dictated Date: 01/27/2024 13:55 ET Assigned Physician: Nomi Steele Reviewed and Electronically Signed By: Nomi Steele Signed Date: 01/27/2024 14:00 ET Workstation ID: [id number] Transcribed By: Self Edit Transcribed Date: 01/27/2024 13:56 ET Narrative 01/27/2024 2:00 PM EST PA and lateral views of the chest dated 01/27/2024. HISTORY: fever. COMPARISON: None. FINDINGS: Lungs are clear. ??No pleural effusion, pulmonary edema, or pneumothorax. ??Atherosclerotic calcifications of the aorta. ??Partially visible fusion hardware at the cervicothoracic junction. ??Mild degenerative changes of the spine. Procedure Note Nomi Steele MD - 01/27/2024 PA and lateral views of the chest dated 01/27/2024. HISTORY: fever. COMPARISON: None. FINDINGS: Lungs are clear. No pleural effusion, pulmonary edema, or pneumothorax.Atherosclerotic calcifications of the aorta. Partially visible fusionhardware at the cervicothoracic junction. Mild degenerative changes ofthe spine. IMPRESSION: No acute findings. -------- FINAL REPORT -------- Dictated By: Nomi Steele Dictated Date: 01/27/2024 13:55 ET Assigned Physician: Nomi Steele Reviewed and Electronically Signed By: Nomi Steele Signed Date: 01/27/2024 14:00 ET Workstation ID: [id number] Transcribed By: Self Edit Transcribed Date: 01/27/2024 13:56 ET us Jenn Uribe DO IMG XR PROCEDURES Final R esult * CT Head wo Contrast (01/27/2024 1:35 PM EST) Only the most recent of3 resultswithin the time period is included. Anatomical Region Laterality Modality Head and Neck Computed Tomogra phy 01/27/2024 1:44 PM EST Impressions 01/27/2024 1:54 PM EST Stable small subdural hematoma along the falx. ??No new findings. -------- FINAL REPORT -------- Dictated By: Nomi Steele Dictated Date: 01/27/2024 13:44 ET Assigned Physician: Nomi Steele Reviewed and Electronically Signed By: Nomi Steele Signed Date: 01/27/2024 13:54 ET Workstation ID: [id number] Transcribed By: Self Edit Transcribed Date: 01/27/2024 13:45 ET Narrative 01/27/2024 1:[address] dated 01/27/2024. HISTORY: SDH, worsening headache, fever, right arm numbness - assess for any increased bleed. COMPARISON: 01/19/2024. TECHNIQUE: Noncontrast head CT with coronal and sagittal reformats. Dose length product: 1070 mGy-cm. FINDINGS: Brain: There is a stable small subdural hematoma along the falx. ??No new intracranial hemorrhage. ??Stable small low-attenuation foci in the basil ganglia, compatible with remote lacunar infarcts or prominent Virchow-Eleazar spaces. ??Atherosclerotic calcifications of the carotid siphons and vertebral arteries. ??No edema, mass, or extra-axial fluid collection. ??No CT evidence of an acute large vessel infarct. ??Ventricles and sulci are age commensurate. Sinuses/mastoids: Minimal mucosal thickening in the ethmoids. Orbits: Lens implants. Calvarium: Normal. Other: Right supraorbital scalp hematoma. Procedure Note Nomi Steele MD - 01/27/[address] dated 01/27/2024. HISTORY: SDH, worsening headache, fever, right arm numbness - assess forany increased bleed. COMPARISON: 01/19/2024. TECHNIQUE: Noncontrast head CT with coronal and sagittal reformats. Dose length product: 1070 mGy-cm. FINDINGS: Brain: There is a stable small subdural hematoma along the falx. No newintracranial hemorrhage. Stable small low-attenuation foci in the basilganglia, compatible with remote lacunar infarcts or prominentVirchow-Eleazar spaces. Atherosclerotic calcifications of the carotidsiphons and vertebral arteries. No edema, mass, or extra-axial fluidcollection. No CT evidence of an acute large vessel infarct. Ventriclesand sulci are age commensurate. Sinuses/mastoids: Minimal mucosal thickening in the ethmoids. Orbits: Lens implants. Calvarium: Normal. Other: Right supraorbital scalp hematoma. IMPRESSION: Stable small subdural hematoma along the falx. No new findings. -------- FINAL REPORT -------- Dictated By: Nomi Steele Dictated Date: 01/27/2024 13:44 ET Assigned Physician: Nomi Steele Reviewed and Electronically Signed By: Nomi Steele Signed Date: 01/27/2024 13:54 ET Workstation ID: [id number] Transcribed By: Self Edit Transcribed Date: 01/27/2024 13:45 ET Jenn Uribe DO IMG CT PROCEDURES Final R esult * (ABNORMAL) Blood Culture, Peripheral Draw #1 (01/27/2024 9:35 AM EST) Only the most recent of2 resultswithin the time period is included. [facility] Culture, Blood Escherichia coli(AA) KELECHI 01/30/2024 8:16 AM EST [facility] Comment: Refer to previous culture for susceptibility ??01/25/24 @ 0934 The organism value for this result has been updated. These results have been appended to the previously preliminary verified report. This is an edited result. Previous organism was Gram negative bacilli on 01/28/2024 at 0917 EST. Gram Stain Result Aerobic and Anaerobic bottles Gram negative bacilli(AA) 01/30/2024 8:16 AM EST [facility] Comment: This is an appended report. These results have been appended to a previously preliminary verified report. Corrected result: Previously reported as Anaerobic bottle Gram negative bacilli on 01/28/2024 at 0017 EST. Blood Venous blood specimen / Unknown Venipuncture / Unknown 01/27/2024 9:35 AM EST 01/27/2024 9:46 AM EST us Jenn Uribe DO LAB MICROBIOLOGY - GENERA L ORDERABLES Final Result [facility] [address] [place] [address], [place] [phone] * (ABNORMAL) Blood culture pathogens molecular study (01/27/2024 9:26 AM EST) [facility] Escherichia coli Detected (A) Not Detected LAB MICROBIOLOGY METHOD 01/28/2024 6:53 AM [facility] Blood Venous blood specimen / Unknown Venipuncture / Unknown 01/27/2024 9:26 AM EST 01/27/2024 9:46 AM EST us Jenn Uribe DO LAB MICROBIOLOGY - GENERA L ORDERABLES Final Result [facility] [address] [place] [address], [place] [phone] * (ABNORMAL) Comprehensive metabolic panel (01/27/2024 9:26 AM EST) Only the most recent of2 resultswithin the time period is included. [facility] Sodium 131(L) 133 - 145 mmol/L LAB CHEMISTRY METHOD 01/27/2024 10:43 AM [facility] Potassium 5.0 3.5 - 5.5 mmol/L LAB CHEMISTRY METHOD 01/27/2024 10:43 AM [facility] Chloride 98 96 - 110 mmol/L LAB CHEMISTRY METHOD 01/27/2024 10:43 AM [facility] CO2 25 21 - 32 mmol/L LAB CHEMISTRY METHOD 01/27/2024 10:43 AM [facility] Anion Gap 8 3 - 11 LAB CHEMISTRY METHOD 01/27/2024 10:43 AM [facility] Glucose 241(H) 70 - 100 mg/dL LAB CHEMISTRY METHOD 01/27/2024 10:43 AM [facility] BUN 43(H) 5 - 25 mg/dL LAB CHEMISTRY METHOD 01/27/2024 10:43 AM [facility] Comment:Results verified by repeat testing Creatinine 1.70(H) 0.50 - 1.10 mg/dL LAB CHEMISTRY METHOD 01/27/2024 10:43 AM [facility] eGFR 32(L) >=60 mL/min/1. 73m2 LAB CHEMISTRY METHOD 01/27/2024 10:43 AM [facility] Comment:Calculation based on the??Chronic Kidney Disease Epidemiology Collaboration (CKD-EPI) equation refit??without adjustment for race. BUN/Creatinine Ratio 25.3 LAB CHEMISTRY METHOD 01/27/2024 10:43 AM [facility] Calcium 10.0 8.5 - 10.5 mg/dL LAB CHEMISTRY METHOD 01/27/2024 10:43 AM [facility] AST (SGOT) 17 10 - 42 unit/L LAB CHEMISTRY METHOD 01/27/2024 10:43 AM [facility] ALT (SGPT) 22 10 - 60 unit/L LAB CHEMISTRY METHOD 01/27/2024 10:43 AM [facility] Alkaline Phosphatase 108 42 - 121 unit/L LAB CHEMISTRY METHOD 01/27/2024 10:43 AM [facility] Total Protein 7.6 6.0 - 8.0 g/dL LAB CHEMISTRY METHOD 01/27/2024 10:43 AM [facility] Albumin 3.3 3.2 - 5.0 g/dL LAB CHEMISTRY METHOD 01/27/2024 10:43 AM [facility] Total Bilirubin 0.5 0.0 - 1.4 mg/dL LAB CHEMISTRY METHOD 01/27/2024 10:43 AM [facility] Blood Venous blood specimen / Unknown Venipuncture / Unknown 01/27/2024 9:26 AM EST 01/27/2024 9:45 AM EST us Jenn Uribe DO LAB BLOOD ORDERABLES Daniela jluis Result [facility] [address] [place] [address], * (ABNORMAL) Complete blood count (01/21/2024 5:50 AM EST) Only the most recent of3 resultswithin the time period is included. WBC 7.8 4.8 - 10.8 K/mcL LAB HEMETOLOGY METHOD 01/21/2024 7:19 AM [facility] RBC 4.60 3.80 - 4.80 M/mcL LAB HEMETOLOGY METHOD 01/21/2024 7:19 AM [facility] Hemoglobin 12.4 11.5 - 16.0 g/dL LAB HEMETOLOGY METHOD 01/21/2024 7:19 AM [facility] Hematocrit 40.2 35.0 - 47.0 % LAB HEMETOLOGY METHOD 01/21/2024 7:19 AM [facility] MCV 87.6 79.0 - 98.0 FL LAB HEMETOLOGY METHOD 01/21/2024 7:19 AM [facility] MCH 27.0 27.0 - 32.0 pcg LAB HEMETOLOGY METHOD 01/21/2024 7:19 AM [facility] MCHC 30.8(L) 32.0 - 37.0 g/dL LAB HEMETOLOGY METHOD 01/21/2024 7:19 AM [facility] RDW 14.2 11.0 - 15.0 % LAB HEMETOLOGY METHOD 01/21/2024 7:19 AM [facility] Platelets 214 130 - 400 K/mcL LAB HEMETOLOGY METHOD 01/21/2024 7:19 AM [facility] MPV 11.2(H) 7.0 - 11.0 FL LAB HEMETOLOGY METHOD 01/21/2024 7:19 AM EST [facility] NRBC 0.0 <1.0 % LAB HEMETOLOGY METHOD 01/21/2024 7:19 AM EST [facility] NRBC Absolute 0.00 <0.10 K/mcL LAB HEMETOLOGY METHOD 01/21/2024 7:19 AM EST [facility] Blood Venous blood specimen / Unknown Venipuncture / Unknown 01/21/2024 5:50 AM EST 01/21/2024 7:04 AM EST us Sulma CARROLL LAB BLOOD ORDERABLES Final R esult [facility] [address] [place] [address], [place] [phone] * (ABNORMAL) Respiratory virus panel molecular study (01/20/2024 12:15 PM EST) Adenovirus Detection by PCR Not Detected Not Detected LAB MICROBIOLOGY METHOD 01/20/2024 2:27 PM [facility] Influenza A PCR Not Detected Not Detected LAB MICROBIOLOGY METHOD 01/20/2024 2:27 PM [facility] Influenza B PCR Not Detected Not Detected LAB MICROBIOLOGY METHOD 01/20/2024 2:27 PM [facility] Coronavirus 229E Not Detected Not Detected LAB MICROBIOLOGY METHOD 01/20/2024 2:27 PM [facility] Coronavirus HKU1 Not Detected Not Detected LAB MICROBIOLOGY METHOD 01/20/2024 2:27 PM [facility] Coronavirus OC43 Not Detected Not Detected LAB MICROBIOLOGY METHOD 01/20/2024 2:27 PM [facility] Coronavirus NL63 Not Detected Not Detected LAB MICROBIOLOGY METHOD 01/20/2024 2:27 PM EST [facility] Parainfluenza Virus 1 Not Detected Not Detected LAB MICROBIOLOGY METHOD 01/20/2024 2:27 PM [facility] Parainfluenza Virus 2 Not Detected Not Detected LAB MICROBIOLOGY METHOD 01/20/2024 2:27 PM [facility] Parainfluenza Virus 3 Not Detected Not Detected LAB MICROBIOLOGY METHOD 01/20/2024 2:27 PM [facility] Parainfluenza Virus 4 Not Detected Not Detected LAB MICROBIOLOGY METHOD 01/20/2024 2:27 PM [facility] RSV PCR Not Detected Not Detected LAB MICROBIOLOGY METHOD 01/20/2024 2:27 PM [facility] Human Metapneumovirus A and B Not Detected Not Detected LAB MICROBIOLOGY METHOD 01/20/2024 2:27 PM [facility] Rhinovirus/Entero virus Not Detected Not Detected LAB MICROBIOLOGY METHOD 01/20/2024 2:27 PM [facility] Bordetella pertussis Not Detected Not Detected LAB MICROBIOLOGY METHOD 01/20/2024 2:27 PM [facility] Bordetella parapertussis Not Detected Not Detected LAB MICROBIOLOGY METHOD 01/20/2024 2:27 PM [facility] Mycoplasma pneumo by PCR Not Detected Not Detected LAB MICROBIOLOGY METHOD 01/20/2024 2:27 PM [facility] Chlamydia pneumoniae Not Detected Not Detected LAB MICROBIOLOGY METHOD 01/20/2024 2:27 PM [facility] SARS COV-2 Detected(A ) Not Detected LAB MICROBIOLOGY METHOD 01/20/2024 2:27 PM [facility] Swab Both anterior nares / Unknown Non-blood Collection / Unknown 01/20/2024 12:15 PM EST 01/20/2024 12:[address] [facility] - 01/20/2024 2:27 PM EST Testing was performed using the [place] Respiratory Pathogen PCR Assay. All results must be correlated with the clinical findings. Results should not be used as the sole basis for diagnosis. False Negative results may occur from the presence of sequence variants in the region targeted by the assay or the presence of inhibitors. Results may be affected by concurrent antiviral/antimicrobial therapy or levels of organisms that are below the limit of detection. Sulma CARROLL LAB MICROBIOLOGY - GENERAL O RDERABLES Final Result Performing Organization Address [facility]/ZIP Co de Phone Number [facility] [address] [place] [address], [place] [phone] * SST tube (01/20/2024 5:41 AM EST) Only the most recent of2 resultswithin the time period is included. Pathologist [facility] Extra Tube Hold for add-ons. 01/20/2024 8:01 AM EST [facility] Comment:Auto resulted. Blood Venous blood specimen / Unknown Venipuncture / Unknown 01/20/2024 5:41 AM EST 01/20/2024 6:17 AM EST Jenn Uribe DO LAB BLOOD ORDERABLES Daniela l Result Performing Organization Address [facility] Co de Phone Number [facility] [address] [place] [address], * ECG 12 lead (01/20/2024 5:14 AM EST) Only the most recent of3 resultswithin the time period is included. Ventricular Rate ECG 116 BPM GEMUSE Atrial Rate 116 BPM GEMUSE P-R Interval 138 ms GEMUSE QRS Duration 122 ms GEMUSE Q-T Interval 354 ms GEMUSE QTc 492 ms GEMUSE P Wave [place] 46 degrees GEMUSE R [place] -21 degrees GEMUSE T [place] 119 degrees GEMUSE ECG Interpretation Sinus tachycardia Left bundle branch block Abnormal ECG When compared with ECG of 19-JAN-2024 12:59, (unconfirmed) No significant change was found Confirmed by Ashu WEBBER JAMES ([id number]) on 01/20/2024 2:30:56 PM GEMUSE 01/20/2024 5:14 AM EST 01/20/2024 2:30 PM EST Eda CARROLL ECG ORDERABLES Final Result Performing Organization Address City/[facility]/ZIP Co de Phone Number [facility] * Troponin I high sensitivity (01/17/2024 12:06 PM EST) [facility] High Sensitivity Troponin I 9 <=54 ng/L LAB CHEMISTRY METHOD 01/17/2024 12:56 PM EST [facility] Blood Venous blood specimen / Unknown Venipuncture / Unknown 01/17/2024 12:06 PM EST 01/17/2024 12:22 PM EST Narrative [facility] - 01/17/2024 12:56 PM EST High levels of biotin in samples may falsely decrease hsTroponin values. ??Use caution when interpreting hsTroponin results in patients taking biotin who exhibit renal impairment (eGFR <60) or in patients taking more than 20 mg/day of biotin. Noreen Correa NP LAB BLOOD ORDERABLES Final Result Performing Organization Address [facility] Co de Phone Number [facility] [address] [place] [address], [place] [phone] * Thyroid stimulating hormone with reflex to free t4 and free t3 (01/17/2024 10:22 AM EST) [facility] TSH 3.31 0.40 - 4.00 mcIU/mL LAB CHEMISTRY METHOD 01/17/2024 11:42 AM EST [facility] Blood Venous blood specimen / Unknown Venipuncture / Unknown 01/17/2024 10:22 AM EST 01/17/2024 10:51 AM EST Noreen Correa NP LAB BLOOD ORDERABLES Final Result Performing Organization Address City/[facility]/ZIP Co de Phone Number [facility] [address] [place] [address], [place] [phone] * ECG-Annotated (01/15/2024) Only the most recent of2 resultswithin the time period is included. us Provider Onbase ECG ORDERABLES Final Result * SCR MAMMO BI INCL CAD (10/30/2016 2:30 PM EDT) Anatomical Region Laterality Modality Radiographic Kesha ging 10/30/2015 2:05 PM EDT Narrative 10/31/2016 10:41 AM EDT This is a summary report. The complete report is available in the patient's medical record. If you cannot access the medical record, please contact the sending organization for a detailed fax or copy. Full field digital screening mammography, reviewed with CAD and compared to previous. ??The breasts are composed of fatty and fibroglandular tissue. ??No suspicious mass, architectural distortion or suspicious calcifications are identified. IMPRESSION: : No mammographic evidence of malignancy. BIRADS 1-Negative; N. 5 year breast cancer risk assessment 3.4 % Lifetime breast cancer risk assessment 12.4 % Breast cancer risk category Low (<15%) Procedure Note Eda Jackman MD - 03/27/2023 This is a summary report. The complete report is available in thepatient's medical record. If you cannot access the medical record, pleasecontact the sending organization for a detailed fax or copy. Full field digital screening mammography, reviewed with CAD and comparedto previous. The breasts are composed of fatty and fibroglandular tissue.No suspicious mass, architectural distortion or suspicious calcificationsare identified. IMPRESSION: : No mammographic evidence of malignancy. BIRADS 1-Negative; N. 5 year breast cancer risk assessment 3.4 % Lifetime breast cancer risk assessment 12.4 % Breast cancer risk category Low (<15%) Meli Brown MD IMG XR PROCEDURES Final Result * DXA BONE DENSITY STUDY 1+ SITS AXIAL SKEL (04/30/2016 2:09 PM EST) Anatomical Region Laterality Modality Bone Densitometr y 04/04/2016 2:17 PM EST Narrative 04/30/2016 3:35 PM EST BONE DENSITY ? Lumbar Spine T-score is +0.8 ?? (SD relative to 20-29 y/o adult) Z-score is +2.6 ??(SD relative to age matched peers) This is normal by criteria defined by the WHO. Left Hip T-score is ??0.8 Z-score is +0.7 This is normal by criteria defined by the WHO. Impression: Based on the World Health Organization criteria, Cat Krishna should be classified as having normal bone density. [facility] Department of Internal Medicine recommends using National Osteoporosis Foundation (NOF) guidelines in treatment decisions related to osteoporosis. NOF guidelines suggest considering treatment for postmenopausal women and men aged 50 or older presenting with the following: History of hip or vertebral fracture. T-score less than or equal to -2.5 (DXA) at the femoral neck, total hip, or spine, after appropriate evaluation to exclude secondary causes. Low bone mass (T-score between -1.0 and -2.5 at the femoral neck or spine) AND a 10-year probability of a hip fracture greater than or equal to 3% OR a 10-year probability of a major osteoporosis-related fracture greater than or equal to 20% based on the [place]-adapted WHO algorithm Please note that all treatment decisions require clinical judgment and consideration of individual patient factors, including patient preferences, co-morbidities, previous drug use, risk factors not captured in the FRAX model (e.g., frailty, falls, vitamin D deficiency, increased bone turnover, interval significant decline in bone density) and possible under- or over-estimation of fracture risk by FRAX. Procedure Note Eda Jackman MD - 03/27/2023 BONE DENSITY Lumbar Spine T-score is +0.8 (SD relative to 20-29 y/o adult) Z-score is +2.6 (SD relative to age matched peers) This is normal by criteria defined by the WHO. Left Hip T-score is 0.8 Z-score is +0.7 This is normal by criteria defined by the WHO. Impression: Based on the World Health Organization criteria, Cat Krishna should beclassified as having normal bone density. [facility] Department of Internal Medicine recommendsusing National Osteoporosis Foundation (NOF) guidelines in treatmentdecisions related to osteoporosis. NOF guidelines suggest consideringtreatment for postmenopausal women and men aged 50 or older presentingwith the following: History of hip or vertebral fracture. T-score less than or equal to -2.5 (DXA) at the femoral neck, total hip,or spine, after appropriate evaluation to exclude secondary causes. Low bone mass (T-score between -1.0 and -2.5 at the femoral neck or spine)AND a 10-year probability of a hip fracture greater than or equal to 3% ORa 10-year probability of a major osteoporosis-related fracture greaterthan or equal to 20% based on the [place]-adapted WHO algorithm Please note that all treatment decisions require clinical judgment andconsideration of individual patient factors, including patientpreferences, co-morbidities, previous drug use, risk factors not capturedin the FRAX model (e.g., frailty, falls, vitamin D deficiency, increasedbone turnover, interval significant decline in bone density) and possibleunder- or over-estimation of fracture risk by FRAX. Rosibel GUZMAN DXA PROCEDURES Final Resu lt from Last 3 Months or Most Recently Relevant to Health Maintenance Insurance [facility] [address] [place] [address] MEDICAID - [place] [employer] MEDICARE Advance Directives Documents on File Type Date Recorded Patient Camp Tender Expl anation Advance Directives and Living Will 02/01/2024 2:10 PM Advance Directives and Living Will 01/18/2024 10:12 AM HEALTH CARE PROXY * No CPR/Do Not Intubate (Latest Code Status on File) Date Activated Date Inactivated Comments 01/28/2024 2:29 AM 01/30/2024 6:[address] atus was ascertained in the following way: Code status discussion: per living will or healthcare instructions To update the patient's code status, place a code status order. Do not modify or discontinue any currently active code status orders. * No CPR/Do Not Intubate Date Activated Date Inactivated Comments 01/15/2024 4:09 PM 01/28/2024 2:06 AM This code s tatus was ascertained in the following way: Code status discussion: discussion with patient To update the patient's code status, place a code status order. Do not modify or discontinue any currently active code status orders. Care Teams Automobile Salesman Relationship Specialty Start Date End Date Kina Blackburn MD [address] [place] [address] [address] [facility] [place] [address] PCP - General Internal Medicine 08/06/17
--- OUTSIDE RECORDS SUMMARY | 2024-04-15 14:19 | XMS_ITS | Encounter Summary ---
Author Organization [facility] Address [address] [place] [address] Care Team Providers Care Office Rn Name Role Phone Shabnam Frias DO Primary Care Pro vider Unavailable Kina Blackburn MD Primary Care Provider Unavailabl e Encounter Details Date Type Department Care Team Description 03/27/2016 Wellness Visit Medical Records [address] [place] [address] Shabnam Frias DO Social History Tobacco Use [...] on filedocumented in this encounter Care Teams Office Rn Relationship Specialty Start Date End Date Shabnam Frias DO PCP - General Internal Medicine 08/30/14 08/05/17 Kina Blackburn MD PCP - General Internal Medicine 08/06/17 documented as of this encounter
--- OUTSIDE RECORDS SUMMARY | 2024-04-15 14:19 | XMS_ITS | Encounter Summary ---
Author Organization [facility] Address [address] [place] [address] Care Team Providers Care Rv Repairer Name Role Phone Shabnam Frias DO Primary Care Pro vider Unavailable Kina Blackburn MD Primary Care Provider Unavailabl e Encounter Details Date Type Department Care Team Description 07/26/2015 Orders Only Adult Medicine [address] [address] Shabnam Frias DO Chronic back pain (Primary Dx) Social History Tobacco Use Types Packs/Day Years Used Date Smoking Tobacco: Former Comments:quit 2005 Alcohol Use Standard Drinks/Week Comments Not Asked 0 (1 standard drink = 0.6 oz pur e alcohol) Sex Assigned at Date Recorded Not on file documented as of this encounter Plan of Treatment Not on file documented as of this encounter Visit Diagnoses Diagnosis Chronic back pain- Primary Backache, unspecified documented in this encounter Care Teams Rv Repairer Relationship Specialty Start Date End Date Shabnam Frias DO PCP - General Internal Medicine 08/30/14 08/05/17 Kina Blackburn MD PCP - General Internal Medicine 08/06/17 documented as of this encounter
--- OUTSIDE RECORDS SUMMARY | 2024-04-15 14:19 | XMS_ITS ---
Author Organization [facility] Address Unknown Problems Problem Status Start Date End Date CONTUSION OF RIGHT THIGH, COLEMAN BSEQUENT ENCOUNTER (S70.11XD - ICD-10-CM) ACTIVE 09/10/2016 HISTORY OF FALLING (Z91.81 - ICD-10-CM) ACTIVE 0 09/10/2016 UNSPECIFIED PHYSEAL FRACTURE OF [place]AN[place] OF RIGHT TOE, SEQUELA (S99.201S - ICD-10-CM) ACTIVE 09/10/2016 ESSENTIAL (PRIMARY) HYPERTENSION (I10 - ICD-10-CM) ACT LUZ 09/10/2016 PAIN IN UNSPECIFIED SHOULDER (M25.519 - ICD-10-CM) ACT LUZ 09/10/2016 VITAMIN D DEFICIENCY, UNSPECIFIED (E55.9 - ICD-10-CM) ACTIVE 09/10/2016 TYPE 2 DIABETES MELLITUS WIT H DIABETIC NEUROPATHY, UNSPECIFIED (E11.40 - ICD-10-CM) ACTIVE 09/10/2016 DIZZINESS AND GIDDINESS (R42 - ICD-10-CM) ACTIVE 09/10/2016 Encounters Encounter Performer Performer Role Encounter Diagnoses Location Date Discharge - Home - Private home/apt. with home health services [facility] 09/10/2016 04:28 pm EDT - 09/25/2016 01:16 pm EDT Social History
--- OUTSIDE RECORDS SUMMARY | 2024-04-15 14:19 | XMS_ITS | Encounter Summary ---
[facility] Organization [facility] Address [address] [place] [address] Care Team Providers Care Office Clin Asst Name Role Phone Shabnam Frias DO Primary Care Pro vider Unavailable Kina Blackburn MD Primary Care Provider Unavailabl e Encounter Details Date Type Department Care Team Description 11/10/2014 Orders Only Adult Medicine [address] [address] Shabnam Frias DO Social History Tobacco Use [...] filedocumented in this encounter Care Teams Office Clin Asst Relationship Specialty Start Date End Date Shabnam Frias DO PCP - General Internal Medicine 08/30/14 08/05/17 Kina Blackburn MD PCP - General Internal Medicine 08/06/17 documented as of this encounter
--- OUTSIDE RECORDS SUMMARY | 2024-04-15 14:19 | XMS_ITS | Continuity of Care Document ---
Author Organization [facility] Address [address] [place] [address] Phone Care Team Providers Care Administrative Office Clerk Name Role Phone Provider, Conversion Unavailable Unavailable [...] Diagnoses Date Provider Providers Copied on Encounter [address] [place], [id number], [place] tel:[phone] [facility] No Information 4 Provider Conversion. . 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 [address] [place] [address], [address], [place]. tel:[phone] [place] [address] [place], [id number], [place] tel:[phone] [facility] No Information 3 Joey Stover. [address] [place] [address], [address], [place]. tel:[phone] [place] [address] [place], [id number], [place] tel:[phone] [facility] No Information 3 Provider Conversion. . [address] [place], [id number], [place] tel:[phone] [facility] No Information 3 Unidentified Provider. [address] [place] [address], [facility], . [address] , [place], [place], [id number], tel:[phone] [facility] No Information 2 Unidentified Provider. [address] [place] [address], [facility], . [address] , [place], [place], [id number], tel:[phone] [facility] No Information 2 Unidentified Provider. [address] [place] [address], [facility], . [address] , [place], [place], [id number], tel:[phone] [facility] No Information 1 Unidentified Provider. [address] [place] [address], [facility], . Family History Family Member Type Diagnosis Age At Onset No Information Payers Payer name Insurance type Covered democrat ID Authoriza tion(s) No Information Social History Type Description Quantity Date Captured Comments Sex Female Smoking Status No Information Chief Complaint And Reason For Visit No Information Reason For Referral Reason For Referral No Information Plan Of Treatment Date Type Action Status Goal Dental exam. Due on 014 due Goal Urine microalbumin. Due on due Goal Influenza vaccine. Due on due Goal Dilated eye exam. Due on Jul due Goal Foot exam. Due on 4 due Goal Hemoglobin A1C. Due on due Goal GFR. Due on due Goal Lipid panel. Due on 014 due Goal Depression screening. Due on due Goal Pneumococcal vaccine. Due on due History Of Present Illness Encounter Date Complaint History Of Prese nt Illness No Information Functional Status Date Functional Assessmen t No Information Instructions Date Instruction Additional Infor mation No Information Assessments Type Assessment Date No Information Patient Care Teams Name Effective Dates (start - stop) Status Members No Information
== END 2024-04-15 14:58 | disposition home or self-care (01) ==
PROVIDERS: PCP Internal Medicine
DX: E11.65 Type 2 diabetes mellitus with hyperglycemia (principal); Z79.4 Long term (current) use of insulin; E66.9 Obesity, unspecified; Z68.30 Body mass index [BMI] 30.0-30.9, adult; E78.00 Pure hypercholesterolemia, unspecified; I10 Essential (primary) hypertension; M79.606 Pain in leg, unspecified; M25.531 Pain in right wrist; M25.562 Pain in left knee; M25.552 Pain in left hip

== ENCOUNTER 2024-04-15 15:13 | Outpatient (REF) | payer OTHER, SELFPAY ==
--- NOTE | ~2024-04-15 | XR_ITS ---
EXAMINATION: XR HIP, LEFT CLINICAL INFORMATION: M25.552 - Pain in left hip COMPARISON: None available. TECHNIQUE: Two views of the left hip. FINDINGS: No fracture or dislocation. No suspicious bone lesion. Mild degenerative arthritis in both hip joints. Chondrocalcinosis present bilaterally with diffuse labral calcification. Normal acetabular coverage. Mild degenerative SI joint changes. Hardware in the imaged lower lumbar spine with severe disc degeneration L5-S1. No soft tissue abnormality aside from vascular calcifications. XR/XR hip LT w PEL1V IMPRESSION: 1. Mild degenerative arthritis in both hip joints. 2. Hip joint chondrocalcinosis consistent with CPPD Electronically signed by: Maxi Enriquez MD 04/15/2024 04:04 PM JAN
--- NOTE | ~2024-04-15 | US_ITS ---
EXAMINATION: US TRIPLEX LOWER EXTREMITY, LEFT CLINICAL INFORMATION: Left leg pain, unspecified. COMPARISON: None available. TECHNIQUE: Color-flow triplex imaging with spectral analysis and compression Doppler were performed on the left lower extremity. FINDINGS: Respiratory variation, normal compression and augmented flow are noted throughout the left lower extremity. The visualized common femoral vein, superficial femoral vein, profunda femoral vein, popliteal vein and midcalf peroneal and posterior tibial venous segments show no evidence of deep venous thrombosis. There is no Firtz's cyst. There is plaque incidentally noticed in the left common femoral artery. US/US venous duplex LE IMPRESSION: No evidence of deep venous thrombosis involving the left lower extremity. Electronically signed by: Maxi Enriquez MD 04/15/2024 04:14 PM JAN WALKER
--- NOTE | ~2024-04-15 | XR_ITS ---
EXAMINATION: XR KNEE, LEFT CLINICAL INFORMATION: M25.562 - Pain in left knee COMPARISON: None available. TECHNIQUE: AP and lateral views of the left knee. FINDINGS: No fracture, dislocation, or suspicious bone lesion. Normal bone mineralization. Normal alignment. Joint spaces are preserved. There is diffuse chondrocalcinosis. No significant joint effusion. Soft tissues demonstrate vascular calcifications. XR/XR knee LT 2V IMPRESSION: 1. No acute findings left knee. 2. Chondrocalcinosis suggesting CPPD. Electronically signed by: Maxi Enriquez MD 04/15/2024 04:01 PM JAN
--- NOTE | ~2024-04-15 | XR_ITS ---
EXAMINATION: XR HAND/WRIST, RIGHT CLINICAL INFORMATION: M25.531 - Pain in right wrist COMPARISON: 06/10/2022. TECHNIQUE: PA, lateral, and oblique views of the right hand and wrist. FINDINGS: No fracture, dislocation, or suspicious bone lesion. Normal bone mineralization. Normal alignment. Mild arthritis in the first CMC joint. Joint spaces otherwise normal. Chondrocalcinosis of the TFCC and radial cartilage. Dorsal wrist joint capsular calcification noted. XR/XR hand wrist RT IMPRESSION: 1. No acute findings of the right hand and wrist. 2. Chondrocalcinosis, and dorsal joint capsular calcification, findings consistent with CPPD. Electronically signed by: Maxi Enriquez MD 04/15/2024 04:08 PM JAN WALKER
--- OUTSIDE RECORDS SUMMARY | 2024-04-15 15:17 | XMS_ITS | Encounter Summary ---
Author Organization [facility] Address [address] [place] [address] Care Team Providers Care Safety Administrator Name Role Phone Shabnam Frias DO Primary Care Pro vider Unavailable Kina Blackburn MD Primary Care Provider Unavailabl e Encounter Details Date Type Department Care Team Description 09/09/2016 Hospital Medical Records [address] [place] [address] Pilo Brown Social History Tobacco Use Types Packs/Day Years [...] filedocumented in this encounter Care Teams Safety Administrator Relationship Specialty Start Date End Date Shabnam Frias DO PCP - General Internal Medicine 08/30/14 08/05/17 Kina Blackburn MD PCP - General Internal Medicine 08/06/17 documented as of this encounter
--- OUTSIDE RECORDS SUMMARY | 2024-04-15 15:17 | XMS_ITS | Encounter Summary ---
Author Organization [facility] Address [address] [place] [address] Care Team Providers Care Data Warehouse Administrator Name Role Phone Shabnam Frias DO Primary Care Pro vider Unavailable Kina Blackburn MD Primary Care Provider Unavailabl e Encounter Details Date Type Department Care Team Description 04/08/2016 Business Doc Medical Records [address] [place] [id number] Abstract, Provider Social History Tobacco Use Types [...] on filedocumented in this encounter Care Teams Data Warehouse Administrator Relationship Specialty Start Date End Date Shabnam Frias DO PCP - General Internal Medicine 08/30/14 08/05/17 Kina Blackburn MD PCP - General Internal Medicine 08/06/17 documented as of this encounter
--- OUTSIDE RECORDS SUMMARY | 2024-04-15 15:17 | XMS_ITS | Continuity of Care Document ---
Author Organization [facility] Address [address] [place] [address] Phone Care Team Providers Care Vision Care Associate Name Role Phone Provider, Conversion Unavailable Unavailable [...] Diagnoses Date Provider Providers Copied on Encounter [address] [place], [id number], [place] tel:[phone] [facility] No Information 4 Provider Conversion. . 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 [address] [place] [address], [address], [place]. tel:[phone] [place] [address] [place], [id number], [place] tel:[phone] [facility] No Information 3 Joey Stover. [address] [place] [address], [address], [place]. tel:[phone] [place] [address] [place], [id number], [place] tel:[phone] [facility] No Information 3 Provider Conversion. . [address] [place], [id number], [place] tel:[phone] [facility] No Information 3 Unidentified Provider. [address] [place] [address], [facility], . [address] , [place], [place], [id number], tel:[phone] [facility] No Information 2 Unidentified Provider. [address] [place] [address], [facility], . [address] , [place], [place], [id number], tel:[phone] [facility] No Information 2 Unidentified Provider. [address] [place] [address], [facility], . [address] , [place], [place], [id number], tel:[phone] [facility] No Information 1 Unidentified Provider. [address] [place] [address], [facility], . Family History Family Member Type Diagnosis Age At Onset No Information Payers Payer name Insurance type Covered libertarian ID Authoriza tion(s) No Information Social History [...]
--- OUTSIDE RECORDS SUMMARY | 2024-04-15 15:17 | XMS_ITS | Clinical Summary ---
Author Organization Unknown Care Team Providers Care Hospice Aide Name Role Phone AMINAH SCHAEFER, YUSRA Unavailable Unavailable HAKEEM ROLLE, NAOMI Unavailable Unavailable Payers Payer Name Policy Type Policy Number Effective Date Expira tion Date [facility] ADV [id number] MEDICAID [facility] [id number] MEDICARE - [facility] - [place] [id number] Problems Condition Name Condition Details Condition Category Status Onset Date Resolution Date Last Treatment Date Treating Clinician Comments ANXIETY DISORDER, UNSPECIFIED Active 04-05 00:00: 00 Allergies, Adverse Reactions, Alerts Allergy Name Allergy Type Status Severity Reaction(s) Onset Date Inactive Date Treating Clinician Comments NKA Propensity to adverse reactions Active 2024-03 11:59:4 6 Medications Ordered Medication Name Filled Medication Name Start Date Stop Date Current Medication? Ordering Clinician Indication Dosage Frequency Signature (SIG) Comments Components clopidogrel 75 mg tablet 07-23 00:00: 00 01-20 23:59 :00 No [id number] Per instruc tions DAILY Per instructio ns DAILY (route: oral) Med Classific ation: Hematolog ical Agents lisinopril 10 mg tablet 07-15 00:00: 00 07-23 00:00 :00 No [id number] Per instruc tions DAILY Per instructio ns DAILY (route: oral) Med Classific ation: Cardiovas cular Therapy Agents pregabalin 200 mg capsule 07-23 00:00: 00 01-20 23:59 :00 No [id number] Per instruc tions DAILY Per instructio ns DAILY (route: oral) Med Classific ation: Central Nervous System Agents Lantus Solostar U-100 Insulin 100 unit/mL (3 mL) subcutaneou s pen 07-23 00:00: 01-20 23:59 :00 No [id number] Per instruc tions (06 ML) SUBCUTANEO USLY AT BEDTIME Per instructio ns (06 ML) SUBCUTANEO USLY AT BEDTIME (route: subcutaneo us) Med Classific ation: Endocrine clonazepam 1 mg tablet 07-23 00:00: 00 01-20 23:59 :00 No [id number] Per instruc tions AT BEDTIME NEEDED Per instructio ns AT BEDTIME NEEDED (route: oral) Med Classific ation: Central Nervous System Agents atorvastati n 40 mg tablet 07-23 00:00: 00 01-20 23:59 :00 No [id number] 1 tablet DAILY 1 tablet DAILY (route: oral) Med Classific ation: Cardiovas cular Therapy Agents buspirone 10 mg tablet 07-23 00:00: 00 01-20 23:59 :00 No [id number] 1 tablet 2 TIMES DAILY 1 tablet 2 TIMES DAILY (route: oral) Med Classific ation: Central Nervous System Agents duloxetine 60 mg capsule,del ayed release 07-23 00:00: 00 01-20 23:59 :00 No [id number] 1 capsule DAILY 1 capsule DAILY (route: oral) Med Classific ation: Central Nervous System Agents magnesium 400 mg (as magnesium oxide) tablet 07-23 00:00: 00 01-20 23:59 :00 No [id number] 1 tablet DAILY 1 tablet DAILY (route: oral) Med Classific ation: Electroly te Balance-N utritiona l Products metformin 1,000 mg tablet 07-23 00:00: 00 01-20 23:59 :00 No [id number] 1 tablet 2 TIMES DAILY 1 tablet 2 TIMES DAILY (route: oral) Med Classific ation: Endocrine pregabalin 50 mg capsule 07-23 00:00: 00 01-20 23:59 :00 No [id number] 1 capsule DAILY 1 capsule DAILY (route: oral) Med Classific ation: Central Nervous System Agents Trulicity 0.75 mg/0.5 mL subcutaneou s pen injector 07-23 00:00: 00 08-10 23:59 :00 No [id number] 0.5 mL WEEKLY 0.5 mL WEEKLY (route: [facility]) Med Classific ation: Endocrine lisinopril 20 mg tablet 07-23 00:00: 00 01-20 23:59 :00 No [id number] 1 tablet DAILY 1 tablet DAILY (route: oral) Med Classific ation: Cardiovas cular Therapy Agents Trulicity 0.75 mg/0.5 mL subcutaneou s pen injector 08-10 00:00: 00 01-20 23:59 :00 No [id number] 0.75 mg WEEKLY 0.75 mg WEEKLY (route: [facility]) Med Classific ation: Endocrine acetaminoph en 325 mg capsule 2023-02- 00:00: 00 04-04 23:59 :00 No [id number] 1 capsule EVERY 4 HOURS 1 capsule EVERY 4 HOURS (route: oral) Med Classific ation: Analgesic , Anti-infl ammatory or Antipyret ic acetaminoph en 325 mg capsule 2023-02- 00:00: 00 04-04 23:59 :00 No [id number] 3 capsule EVERY 8 HOURS 3 capsule EVERY 8 HOURS (route: oral) Med Classific ation: Analgesic , Anti-infl ammatory or Antipyret ic Admelog U-100 Insulin lispro 100 unit/mL subcutaneou s solution 2023-02 00:00: 00 02-08 23:59 :00 No [id number] 2-12 unit 3 TIMES DAILY 2-12 unit 3 TIMES DAILY (route: [facility]) Med Classific ation: Endocrine amlodipine 5 mg tablet 2023-02 2- 00:00: 00 04-04 23:59 :00 No [id number] 1 tablet BEDTIME 1 tablet BEDTIME (route: oral) Med Classific ation: Cardiovas cular Therapy Agents Dulcolax (bisacodyl) 10 mg rectal suppository 2023-02 2- 00:00: 00 04-04 23:59 :00 No [id number] 1 supposi tory, rectal EVERY PM 1 suppositor y, rectal EVERY PM (route: rectal) Med Classific ation: Gastroint estinal Therapy Agents duloxetine 30 mg capsule,del ayed release 2023-02 00:00: 00 04-04 23:59 :00 No [id number] 1 capsule 2 TIMES DAILY 1 capsule 2 TIMES DAILY (route: oral) Med Classific ation: Central Nervous System Agents folic acid 1 mg tablet 2023-02 00:00: 00 04-04 23:59 :00 No [id number] 1 tablet EVERY AM 1 tablet EVERY AM (route: oral) Med Classific ation: Electroly te Balance-N utritiona l Products insulin glargine-yf gn (U-100) 100 unit/mL subcutaneou s solution 2023-02 00:00: 00 04-04 23:59 :00 No [id number] 50 unit BEDTIME 50 unit BEDTIME (route: subcutaneo us) Med Classific ation: Endocrine lidocaine 5 % topical cream 2023-02 00:00: 00 04-04 23:59 :00 No [id number] 1 inch 4 TIMES DAILY 1 inch 4 TIMES DAILY (route: topical) Med Classific ation: Dermatolo gical lisinopril 40 mg tablet 2023-02 00:00: 00 04-04 23:59 :00 No [id number] 1 tablet EVERY AM 1 tablet EVERY AM (route: oral) Med Classific ation: Cardiovas cular Therapy Agents magnesium 400 mg (as magnesium oxide) capsule 2023-02 00:00: 00 04-04 23:59 :00 No [id number] 1 capsule EVERY AM 1 capsule EVERY AM (route: oral) Med Classific ation: Electroly te Balance-N utritiona l Products metformin 1,000 mg tablet 2023-02 00:00: 00 04-04 23:59 :00 No [id number] 1 tablet 2 TIMES DAILY 1 tablet 2 TIMES DAILY (route: oral) Med Classific ation: Endocrine mirtazapine 15 mg tablet 2023-02 00:00: 00 04-04 23:59 :00 No [id number] 1 tablet BEDTIME 1 tablet BEDTIME (route: oral) Med Classific ation: Central Nervous System Agents oxycodone 5 mg capsule 2023-02 00:00: 00 04-04 23:59 :00 No [id number] 1 capsule DIRECTED 1 capsule DIRECTED (route: oral) Med Classific ation: Analgesic , Anti-infl ammatory or Antipyret ic Plavix 75 mg tablet 2023-02 00:00: 00 04-04 23:59 :00 No [id number] 1 tablet EVERY PM 1 tablet EVERY PM (route: oral) Med Classific ation: Hematolog ical Agents pregabalin 225 mg capsule 2023-02 00:00: 00 04-04 23:59 :00 No [id number] 1 capsule 2 TIMES DAILY 1 capsule 2 TIMES DAILY (route: oral) Med Classific ation: Central Nervous System Agents ropinirole 0.25 mg tablet 2023-02 00:00: 00 04-04 23:59 :00 No [id number] 1 tablet EVERY PM 1 tablet EVERY PM (route: oral) Med Classific ation: Central Nervous System Agents simvastatin 80 mg tablet 2023-02 00:00: 00 04-04 23:59 :00 No [id number] 1 tablet BEDTIME 1 tablet BEDTIME (route: oral) Med Classific ation: Cardiovas cular Therapy Agents aspirin 81 mg tablet,alicia yed release 2023-02 00:00: 00 04-04 23:59 :00 No [id number] 1 tablet EVERY AM 1 tablet EVERY AM (route: oral) Med Classific ation: Hematolog ical Agents cefdinir 300 mg capsule 2023-02 00:00: 00 04-04 23:59 :00 No [id number] 1 capsule BEDTIME 1 capsule BEDTIME (route: oral) Med Classific ation: Anti-Infe ctive Agents ClearLax 17 gram oral powder packet 2023-02 00:00: 00 04-04 23:59 :00 No [id number] 1 powder in packet EVERY AM 1 powder in packet EVERY AM (route: oral) Med Classific ation: Gastroint estinal Therapy Agents naloxone 4 mg/actuatio n nasal spray 2023-02 00:00: 00 04-04 23:59 :00 No [id number] Per instruc tions NEEDED Per instructio ns NEEDED (route: nasal) Med Classific ation: Antidotes and other Reversal Agents omega-3 acid ethyl esters 1 gram capsule 2023-02 00:00: 00 04-04 23:59 :00 No [id number] 2 capsule 2 TIMES DAILY 2 capsule 2 TIMES DAILY (route: oral) Med Classific ation: Cardiovas cular Therapy Agents ondansetron 4 mg disintegrat ing tablet 2023-02 00:00: 00 04-04 23:59 :00 No [id number] 1 tablet EVERY 8 HOURS 1 tablet EVERY 8 HOURS (route: oral) Med Classific ation: Gastroint estinal Therapy Agents simethicone 80 mg chewable tablet 2023-02 00:00: 00 04-04 23:59 :00 No [id number] 1 tablet 2 TIMES DAILY 1 tablet 2 TIMES DAILY (route: oral) Med Classific ation: Gastroint estinal Therapy Agents Trulicity 0.75 mg/0.5 mL subcutaneou s pen injector 2023-02 00:00: 00 04-04 23:59 :00 No [id number] 0.5 mL WEEKLY 0.5 mL WEEKLY (route: subcutaneo us) Med Classific ation: Endocrine Vital Signs Vital Name Observation Time Observation Value Commen ts BMI (%) 2024-04-08 11:55:00.000 29 kg/m2 Height 2024-04-08 11:55:00.000 65 [in_us] Weight (lbs) 2024-04-08 11:55:00.000 176 [lb_av] Systolic Blood Pressure 2024-04-08 11:58:00.000 136 mm [Hg] Diastolic Blood Pressure 2024-04-08 11:58:00.000 80 mm [Hg] Plan of Treatment Planned Activity Planned Date Details Comments Future Scheduled Test SKILLED NU RSE TO EVALUATE PATIENT, IDENTIFY PRIMARY AND CO-MORBID CONDITIONS CODED PER CODING GUIDELINES, AND DEVELOP PATIENT SPECIFIC PLAN OF CARE THAT INCLUDES PATIENT GOAL FOR HOME HEALTH. [code = SKILLED NURSE TO EVALUATE PATIENT, IDENTIFY PRIMARY AND CO-MORBID CONDITIONS CODED PER CODING GUIDELINES, AND DEVELOP PATIENT SPECIFIC PLAN OF CARE THAT INCLUDES PATIENT GOAL FOR HOME HEALTH.] Future Scheduled Test SKILLED NU RSE WILL MAINTAIN SITUATIONAL AWARENESS FOR SAFETY AND WILL NOTIFY CLINICAL COMPUTER ART INSTRUCTOR AND PHYSICIAN/PROVIDER WITH ANY CHANGE IN CONDITION. [code = SKILLED NURSE WILL MAINTAIN SITUATIONAL AWARENESS FOR SAFETY AND WILL NOTIFY CLINICAL COMPUTER ART INSTRUCTOR AND PHYSICIAN/PROVIDER WITH ANY CHANGE IN CONDITION.] Future Scheduled Test SKILLED NU RSE TO O/A OF PATIENTS MENTAL/BEHAVIORAL STATUS, ASSESS VITAL SIGNS 1WK8 ALLOW 2 PRNS FOR MEDICATION MANAGEMENT. [code = SKILLED NURSE TO O/A OF PATIENTS MENTAL/BEHAVIORAL STATUS, ASSESS VITAL SIGNS 1WK8 ALLOW 2 PRNS FOR MEDICATION MANAGEMENT.] Future [...] SAFETY.] Future Scheduled Test SKILLED NU RSE TO [...] REPORT.] Future Scheduled Test SKILLED NU RSE TO PROVIDE TEACHING ON SIGNS AND SYMPTOMS AND MANAGEMENT OF HYPERTENSION. [code = SKILLED NURSE TO PROVIDE TEACHING ON SIGNS AND SYMPTOMS AND MANAGEMENT OF HYPERTENSION.] Goal Patient Goal - BE ABLE TO DO MORE Goal Provider Goal - A PLAN OF CARE WILL BE ESTABLISHED THAT MEETS PATIENT'S SENIOR CARE NEEDS AND INCLUDES PATIENT GOAL FOR HOME HEALTH. Goal Provider Goal - PATIENT WILL REMAIN [...] Goal Provider Goal - PATIENT/CAREGIVER WILL VERBALIZE SIGNS AND SYMPTOMS OF HYPERTENSION AND WILL BE ABLE TO DEMONSTRATE ABILITY TO MANAGE EXACERBATION BY END OF THE EPISODE. Encounters Start Date/Time End Date/Time Encounter Type Admission Type Attending [facility] Care Department Encounter ID Discharge Date Discharge Status Discharge Condition Discharge Reason Percent Goals Met 2024-04-08 00:00:00 2024-06-06 00:00:00 Outpatient SHANTE Wilson [facility] [id number] 60.00
--- OUTSIDE RECORDS SUMMARY | 2024-04-15 15:17 | XMS_ITS | Encounter Summary ---
Author Organization [facility] Address [address] [place] [address] Care Team Providers Care Revenue Cycle Consultant Name Role Phone Shabnam Frias DO Primary Care Pro vider Unavailable PoKina MD Primary Care Provider Unavailabl e Reason for Visit * Reason Onset Date Comments refill request 09/26/2016 Encounter Details Date Type Department Care Team Description 09/26/2016 Refill Adult Medicine [address] [address] Shabnam Frias DO refill request Social History Tobacco Use Types Packs/Day Years Used Date Smoking Tobacco: Former Cigarettes 2 34 Smokeless Tobacco: Never Comments:quit 2005 Alcohol Use Standard Drinks/Week Comments No 0 (1 standard drink = 0.6 oz pur e alcohol) Sex Assigned at Date Recorded Not on file documented as of this encounter Miscellaneous Notes * Telephone Encounter - Vivienne Mason M.A. - 09/26/2016 1:45 PM EDT Pt informed that we are not filling this until notes from [facility] in [facility] is obtained. They are to fax them to Dr Lorena Chowdhury's fax machine. Pt was d/c'd from there on 09/25/16 with 17 tabs of oxycodone 10 mg, 3 tabs of Klonopin, 15 tabs of Ambien, and 12 tabs of Lyrica appt given for 10/03/16 @ 1:30 for hospital f/u * Telephone Encounter - Vivienne Mason M.A. - 09/26/2016 10:32 AM EDT [facility] in your bin Controlled substance contract and last issue date of medication reviewed. Patient is due for medication. Lab Results Component Value Date URINEOXYCOD POSITIVE 08/27/2016 URBENZO POSITIVE 08/27/2016 URAMPHETAMIN NEGATIVE 08/27/2016 URMARIJUANA NEGATIVE 08/27/2016 UROPIATES POSITIVE 08/27/2016 URBARBITUATE NEGATIVE 08/27/2016 URCOCAINE NEGATIVE 08/27/2016 HYDROCODONE Negative 08/27/2016 * Telephone Encounter - Rebecca Cruz - 09/26/2016 10:27 AM EDT Patient would like script to be: PLACED IN PATIENT HUMAN RESOURCE ASSISTANT WHEN WAS THE PATIENT'S LAST APPOINTMENT IN ADULT MEDICINE? 08/27/16 WHEN WAS THE LAST TIME THE PATIENT SAW THEIR PCP? Same as above Does patient have an upcoming appointment? Yes 12/10/16 (THE MEDICATION REQUESTED IS ON THE MED LIST ABOVE) All of the medications requested were on the CURRENT MEDS list Did you check the Pharmacy information above?: NO Patient wants: 30 -day supply Is this a mail order prescription request ? NO Patients current insurance carrier is: Payor: [facility] / Plan: O $0 [place] [id number]/ Product Type: HMO [id number] documented in this encounter Plan of Treatment Not on file documented as of this encounter Visit Diagnoses Not on filedocumented in this encounter Care Teams Revenue Cycle Consultant Relationship Specialty Start Date End Date Shabnam Frias DO PCP - General Internal Medicine 08/30/14 08/05/17 Kina Blackburn MD PCP - General Internal Medicine 08/06/17 documented as of this encounter
--- OUTSIDE RECORDS SUMMARY | 2024-04-15 15:17 | XMS_ITS | Encounter Summary ---
Author Organization [facility] Address [address] [place] [address] Care Team Providers Care Medical Coordinator Pesticide Use Name Role Phone Shabnam Frias DO Primary Care Pro vider Unavailable PoKina MD Primary Care Provider Unavailabl e Reason for Visit * Reason Onset Date Comments Medication 08/27/2016 Encounter Details Date Type Department Care Team Description 08/27/2016 Telephone Adult Medicine [address] [address] Shabnam Frias DO Medication Social History Tobacco [...] on filedocumented in this encounter Care Teams Medical Coordinator Pesticide Use Relationship Specialty Start Date End Date Shabnam Frias DO PCP - General Internal Medicine 08/30/14 08/05/17 Kina Blackburn MD PCP - General Internal Medicine 08/06/17 documented as of this encounter
--- OUTSIDE RECORDS SUMMARY | 2024-04-15 15:17 | XMS_ITS | Encounter Summary ---
Author Organization [facility] Address [address] [place] [address] Care Team Providers Care Radio Installer Name Role Phone Shabnam Frias DO Primary Care Pro vider Unavailable Kina Blackburn MD Primary Care Provider Unavailabl e Encounter Details Date Type Department Care Team Description 03/27/2016 Wellness Visit Medical Records [address] [place] [id number] Shabnam Frias DO Social History Tobacco Use [...] on filedocumented in this encounter Care Teams Radio Installer Relationship Specialty Start Date End Date Shabnam Frias DO PCP - General Internal Medicine 08/30/14 08/05/17 Kina Blackburn MD PCP - General Internal Medicine 08/06/17 documented as of this encounter
--- OUTSIDE RECORDS SUMMARY | 2024-04-15 15:17 | XMS_ITS | Clinical Summary ---
Author Organization [facility] Address [address] [place] [address] Care Team Providers Care Track Equipment Operator Name Role Phone Kina Blackburn MD Primary Care Provider Unavailabl e Allergies Active Allergy Reactions Severity Noted Date Comments Morphine 10/30/2015 Upset stomach,headache,still takes Medications Medication Sig Dispensed Refills Start Date End Date Status Docusate Calcium (STOOL SOFTENER OR) Take by mouth daily. 0 Active Multiple Vitamins-Minerals (MULTIVITAMIN OR) Take 1 Tab by mouth daily. 0 Active lidocaine (XYLOCAINE) 5 % ointmentIndications:M yofascial pain Apply as needed 3-4 times daily to the posterior neck for pain 35.44 g 5 04/05/2015 Active B-D ULTRA FINE LANCETS Misc Use to test blood sugar 3 times daily 100 Each 3 07/02/2015 Active valacyclovir (VALTREX) 500 MG tablet Take 500 mg by mouth at bedtime. 0 Active Clobetasol Prop Emollient Base (CLOBETASOL PROPIONATE E) 0.05 % Cream Apply topically twice weekly. Wash hands following application. 15 g 0 01/01/2016 Active clonazepam (KLONOPIN) 0.5 MG tablet TAKE 1 TABLET BY MOUTH EVERY DAY NEEDED FOR ANXIETY 28 Tab 0 04/30/2016 Active RESTASIS 0.05 % ophthalmic emulsion 1 Drop 2 times daily. IN EACH EYE 0 04/28/2016 Active glucose blood test strips (ONE TOUCH ULTRA TEST STRIPS) strip USE TO TEST THREE TIMES DAILY DIRECTED 300 Strip 5 05/19/2016 Active Insulin Glargine (LANTUS SOLOSTAR) 100 UNIT/ML Solution Pen-injector Inject 55 units as directed at bedtime 55 mL 5 05/19/2016 Active naproxen (NAPROSYN) 500 MG tablet TAKE 1 TABLET BY MOUTH TWICE DAILY WITH MEALS 180 Tab 0 05/19/2016 Active Zolpidem Tartrate 10 MG Tab Take 10 mg by mouth at bedtime. 0 08/15/2016 Active venlafaxine (EFFEXOR-XR) 150 MG 24 hr capsule Take 150 mg by mouth daily. 0 08/15/2016 Active Insulin Pen Needle (B-D ULTRAFINE III SHORT PEN) 31G X 8 MM MiscIndications:DM (diabetes mellitus), type 2 with peripheral vascular complications (HCC) USE ONCE DAILY 100 Each 1 10/08/2016 Active omega-3 acid ethyl esters (LOVAZA) 1 G capsule TAKE 2 CAPSULES BY MOUTH TWICE DAILY 360 Cap 1 10/10/2016 Active ropinirole (REQUIP) 0.25 MG tablet TAKE 1 TABLET BY MOUTH THREE TIMES DAILY 270 Tab 1 10/13/2016 Active simvastatin (ZOCOR) 80 MG tablet Take 1 tablet by mouth at bedtime 90 Tab 1 10/14/2016 Active citalopram (CELEXA) 20 MG tablet Take 1 tablet by mouth daily 90 Tab 1 10/14/2016 Active clopidogrel (PLAVIX) 75 MG tablet Take 1 tablet by mouth daily 90 Tab 1 10/14/2016 Active lisinopril (PRINIVIL,ZESTRIL) 5 MG tablet Take 1 tablet by mouth daily 90 Tab 1 10/14/2016 Active fluticasone 50 MCG/ACT nasal spray SHAKE WELL AND USE 2 SPRAYS IN EACH NOSTRIL EVERY DAY 3 Bottle 1 10/15/2016 Active LYRICA 225 MG capsuleIndications:Ty pe 2 diabetes mellitus with neurological manifestations, controlled (HCC) TAKE 1 CAPSULE BY MOUTH TWICE DAILY 60 Cap 0 02/03/2017 Active metformin (GLUCOPHAGE) 1000 MG tablet TAKE 1 TABLET BY MOUTH TWICE DAILY WITH MEALS 180 Tab 0 02/24/2017 Active simvastatin (ZOCOR) 80 MG tablet TAKE 1 TABLET BY MOUTH AT BEDTIME 90 Tab 0 02/24/2017 Active omega-3 acid ethyl esters (LOVAZA) 1 G capsule TAKE 2 CAPSULES BY MOUTH TWICE DAILY 360 Cap 0 04/08/2017 Active Insulin Glargine (LANTUS SOLOSTAR) 100 UNIT/ML Solution Pen-injector INJECT 55 UNITS UNDER THE SKIN AT BEDTIME DIRECTED 5 Device 0 04/08/2017 Active fluticasone 50 MCG/ACT nasal spray SHAKE LIQUID then instill 2 sprays into each nostril once daily 1 Bottle 0 07/14/2017 Active Active Problems Problem Noted Date Lichen sclerosis 12/19/2015 Chronic back pain 09/26/2015 GERD (gastroesophageal reflux disease) 1 Hiatal hernia 12/04/2014 Overview: Without reflux esophagitis, EGD 06/14/10 Goiter 12/04/2014 Overview: 5 mm cyst left thyroid Breast nodule 12/04/2014 Overview: Mammogram 03/31/12 stable, benign applearing left breast nodule, unchanged since 2009 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, controlled 10/12/2014 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 10/12/2014 PVD (peripheral vascular disease) 2014 DM (diabetes mellitus), type 2 with holden pheral vascular complications 10/12/2014 RLS (restless legs syndrome) 10/12/2014 Anxiety 09/22/2014 History of tobacco abuse 09/22/2014 TIA (transient ischemic attack) Dyslipidemia HTN (hypertension) Diabetic neuropathy Microalbuminuria Resolved Problems Problem Noted Date Resolved Date Multiple sclerosis 10/12/2014 10/19/2014 Carotid arterial disease 017 Overview: s/p cea Immunizations Name Administration Dates Next Due Influenza (> 6 Months) 12/04/2015 Pneumococcal Conjugate PCV-13 04/04/2016 TD (STATE SUPPLIED FOR ADULTS AND CHILDREN) 06/2016 Family History Medical History Relation Name Comments CAD Brother HTN CAD Father HTN, cataract, hypothyroidism CA Breast Mother x2 40s,60s dementia, catar act, HTN, hypothyroidism Cataract Mother x2 40s,60s Cancer, Other Paternal Grandmother uncert ain type Blindness Negative Hx Glaucoma Negative Hx Macular Degeneration Negative Hx Strabismus Negative Hx Relation Name Status Comments Brother Father Mother x2 40s,60s Paternal Grandmother Social History Tobacco Use Types Packs/Day Years Used Date Smoking Tobacco: Former Cigarettes 2 34 Smokeless Tobacco: Never Comments:quit 2005 Alcohol Use Standard Drinks/Week Comments No 0 (1 standard drink = 0.6 oz pur e alcohol) Sex Assigned at Date Recorded Not on file Last Filed Vital Signs Vital Sign Reading Time Taken Comments Blood Pressure 120/80 10/03/2016 1:05 PM EDT Pulse 120 10/03/2016 1:05 PM EDT Temperature 36.5 ??C (97.7 ??F) 10/03/2016 1:05 PM ED T Respiratory Rate 22 10/03/2016 1:05 PM EDT Oxygen Saturation 96% 03/26/2016 3:00 PM EST Inhaled Oxygen Concentration - - Weight 85.7 kg (189 lb) 10/03/2016 1:05 PM EDT Height 167.6 cm (5' 6 ) 10/03/2016 1:05 PM EDT Body Mass Index 30.51 10/03/2016 1:05 PM EDT Plan of Treatment Health Maintenance Due Date Last Done Comments Covid-19 Vaccine (#1) 06/23/1951 SHINGLES VACCINE (1 of 2) 2000 DTAP/TDAP/TD (1 - Tdap) 08/28/2016 08/27/2016 DIABETES: BLOOD SUGAR CONTROL TEST (HGBA1C) 11/27/2016 08/27/2016, 02/22/2016, 11/27/2015, Additional history exists DIABETES: ANNUAL EYE EXAM 01/13/20172015, 01/14/2016 (External Completion), 11/27/2015, Additional history exists FALL RISK ASSESSMENT 02/25/2017 02/26/2016, 02/26/2016, 02/21/2015 DEPRESSION SCREEN 03/26/2017 03/26/2016, , 02/26/2016, Additional history exists PNEUMOCOCCAL VACCINE (2 - PPSV23 or PCV20) 04/04/2017 04/04/2016 DIABETES: ANNUAL FOOT EXAM 05/12/2017 05/12/2016 DIABETES/HEART DISEASE: ANNUAL CHOLESTEROL (LDL) 08/27/2017 08/27/2016, 02/22/2016, 08/30/2015, Additional history exists DIABETES: ANNUAL URINE PROTEIN TEST (MICROALBUMIN) 08/27/2017 08/27/2016, 02/22/2016, 08/31/2015, Additional history exists MAMMOGRAM 10/30/2017 10/30/2016, 10/24, 10/30/2015, Additional history exists BONE DENSITY SCREENING 04/30/2018 04/30/2016 COLON CANCER SCREENING 05/07/2020 6, 06/14/2010 (External Completion), 06/14/2010 INFLUENZA (#1) 2023 12/04/2015 (Comp leted), 12/04/2015 BMI CHECK/ADVISE 02/24/2024 10/03/2016, 06/2016, 04/04/2016, Additional history exists HEPATITIS C SCREENING Addressed 12/14/2015 Overri dden with the intention of not completing the topic Care Teams Track Equipment Operator Relationship Specialty Start Date End Date Kina Blackburn MD PCP - General Internal Medicine 08/06/17
--- OUTSIDE RECORDS SUMMARY | 2024-04-15 15:17 | XMS_ITS | Encounter Summary ---
Author Organization [facility] Address [address] [place] [address] Care Team Providers Care Junior Bookkeeper Name Role Phone Shabnam Frias DO Primary Care Pro vider Unavailable PoKina MD Primary Care Provider Unavailabl e Reason for Visit * Reason Onset Date Comments Testing 06/14/2015 UDS Encounter Details Date Type Department Care Team Description 06/14/2015 Telephone Adult Medicine [address] [address] Shabnam Frias DO Testing (UDS) Social History [...] Type Priority Associated Diagnoses Orde r Schedule [facility] DRUG SCREENING OPIATES 1 OR MORE Lab Routine Encounter for long-term (current) use of other high-risk medications Expected: 06/14/2015, Expires: 06/13/2016 [facility] DRUG SCREENING BENZODIAZEPINES 1-12 Lab Routine Encounter for long-term (current) use of other high-risk medications Expected: 06/14/2015, Expires: 06/13/2016 documented as of this encounter Results * ASSAY, DIHYDROCODEINONE (06/14/2015 4:18 PM EDT) HYDROCODONE UR GCMS Negative . ng/mL 06/20/2015 8:49 AM EDT [facility] HYDROMORPHONE UR GCMS Negative . ng/mL 06/20/2015 8:49 AM EDT [facility] Comment: Performed at: ?? - [employer] [address] [place] [address] ??[phone] Heel Emery Buffer: Davy Frazier MD, Phone: ??[phone] 06/14/2015 4:18 PM EDT 06/14/2015 4:19 PM EDT Shabnam Carrillo Game [employer] DO LAB Performing Organization Address City/[facility]/ZIP Co de Phone Number LIAT ROSA * (ABNORMAL) OXYCODONE, URINE (06/14/2015 4:18 PM EDT) URINE OXYCODONE LEVEL POSITIVE( A) NEGATIVE 06/14/2015 6:15 PM EDT [facility] Comment: CONFIRMED Semi-quantitative urine assay for screening purposes only. Unconfirmed screening results should not be used for non-medical purposes. ALTERNATE METHOD CONFIRMATION DONE UPON REQUEST ONLY 06/14/2015 4:18 PM EDT 06/14/2015 4:19 PM EDT Shabnam kwirygeoPorphyriodarinel Game [employer]s LAB Performing Organization Address [facility] Co de Phone Number [facility] [address] [facility] * (ABNORMAL) DRUG OF ABUSE SCREEN (06/14/2015 4:18 PM EDT) AMPHETAMINE, URINE NEGATIVE NEGATIVE 06/14/2015 5:56 PM EDT [facility] BARBITURATES, URINE NEGATIVE NEGATIVE 06/14/2015 5:56 PM T [facility] BENZODIAZEPINE, URINE POSITIVE(A) NEGATIVE 06/14/2015 6:15 PM T [facility] Comment: CONFIRMED Semi-quantitative urine assay for screening purposes only. Unconfirmed screening results should not be used for non-medical purposes. ALTERNATE METHOD CONFIRMATION DONE UPON REQUEST ONLY COCAINE, URINE NEGATIVE NEGATIVE 06/14/2015 5:56 PM EDT [facility] OPIATES, URINE POSITIVE(A) NEGATIVE 6 6:15 PM [facility] Comment: CONFIRMED Semi-quantitative urine assay for screening purposes only. Unconfirmed screening results should not be used for non-medical purposes. ALTERNATE METHOD CONFIRMATION DONE UPON REQUEST ONLY MARIJUANA(THC), URINE NEGATIVE NEGATIVE 06/14/2015 5:56 PM T [facility] 06/14/2015 4:18 PM EDT 06/14/2015 4:19 PM EDT Shabnam Chowdhury DO LAB Performing Organization Address City/State/[facility] Co de Phone Number [facility] [address] documented in this encounter Visit Diagnoses Diagnosis Encounter for long-term (current) use of other high-risk medications- Primary Encounter for long-term (current) use of other medications documented in this encounter Care Teams Junior Bookkeeper Relationship Specialty Start Date End Date Shabnam Frias DO PCP - General Internal Medicine 08/30/14 08/05/17 Kina Blackburn MD PCP - General Internal Medicine 08/06/17 documented as of this encounter
--- OUTSIDE RECORDS SUMMARY | 2024-04-15 15:17 | XMS_ITS | Clinical Summary ---
Author Organization [facility] Address [address] [place] [address] Phone Care Team Providers Care Entry Level Management Name Role Phone Kina Blackburn MD Primary Care Provider [phone] Allergies Active Allergy Reactions Criticality Noted Date [...] - 01/30/2024 4:33 PM EST Hospital Encounter [facility] Medical Surgical Unit [address] [place] [address] Donnie Mcfarland MD Santoyo-Pacheco, Omar D, MD Discharge Disposition: Home-Health Care [facility] 01/27/2024 Plan of Care Documentation [facility] Inpatient Rehab [address] [place] [phone] 01/20/2024 Plan of Care Documentation [facility] Inpatient Rehab [address] [place] [phone] 01/19/2024 1:22 PM EST - 01/19/2024 4:51 PM EST Emergency [facility] Emergency [address] [place] [address] Rex Menchaca MD Post-traumatic headache, not intractable, unspecified chronicity pattern (Primary Dx) Discharge Disposition: Rehab Facility 01/15/2024 3:44 PM EST - 01/28/2024 1:00 AM EST Hospital Encounter [facility] Inpatient Rehab [address] [place] [address] Jenn Uribe DO Subdural hematoma (CMS/HCC) (Primary [...] of64 resultswithin the time period is included. [facility] Glucose POCT 183(H) 70 - 100 mg/dL 01/30/2024 3:37 PM [facility] Blood Capillary blood specimen / Unknown 01/30/2024 3:36 PM EST 01/30/2024 3:38 PM EST Pradip Vega MD LAB POINT OF C ARE TEST DOCKED DEVICE UNSOLICITED RESULTS Final Result [facility] [address] [place] [address], * (ABNORMAL) CBC auto differential (01/30/2024 6:31 AM EST) Only the most recent of6 resultswithin the time period is included. [facility] WBC 7.6 4.8 - 10.8 K/mcL LAB HEMETOLOGY METHOD 01/30/2024 7:09 AM [facility] RBC 4.10 3.80 - 4.80 M/mcL LAB HEMETOLOGY METHOD 01/30/2024 7:09 AM [facility] Hemoglobin 10.7(L) 11.5 - 16.0 g/dL LAB HEMETOLOGY METHOD 01/30/2024 7:09 AM [facility] Hematocrit 35.1 35.0 - 47.0 % LAB HEMETOLOGY METHOD 01/30/2024 7:09 AM [facility] MCV 86.7 79.0 - 98.0 FL LAB HEMETOLOGY METHOD 01/30/2024 7:09 AM [facility] MCH 26.4(L) 27.0 - 32.0 pcg LAB HEMETOLOGY METHOD 01/30/2024 7:09 AM [facility] MCHC 30.5(L) 32.0 - 37.0 g/dL LAB HEMETOLOGY METHOD 01/30/2024 7:09 AM [facility] RDW 14.2 11.0 - 15.0 % LAB HEMETOLOGY METHOD 01/30/2024 7:09 AM [facility] Platelets 213 130 - 400 K/mcL LAB HEMETOLOGY METHOD 01/30/2024 7:09 AM [facility] MPV 10.9 7.0 - 11.0 FL LAB HEMETOLOGY METHOD 01/30/2024 7:09 AM [facility] NRBC 0.0 <1.0 % LAB HEMETOLOGY METHOD 01/30/2024 7:09 AM [facility] NRBC Absolute 0.00 <0.10 K/mcL LAB HEMETOLOGY METHOD 01/30/2024 7:09 AM [facility] Neutrophils Relative 64.5 % LAB HEMETOLOGY METHOD 01/30/2024 7:09 AM [facility] Lymphocytes Relative 21.1 % LAB HEMETOLOGY METHOD 01/30/2024 7:09 AM [facility] Monocytes Relative 13.3 % LAB HEMETOLOGY METHOD 01/30/2024 7:09 AM [facility] Eosinophils Relative 0.3 % LAB HEMETOLOGY METHOD 01/30/2024 7:09 AM [facility] Basophils Relative 0.1 % LAB HEMETOLOGY METHOD 01/30/2024 7:09 AM [facility] Immature Granulocytes Relative 0.7 % LAB HEMETOLOGY METHOD 01/30/2024 7:09 AM [facility] Neutrophils Absolute 4.89 1.50 - 7.00 K/mcL LAB HEMETOLOGY METHOD 01/30/2024 7:09 AM EST [facility] Lymphocytes Absolute 1.60 1.00 - 5.00 K/mcL LAB HEMETOLOGY METHOD 01/30/2024 7:09 AM EST [facility] Monocytes Absolute 1.01(H) 0.20 - 1.00 K/[facility] LAB HEMETOLOGY METHOD 01/30/2024 7:09 AM EST [facility] Eosinophils Absolute 0.02 0.00 - 0.50 K/[facility] LAB HEMETOLOGY METHOD 01/30/2024 7:09 AM EST [facility] Basophils Absolute 0.01 0.00 - 0.20 K/[facility] LAB HEMETOLOGY METHOD 01/30/2024 7:09 AM [facility] Immature Granulocytes Absolute 0.05(H) 0.00 - 0.03 K/[facility] LAB HEMETOLOGY METHOD 01/30/2024 7:09 AM [facility] Blood Venous blood specimen / Unknown Venipuncture / Unknown 01/30/2024 6:31 AM EST 01/30/2024 6:54 AM EST Pradip Vega MD LAB BLOOD ORDERABLES F inal Result [facility] [address] [place] [address], * (ABNORMAL) Magnesium (01/30/2024 6:31 AM EST) Only the most recent of7 resultswithin the time period is included. Magnesium 1.6(L) 1.9 - 2.6 mg/dL LAB CHEMISTRY METHOD 01/30/2024 7:35 AM EST [facility] Blood Venous blood specimen / Unknown Venipuncture / Unknown 01/30/2024 6:31 AM EST 01/30/2024 6:54 AM EST Pradip Vega MD LAB BLOOD ORDERABLES F inal Result [facility] [address] [place] [address], * (ABNORMAL) Basic metabolic panel (01/30/2024 6:31 AM EST) Only the most recent of6 resultswithin the time period is included. Sodium 139 133 - 145 mmol/L LAB CHEMISTRY METHOD 01/30/2024 7:35 AM [facility] Potassium 5.3 3.5 - 5.5 mmol/L LAB CHEMISTRY METHOD 01/30/2024 7:35 AM [facility] Chloride 105 96 - 110 mmol/L LAB CHEMISTRY METHOD 01/30/2024 7:35 AM [facility] CO2 29 21 - 32 mmol/L LAB CHEMISTRY METHOD 01/30/2024 7:35 AM [facility] Anion Gap 5 3 - 11 LAB CHEMISTRY METHOD 01/30/2024 7:35 AM [facility] Glucose 175(H) 70 - 100 mg/dL LAB CHEMISTRY METHOD 01/30/2024 7:35 AM [facility] BUN 21 5 - 25 mg/dL LAB CHEMISTRY METHOD 01/30/2024 7:35 AM [facility] Creatinine 1.07 0.50 - 1.10 mg/dL LAB CHEMISTRY METHOD 01/30/2024 7:35 AM [facility] eGFR 55(L) >=60 mL/min/1. 73m2 LAB CHEMISTRY METHOD 01/30/2024 7:35 AM [facility] Comment:Calculation based on the??Chronic Kidney Disease Epidemiology Collaboration (CKD-EPI) equation refit??without adjustment for race. BUN/Creatinine Ratio 19.6 LAB CHEMISTRY METHOD 01/30/2024 7:35 AM [facility] Calcium 9.6 8.5 - 10.5 mg/dL LAB CHEMISTRY METHOD 01/30/2024 7:35 AM EST [facility] Blood Venous blood specimen / Unknown Venipuncture / Unknown 01/30/2024 6:31 AM EST 01/30/2024 6:54 AM EST us Pradip Vega MD LAB BLOOD ORDERABLES F inal Result [facility] [address] [place] [address], [place] [phone] * [place] Retroperitoneal Complete (01/28/2024 4:54 PM [...] and culture (01/27/2024 9:35 PM EST) Specific [place] Urine 1.022 1.003 - 1.030 LAB URINALYSIS - AUTOMATED METHOD 01/27/2024 10:02 PM [facility] pH, Urine 6.0 5.0 - 8.0 pH LAB URINALYSIS - AUTOMATED METHOD 01/27/2024 10:02 PM [facility] Leukocytes, Urine Small(A) Negative LAB URINALYSIS - AUTOMATED METHOD 01/27/2024 10:02 PM [facility] Nitrite, Urine Negative Negative LAB URINALYSIS - AUTOMATED METHOD 01/27/2024 10:02 PM [facility] Protein, Urine 300(A) <=Trace mg/dL LAB URINALYSIS - AUTOMATED METHOD 01/27/2024 10:02 PM [facility] Glucose, Urine 100(A) Negative mg/dL LAB URINALYSIS - AUTOMATED METHOD 01/27/2024 10:02 PM [facility] Ketones, Urine Trace(A) Negative mg/dL LAB URINALYSIS - AUTOMATED METHOD 01/27/2024 10:02 PM [facility] Urobilinogen, Urine 1.0 0.2 - 1.0 mg/dL LAB URINALYSIS - AUTOMATED METHOD 01/27/2024 10:02 PM [facility] Bilirubin, Urine Negative Negative LAB URINALYSIS - AUTOMATED METHOD 01/27/2024 10:02 PM [facility] Blood, Urine Trace(A) Negative LAB URINALYSIS - AUTOMATED METHOD 01/27/2024 10:02 PM [facility] RBC, Urine 3.0 0 - 4 /HPF LAB URINALYSIS - AUTOMATED METHOD 01/27/2024 10:02 PM [facility] WBC, Urine 143.4(H) 0 - 4 /HPF LAB URINALYSIS - AUTOMATED METHOD 01/27/2024 10:02 PM [facility] Squamous Epithelial, Urine 20 0 - 60 /LPF LAB URINALYSIS - AUTOMATED METHOD 01/27/2024 10:02 PM [facility] Bacteria, Urine Many(A) Negative /HPF LAB URINALYSIS - AUTOMATED METHOD 01/27/2024 10:02 PM [facility] Hyaline Casts, Urine 5.5(H) 0 - 3 /LPF LAB URINALYSIS - AUTOMATED METHOD 01/27/2024 10:02 PM [facility] Urine Urine specimen from urinary conduit / Unknown Non-blood Collection / Unknown 01/27/2024 9:35 PM EST 01/27/2024 9:44 PM EST [employer] LAB URINE ORDERABLES Daniela l Result Performing Organization Address [facility]/ZIP Co de Phone Number [facility] [address] [place] [address], [place] [phone] * Chopra urine culture tube (01/27/2024 9:35 PM EST) Pathologist [facility] Extra Tube Hold for add-ons. 01/27/2024 11:01 PM EST [facility] Comment:Auto resulted. Urine Urine specimen from urinary conduit / Unknown Non-blood Collection / Unknown 01/27/2024 9:35 PM EST 01/27/2024 9:44 PM EST [employer] LAB URINE ORDERABLES Daniela l Result Performing Organization Address [facility]/ZIP Co de Phone Number [facility] [address] [place] [address], [place] [phone] * (ABNORMAL) Culture urine (01/27/2024 9:35 PM EST) Culture, Urine >100,000 CFU/mL Escherichia coli(A) KELECHI 01/29/2024 9:59 AM EST [facility] Urine Urine specimen from urinary [...] MICROBIOLOGY - GENERA L ORDERABLES Final Result [facility] [address] [place] [address], * XR Chest 2 Views (01/27/2024 1:50 PM EST) Anatomical Region Laterality Modality Body Radiographic Kesha ging 01/27/2024 1:55 PM EST Impressions 01/27/2024 2:00 PM EST No acute findings. -------- FINAL REPORT -------- Dictated By: Nomi Steele Dictated Date: 01/27/2024 13:55 ET Assigned Physician: Nomi Steele Reviewed and Electronically Signed By: Nomi Steele Signed Date: 01/27/2024 14:00 ET Workstation ID: [id number] Transcribed By: Self Edit Transcribed Date: 01/27/2024 [...] Signed Date: 01/27/2024 14:00 ET Workstation ID: [id number] Transcribed By: Self Edit Transcribed Date: 01/27/2024 [...] Signed Date: 01/27/2024 13:54 ET Workstation ID: [id number] Transcribed By: Self Edit Transcribed Date: 01/27/2024 [...] Signed Date: 01/27/2024 13:54 ET Workstation ID: [id number] Transcribed By: Self Edit Transcribed Date: 01/27/2024 13:45 ET Jenn Uribe DO IMG CT PROCEDURES Final R esult * (ABNORMAL) Blood Culture, Peripheral Draw #1 (01/27/2024 9:35 AM EST) Only the most recent of2 resultswithin the time period is included. [facility] Culture, Blood Escherichia coli(AA) KELECHI 01/30/2024 8:16 AM EST [facility] Comment: Refer to previous culture for susceptibility ??01/25/24 @ 0917 The organism value for this result has been updated. These results have been appended to the previously preliminary verified report. This is an edited result. Previous organism was Gram negative bacilli on 01/28/2024 at 0917 EST. Gram Stain Result Aerobic and Anaerobic bottles Gram negative bacilli(AA) 01/30/2024 8:16 AM EST [facility] Comment: This is an appended report. These results have been appended to a previously preliminary verified report. Corrected result: Previously reported as Anaerobic bottle Gram negative bacilli on 01/28/2024 at 0017 EST. Blood Venous blood specimen / Unknown Venipuncture / Unknown 01/27/2024 9:35 AM EST 01/27/2024 9:46 AM EST us Jenn Uribe DO LAB MICROBIOLOGY - GENERA L ORDERABLES Final Result [facility] [address] [place] [address], [place] [phone] * (ABNORMAL) Blood culture pathogens molecular study (01/27/2024 9:26 AM EST) [facility] Escherichia coli Detected (A) Not Detected LAB MICROBIOLOGY METHOD 01/28/2024 6:53 AM [facility] Blood Venous blood specimen / Unknown Venipuncture / Unknown 01/27/2024 9:26 AM EST 01/27/2024 9:46 AM EST us Jenn Uribe DO LAB MICROBIOLOGY - GENERA L ORDERABLES Final Result [facility] [address] [place] [address], [place] [phone] * (ABNORMAL) Comprehensive metabolic panel (01/27/2024 9:26 AM EST) Only the most recent of2 resultswithin the time period is included. [facility] Sodium 131(L) 133 - 145 mmol/L LAB CHEMISTRY METHOD 01/27/2024 10:43 AM [facility] Potassium 5.0 3.5 - 5.5 mmol/L LAB CHEMISTRY METHOD 01/27/2024 10:43 AM [facility] Chloride 98 96 - 110 mmol/L LAB CHEMISTRY METHOD 01/27/2024 10:43 AM [facility] CO2 25 21 - 32 mmol/L LAB CHEMISTRY METHOD 01/27/2024 10:43 AM [facility] Anion Gap 8 3 - 11 LAB CHEMISTRY METHOD 01/27/2024 10:43 AM [facility] Glucose 241(H) 70 - 100 mg/dL LAB CHEMISTRY METHOD 01/27/2024 10:43 AM [facility] BUN 43(H) 5 - 25 mg/dL LAB CHEMISTRY METHOD 01/27/2024 10:43 AM [facility] Comment:Results verified by repeat testing Creatinine 1.70(H) 0.50 - 1.10 mg/dL LAB CHEMISTRY METHOD 01/27/2024 10:43 AM [facility] eGFR 32(L) >=60 mL/min/1. 73m2 LAB CHEMISTRY METHOD 01/27/2024 10:43 AM [facility] Comment:Calculation based on the??Chronic Kidney Disease Epidemiology Collaboration (CKD-EPI) equation refit??without adjustment for race. BUN/Creatinine Ratio 25.3 LAB CHEMISTRY METHOD 01/27/2024 10:43 AM [facility] Calcium 10.0 8.5 - 10.5 mg/dL LAB CHEMISTRY METHOD 01/27/2024 10:43 AM [facility] AST (SGOT) 17 10 - 42 unit/L LAB CHEMISTRY METHOD 01/27/2024 10:43 AM [facility] ALT (SGPT) 22 10 - 60 unit/L LAB CHEMISTRY METHOD 01/27/2024 10:43 AM [facility] Alkaline Phosphatase 108 42 - 121 unit/L LAB CHEMISTRY METHOD 01/27/2024 10:43 AM [facility] Total Protein 7.6 6.0 - 8.0 g/dL LAB CHEMISTRY METHOD 01/27/2024 10:43 AM [facility] Albumin 3.3 3.2 - 5.0 g/dL LAB CHEMISTRY METHOD 01/27/2024 10:43 AM [facility] Total Bilirubin 0.5 0.0 - 1.4 mg/dL LAB CHEMISTRY METHOD 01/27/2024 10:43 AM [facility] Blood Venous blood specimen / Unknown Venipuncture / Unknown 01/27/2024 9:26 AM EST 01/27/2024 9:45 AM EST us Jenn Uribe DO LAB BLOOD ORDERABLES Daniela jluis Result [facility] [address] [place] [address], * (ABNORMAL) Complete blood count (01/21/2024 5:50 AM EST) Only the most recent of3 resultswithin the time period is included. WBC 7.8 4.8 - 10.8 K/mcL LAB HEMETOLOGY METHOD 01/21/2024 7:19 AM [facility] RBC 4.60 3.80 - 4.80 M/mcL LAB HEMETOLOGY METHOD 01/21/2024 7:19 AM [facility] Hemoglobin 12.4 11.5 - 16.0 g/dL LAB HEMETOLOGY METHOD 01/21/2024 7:19 AM [facility] Hematocrit 40.2 35.0 - 47.0 % LAB HEMETOLOGY METHOD 01/21/2024 7:19 AM [facility] MCV 87.6 79.0 - 98.0 FL LAB HEMETOLOGY METHOD 01/21/2024 7:19 AM [facility] MCH 27.0 27.0 - 32.0 pcg LAB HEMETOLOGY METHOD 01/21/2024 7:19 AM [facility] MCHC 30.8(L) 32.0 - 37.0 g/dL LAB HEMETOLOGY METHOD 01/21/2024 7:19 AM [facility] RDW 14.2 11.0 - 15.0 % LAB HEMETOLOGY METHOD 01/21/2024 7:19 AM [facility] Platelets 214 130 - 400 K/mcL LAB HEMETOLOGY METHOD 01/21/2024 7:19 AM [facility] MPV 11.2(H) 7.0 - 11.0 FL LAB HEMETOLOGY METHOD 01/21/2024 7:19 AM EST [facility] NRBC 0.0 <1.0 % LAB HEMETOLOGY METHOD 01/21/2024 7:19 AM EST [facility] NRBC Absolute 0.00 <0.10 K/mcL LAB HEMETOLOGY METHOD 01/21/2024 7:19 AM EST [facility] Blood Venous blood specimen / Unknown Venipuncture / Unknown 01/21/2024 5:50 AM EST 01/21/2024 7:04 AM EST us Sulma CARROLL LAB BLOOD ORDERABLES Final R esult [facility] [address] [place] [address], [place] [phone] * (ABNORMAL) Respiratory virus panel molecular study (01/20/2024 12:15 PM EST) Adenovirus Detection by PCR Not Detected Not Detected LAB MICROBIOLOGY METHOD 01/20/2024 2:27 PM [facility] Influenza A PCR Not Detected Not Detected LAB MICROBIOLOGY METHOD 01/20/2024 2:27 PM [facility] Influenza B PCR Not Detected Not Detected LAB MICROBIOLOGY METHOD 01/20/2024 2:27 PM [facility] Coronavirus 229E Not Detected Not Detected LAB MICROBIOLOGY METHOD 01/20/2024 2:27 PM [facility] Coronavirus HKU1 Not Detected Not Detected LAB MICROBIOLOGY METHOD 01/20/2024 2:27 PM [facility] Coronavirus OC43 Not Detected Not Detected LAB MICROBIOLOGY METHOD 01/20/2024 2:27 PM [facility] Coronavirus NL63 Not Detected Not Detected LAB MICROBIOLOGY METHOD 01/20/2024 2:27 PM EST [facility] Parainfluenza Virus 1 Not Detected Not Detected LAB MICROBIOLOGY METHOD 01/20/2024 2:27 PM [facility] Parainfluenza Virus 2 Not Detected Not Detected LAB MICROBIOLOGY METHOD 01/20/2024 2:27 PM [facility] Parainfluenza Virus 3 Not Detected Not Detected LAB MICROBIOLOGY METHOD 01/20/2024 2:27 PM [facility] Parainfluenza Virus 4 Not Detected Not Detected LAB MICROBIOLOGY METHOD 01/20/2024 2:27 PM [facility] RSV PCR Not Detected Not Detected LAB MICROBIOLOGY METHOD 01/20/2024 2:27 PM [facility] Human Metapneumovirus A and B Not Detected Not Detected LAB MICROBIOLOGY METHOD 01/20/2024 2:27 PM [facility] Rhinovirus/Entero virus Not Detected Not Detected LAB MICROBIOLOGY METHOD 01/20/2024 2:27 PM [facility] Bordetella pertussis Not Detected Not Detected LAB MICROBIOLOGY METHOD 01/20/2024 2:27 PM [facility] Bordetella parapertussis Not Detected Not Detected LAB MICROBIOLOGY METHOD 01/20/2024 2:27 PM [facility] Mycoplasma pneumo by PCR Not Detected Not Detected LAB MICROBIOLOGY METHOD 01/20/2024 2:27 PM [facility] Chlamydia pneumoniae Not Detected Not Detected LAB MICROBIOLOGY METHOD 01/20/2024 2:27 PM [facility] SARS COV-2 Detected(A ) Not Detected LAB MICROBIOLOGY METHOD 01/20/2024 2:27 PM [facility] Swab Both anterior nares / Unknown Non-blood Collection / Unknown 01/20/2024 12:15 PM EST 01/20/2024 12:25 PM [facility] - 01/20/2024 2:27 PM EST Testing was performed using the [employer] Respiratory Pathogen PCR Assay. All results must [...] O RDERABLES Final Result Performing Organization Address [facility]/ZIP Co de Phone Number [facility] [address] [place] [address], [place] [phone] * SST tube (01/20/2024 5:41 AM EST) Only the most recent of2 resultswithin the time period is included. Pathologist [facility] Extra Tube Hold for add-ons. 01/20/2024 8:01 AM EST [facility] Comment:Auto resulted. Blood Venous blood specimen / Unknown Venipuncture / Unknown 01/20/2024 5:41 AM EST 01/20/2024 6:17 AM EST Jenn Uribe DO LAB BLOOD ORDERABLES Daniela l Result Performing Organization Address [facility] Co de Phone Number [facility] [address] [place] [address], * ECG 12 lead (01/20/2024 5:14 AM EST) Only the most recent of3 resultswithin the time period is included. Ventricular Rate ECG 116 BPM GEMUSE Atrial Rate 116 BPM GEMUSE P-R Interval 138 ms GEMUSE QRS Duration 122 ms GEMUSE Q-T Interval 354 ms GEMUSE QTc 492 ms GEMUSE P Wave [place] 46 degrees GEMUSE R [place] -21 degrees GEMUSE T [place] 119 degrees GEMUSE ECG Interpretation Sinus tachycardia Left bundle branch block Abnormal ECG When compared with ECG of 19-JAN-2024 12:59, (unconfirmed) No significant change was found Confirmed by Ashu WEBBER JAMES ([id number]) on 01/20/2024 2:30:56 PM GEMUSE 01/20/2024 5:14 AM EST 01/20/2024 2:30 PM EST Eda CARROLL ECG ORDERABLES Final Result Performing Organization Address City/[facility]/ZIP Co de Phone Number [facility] * Troponin I high sensitivity (01/17/2024 12:06 PM EST) [facility] High Sensitivity Troponin I 9 <=54 ng/L LAB CHEMISTRY METHOD 01/17/2024 12:56 PM EST [facility] Blood Venous blood specimen / Unknown Venipuncture / Unknown 01/17/2024 12:06 PM EST 01/17/2024 12:22 PM EST Narrative [facility] - 01/17/2024 12:56 PM EST High levels of biotin in samples may falsely decrease hsTroponin values. ??Use caution when interpreting hsTroponin results in patients taking biotin who exhibit renal impairment (eGFR <60) or in patients taking more than 20 mg/day of biotin. Noreen Correa NP LAB BLOOD ORDERABLES Final Result Performing Organization Address [facility] Co de Phone Number [facility] [address] [place] [address], [place] [phone] * Thyroid stimulating hormone with reflex to free t4 and free t3 (01/17/2024 10:22 AM EST) [facility] TSH 3.31 0.40 - 4.00 mcIU/mL LAB CHEMISTRY METHOD 01/17/2024 11:42 AM EST [facility] Blood Venous blood specimen / Unknown Venipuncture / Unknown 01/17/2024 10:22 AM EST 01/17/2024 10:51 AM EST Noreen Correa NP LAB BLOOD ORDERABLES Final Result Performing Organization Address City/[facility]/ZIP Co de Phone Number [facility] [address] [place] [address], [place] [phone] * ECG-Annotated (01/15/2024) Only the most recent [...] classified as having normal bone density. The [facility] Department of Internal Medicine recommends using National [...] beclassified as having normal bone density. The [facility] Department of Internal Medicine recommendsusing National Osteoporosis [...] Most Recently Relevant to Health Maintenance [facility] [address] [place] [id number] MEDICAID - [place] [employer] MEDICARE Advance Directives Documents on File Type Date Recorded Patient Chart Clerk Expl anation Advance Directives and Living Will [...] currently active code status orders. Care Teams Entry Level Management Relationship Specialty Start Date End Date Kina Blackburn MD [address] [place] [address] [address] [facility] [place] [address] PCP - General Internal Medicine 08/06/17
--- OUTSIDE RECORDS SUMMARY | 2024-04-15 15:17 | XMS_ITS ---
Author Name PATRICK MARMOLEJO, RN, VIOLET, ZAIN Address [address] [place] [address] Phone [phone] [facility] Care Team Providers Care Helmet Hat Brim Cutter Name Role Phone ZAIN NGUYEN Unavailable [phone] Unavailable Unavailable Unavailable Unavailable Unavailable [phone] Reason for Referral Not Available Allergies, adverse [...] 1111F, BP, A1c or other CPTII codes [facility] 02/03/2024 Encounter for other specifie d aftercare RN, CN or CP time with patient by phone; use with 1111F, BP, A1c or other CPTII codes [facility] 02/03/2024 Social History Sex Female History of Procedures Procedures Service Procedure code Service date Servicing provider Phone# RN, CN or CP time with patient by phone; use with 1111F, BP, A1c or other CPTII codes 845[address] 2024-02-03 No Data Available No Data Avai [...]
--- OUTSIDE RECORDS SUMMARY | 2024-04-15 15:17 | XMS_ITS | Encounter Summary ---
Author Organization [facility] Address [address] [place] [address] Care Team Providers Care Rigging Supervisor Name Role Phone Shabnam Frias DO Primary Care Pro vider Unavailable Kina Blackburn MD Primary Care Provider Unavailabl e Encounter Details Date Type Department Care Team Description 09/09/2016 [facility] Medical Records [address] [place] [address] Social History Tobacco Use Types Packs/Day Years [...] on filedocumented in this encounter Care Teams Rigging Supervisor Relationship Specialty Start Date End Date Shabnam Frias DO PCP - General Internal Medicine 08/30/14 08/05/17 Kina Blackburn MD PCP - General Internal Medicine 08/06/17 documented as of this encounter
--- OUTSIDE RECORDS SUMMARY | 2024-04-15 15:17 | XMS_ITS | Encounter Summary ---
Author Organization [facility] Address [address] [place] [address] Care Team Providers Care Lens Fabricating Machine Tender Name Role Phone Shabnam Frias DO Primary Care Pro vider Unavailable Kina Blackburn MD Primary Care Provider Unavailabl e Encounter Details Date Type Department Care Team Description 08/27/2016 [facility] Medical Records [address] [place] [id number] Abstract, Provider Social History Tobacco Use Types [...] on filedocumented in this encounter Care Teams Lens Fabricating Machine Tender Relationship Specialty Start Date End Date Shabnam Frias DO PCP - General Internal Medicine 08/30/14 08/05/17 Kina Blackburn MD PCP - General Internal Medicine 08/06/17 documented as of this encounter
--- OUTSIDE RECORDS SUMMARY | 2024-04-15 15:17 | XMS_ITS | Encounter Summary ---
Author Organization [facility] Address [address] [place] [address] Care Team Providers Care Last Waxer Name Role Phone Shabnam Frias DO Primary Care Pro vider Unavailable Kina Blackburn MD Primary Care Provider Unavailabl e Reason for Referral * EXTERNAL (Routine) - FRANCESCA Not Received/Patient Declined Specialty Diagnoses / Procedures Referred By Osiris osman Referred To Contact Neurology Procedures REFERRAL TO NEUROLOGY Shabnam Frias DO [address] [place] [address] Camelia Loepz MD [facility] [address] [place] [address] Referral ID Status Reason Start Date Expiration Date V isits Requested Visits Authorized SEE NOTE FRANCESCA Not Received/Suzanna ent Declined 08/28/2016 12/02/2016 1 1 Encounter Details Date Type Department Care Team Description 08/28/2016 Orders Only Adult Medicine [address] [address] Shabnam Frias DO Social History Tobacco Use [...] on filedocumented in this encounter Care Teams Last Waxer Relationship Specialty Start Date End Date Shabnam Frias DO PCP - General Internal Medicine 08/30/14 08/05/17 Kina Blackburn MD PCP - General Internal Medicine 08/06/17 documented as of this encounter
--- OUTSIDE RECORDS SUMMARY | 2024-04-15 15:17 | XMS_ITS | Encounter Summary ---
Author Organization [facility] Address [address] [place] [address] Care Team Providers Care Supervisor Loading Name Role Phone Shabnam Frias DO Primary Care Pro vider Unavailable PoKina MD Primary Care Provider Unavailabl e Reason for Visit * Reason Onset Date Comments refill request 10/03/2016 Encounter Details Date Type Department Care Team Description 10/03/2016 Telephone Adult Medicine [address] [address] Shabnam Frias DO refill request Social History Tobacco Use Types Packs/Day Years Used Date Smoking Tobacco: Former Cigarettes 2 34 Smokeless Tobacco: Never Comments:quit 2006 Alcohol Use Standard Drinks/Week Comments No 0 (1 standard drink = 0.6 oz pur e alcohol) Sex Assigned at Date Recorded Not on file documented as of this encounter Miscellaneous Notes * Telephone Encounter - Shobha Soliz - 10/03/2016 2:36 PM EDT Understood, I explained to the patient. I also took her RMV form and turned it into the form department.She did sign the release for that form. * Telephone Encounter - Shabnam Chowdhury DO - 10/03/2016 2:17 PM EDT Pt is not due for a refill untl 10/12 . I can't write a titrating dose before she was due (9 days myra) * Telephone Encounter - Shobha Soliz - 10/03/2016 2:07 PM EDT Caller requesting call back from provider:Shabnam Schroeder Is the caller the patient? YES If caller is not the patient, what is the callers name? N/A Callers relationship to patient? N/A If person calling is not the patient themselves, is there a verbal release in FYI or permanent comments for this person: NO Reason for call back: Benito Carrillo,this patient is in my office writing her appeal letter . Will you consider a tapering dosage for her today, so she wont suffer to much withdrawal. Please let tobi.thank you. Caller offered to speak with the nurse for assistance: YES Response: Shabnam Schroeder documented in this encounter Plan of Treatment Not on file documented as of this encounter Visit Diagnoses Not on filedocumented in this encounter Care Teams Supervisor Loading Relationship Specialty Start Date End Date Shabnam Frias DO PCP - General Internal Medicine 08/30/14 08/05/17 Kina Blackburn MD PCP - General Internal Medicine 08/06/17 documented as of this encounter
--- OUTSIDE RECORDS SUMMARY | 2024-04-15 15:17 | XMS_ITS | Encounter Summary ---
Author Organization [facility] Address [address] [place] [address] Care Team Providers Care Gemologist Name Role Phone Shabnam Frias DO Primary Care Pro vider Unavailable Kina Blackburn MD Primary Care Provider Unavailabl e Encounter Details Date Type Department Care Team Description 02/21/2015 Wellness Visit Medical Records [address] [place] [id number] Shabnam Frias DO Social History Tobacco Use [...] on filedocumented in this encounter Care Teams Gemologist Relationship Specialty Start Date End Date Shabnam Frias DO PCP - General Internal Medicine 08/30/14 08/05/17 Kina Blackburn MD PCP - General Internal Medicine 08/06/17 documented as of this encounter
--- OUTSIDE RECORDS SUMMARY | 2024-04-15 15:17 | XMS_ITS | Encounter Summary ---
Author Organization [facility] Address [address] [place] [address] Care Team Providers Care Sales And Catering Coordinator Name Role Phone Shabnam Frias DO Primary Care Pro vider Unavailable Kina Blackburn MD Primary Care Provider Unavailabl e Encounter Details Date Type Department Care Team Description 03/02/2015 Controlled Substance Plan Medical Records [address] [place] [phone] Abstract, Provider Social History Tobacco Use Types [...] on filedocumented in this encounter Care Teams Sales And Catering Coordinator Relationship Specialty Start Date End Date Shabnam Frias DO PCP - General Internal Medicine 08/30/14 08/05/17 Kina Blackburn MD PCP - General Internal Medicine 08/06/17 documented as of this encounter
--- OUTSIDE RECORDS SUMMARY | 2024-04-15 15:17 | XMS_ITS | Encounter Summary ---
Author Organization [facility] Address [address] [place] [address] Care Team Providers Care Ambulance Driver Name Role Phone Shabnam Frias DO Primary Care Pro vider Unavailable Kina Blackburn MD Primary Care Provider Unavailabl e Encounter Details Date Type Department Care Team Description 07/25/2016 Refill Adult Medicine [address] [address] Shabnam Frias DO Social History Tobacco Use [...] on filedocumented in this encounter Care Teams Ambulance Driver Relationship Specialty Start Date End Date Shabnam Frias DO PCP - General Internal Medicine 08/30/14 08/05/17 Kina Blcakburn MD PCP - General Internal Medicine 08/06/17 documented as of this encounter
--- OUTSIDE RECORDS SUMMARY | 2024-04-15 15:17 | XMS_ITS | Encounter Summary ---
Author Organization [facility] Address [address] [place] [address] Care Team Providers Care Coupon And Bond Collection Clerk Name Role Phone Shabnam Frias DO Primary Care Pro vider Unavailable Kina Blackburn MD Primary Care Provider Unavailabl e Encounter Details Date Type Department Care Team Description 06/03/2016 [facility] Medical Records [address] [place] [address] Abstract, Provider Social History Tobacco Use Types [...] on filedocumented in this encounter Care Teams Coupon And Bond Collection Clerk Relationship Specialty Start Date End Date Shabnam Frias DO PCP - General Internal Medicine 08/30/14 08/05/17 Kina Blackburn MD PCP - General Internal Medicine 08/06/17 documented as of this encounter
--- OUTSIDE RECORDS SUMMARY | 2024-04-15 15:17 | XMS_ITS | Encounter Summary ---
Author Organization [facility] Address [address] [place] [address] Care Team Providers Care Supervisor Leaf Spring Repair Name Role Phone Shabnam Frias DO Primary Care Pro vider Unavailable Kina Blackburn MD Primary Care Provider Unavailabl e Encounter Details Date Type Department Care Team Description 09/08/2011 [facility] Medical Records [address] [place] [address] Abstract, Provider Social History Tobacco Use Types [...] filedocumented in this encounter Care Teams Supervisor Leaf Spring Repair Relationship Specialty Start Date End Date Shabnam Frias DO PCP - General Internal Medicine 08/30/14 08/05/17 Kina Blackburn MD PCP - General Internal Medicine 08/06/17 documented as of this encounter
--- OUTSIDE RECORDS SUMMARY | 2024-04-15 15:17 | XMS_ITS | Encounter Summary ---
Author Organization [facility] Address [address] [place] [address] Care Team Providers Care Bright Cutter Name Role Phone Shabnam Frias DO Primary Care Pro vider Unavailable Kina Blackburn MD Primary Care Provider Unavailabl e Encounter Details Date Type Department Care Team Description 11/01/2015 [facility] Medical Records [address] [place] [id number] Abstract, Provider Social History Tobacco Use Types [...] on filedocumented in this encounter Care Teams Bright Cutter Relationship Specialty Start Date End Date Shabnam Frias DO PCP - General Internal Medicine 08/30/14 08/05/17 Kina Blackburn MD PCP - General Internal Medicine 08/06/17 documented as of this encounter
--- OUTSIDE RECORDS SUMMARY | 2024-04-15 15:17 | XMS_ITS | Encounter Summary ---
Author Organization [facility] Address [address] [place] [address] Care Team Providers Care Pocket Setter Name Role Phone Shabnam Frias DO Primary Care Pro vider Unavailable Kina Blackburn MD Primary Care Provider Unavailabl e Encounter Details Date Type Department Care Team Description 09/05/2016 [facility] Medical Records [address] [place] [address] Fer Lomeli MD Social History Tobacco Use [...] on filedocumented in this encounter Care Teams Pocket Setter Relationship Specialty Start Date End Date Shabnam Frias DO PCP - General Internal Medicine 08/30/14 08/05/17 Kina Blackburn MD PCP - General Internal Medicine 08/06/17 documented as of this encounter
--- OUTSIDE RECORDS SUMMARY | 2024-04-15 15:17 | XMS_ITS | Encounter Summary ---
Author Organization [facility] Address [address] [place] [address] Care Team Providers Care Mill House Supervisor Name Role Phone Shabnam Frias DO Primary Care Pro vider Unavailable Kina Blackburn MD Primary Care Provider Unavailabl e Encounter Details Date Type Department Care Team Description 05/23/2015 Refill Adult Medicine [address] [address] Shabnam Frias DO Social History Tobacco Use [...] on filedocumented in this encounter Care Teams Mill House Supervisor Relationship Specialty Start Date End Date Shabnam Frias DO PCP - General Internal Medicine 08/30/14 08/05/17 Kina Blackburn MD PCP - General Internal Medicine 08/06/17 documented as of this encounter
--- OUTSIDE RECORDS SUMMARY | 2024-04-15 15:17 | XMS_ITS | Encounter Summary ---
Author Organization [facility] Address [address] [place] [address] Care Team Providers Care Technical Inspector Name Role Phone Shabnam Frias DO Primary Care Pro vider Unavailable Kina Blackburn MD Primary Care Provider Unavailabl e Encounter Details Date Type Department Care Team Description 11/10/2014 Orders Only Adult Medicine [address] [address] Shabnam Frias DO Social History Tobacco Use [...] on filedocumented in this encounter Care Teams Technical Inspector Relationship Specialty Start Date End Date Shabnam Frias DO PCP - General Internal Medicine 08/30/14 08/05/17 Kina Blackburn MD PCP - General Internal Medicine 08/06/17 documented as of this encounter
--- OUTSIDE RECORDS SUMMARY | 2024-04-15 15:17 | XMS_ITS | Encounter Summary ---
Author Organization [facility] Address [address] [place] [address] Care Team Providers Care Pockets And Pieces Necktie Operator Name Role Phone Shabnam Frias DO Primary Care Pro vider Unavailable Kina Blackburn MD Primary Care Provider Unavailabl e Encounter Details Date Type Department Care Team Description 10/07/2016 [facility] Medical Records [address] [place] [address] Abstract, Provider Social History Tobacco Use Types [...] on filedocumented in this encounter Care Teams Pockets And Pieces Necktie Operator Relationship Specialty Start Date End Date Shabnam Frias DO PCP - General Internal Medicine 08/30/14 08/05/17 Kina Blackburn MD PCP - General Internal Medicine 08/06/17 documented as of this encounter
== END 2024-04-15 15:14 | disposition home or self-care (01) ==
LOC: HO.US 15:13
PROVIDERS: Absent Provider Internal Medicine; PCP Internal Medicine
DX: M79.605 Pain in left leg (principal); M79.89 Other specified soft tissue disorders; M25.552 Pain in left hip; M25.562 Pain in left knee; M25.531 Pain in right wrist; E78.00 Pure hypercholesterolemia, unspecified; E11.65 Type 2 diabetes mellitus with hyperglycemia; E66.9 Obesity, unspecified; I10 Essential (primary) hypertension; Z79.4 Long term (current) use of insulin
CPT/HCPCS: 73110; 73130; 73502; 73560; 93971; 96127; 99212

== ENCOUNTER → 2024-04-15 15:24 | Outpatient (BNV) | payer OTHER, SELFPAY | PROVIDERS: Absent Provider Internal Medicine; PCP Internal Medicine; Visit Provider Radiology Diagnostic Radiology | DX: M11.241 Other chondrocalcinosis, right hand (principal); M11.259 Other chondrocalcinosis, unspecified hip; M79.605 Pain in left leg; M25.562 Pain in left knee | CPT/HCPCS: 73110; 73130; 73502; 73560; 93971 ==

== ENCOUNTER 2024-12-19 14:59 | Outpatient (AMB) | payer OTHER, SELFPAY ==
--- OUTSIDE RECORDS SUMMARY | 2013-08-03 18:19 | XMS_ITS | Continuity of Care Document ---
Author Organization [facility] Address [address] [place] [address] Phone Care Team Providers Care Supervisor Advice Name Role Phone Provider, Conversion Unavailable Unavailable Allergies, Adverse Reactions, Alerts Substance Reaction Status Criticality No Known Drug Allergies Active No I nformation No Known Allergies Active No Inform ation Medications Medication Instructions Dosage Effective Dates (start - stop) Status Comments temazepam 15 mg capsule 1 (one) Capsule at bedtime as needed for insomnia - Active Caltrate 600 + D 600 mg (1,500 mg)-800 unit chewable tablet 2 MG-UNIT daily - Active diclofenac 0.1 % eye drops 1 gtt into left eye % four times daily - Active Januvia 100 mg tablet 1 MG daily - Act celsa Lantus 100 unit/mL subcutaneous solution 50 units UNIT/ML - Active lisinopril 20 mg tablet 1 MG hs - Active Lovaza 1 gram capsule 4 GM 2 @ am and 2 @ pm - Active Lyrica 75 mg capsule 1 MG three times daily - Active metformin 500 mg tablet 2 MG hs - Active nabumetone 750 mg tablet 2 MG daily - Active oxycodone 15 mg tablet MG four times joaquin ly, as needed - Active simvastatin 80 mg tablet 1 MG hs - Active valacyclovir 1 g tablet 1/2 GM hs - Active zolpidem 10 mg tablet 1 MG prn - Acti ve Peg Chewable Low Dose Aspirin 81 mg tablet 1 MG daily - Active Lidoderm 5 % (700 mg/patch) adhesive patch % - Active prednisolone sodium phosphate 1 % eye drops 1 gtt left eye % four times daily for 2 weeks - Active Stool Softener 100 mg capsule 1 MG am - Active Plavix 75 mg tablet 1 Tablet qday - Ac tive ropinirole 0.25 mg tablet 1 MG tid prn - Active gabapentin 300 mg capsule 3 MG daily - Active Advance Directives Directive Yes / No Effective Date File Name No Information Encounters Encounter Description Practice Location Reason(s) For Visit Diagnoses Date Provider Providers Copied on Encounter [address] , [place], [id number], [place] tel:[phone] [facility] No Information 4 Provider Conversion. . [address] Sonal [place], [id number], [place] tel: [phone] [facility] No Information 3 Joey Stover. [address] [place] [address], [address], [place]. tel:[phone] , [place], [id number], [place] tel: [phone] [facility] No Information 3 Provider Conversion. . [address] Carmen Benitez [place], [id number], [place] tel:[phone] [facility] No Information 3 Unidentified Provider. [address] [place] [address], [address], [place]. [address] [place], [id number], [place] tel:[phone] [facility] No Information 2 Unidentified Provider. [address] [place] [address], [address], [place]. [address] [place], [id number], [place] tel:[phone] [facility] No Information 2 Unidentified Provider. [address] [place] [address], [address], [place]. [address] [place], [id number], [place] tel:[phone] [facility] No Information 1 Unidentified Provider. [address] [place] [address], [address], . Family History Family Member Type Diagnosis Age At Onset No Information Payers Payer name Insurance type Covered alliance party ID Authoriza tion(s) No Information Social History Type Description Quantity Date Captured Comments Sex Female Smoking Status No Information Chief Complaint And Reason For Visit No Information Reason For Referral Reason For Referral No Information Plan Of Treatment Date Type Action Status Goal Influenza vaccine. Due on due Goal Hemoglobin A1C. Due on due Goal Lipid panel. Due on 014 due Goal Dental exam. Due on 014 due Goal Dilated eye exam. Due on Jul due Goal Foot exam. Due on 4 due Goal Depression screening. Due on due Goal GFR. Due on due Goal Pneumococcal vaccine. Due on due Goal Urine microalbumin. Due on due History Of Present Illness Encounter Date Complaint History Of Prese nt Illness No Information Functional Status Date Functional Assessmen t No Information Instructions Date Instruction Additional Infor mation No Information Assessments Type Assessment Date No Information Patient Care Teams Name Effective Dates (start - stop) Status Members No Information
--- NOTE | 2024-12-19 15:13 | MHC.PC.OV ---
Vital Signs 12/19/24 15:15 Height 5 ft 5 in Weight 181 lb 6 oz BMI 30.2 BP 150/90 H Blood Pressure Location Lt brachial Position Sitting Pulse 95 Pulse Source Pulse Oximeter Temp 97.1 F Temp Source Temporal Artery Scan Pulse Oximetry (%) 95 Oxygen Delivery Method Room Air Intake Visit Reasons: insomnia, reshedule - see comments Allergies No Known Allergies (No Known Allergies*) Allergy (Verified 12/19/24 15:18) Medication List - Last Reconciled 12/19/24 by Kina Blackburn MD atorvastatin 40 mg PO DAILY bisacodyl (Dulcolax (bisacodyl)) 10 mg (2 x 5 mg) PO ONCE 1 day blood sugar diagnostic (Innovectra Ultra Test strips) TEST BLOOD SUGAR THREE TIMES A DAY FOR DIABETES MELLITUS blood sugar diagnostic (Accu-Chek Guide test strips) As directed check TID blood-glucose meter (Accu-Chek Guide Glucose Meter) As directed check BS TID buspirone 1 tab PO BID clonazepam 1 mg PO BEDTIME PRN clopidogrel 75 mg PO DAILY colchicine 0.6 mg PO DAILY 10 days cyanocobalamin (vitamin B-12) 1,000 mcg PO DAILY docusate sodium 200 mg (2 x 100 mg) PO DAILY PRN 90 days dulaglutide 1.5 mg (0.5 mL) subcut QWEEK 1 month duloxetine 1 cap PO DAILY duloxetine 1 cap PO BEDTIME fluticasone propionate 50 mcg/actuation (Flonase Allergy Relief) 2 sprays intranasal DAILY PRN 30 days [GRAB bar As directed] insulin glargine (Lantus Solostar U-100 Insulin) 60 units (0.6 mL) subcut BEDTIME lancets (Accu-Chek Softclix Lancets) As directed check blood sugars 3 times a day lisinopril 40 mg PO DAILY magnesium oxide 400 mg PO DAILY metformin 1,000 mg PO BIDWM methocarbamol 500 mg PO BEDTIME pen needle, diabetic As directed inject 60 units of Lantus q.p.m. polyethylene glycol 3350 (Miralax) 238 grams PO ONCE 1 day pregabalin 50 mg PO BID PRN 90 days pregabalin (Lyrica) 200 mg PO BID 30 days ropinirole 0.5 mg PO BEDTIME zolpidem (Ambien) 5 mg PO BEDTIME Tobacco use date assessed: 12/19/24 Fall risk assessment: No Falls in past year Last assessed Fall Risk: 12/19/24 Dental Screening Dental Screen Date: 12/19/24 Did you have a dental visit in the last 12 months?: No Did you have a dental problem in the last 6 months where you did not have access to dental care?: No Was dental information given to patient?: No HPI insomnia, reshedule - see comments HPI Details colon test done 09/2024 REPLACED BY [facility] Medical History (Updated 12/19/24 @ 15:47 by Kina Blackburn MD) Colon cancer screening Right arm pain Routine gynecological examination Fall Multifactorial gait disorder Peripheral neuropathy Full dentures Multifactorial gait disorder Lower back pain Candidal intertrigo Restrictive lung disease Carotid stenosis GERD (gastroesophageal reflux disease) Personal history of malignant neoplasm of cervix uteri Diabetic nephropathy Restless leg syndrome Obesity (BMI 30-39.9) 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) Osteopenia History of CVA (cerebrovascular accident) Anxiety and depression Hypertension Type 2 diabetes mellitus with hyperglycemia Surgical History History of carotid endarterectomy History of partial hysterectomy History of colonoscopy with polypectomy History of bilateral cataract extraction History of carpal tunnel surgery History of lumbar fusion History of loop electrical excision procedure (LEEP) History of neck surgery Family History Father Heart attack Mother Cancer Dementia Breast cancer Hemorrhage Social History Household Members Other:: Daughter Housing: Other Housing Other:: Mobile Home Are you a primary health care analyst to a significant other at home: No Do you presently have visiting nurse or other home services: Yes (daughter is ASSOCIATE PASTOR) Alcohol intake: never Comment: unsteady gait Patient Tobacco Use Status: Former Tobacco user Tobacco use type: Cigarette Years Smoked: 1989 e-Cigarette/Vaping Use: Never Used Second Hand Smoke Exposure: Yes Advance Directives Date on File: 06/19/21 service: No Current occupational status: disabled Cognitive needs: Yes (walker/cane) Hearing needs: No Vision needs: Yes (glasses) Questionnaire PHQ-9 Over the last 2 weeks, how often have you been bothered by any of the following problems? 1. Little interest or pleasure in doing things: not at all 2. Feeling down, depressed, or hopeless: not at all 3. Trouble falling or staying asleep, or sleeping too much: not at all 4. Feeling tired or having little energy: not at all 5. Poor appetite or overeating: not at all 6. Feeling bad about yourself - or that you are a failure or have let yourself or your family down: not at all 7. Trouble concentrating on things, such as reading the newspaper or watching television: not at all 8. Moving or speaking so slowly that other people could have noticed. Or the opposite - being so fidgety or restless that you have been moving around a lot more than usual: not at all 9. Thoughts that you would be better off or of hurting yourself in some way: not at all Total score: 0 Depression Screening Interpretation: Negative Depression Screening Done: Yes Source: Developed by Drs. Luther Huddleston, Summer Guadalupe, Thomas Melissa and colleagues, with an educational jen from [employer]. Thrive Questionnaire Date Thrive assessed: 12/19/24 I am a: Patient What is your living situation today?: I have a steady place to live Within the past 12 months, did the food you bought not last and you didn't have the money to get more?: Often true Within the past 12 months, did you worry whether your food would run out before you got money to buy more?: Often true Do you have trouble paying for medicines?: No Do you have trouble getting transportation to medical appointments?: No Do you have trouble paying your heating and electricity bill?: I choose not to answer this question Do you have trouble taking care of your child, family member or friend?: No Do you have trouble with day-to-day activities such as bathing, preparing meals, shopping, managing finances, etc.?: I choose not to answer this question Are you currently unemployed and looking for a job?: No Are you interested in more education?: No Please select the resources that you would like help with: None Currently or been in a relationship where the following occur: I choose not to answer THRIVE Score: 2 AUDIT C Alcohol Use Questionnaire (AUDIT-C) 1. How often do you have a drink containing alcohol?: Never 3. How often do you have six or more drinks on one occasion?: Never Total Score: 0 CHERYL-7 AMB Questionnaire CHERYL-7 Date CHERYL - 7 assessed: 04/15/24 Feeling nervous, anxious, or on edge: 0 = Not at all Not being able to stop or control worryin = Not at all Worrying too much about different things: 0 = Not at all Trouble relaxin = Not at all Being so restless that it is hard to sit still: 0 = Not at all Becoming easily annoyed or irritable: 0 = Not at all Feeling afraid as if something awful might happen: 0 = Not at all Total CHERYL-7 score (0-4 normal; 5-9 mild; 10-14 moderate; 15-21 severe): 0 Source: Developed by Drs. Luther Huddleston, Summer Guadalupe, Thomas Melissa and colleagues, with an educational jen from [employer]. Physical exam (Primary Care) Vital Signs: Last Vital Signs Temp 97.1 F 12/19/24 15:15 Pulse 95 12/19/24 15:15 BP 150/90 H 12/19/24 15:15 Pulse Ox 95 12/19/24 15:15 Oxygen Delivery Method Room Air 12/19/24 15:15 BMI result Body Mass Index 30.2 Tobacco/Smoking Status: Tobacco use Status Tobacco use date assessed 12/19/24 12/19/24 15:21 Patient Tobacco Use Status Former Tobacco user 12/19/24 15:14 Tobacco use type Cigarette 12/19/24 15:14 e-Cigarette/Vaping Use Never Used 12/19/24 15:14 PHQ-9: PHQ-9 Score PHQ-9: Total score 0 12/19/24 15:47 Depression Screening Interpretation: Negative Thrive Assessment: Date of Thrive Assessment Date Thrive assessed 12/19/24 12/19/24 15:21 Currently or been in a relationship where the following occur: I choose not to answer Const General: alert; No acute distress Eyes Conjunctivae: conjunctivae normal Resp Auscultation: clear to auscultation bilaterally Cardio Rate: regular rate Rhythm: regular rhythm GI Inspection: Yes normal to inspection Extrem General: Yes normal to inspection and No edema Office Procedures Flu Questionnaire Does the patient have a severe egg allergy?: No Does the patient have severe life threatening allergies?: No Does the patient have a fever or illness today?: No Has the patient ever had Guillain-Covina Syndrome?: No Has the patient ever had any past reaction to a flu shot?: No Results AMB Hemoglobin A1c AMB Hemoglobin A1c 8.6 % Last Edit by Ninfa Zurita CMA on 12/19/24 15:25 Immunizations Fluarix [id number] (PF) 45 mcg (15 mcg x 3)/0.5 mL IM syringe Performing Provider: Kina Blackburn MD [facility] Administered by: Ninfa Zurita CMA on 12/19/24 15:26 Dose Route Admin Location Dispensed Lot Number Expiration Date [facility] [place] Supervisor Felling Bucking 0.5 mL IM Left Deltoid 0.5 mL [id number] 08/22/25 [id number] [employer] VIS Given Date VIS Provided VIS Publication Date 12/19/24 Single Vaccine 24 Eligibility Eligibility Date Funding Source Not [facility] Eligible 12/19/24 Private Results Reviewed Results Reviewed: Laboratory Last Values Hgb A1c (Clinic) 8.6 % (4.0-6.0) H 12/19/24 15:21 Coding Level of Care Code Est Pt Level 4 (92040) Complex EM visit Add On G2211 Diagnoses Type 2 diabetes mellitus with hyperglycemia, with long-term current use of insulin E11.65; Z79.4 Diabetes mellitus intermediate card tender insulin use: with long-term use Essential hypertension I10 Hypertension type: essential hypertension Hypercholesterolemia E78.00 Recurrent depression F33.9 Obesity (BMI 30-39.9) E66.9 Colon cancer screening Z12.11 Assessment & Plan Assessment & Plan (1) Type 2 diabetes mellitus with hyperglycemia: Comment: Eye and lasik Code(s): E11.65 - Type 2 diabetes mellitus with hyperglycemia Category: Medical Qualifiers: Diabetes mellitus long-term insulin use: with intermediate card tender use Qualified Code(s): E11.65 - Type 2 diabetes mellitus with hyperglycemia; Z79.4 - prison (current) use of insulin Plan: Decrease the amount of carbohydrate intake, pasta, bread, rice and potatoes are all sugar and that is aside from all the sweet stuff, remember that fruits are good but they are Sweet also. Hemoglobin A1c goal of less than 7.0. Patient is on Trulicity 1.5 mg once a week Lantus at 60 units once a day metformin a 1000 mg twice a day (2) Hypertension: Code(s): I10 - Essential (primary) hypertension Category: Medical Qualifiers: Hypertension type: essential hypertension Qualified Code(s): I10 - Essential (primary) hypertension Plan: Continue with blood pressure medication. Decrease salt intake and exercise on lisinopril 40 mg once a day (3) Hypercholesterolemia: Code(s): E78.00 - Pure hypercholesterolemia, unspecified Category: Medical Plan: Avoid fried foods, chicken skin, eggs, butter margarine, pastries and meat. Be it pork or beef they have a lot of cholesterol takes atorvastatin 40 mg once a day LDL goal of less than 70 and triglyceride of less than 150 blood work requested (4) Recurrent depression: Comment: [place] Code(s): F33.9 - Major depressive disorder, recurrent, unspecified Category: Medical Plan: Continue with counseling and therapy (5) Obesity (BMI 30-39.9): Code(s): E66.9 - Obesity, unspecified Category: Medical Plan: Diet and exercise (6) Colon cancer screening: Comment: Two thousand sixteen Dr. Garay, Patient state 09/2024 done in [facility] Code(s): Z12.11 - Encounter for screening for malignant neoplasm of colon Category: Medical Plan: Patient is reminded about colonoscopy Plan History of Present Illness The patient is a 73-year-old obese female presenting for a follow-up visit for management of multiple chronic conditions. Her medical history includes diabetes mellitus, hypertension, GERD, lumbar degenerative disc disease, hypercholesterolemia, recurrent depression, generalized anxiety disorder, and a history of polysubstance abuse. She has a history of tubular adenoma of the colon, with her last colonoscopy documented in 2015. However, the patient reports having a more recent colonoscopy in September, during which polyps were removed, and she was advised to have a repeat procedure in 3 years. Her current A1c is 8.6, which is above the goal of less than 7.0. She admits to checking her blood sugar incorrectly, often right after eating. Her diabetes regimen includes Trulicity 1.5 mg weekly, Lantus 60 units daily, and metformin 1000 mg twice a day. For hypertension, she takes lisinopril 40 mg daily. For hypercholesterolemia, her regimen is atorvastatin 40 mg daily, with a goal LDL of less than 70; her last LDL in March 2023 was 74. She reports not receiving the full prescribed dose of pregabalin for neuropathy, taking only 200 mg instead of 250 mg. Her last complete blood count in 2023 was normal. Mammogram and bone density scans are up to date. Health Maintenance - Mammogram: Up to date. - Bone density scan: Up to date. - Colonoscopy: Patient reports a recent procedure in September where polyps were removed and a 3-year follow-up was recommended. - Vaccinations: Patient has received her flu shot; she is also up to date on shingles, pneumonia, and tetanus vaccinations. - Counseling: Patient has been advised on diet and exercise and to continue with counseling and therapy. Social History - Substance Use: The patient has a history of polysubstance abuse. - Lifestyle: The patient received counseling on diet and exercise. Review of Systems - General: Reports feeling unwell today. - Cardiovascular: Reports that her blood pressure has been running high. - Neurological: Reports symptoms of neuropathy, for which she takes pregabalin. Physical Exam - Vitals: Blood pressure is elevated in the office. - Endocrine: Ykddc-kn-odnl blood glucose is 8.6. Results - Labs: Last complete blood count (2023) was normal. - Potlw-bt-gnoa blood glucose: 8.6. - AIC: 8.7. - Lipid Panel (March 2023): LDL was 74. - Procedures: Patient reports a recent colonoscopy in September which showed polyps that were removed. Plan Patient was informed and verbally consented to the use of an ambient scribe for clinic note documentation during this visit. 1. Diabetes Mellitus The patient's Hemoglobin A1c is 8.6, well above the goal of less than 7.0. She was counseled on proper blood glucose monitoring techniques, specifically to test before meals or two hours after, as she has been checking immediately post-prandial. To improve glycemic control, the dose of Trulicity will be increased, and a new prescription will be sent to the pharmacy. A referral to an scientific technical writer was offered and will be placed. As her insurance no longer covers OneTouch test strips, a new prescription for an Accu-Chek meter and test strips will be sent to [facility]. New blood work has been ordered. 2. Hypertension The patient's blood pressure was elevated in the office. She is already on the maximum dose of lisinopril 40 mg daily. The patient attributes the high reading to not feeling well and reports better control at other times. Given this, medication changes will be held, and she will continue to monitor her blood pressure. 3. Hypercholesterolemia The patient's last LDL was 74, which is slightly above the goal of less than 70. She will continue taking atorvastatin 40 mg daily. Updated blood work has been requested to re-evaluate her lipid levels. 4. Neuropathy The patient reported that she is only receiving 200 mg of her prescribed 250 mg dose of pregabalin. A prescription for the missing 50 mg dose will be sent to her pharmacy, [facility] in [place]. 5. Colon Cancer Screening The patient provided an update that she had a colonoscopy in September. During the procedure, polyps were removed, and she was recommended to have a follow-up in three years. The office will request the procedure report for our records. Discussion Notes I discussed with the patient her uncontrolled diabetes, as evidenced by her A1c of 8.6, and the need to improve her blood sugar levels. We reviewed proper blood glucose monitoring, and I explained that I am increasing her Trulicity dose. I also discussed a referral to an scientific technical writer for specialized diabetes management. Regarding her elevated blood pressure, I acknowledged her concern that it was situational due to feeling unwell. We agreed to hold off on adding new medication at this time but will monitor it closely. I also addressed a discrepancy in her pregabalin dosage and confirmed I would send a correcting prescription. We discussed her recent colonoscopy, and I emphasized the need for our office to obtain the official report. Finally, I reminded her about the importance of completing the ordered blood work. Patient Instructions - I have increased the dose of your once-a-week shot, Trulicity, to help lower your blood sugar. - Remember to check your blood sugar before you eat or two hours after you finish a meal. - I am sending a prescription for a new blood sugar meter (Accu-Chek) and test strips to [facility] pharmacy, as your insurance has changed its coverage. - Please get your blood work done as soon as possible. - We will hold off on changing your blood pressure medicine for now, but please keep an eye on your readings at home. - I am sending a prescription for the correct dose of your nerve pain medication (pregabalin) to your pharmacy. - We will make a referral for you to see a monitoring specialist (scientific technical writer). - Continue with your diet, exercise, and therapy as discussed. Orders: Orders AMB Hemoglobin A1c Today Z13.9 - Encounter for screening, unspecified Influenza [id number] Immunization Today Z23 - Encounter for immunization Referrals Endocrinology Referral E11.65 - Type 2 diabetes mellitus with hyperglycemia, Z79.4 - prison (current) use of insulin Medications: New blood sugar diagnostic (Accu-Chek Guide test strips) As directed check TID 100 ea 12RF E11.65 - Type 2 diabetes mellitus with hyperglycemia, Z79.4 - prison (current) use of insulin lancets (Accu-Chek Softclix Lancets) As directed check blood sugars 3 times a day 100 ea 12RF E11.65 - Type 2 diabetes mellitus with hyperglycemia, Z79.4 - ferry terminal agent (current) use of insulin blood-glucose meter (Accu-Chek Guide Glucose Meter) As directed check BS TID 1 ea 0RF E11.65 - Type 2 diabetes mellitus with hyperglycemia, Z79.4 - ferry terminal agent (current) use of insulin Changed From dulaglutide 1.5 mg (0.5 mL) subcut QWEEK 1 month 2.5 mL 6RF E11.65 - Type 2 diabetes mellitus with hyperglycemia, Z79.4 - prison (current) use of insulin To dulaglutide 3 mg (0.5 mL) subcut QWEEK 2.5 mL 6RF 1 month E11.65 - Type 2 diabetes mellitus with hyperglycemia, Z79.4 - ferry terminal agent (current) use of insulin Refilled pregabalin take with 200 mg = 250 mg BID 50 mg PO BID PRN 180 caps 0RF pain 90 days M79.2 - Neuralgia and neuritis, unspecified
[2024-12-19 15:15] VITALS: BP 150/90; PULSE 95; TEMP 36.2; O2SAT 95; BMI 30.2
--- OUTSIDE RECORDS SUMMARY | 2024-12-19 18:24 | XMS_ITS ---
Author Name David Miller APRN Address [address] [place] [address] Phone [phone] Organization [facility] Care Team Providers Care Medical Officer Name Role Phone Nancy Miller Unavailable [phone] Unavailable Unavailable Unavailable Unavailable Unavailable [phone] Reason for Referral Not Available Allergies, adverse [...] 1111F, BP, A1c or other CPTII codes [facility], ([place]) 02/03/2024 Encounter for other specifie d aftercare RN, CN or CP time with patient by phone; use with 1111F, BP, A1c or other CPTII codes [facility], ([place] 02/03/2024 Social History Sex Female History of Procedures Procedures Service Procedure code Service date Servicing provider Phone# RN, CN or CP time with patient by phone; use with 1111F, BP, A1c or other CPTII codes 33070 2024-02-03 No Data Available No Data Avai [...]
--- OUTSIDE RECORDS SUMMARY | 2024-12-19 18:25 | XMS_ITS ---
Author Organization [facility] Support Name Relationship Address Phone Cat Krishna Guarantor same as above Unavailable Cat Krishna Personal Relationship same as a ellen Unavailable Moris Gonzáles Emergency Contact [address] [place] [phone] Glenda G[facility] Emergency Contact Pendclara Lesyessi [place] [phone] Allergies and adverse reactions No Known Allergies Mental Status Section Date Assessment Total Score Description 09/25/2016 BIMS 14 cognitively int act CAM 0 No delirium ind icated PHQ-9 03 minimal depress ion 09/17/2016 BIMS 13 cognitively int act CAM 0 No delirium ind icated PHQ-9 03 minimal depress ion Insurance Providers Problems Problem # Description Date of onset Resolved Date Code CodeSystem Concern Status 1 CONTUSION OF RIGHT THIGH, SUBSEQUENT ENCOUNTER 09/10/[address] active 2 DIZZINESS AND GIDDINESS 09/10/[address] active 3 ESSENTIAL (PRIMARY) HYPERTENSION 09/10/[address] active 4 HISTORY OF FALLING 09/10/[address] active 5 PAIN IN UNSPECIFIED SHOULDER 09/10/[address] active 6 TYPE 2 DIABETES MELLITUS WITH DIABETIC NEUROPATHY, UNSPECIFIED 09/10/[address] active 7 UNSPECIFIED PHYSEAL FRACTURE OF PHALANX OF RIGHT TOE, SEQUELA 09/10/[address] active 8 VITAMIN D DEFICIENCY, UNSPECIFIED 09/10/[address] active Reason for Referral No Reasons for Referral Entered Social History Social History Observation Description Start Date End Date Code Code System Current Smoking Status Tobacco smoking consumption unknown 096804023 SNOMED CT Sex Assigned At Female 1950 42834-8 [facility] Gender Identity Sexual Orientation Vital Signs Code Code System Vitals Name Values and Units Timing Information 86685-6 [facility] Pain Level Value=8.0 09/25/2016 2339-0 [facility] Blood Sugar Paupk=385.0 Units=mg/dL 09/25/2016 9279-1 [facility] Respiratory Rate Value=20.0 Units=/m in 09/25/2016 8462-4 [facility] Blood Pressure-Diastolic Value=72 Un its=mmHg 09/25/2016 8480-6 [facility] Blood Pressure-Systolic Ulfqc=336 Un its=mmHg 09/25/2016 8310-5 [facility] Body Temperature Value=97.6 Units= F 09/25/2016 8867-4 [facility] Heart rate Value=76.0 Units=/min 04/2016 77443-2 [facility] O2 % dC Oximetry Value=96.0 Units= % 09/25/2016 89168-6 [facility] Weight Uvdjw=477.0 Units=Lbs 8302-2 [facility] Height Value=63.0 Units=Inches 09/11/2016
--- OUTSIDE RECORDS SUMMARY | 2024-12-19 18:25 | XMS_ITS | Clinical Summary ---
Author Organization [facility] Address [address] [place] [address] Phone Care Team Providers Care Cylinder Head Assembler Name Role Phone Kina Blackburn MD Primary Care Provider [phone] Allergies Active Allergy Reactions Criticality Noted Date [...] Noted Date Diagnosed Date Gram negative sepsis (CMS/[facility] V24, CMS/[facility] V28) 01/28/2024 UTI (urinary tract infection) 01/28/2024 COVID-19 01/28/2024 History of stroke 01/28/2024 Hypertension 01/28/2024 Hyperlipidemia 01/28/2024 Type 2 diabetes mellitus wit h diabetic polyneuropathy [place] [place] [facility] [place] 01/28/2024 Restless leg syndrome 01/28/2024 Anxiety 01/28/2024 Acute kidney injury ([facility] V24) 01/28/2024 Subdural hematoma [place] [place] [facility] [place] Surgical History Surgery Date Site/Laterality Comments TOTAL ABDOMINAL HYSTERECTOMY W/ BILATERAL SALPINGOOPHORECTOMY CAROTID ENDARTERECTOMY COLONOSCOPY 05/08/2015 ESOPHAGOGASTRODUODENOSCOPY 06/14/2010 CATARACT EXTRACTION CARPAL TUNNEL RELEASE Bilateral LUMBAR SPINE SURGERY 02/23/2013 - 02/22/2014 Medical History Medical History Date Comments CVA (cerebral vascular accident) ([facility] V24, C ID/[facility] V28) HTN (hypertension) HLD (hyperlipidemia) DM (diabetes mellitus) ([facility] V24, [facility] V28 ) Subdural hematoma [place] [place], [facility] V28) Adenocarcinoma of cervix ([facility] V24, [facility] V 28) Restless leg syndrome GERD (gastroesophageal reflux disease) [...] Safety Answer Date Record ed Physical Abuse Unrecognized value 01/28/2024 Verbal Abuse Unrecognized value 01/28/2024 Comments No Sex and Gender Information Value Date Recorded Sex Assigned at Not on file Legal Sex Female 8:05 AM EST Gender Identity Not on file Sexual Orientation Straight 01/28/2024 2: 32 AM EST Obstetrics History Last Filed Vital Signs Vital Sign Reading Time Taken Comments Blood Pressure 131/65 01/30/2024 3:34 PM EST Pulse 85 01/30/2024 3:34 PM EST Temperature 35.9 C (96.7 F) 01/30/2024 3:34 PM EST Respiratory Rate 14 01/30/2024 3:34 PM EST Oxygen Saturation 93% 01/30/2024 3:34 PM EST Inhaled Oxygen Concentration - - Weight 79.7 kg (175 lb 9.6 oz) 01/28/2024 3:00 A M EST Height 180 cm (5' 10.87 ) 01/28/2024 3:00 AM EST Body Mass Index 24.58 01/28/2024 3:00 AM EST Plan of Treatment Health Maintenance Due Date Last Done Comments Colorectal Cancer Screening: Colonoscopy 1950 Diabetes: Annual Foot Exam 1960 Diabetes: Annual Retina Eye Exam 1960 RSV Immunization Adult Patients (1 - Risk 50-74 years 1-dose series) 2000 Breast Cancer Screening 10/30/2018 10/30/2016 Cholesterol Screening (Lipid Panel) 01/14/2024 Diabetes: Annual Urine Albumin-Creatinine Ratio (uACR) 01/14/2024 Diabetes: Blood Sugar Control Test (HGBA1C) 01/14/2024 Hepatitis C Screening 01/14/2024 Medicare Annual Wellness Visit 01/14/2024 Depression Screening 02/24/2024 01/15/2024 COVID-19 Vaccine ( season) 2024 03/13/2021, 05/23/2020, 05/02/2020 Influenza Vaccine (#1) 2024 , 01/08/2022, 03/13/2021, Additional history exists Social Influencers of Health Screening 01/15/2025 01/16/2024 Diabetes: Annual GFR (Glomerular Filtration Rate) 01/29/2025 01/30/2024, 01/29/2024, 01/28/2024, Additional history exists Falls Risk Assessment 01/29/2025 01/30/2024 Hypertension/CHF/CAD Annual BMP Blood Test 01/29/2025 01/30/2024, 01/29/2024, 01/28/2024, Additional history exists Osteoporosis Screening (Bone Density Screening) 04/30/2026 04/30/2016 DTaP,Tdap,and Td Vaccines (3 - Td or Tdap) 12/26/2027 12/25/2017, 08/27/2016 Pneumococcal Vaccine: 50+ Years Completed 12/12/2023, 12/26/2017, [...] age to complete this topic Meningococcal B Vaccine Aged Out No l onger eligible based on patient's age to complete this topic RSV Immunization Patients Under 20 months Aged Out No longer eligible based on patient's age to complete this topic Varicella Vaccines Aged Out No longer eligible based on patient's age to complete this topic Procedures Procedure Name Priority Date/Time Associated Diagnosis Comments BASIC METABOLIC PANEL Routine 01/30/2024 6:31 AM EST SCR MAMMO BI INCL CAD Routine 10/30/2016 2:30 PM EDT Family history of malignant neoplasm of breast Encounter for screening mammogram for malignant neoplasm of breast DXA BONE DENSITY STUDY 1+ SITS AXIAL SKEL Routine 04/30/2016 2:09 PM EST Hyperlipidemia, unspecified Essential (primary) hypertension Type 2 diabetes mellitus with diabetic polyneuropathy [place] [place] [facility] [place] Type 2 diabetes mellitus with other diabetic neurological complication [place] [place] [facility] [place] from Last 3 Months or Most Recently Relevant to Health Maintenance Results * (ABNORMAL) Basic metabolic panel (01/30/2024 6:31 AM EST) [facility] Sodium 139 133 - 145 mmol/L LAB CHEMISTRY METHOD 01/30/2024 7:35 AM [facility] Potassium 5.3 3.5 - 5.5 mmol/L LAB CHEMISTRY METHOD 01/30/2024 7:35 AM [facility] Chloride 105 96 - 110 mmol/L LAB CHEMISTRY METHOD 01/30/2024 7:35 AM [facility] CO2 29 21 - 32 mmol/L LAB CHEMISTRY METHOD 01/30/2024 7:35 AM [facility] Anion Gap 5 3 - 11 LAB CHEMISTRY METHOD 01/30/2024 7:35 AM [facility] Glucose 175(H) 70 - 100 mg/dL LAB CHEMISTRY METHOD 01/30/2024 7:35 AM [facility] BUN 21 5 - 25 mg/dL LAB CHEMISTRY METHOD 01/30/2024 7:35 AM [facility] Creatinine 1.07 0.50 - 1.10 mg/dL LAB CHEMISTRY METHOD 01/30/2024 7:35 AM [facility] eGFR 55(L) >=60 mL/min/1. 73m2 LAB CHEMISTRY METHOD 01/30/2024 7:35 AM [facility] Comment:Calculation based on the Chronic Kidney Disease Epidemiology Collaboration (CKD-EPI) equation refit without adjustment for race. BUN/Creatinine Ratio 19.6 LAB CHEMISTRY METHOD 01/30/2024 7:35 AM [facility] Calcium 9.6 8.5 - 10.5 mg/dL LAB CHEMISTRY METHOD 01/30/2024 7:35 AM EST [facility] Blood Venous blood specimen / Unknown Venipuncture / Unknown 01/30/2024 6:31 AM EST 01/30/2024 6:54 AM EST us Pradip Vega MD LAB BLOOD ORDERABLES F inal Result [facility]) [facility] [address] [place] [address], [place] [phone] * SCR MAMMO BI INCL CAD (10/30/2016 [...] reviewed with CAD and compared to previous. The breasts are composed of fatty and fibroglandular tissue. No suspicious mass, architectural distortion or suspicious calcifications [...] % Breast cancer risk category Low (<15%) us Meli Brown MD IMG XR PROCEDURES Final Result * DXA BONE DENSITY STUDY 1+ SITS AXIAL SKEL (04/30/2016 2:09 PM EST) Anatomical Region Laterality Modality Bone Densitometr y 04/04/2016 2:17 PM EST Narrative 04/30/2016 3:35 PM EST BONE DENSITY Lumbar Spine T-score is +0.8 [...] classified as having normal bone density. The [facility] Department of Internal Medicine recommends using National [...] beclassified as having normal bone density. The [facility] Department of Internal Medicine recommendsusing National Osteoporosis [...] over-estimation of fracture risk by [employer]RA[employer]. Rosibel CARROLL IMSari DXA PROCEDURES Final Resu lt from Last 3 Months or Most Recently Relevant to Health Maintenance Insurance MEDICAID - [place] [employer] MEDICARE Advance Directives Documents on File Type Date Recorded Patient Drama Director Expl anation Advance Directives and Living Will [...] currently active code status orders. Care Teams Cylinder Head Assembler Relationship Specialty Start Date End Date Kina Blackburn MD [address] [place] [address] [address] [facility] [place] [address] PCP - General Internal Medicine 08/06/17
== END 2024-12-19 15:55 | disposition home or self-care (01) ==
LOC: HO.HMCH 15:00
PROVIDERS: PCP Internal Medicine; Visit Provider Internal Medicine
DX: E11.65 Type 2 diabetes mellitus with hyperglycemia (principal); Z79.4 Long term (current) use of insulin; Z68.30 Body mass index [BMI] 30.0-30.9, adult; E66.9 Obesity, unspecified; I10 Essential (primary) hypertension; E78.00 Pure hypercholesterolemia, unspecified; F33.9 Major depressive disorder, recurrent, unspecified; Z12.11 Encounter for screening for malignant neoplasm of colon; Z23 Encounter for immunization

== ENCOUNTER → 2024-12-19 14:59 | Outpatient (BNVA) | payer OTHER, SELFPAY | PROVIDERS: PCP Internal Medicine; Visit Provider Internal Medicine | DX: E11.65 Type 2 diabetes mellitus with hyperglycemia (principal); Z23 Encounter for immunization; I10 Essential (primary) hypertension; E78.00 Pure hypercholesterolemia, unspecified; F33.9 Major depressive disorder, recurrent, unspecified; E66.9 Obesity, unspecified; Z79.4 Long term (current) use of insulin | CPT/HCPCS: 83036; 90471; 90656; 99212 ==

== ENCOUNTER 2024-12-29 10:30 | Inpatient (IN) | payer OTHER, SELFPAY ==
[2024-12-29] VITALS (10 sets, daily range): BP systolic 155–220; BP diastolic 62–109; PULSE 78–110; RESP 12–18; TEMP 36.7–39.1; O2SAT 86–98; BMI 31.0; BMI 30.3; BMI 30.2
--- NOTE | ~2024-12-29 | US_ITS ---
EXAMINATION: US TRIPLEX LOWER EXTREMITY, BILATERAL CLINICAL INFORMATION: Pulmonary embolus COMPARISON: None available. TECHNIQUE: Color-flow triplex imaging with spectral analysis and compression Doppler were performed on the bilateral lower extremities. FINDINGS: Respiratory variation, normal compression and augmented flow are noted throughout the bilateral lower extremities. The visualized common femoral vein, superficial femoral vein, profunda femoral vein, popliteal vein and midcalf peroneal and posterior tibial venous segments show no evidence of deep venous thrombosis bilaterally. US/US venous duplex LE BI IMPRESSION: No evidence of deep venous thrombosis involving the bilateral lower extremities. Electronically signed by: Emmett Nielsen MD 12/30/2024 05:19 PM [facility]
--- NOTE | ~2024-12-29 | CT_ITS ---
EXAMINATION: CT ANGIOGRAM CHEST CLINICAL INFORMATION: Hypoxia, sepsis, fever. COMPARISON: No prior CTPA. Chest CT dated 07/15/2022. TECHNIQUE: Multiple axial images were obtained through the chest after the administration of 65 mL of Omnipaque 350 intravenous contrast. Extensive vascular post-processing including two-dimensional and three-dimensional reformatted images were created and reviewed on an independent workstation. This CT examination was performed using dose optimization techniques as appropriate, variously including the following: *Automated exposure control *Adjustment of mA and/or kV according to patient size (this includes techniques or standardized protocols for targeted exams where dose is matched to indication/reason for exam; i.e. extremities or head) *Use of iterative reconstruction technique FINDINGS: VASCULAR: Study mildly limited by respiratory motion artifact in both lungs, most notable in the mid to lower lungs. There is adequate contrast opacification of the pulmonary arterial system. There appear to be segmental and subsegmental filling defects within the right lower lobe pulmonary artery branches (series 9, image [id number]). Findings are suspicious for pulmonary embolism. No additional embolism is identified. No left-sided embolic disease. No central pulmonary embolus. The main pulmonary artery is mildly prominent, slightly larger than the diameter of the aorta measuring 3.0 cm. There is no evidence of right heart strain. There is mild contrast reflux into the hepatic IVC. This may be a manifestation of increased right heart pressures. The aorta is mildly calcified, without evidence of aneurysm or acute aortic syndrome. There is a 2 vessel branching pattern. Great vessels are patent at their origin with moderate calcification. The heart size is top normal. There is no pericardial effusion. LUNGS: Limited by moderate respiratory motion artifact. There is mild smooth interlobular septal thickening throughout both lungs, suggestive of mild interstitial pulmonary edema. There is mild thickening of the small airways diffusely. There are patchy groundglass opacities in the right lower lobe posteriorly, possibly representing pneumonia versus alveolar edema. There is mild dependent atelectasis bilaterally. There are no pleural effusions. There is no pneumothorax. There is a 3 x 4 mm right lower lobe pulmonary nodule. There are no additional suspicious pulmonary nodules or masses. MEDIASTINUM: Partially imaged thyroid is normal. There is no abnormal lymphadenopathy or mass in the mediastinum. There are subcentimeter likely reactive lymph nodes present. There is a mildly patulous esophagus present. The central airways are patent. AXILLAE/CHEST WALL: There is no mass or abnormal lymph nodes. IMAGED UPPER ABDOMINAL CONTENTS: Refer to the dedicated CT abdomen pelvis performed concurrently. OSSEOUS STRUCTURES: There is no suspicious lytic or blastic bone lesion present. There are inferior cervical fusion rods and transpedicular screws extending to T2. There are mild spinal degenerative changes. CT/CT angio chest PE protocol IMPRESSION: 1. Examination is significantly motion limited although appears POSITIVE for pulmonary embolism involving the right lower lobe segmental and subsegmental pulmonary arteries. There is low clot volume. There is no evidence of right heart strain. 2. There is no evidence of aortic aneurysm or acute aortic syndrome. There is borderline cardiac enlargement. 3. There is diffuse smooth interlobular septal thickening suggesting mild interstitial pulmonary edema. There is mild diffuse thickening of the small airways, which can be seen with interstitial edema or conversely related to inflammatory airways disease. 4. Patchy groundglass opacities in the posterior right lower lobe could represent alveolar edema, microatelectasis, or possibly pneumonia. There are no pleural effusions. 5. There are additional ancillary findings as detailed in the body of the report. Electronically signed by: Maxi Enriquez MD 12/29/2024 01:12 PM [facility]
--- NOTE | ~2024-12-29 | XR_ITS ---
EXAMINATION: XR HIP, LEFT CLINICAL INFORMATION: left hip pain COMPARISON: None available. TECHNIQUE: AP Daniel, AP , and frog-leg lateral views of the left hip. FINDINGS: Pedicle screws and rods are in place at L4-5. There is also interbody spacer. SI joints are symmetrical. Hip joint spaces are symmetrical. Moderate vascular calcification is present in the right greater than left femoral arteries. Right hip: Small marginal osteophytes are present involving fovea. The joint spaces preserved. Minimal acetabular osteophyte is present. XR/XR hip LT w [id number] IMPRESSION: Minimal left hip degeneration. Electronically signed by: Emmett Nielsen MD 12/29/2024 04:59 PM EST RP
--- NOTE | ~2024-12-29 | CT_ITS ---
EXAMINATION: CT ABDOMEN AND PELVIS WITH CONTRAST CLINICAL INFORMATION: LLQ pain, sepsis COMPARISON: July 15, 2022 TECHNIQUE: Multidetector volumetric images were obtained from the superior aspect of the liver through the pubic symphysis following administration 85 mL of Omnipaque 350 intravenous contrast. Sagittal and coronal reformatted images were obtained on the technologist's workstation. Oral contrast: No This CT examination was performed using dose optimization techniques as appropriate, variously including the following: *Automated exposure control *Adjustment of mA and/or kV according to patient size (this includes techniques or standardized protocols for targeted exams where dose is matched to indication/reason for exam; i.e. extremities or head) *Use of iterative reconstruction technique FINDINGS: LUNG BASES: There is a 3 x 4 mm pulmonary nodule in the lateral right lower lobe. LIVER, GALLBLADDER, AND BILIARY TREE: The liver is normal in size, shape, and attenuation. No focal hepatic lesion or biliary ductal dilatation is present. The gallbladder is unremarkable with no evidence of radiopaque gallstones, gallbladder wall thickening, or obvious pericholecystic inflammatory changes. PANCREAS: Small but otherwise unremarkable. SPLEEN: Unremarkable. ADRENAL GLANDS: Unremarkable. KIDNEYS AND URETERS: The kidneys are normal in size, shape, and attenuation. No hydronephrosis, hydroureter, or calculi seen. No perinephric stranding. BLADDER: Unremarkable. GASTROINTESTINAL TRACT: The small and large bowel are unremarkable. The appendix is unremarkable. ABDOMINAL WALL: No significant hernia is appreciated. LYMPH NODES: Normal. VASCULAR: Moderate atherosclerotic calcifications are present. PELVIC VISCERA: The uterus is surgically absent. Right ovary is not seen. The left ovary is questionably identified. OSSEOUS STRUCTURES: Posterior pedicle screws and rods fuse L4-5. Multilevel degenerative changes are most advanced at L3-4 CT/CT abdomen pelvis w IV con IMPRESSION: No significant abnormality to explain the patient's left lower quadrant pain and sepsis. 3 x 4 mm solid pulmonary nodule is present in the lateral right lower lobe. No further follow-up is indicated per Fleischner Society recommendations, unless the patient falls into a high risk category, in which case a 12 month follow-up CT chest without contrast is optional. High risk patients includes those with a history of smoking, first-degree relative with lung cancer, or exposure to uranium, radon, or asbestos. Fleischner guidelines were followed. Electronically signed by: Emmett Nielsen MD 12/29/2024 12:58 PM EST RP
--- NOTE | ~2024-12-29 | XR_ITS ---
EXAMINATION: XR CHEST CLINICAL INFORMATION: sepsis COMPARISON: X-ray 06/08/2021 TECHNIQUE: Frontal view of the chest was obtained. FINDINGS: The cardiomediastinal silhouette is within normal limits. Mild right hemidiaphragm elevation. Hazy right basilar opacity could reflect atelectasis or infiltrate. No effusion. No pneumothorax.. No pneumothorax. Cervical spinal fusion hardware. Overlying monitoring leads. XR/XR chest 1V IMPRESSION: Right basilar hazy opacity could reflect atelectasis or infiltrate. Electronically signed by: Santiago Guerrero MD 12/29/2024 11:53 AM EST
--- NOTE | 2024-12-29 10:41 | ECG_ITS ---
Test Reason : abd pain Blood Pressure : */* mmHG Vent. Rate : 106 BPM Atrial Rate : 106 BPM P-R Int : 154 ms QRS Dur : 126 ms QT Int : 336 ms P-R-T Axes : 70 -18 121 degrees QTcB Int : 446 ms Sinus tachycardia Left bundle branch block Abnormal ECG When compared with ECG of 11-Jan-2024 07:53, No significant change was found Referred By: Jim Manzo Electronically Signed By: Ismael Green
--- NOTE | 2024-12-29 10:51 | ED.GENADULT ---
HPI - General Adult General Chief complaint: General Medical Stated complaint: L HIP/LLQ PAIN,NO INJURY,T 101.1 PER EMS Time Seen by Provider: 12/29/24 10:38 Source: patient and EMS Mode of arrival: EMS Limitations: no limitations History of Present Illness ED Provider: HPI narrative: 74-year-old woman, presenting with what she described initially as left sided hip pain, upon further prompting it was noted that she has had nausea and vomiting a week prior to this onset, she was noted to be febrile for EMS 101 orally, and noted to be hypoxic in the ER, patient denies any trauma, states she has been able to walk with discomfort. No rashes no dysuria no chest pain no hematemesis or hematochezia. Received 100mcg fentanyl and 500 cc IV fluids for EMS Related Data Home Medications ?Medication ?Instructions ?Recorded ?Confirmed buspirone 10 mg tablet 1 tab PO BID 06/18/21 12/19/24 duloxetine 30 mg capsule,delayed 1 cap PO DAILY 07/15/22 12/19/24 release duloxetine 60 mg capsule,delayed 1 cap PO BEDTIME 07/15/22 12/19/24 release Previous Rx's ?Medication ?Instructions ?Recorded GRAB bar #1 ea 02/16/20 cyanocobalamin (vitamin B-12) 1,000 mcg PO DAILY #30 caps 04/11/20 1,000 mcg capsule atorvastatin 40 mg tablet 40 mg PO DAILY #90 tabs 04/01/22 ropinirole 0.5 mg tablet 0.5 mg PO BEDTIME #90 tabs 05/22/22 bisacodyl 5 mg tablet,delayed 10 mg (2 x 5 mg) PO ONCE 1 day #2 08/27/22 release (Dulcolax (bisacodyl)) tabs polyethylene glycol 3350 17 238 g PO ONCE 1 day #238 grams 08/27/22 gram/dose oral powder (Miralax) blood sugar diagnostic (OneTouch #200 ea 08/17/23 Ultra Test strips) clonazepam 1 mg tablet 1 mg PO BEDTIME PRN Anxiety #30 11/19/23 tabs colchicine 0.6 mg tablet 0.6 mg PO DAILY 10 days #10 tabs 04/15/24 zolpidem 5 mg tablet (Ambien) 5 mg PO BEDTIME #30 tabs 04/22/24 fluticasone propionate 50 2 spray intranasal DAILY PRN 05/26/24 mcg/actuation nasal Allergy Symptoms 30 days #16 grams spray,suspension (Flonase Allergy Relief) insulin glargine 100 unit/mL (3 60 unit (0.6 mL) subcut BEDTIME 06/22/24 mL) subcutaneous pen (Lantus #15 mL Solostar U-100 Insulin) docusate sodium 100 mg capsule 200 mg (2 x 100 mg) PO DAILY PRN 07/04/24 constipation 90 days #180 caps magnesium oxide 400 mg (241.3 mg 400 mg PO DAILY #90 tabs 07/18/24 magnesium) tablet pen needle, diabetic 31 gauge x #100 ea 08/10/24 3/16 clopidogrel 75 mg tablet 75 mg PO DAILY #90 tabs 11/16/24 lisinopril 40 mg tablet 40 mg PO DAILY #90 tabs 11/18/24 metformin 1,000 mg tablet 1,000 mg PO BIDWM #180 tabs 12/17/24 blood sugar diagnostic (Accu-Chek #100 ea 12/19/24 Guide test strips) blood-glucose meter (Accu-Chek #1 ea 12/19/24 Guide Glucose Meter) dulaglutide 3 mg/0.5 mL 3 mg (0.5 mL) subcut QWEEK 1 month 12/19/24 subcutaneous pen injector #2.5 mL lancets (Accu-Chek Softclix #100 ea 12/19/24 Lancets) pregabalin 50 mg capsule 50 mg PO BID PRN pain 90 days #180 12/19/24 caps methocarbamol 500 mg tablet 500 mg PO BEDTIME #30 tabs 12/28/24 pregabalin 200 mg capsule (Lyrica) 200 mg PO BID 30 days #60 caps 12/28/24 Allergies Allergy/AdvReac Type Severity Reaction Status Date / Time No Known Allergies (No Known Allergy Verified 12/29/24 10:43 Allergies*) Review of Systems Constitutional: Constitutional: Reports as per [facility] Past Medical History Medical History (Updated 12/29/24 @ 13:36 by Jim Manzo DO) Colon cancer screening Right arm pain Routine gynecological examination Fall Multifactorial gait disorder Peripheral neuropathy Full dentures Multifactorial gait disorder Lower back pain Candidal intertrigo Restrictive lung disease Carotid stenosis GERD (gastroesophageal reflux disease) Personal history of malignant neoplasm of cervix uteri Diabetic nephropathy Restless leg syndrome Obesity (BMI 30-39.9) 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) Osteopenia History of CVA (cerebrovascular accident) Anxiety and depression Hypertension Type 2 diabetes mellitus with hyperglycemia Surgical History History of carotid endarterectomy History of partial hysterectomy History of colonoscopy with polypectomy History of bilateral cataract extraction History of carpal tunnel surgery History of lumbar fusion History of loop electrical excision procedure (LEEP) History of neck surgery Family History Family History Father Heart attack Mother Cancer Dementia Breast cancer Hemorrhage Social History Social History Household Members Other:: Daughter Housing: Other Housing Other:: Mobile Home Are you a primary medicare sales representative to a significant other at home: No Do you presently have visiting nurse or other home services: Yes (daughter is BATCH PLANT OPERATOR) Alcohol intake: never Comment: unsteady gait Patient Tobacco Use Status: Former Tobacco user Tobacco use type: Cigarette Years Smoked: stopped 1990 Smoked in Last 30 Days: No e-Cigarette/Vaping Use: Never Used Second Hand Smoke Exposure: Yes Use of substances other than those prescribed or required for medical reasons: No Advance Directives: Yes Advance Directives on File: Yes Advance Directives Date on File: 03/03/24 Do you have a plan to hurt others: No Plan service: No Current occupational status: disabled Cognitive needs: Yes (walker/cane) Hearing needs: No Vision needs: Yes (glasses) Physical Exam ED Exam Exam: General: ?Appears of stated age, in some discomfort ? ?PERRLA, EOMI, MMM, ? Neck: Supple, no LAD ? ?CV: S1-S2 tachycardic and regular ? ?Resp: ?Noted to be hypoxic, without tachypnea, some rhonchi bibasilar ? Abd: ?Bowel sounds are present, significant left lower quadrant tenderness with voluntary guarding ? ?MSK: Range of motion of both hips and strength is intact, there was no lower extremity edema, distal pulses are intact, there was no bruising or rashes to the back, or groin area, she did not have any painful range of motion of left hip ? Skin: Warm, dry, intact, ? ?Neuro: ?Alert and oriented x3, moving upper and lower extremities symmetrically, no obvious facial asymmetry noted, cranial nerves 2-12 intact Vital Signs: Vital Signs - 24 hr 12/29/24 10:41 12/29/24 10:51 12/29/24 11:40 Temperature 100.0 F 102.3 F H Pulse Rate 105 H 110 H 100 Respiratory Rate 16 18 18 Blood Pressure 199/85 H 218/95 H 195/88 H Pulse Oximetry 86 L 94 95 Oxygen Delivery Method Room Air Nasal Cannula Nasal Cannula Oxygen Flow Rate 2 2 12/29/24 11:55 12/29/24 12:36 12/29/24 12:57 Temperature 99.8 F 98.9 F Pulse Rate 94 95 90 Respiratory Rate 12 18 13 Blood Pressure 195/88 H 158/70 H 173/72 H Pulse Oximetry 96 96 94 Oxygen Delivery Method Nasal Cannula Nasal Cannula Nasal Cannula Oxygen Flow Rate 2 2 2 BMI result Body Mass Index 31.0 Medications Administered Discontinued Medications Generic Name Dose Route Start Last Admin Trade Name Freq PRN Reason Stop Dose Admin Hydromorphone HCl 0.5 mg 12/29/24 11:52 12/29/24 11:57 Hydromorphone Hcl 0.5 Mg/0.5 Ml Syringe IVPUSH 12/29/24 11:53 0.5 mg ONCE ONE Administration Protocol Acetaminophen 1,000 mg in 100 mls @ 400 mls/hr 12/29/24 10:51 12/29/24 11:15 Ofirmev IV 12/29/24 11:05 Infused ONCE ONE Infusion Lactated Ringer's 1,000 mls @ 999 mls/hr 12/29/24 11:00 12/29/24 12:34 Lr IVCONT 12/29/24 12:00 Infused .Q1H1M RAMONA Infusion Ceftriaxone Sodium 2 gm/ 100 mls @ 200 mls/hr 12/29/24 10:51 12/29/24 11:50 Sodium Chloride IV 12/29/24 11:20 Infused ONCE ONE Infusion Iohexol 100 ml 12/29/24 12:20 12/29/24 12:20 Iohexol 350 Mg/Ml 100 Ml Infus..Btl IV 12/29/24 12:21 85 ml ONCE ONE Administration Morphine Sulfate 4 mg 12/29/24 10:51 12/29/24 11:11 Morphine Sulfate 4 Mg/Ml Cartridge IVPUSH 12/29/24 10:52 4 mg ONCE ONE Administration Protocol Medical Decision Making Medical Decision Making [facility] Narrative: 10:50 AM 12/29/2024 (Dr. iJm Manzo): Code sepsis activated, I have a high suspicion for some type of perforated bowel or diverticulitis with abscess etc. she is not hypotensive slightly tachycardic, also noted to be hypoxic, without significant respiratory findings, we will obtain chest x-ray just for obvious evaluation for pneumothorax, consolidations but we will also obtain CT angio, CT abdomen and pelvis with IV contrast will be ordered, we will initiate blood cultures, IV fluids, and we will provide 2 g of ceftriaxone which will cover intra-abdominal pathology. Anticipating admission. 11:53 AM 12/29/2024 (Dr. Jim Manzo): Blood pressure is improving with the pain medications, 1:12 PM 12/29/2024 (Dr. Jim Manzo): CT without any evidence for abscess or perforated bowel reassuringly 1:35 PM 12/29/2024 (Dr. Jim Manzo): CT angio positive for PE will initiate heparin, otherwise stable will plan for admission, Differential Diagnosis Differential Diagnoses: The differential diagnosis associated with the presentation includes (Diverticulitis, abscess, septic joint, SBO, pyelonephritis, UTI, pneumonia) Admission/Observation Consideration of admission/observation: Escalation of care including admission/observation considered Consult Healthcare Provider Management of the patient was discussed with: Hospitalist Lab Data [facility] Lab Attestation statement: I reviewed the patient's lab results. 12/29/24 11:14 12/29/24 11:14 Labs: Lab Results 12/29/24 12/29/24 12/29/24 Range/Units 11:14 11:18 12:50 WBC 12.3 H (4.8-10.8) X10*3/uL RBC 5.15 (4.20-5.50) X10*6/uL Hgb 13.9 (12.0-16.0) g/dl Hct 42.9 (37.0-47.0) % MCV 83.3 (80.0-98.0) fL MCH 27.0 (27.0-33.0) pg MCHC 32.4 (31.0-35.0) g/dl RDW 13.5 (11.0-16.0) % Plt Count 207 (160-400) X10*3/uL MPV 9.8 (9.4-12.3) fL Immature Gran % (Auto) 0.5 H (0.0-0.4) % Neut % (Auto) 80.6 H (45-73) % Lymph % (Auto) 12.9 L (20-40) % Archuleta % (Auto) 5.2 (2-11) % Eos % (Auto) 0.7 (0-4) % Baso % (Auto) 0.1 (0-2) % Lymph # (Auto) 1.6 (1.2-4.9) X10*3/uL Archuleta # (Auto) 0.6 (0.1-1.2) X10*3/uL Eos # (Auto) 0.1 (0.0-0.4) X10*3/uL Baso # (Auto) 0.0 (0.0-0.2) X10*3/uL Abs Immat Gran (auto) 0.06 H (0.00-0.03) X10*3/uL Absolute Neuts (auto) 9.9 H (2.0-8.3) x10*3/uL Absolute Nucleated RBC 0.000 (0.0-0.012) X10*3/uL Nucleated RBC % (auto) 0.0 (0.0-0.2) /100WBC Sodium 141 (135-145) mmol/L Potassium 3.9 (3.3-5.1) mmol/L Chloride 103 (96-108) mmol/L Carbon Dioxide 28 (22-29) mmol/L Anion Gap 14 (12-20) BUN 9 (9-16) mg/dL Creatinine 0.78 (0.5-1.4) mg/dL Estim Creat Clear Calc 70.3 Estimated GFR > 60 Random Glucose 194 H (60-115) mg/dL Lactic Acid 2.4 H* (0.5-2.0) mmol/L Calcium 9.6 (8.4-10.2) mg/dL Total Bilirubin 0.4 (0.0-1.0) mg/dL AST 25 (5-31) U/L ALT 18 (0-31) U/L Alkaline Phosphatase 95 (39-117) U/L Total Protein 7.3 (6.5-8.0) g/dL Albumin 4.1 (3.5-5.0) g/dL Lipase 10 (8-78) U/L Urine Color Yellow Urine Appearance Cloudy Urine pH 7.0 (5.0-9.0) Ur Specific Alden 1.025 (1.005-1.025) Urine Protein Negative (Neg-Trace) mg/dL Urine Glucose (UA) Negative (Negative) mg/dL Urine Ketones Trace (Negative) mg/dL Urine Blood Negative (Negative) Urine Nitrite Negative (Negative) Ur Leukocyte Esterase Moderate (2+) H (Negative) Urine RBC 0-2 (0-2) /HPF Urine WBC 21-50 H (0-5) /HPF Ur Squamous Epith Cells 11-20 (0-2) /HPF Urine Bacteria 4+ (None Seen) Hyaline Casts 0-2 (0-2) /LPF COVID-19 (ELIF) Negative (Negative) COVID-19 Clin Com See Note Independent Interpretation I performed an independent interpretation of an: EKG (106 beats per minute, left bundle-branch block) and Plain X-Ray (There maybe right lower lobe evolving consolidation but no pneumothorax, no pleural effusions) Radiology Impression Discussion of test interpretation with radiology: I have reviewed the radiologist's reading. Radiologist Impression: No significant abnormality to explain the patient's left lower quadrant pain and sepsis. 3 x 4 mm solid pulmonary nodule is present in the lateral right lower lobe. No further follow-up is indicated per Fleischner Society recommendations, unless the patient falls into a high risk category, in which case a 12 month follow-up CT chest without contrast is optional. High risk patients includes those with a history of smoking, first-degree relative with lung cancer, or exposure to uranium, radon, or asbestos. Independent Historian Clinical information obtained from an independent historian. History obtained from or confirmed by: EMS Prescription Management I considered prescription management with: Antibiotic Critical Care Time Critical Care Time Critical Care Time: Yes Total Critical Care Time: 65 Attestation: Time is exclusive of separately billable procedures. Time includes: direct patient care, patient reassessment, coordination of patient care, interpretation of data (laboratory data, pulse oximetry, arterial blood gases and chest xrays), review of patient's medical records, medical consultation and documentation of patient care. Procedures excluded from critical care time: central intravenous line placement and electrocardiography. Discharge Plan Discharge Clinical Impression: Sepsis, Pulmonary emboli Community acquired pneumonia Qualifiers: Laterality: right Lung location: lower lobe of lung Qualified Code(s): J18.9 - Pneumonia, unspecified organism Prescriptions: No Action (DME) GRAB bar See Rx Instructions .Route .MEDSUPPLY Qty: 1 0RF Rx Instructions: As directed cyanocobalamin (vitamin B-12) 1,000 mcg capsule 1,000 mcg PO DAILY Qty: 30 3RF atorvastatin 40 mg tablet 40 mg PO DAILY Qty: 90 2RF ropinirole 0.5 mg tablet 0.5 mg PO BEDTIME Qty: 90 2RF bisacodyl [Dulcolax (bisacodyl)] 5 mg tablet,delayed release (DR/EC) 10 mg PO ONCE 1 Days Qty: 2 0RF Rx Instructions: take at noon the day before colonoscopy polyethylene glycol 3350 [Miralax] 17 gram/dose powder 238 g PO ONCE 1 Days Qty: 238 0RF Rx Instructions: Take as directed by mouth the day before your procedure. (DME) OneTouch Ultra Test Strip See Rx Instructions .ROUTE .COMPLEX Qty: 200 10RF Dose Instruction: TEST BLOOD SUGAR THREE TIMES A DAY FOR DIABETES MELLITUS Rx Instructions: TEST BLOOD SUGAR THREE TIMES A DAY FOR DIABETES MELLITUS zolpidem [Ambien] 5 mg tablet 5 mg PO BEDTIME Qty: 30 0RF fluticasone propionate [Flonase Allergy Relief] 50 mcg/actuation spray,suspension 2 spray intranasal DAILY PRN (Reason: Allergy Symptoms) 30 Days Qty: 16 10RF Rx Instructions: administer into each nostril insulin glargine [Lantus Solostar U-100 Insulin] 100 unit/mL (3 mL) insulin pen 60 unit subcut BEDTIME Qty: 15 10RF docusate sodium 100 mg capsule 200 mg PO DAILY PRN (Reason: constipation) 90 Days Qty: 180 0RF magnesium oxide 400 mg (241.3 mg magnesium) tablet 400 mg PO DAILY Qty: 90 1RF (DME) pen needle, diabetic 31 gauge x 3/16 needle See Rx Instructions .ROUTE .MEDSUPPLY Qty: 100 3RF Rx Instructions: As directed inject 60 units of Lantus q.p.m. clopidogrel 75 mg tablet 75 mg PO DAILY Qty: 90 10RF lisinopril 40 mg tablet 40 mg PO DAILY Qty: 90 1RF metformin 1,000 mg tablet 1,000 mg PO BIDWM Qty: 180 1RF pregabalin [Lyrica] 200 mg capsule 200 mg PO BID 30 Days Qty: 60 0RF Rx Instructions: take with 50 mg = 250 mg BID methocarbamol 500 mg tablet 500 mg PO BEDTIME Qty: 30 0RF buspirone 10 mg tablet 1 tab PO BID duloxetine 30 mg capsule,delayed release(DR/EC) 1 cap PO DAILY duloxetine 60 mg capsule,delayed release(DR/EC) 1 cap PO BEDTIME clonazepam 1 mg tablet 1 mg PO BEDTIME PRN (Reason: Anxiety) Qty: 30 0RF colchicine 0.6 mg tablet 0.6 mg PO DAILY 10 Days Qty: 10 0RF (DME) blood-glucose meter [Accu-Chek Guide Glucose Meter] Misc See Rx Instructions .Route Qty: 1 0RF Rx Instructions: As directed check BS TID (DME) Accu-Chek Guide test strips Strip See Rx Instructions .Route Qty: 100 12RF Rx Instructions: As directed check TID (DME) lancets [Accu-Chek Softclix Lancets] Misc See Rx Instructions .ROUTE .MEDSUPPLY Qty: 100 12RF Rx Instructions: As directed check blood sugars 3 times a day dulaglutide 3 mg/0.5 mL pen injector 3 mg subcut QWEEK 30 Days Qty: 2.5 6RF pregabalin 50 mg capsule 50 mg PO BID PRN (Reason: pain) 90 Days Qty: 180 0RF Rx Instructions: take with 200 mg = 250 mg BID Print Language: Korean
[2024-12-29] MEDS: Lactated Ringers 1,000 ML 999 ML IVCONT (11:08)
[2024-12-29 11:20] LABS: MANUAL DIFF FLAG NO
[2024-12-29 11:21] LABS: Hematocrit 42.9 % (37.0-47.0); Hemoglobin 13.9 g/dl (12.0-16.0); Imm Gran Abs Auto 0.06 X10*3/uL (0.00-0.03); Imm Gran Pct Auto 0.5 % (0.0-0.4); Lymphocytes Absolute Auto 1.6 X10*3/uL (1.2-4.9); Mean Corpuscular HGB Conc 32.4 g/dl (31.0-35.0); Mean Corpuscular Hemoglobin 27.0 pg (27.0-33.0); Mean Corpuscular Volume 83.3 fL (80.0-98.0); NRBC Abs Auto 0.000 X10*3/uL (0.0-0.012); NRBC Pct Auto 0.0 /100WBC (0.0-0.2); Platelet Count 207 X10*3/uL (160-400); Red Blood Count 5.15 X10*6/uL (4.20-5.50); White Blood Count 12.3 X10*3/uL (4.8-10.8)
[2024-12-29 11:35] LABS: Alanine Aminotransferase 18 U/L (0-31); Albumin Level 4.1 g/dL (3.5-5.0); Alkaline Phosphatase 95 U/L (39-117); Anion Gap 14 (12-20); Aspartate Amino Transferase 25 U/L (5-31); Blood Urea Nitrogen 9 mg/dL (9-16); Calcium 9.6 mg/dL (8.4-10.2); Carbon Dioxide 28 mmol/L (22-29); Chloride 103 mmol/L (96-108); Creatinine Clr Calc Pharmacy 70.3; Estimated Glomerular Filt Rate > 60; Lipase 10 U/L (8-78); Potassium 3.9 mmol/L (3.3-5.1); Sodium 141 mmol/L (135-145); Total Protein 7.3 g/dL (6.5-8.0)
[2024-12-29 11:55] LABS: COVID-19 Test Negative (Negative); IDNOW Serial# 08D9AD1C
[2024-12-29] MEDS: iohexoL 350 MG/ML 100 ML INFUS..BTL IV (12:20)
[2024-12-29 12:58] LABS: Appearance Urine Cloudy; Glucose Urine UA Negative (Negative); PH 7.0 (5.0-9.0); Specific Gravity - Urine 1.025 (1.005-1.025); UMIC TRIGGER UACC YES
[2024-12-29 13:14] LABS: UACC Culture Trigger YES
[2024-12-29 13:18] LABS: Reflex Lactate? Lactic Acid Added
--- OUTSIDE RECORDS SUMMARY | 2024-12-29 13:49 | XMS_ITS | Clinical Summary ---
Author Organization [facility] Address [address] [place] [address] Phone Care Team Providers Care Sales Agent Fire Insurance Name Role Phone Kina Blackburn MD Primary Care Provider [phone] Allergies Active Allergy Reactions Criticality Noted Date [...] Noted Date Diagnosed Date Gram negative sepsis ([facility] V24, [facility] V28) 01/28/2024 UTI (urinary tract infection) 01/28/2024 COVID-19 01/28/2024 History of stroke 01/28/2024 Hypertension 01/28/2024 Hyperlipidemia 01/28/2024 Type 2 diabetes mellitus wit h diabetic polyneuropathy ([facility] V24, [facility] V28) 01/28/2024 Restless leg syndrome 01/28/2024 Anxiety 01/28/2024 Acute kidney injury ([facility] V24) 01/28/2024 Subdural hematoma ([facility] V24, [facility] V28) Surgical History Surgery Date Site/Laterality Comments TOTAL ABDOMINAL HYSTERECTOMY W/ BILATERAL SALPINGOOPHORECTOMY CAROTID ENDARTERECTOMY COLONOSCOPY 05/08/2015 ESOPHAGOGASTRODUODENOSCOPY 06/14/2010 CATARACT EXTRACTION CARPAL TUNNEL RELEASE Bilateral LUMBAR SPINE SURGERY 02/23/2013 - 02/22/2014 Medical History Medical History Date Comments CVA (cerebral vascular accident) ([facility] V24, [facility] [place] V28) HTN (hypertension) HLD (hyperlipidemia) DM (diabetes mellitus) ([facility] V24, [facility] V28 ) Subdural hematoma ([facility] V24, [facility] V28) Adenocarcinoma of cervix ([facility] V24, [facility] V 28) Restless leg syndrome GERD (gastroesophageal [...] Type 2 diabetes mellitus with diabetic polyneuropathy ([facility] V24, [facility] V28) Type 2 diabetes mellitus with other diabetic neurological complication ([facility] V24, [facility] V28) from Last 3 Months or Most Recently Relevant to Health Maintenance Results * (ABNORMAL) Basic metabolic panel (01/30/2024 6:31 AM EST) [facility] Sodium 139 133 - 145 mmol/L LAB CHEMISTRY METHOD 01/30/2024 7:35 AM [facility] Potassium 5.3 3.5 - 5.5 mmol/L LAB CHEMISTRY METHOD 01/30/2024 7:35 AM [facility] Chloride 105 96 - 110 mmol/L LAB CHEMISTRY METHOD 01/30/2024 7:35 AM [facility] CO2 29 21 - 32 mmol/L LAB CHEMISTRY METHOD 01/30/2024 7:35 AM [facility] Anion Gap 5 3 - 11 LAB CHEMISTRY METHOD 01/30/2024 7:35 AM [facility] Glucose 175(H) 70 - 100 mg/dL LAB CHEMISTRY METHOD 01/30/2024 7:35 AM [facility] BUN 21 5 - 25 mg/dL LAB CHEMISTRY METHOD 01/30/2024 7:35 AM [facility] Creatinine 1.07 0.50 - 1.10 mg/dL LAB CHEMISTRY METHOD 01/30/2024 7:35 AM [facility] eGFR 55(L) >=60 mL/min/1. 73m2 LAB CHEMISTRY METHOD 01/30/2024 7:35 AM [facility] Comment:Calculation based on the Chronic Kidney Disease Epidemiology Collaboration (CKD-EPI) equation refit without adjustment for race. BUN/Creatinine Ratio 19.6 LAB CHEMISTRY METHOD 01/30/2024 7:35 AM [facility] Calcium 9.6 8.5 - 10.5 mg/dL LAB CHEMISTRY METHOD 01/30/2024 7:35 AM EST [facility] Blood Venous blood specimen / Unknown Venipuncture / Unknown 01/30/2024 6:31 AM EST 01/30/2024 6:54 AM EST us Pradip Vega MD LAB BLOOD ORDERABLES F inal Result [facility]) [facility] [address] [place] [address], [place] [phone] * SCR MAMMO BI INCL CAD (10/30/2016 [...] classified as having normal bone density. [facility] Department of Internal Medicine recommends using [...] beclassified as having normal bone density. [facility] Department of Internal Medicine recommendsusing National [...] Documents on File Type Date Recorded Patient Low Pressure Firer Expl anation Advance Directives and Living Will [...] currently active code status orders. Care Teams Sales Agent Fire Insurance Relationship Specialty Start Date End Date Kina Blackburn MD [address] [place] [address] [address] [facility] [place] [address] PCP - General Internal Medicine 08/06/17
--- OUTSIDE RECORDS SUMMARY | 2024-12-29 13:49 | XMS_ITS ---
Author Name David Miller APRN Address [address] [place] [address] Phone [phone] Organization [facility] Care Team Providers Care Battery Checker Name Role Phone Nancy Miller Unavailable [phone] Unavailable Unavailable Unavailable Unavailable Unavailable [phone] Reason for Referral Not Available Allergies, adverse [...] 1111F, BP, A1c or other CPTII codes [facility], ([place]) 02/03/2024 Encounter for other specifie d aftercare RN, CN or CP time with patient by phone; use with 1111F, BP, A1c or other CPTII codes [facility], ([place]) 02/03/2024 Social History Sex Female History of Procedures Procedures Service Procedure code Service date Servicing provider Phone# RN, CN or CP time with patient by phone; use with 1111F, BP, A1c or other CPTII codes 64532 2024-02-03 No Data Available No Data Avai [...]
[2024-12-29 14:09] LABS: ~Lactic Acid-LAB USE ONLY 1.9 mmol/L (0.5-2.0)
[2024-12-29 14:43] LABS: NT Pro B Type Natriuretic Pept 370.6 pg/mL (<300); Troponin-I High Sensitivity 3.8 ng/L (<3.5-17.0)
--- NOTE | 2024-12-29 14:59 | PM.IMHP ---
History of Present Illness Date of Service: 12/29/24 Attending physician on admission: [facility] Chief Complaint: left hip pain This is a 74 year old female who presented with left hip pain. On arrival to the emergency department patient was noted to be febrile with a temperature of a 102.3 degrees, tachycardic as well as hypoxic with the oxygen saturation of 86% on room air. Patient denies any chest pain, shortness of breath, fever, chills, recent sick contacts. Patient underwent CT scan of the abdomen and pelvis which showed no abnormality to explain left side pain. Did show pulmonary nodule in the right lateral lower lobe. Due to hypoxia she underwent CTA which was positive for PE of the right lower lobe segmental and subsegmental pulmonary arteries. In addition showed septal thickening possible mild interstitial pulmonary edema, possible small airway disease, patchy ground-glass opacities concerning for possible pneumonia. Troponin was unremarkable, pro BNP low at 370.6. Patient was placed on 2 L of supplemental oxygen and started on heparin drip. Review of Systems Review of Systems: Yes all other systems are reviewed and are negative Constitutional: Constitutional: Denies chills and Denies fever(s) Cardiovascular: Cardiovascular: Denies chest pain and Denies palpitations Gastrointestinal: Gastrointestinal: Denies abdominal pain, Denies nausea and Denies vomiting Endocrine: Endocrine: Denies palpitations [facility] Medical History Colon cancer screening Right arm pain Routine gynecological examination Fall Multifactorial gait disorder Peripheral neuropathy Full dentures Multifactorial gait disorder Lower back pain Candidal intertrigo Restrictive lung disease Carotid stenosis GERD (gastroesophageal reflux disease) Personal history of malignant neoplasm of cervix uteri Diabetic nephropathy Restless leg syndrome Obesity (BMI 30-39.9) 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) Osteopenia History of CVA (cerebrovascular accident) Anxiety and depression Hypertension Type 2 diabetes mellitus with hyperglycemia Family History Father Heart attack Mother Cancer Dementia Breast cancer Hemorrhage Surgical History History of carotid endarterectomy History of partial hysterectomy History of colonoscopy with polypectomy History of bilateral cataract extraction History of carpal tunnel surgery History of lumbar fusion History of loop electrical excision procedure (LEEP) History of neck surgery Social History Household Members Other:: Daughter Housing: Other Housing Other:: Mobile Home Are you a primary director of primary care to a significant other at home: No Do you presently have visiting nurse or other home services: Yes (daughter is [employer]) Alcohol intake: never Comment: unsteady gait Patient Tobacco Use Status: Former Tobacco user Tobacco use type: Cigarette Years Smoked: stopped 1990 Smoked in Last 30 Days: No e-Cigarette/Vaping Use: Never Used Second Hand Smoke Exposure: Yes Use of substances other than those prescribed or required for medical reasons: No Advance Directives: Yes Advance Directives on File: Yes Advance Directives Date on File: 03/03/24 Do you have a plan to hurt others: No Plan service: No Current occupational status: disabled Cognitive needs: Yes (walker/cane) Hearing needs: No Vision needs: Yes (glasses) Meds Allergies Allergy/AdvReac Type Severity Reaction Status Date / Time No Known Allergies (No Known Allergy Verified 12/29/24 10:43 Allergies*) Active Medications: Current Medications Acetaminophen (Acetaminophen 325 Mg Tablet) 650 mg PO Q6H PRN PRN Reason: Pain, Mild 1-3,fever,headache Calcium Carbonate (Calcium Carbonate 750 Mg Tab.Chew) 750 mg PO Q4H PRN PRN Reason: Heartburn Dextrose (Dextrose 50 % 25 Gm/50 Ml Syringe) 25 gm IVPUSH Q15M PRN; Protocol PRN Reason: per Hypoglycemia Standing Ord. Glucose (Glucose Gel 15 Gm Gel..Gram.) 15 gm PO Q15M PRN; Protocol PRN Reason: per Hypoglycemia Standing Ord. Heparin Sodium (Porcine) (Heparin Sodium,Porcine 5,000 Unit/Ml Vial) 3,400 unit 40 unit/kg (3400 unit) IVPUSH PROTOCOL BOLUS PRN; Protocol PRN Reason: 40 unit/kg - Heparin Protocol Heparin Sodium (Porcine) (Heparin Sodium,Porcine 5,000 Unit/Ml Vial) 6,800 unit 80 unit/kg (6800 unit) IVPUSH PROTOCOL BOLUS PRN; Protocol PRN Reason: 80 unit/kg - Heparin Protocol Ceftriaxone Sodium 1 gm/ (Sodium Chloride) 50 mls @ 100 mls/hr IV Q24H RAMONA Doxycycline Hyclate 100 mg/ (Sodium Chloride) 250 mls @ 166.67 mls/hr IV Q12H [facility] Heparin Sodium/Sodium Chloride (Heparin Sodium,Porcine/1/2ns) 25,000 unit in 250 mls @ 0 mls/hr IVCONT .Q0M [facility]; Protocol Insulin Human Lispro (Insulin Lispro 100 Unit/Ml 3 Ml Vial) 0 unit SUBCUT QIDACHS [facility]; Protocol Magnesium Hydroxide (Milk Of Magnesia 30 Ml Oral.Susp) 30 ml PO DAILY PRN PRN Reason: Constipation Melatonin (Melatonin 3 Mg Tablet) 6 mg PO BEDTIME PRN PRN Reason: Insomnia Sodium Chloride (0.9 % Sodium Chloride Flush 3 Ml Syringe) 3 ml IVFLUSH QSHIFT [facility] Home Medications ?Medication ?Instructions ?Recorded ?Confirmed ?Last Taken ?Type dulaglutide 3 mg/0.5 mL 3 mg subcut WE 12/29/24 12/29/24 12/28/24 History subcutaneous pen injector insulin glargine 100 unit/mL (3 See Protocol subcut BEDTIME 12/29/24 12/29/24 3 Days Ago History mL) subcutaneous pen (Lantus ~12/26/24 Solostar U-100 Insulin) melatonin 10 mg tablet 10 mg PO BEDTIME PRN Sleep 12/29/24 12/29/24 Unknown History pregabalin 50 mg capsule 50 mg PO BID pain 12/29/24 12/29/24 Unknown History ropinirole 0.5 mg tablet 0.5 mg PO BEDTIME PRN Restless 12/29/24 12/29/24 Unknown History Leg(S) Physical Exam Vital Signs and Narrative: Vital Signs: Last Vital Signs Temp 98.9 F 12/29/24 12:57 Pulse 90 12/29/24 12:57 Resp 13 12/29/24 12:57 BP 173/72 H 12/29/24 12:57 Pulse Ox 94 12/29/24 12:57 O2 Del Method Nasal Cannula 12/29/24 12:57 O2 Flow Rate 2 12/29/24 12:57 BMI result Body Mass Index 30.3 Const: General: cooperative, alert and awake Nutritional Appearance: average body habitus Orientation/consciousness: patient oriented x3 Resp: Other: basilar rales Effort & Inspection: normal respiratory effort, able to speak in complete sentences, no respiratory distress and no use of accessory muscles Cardio: Rate: regular rate GI: Inspection: No distended Palpation (GI): Soft to palpation and nontender Neuro: General: patient oriented x3, moves all extremities and CN's II-XI intact bilaterally Extrem: General: No pedal edema Results Labs 12/29/24 15:08 12/29/24 11:14 Labs: Laboratory Results - last 24 hr 12/29/24 12/29/24 12/29/24 11:14 11:18 12:50 MCV 83.3 MCH 27.0 MCHC 32.4 RDW 13.5 Plt Count 207 MPV 9.8 Immature Gran % (Auto) 0.5 H Neut % (Auto) 80.6 H Lymph % (Auto) 12.9 L Divide % (Auto) 5.2 Eos % (Auto) 0.7 Baso % (Auto) 0.1 Lymph # (Auto) 1.6 Divide # (Auto) 0.6 Eos # (Auto) 0.1 Baso # (Auto) 0.0 Abs Immat Gran (auto) 0.06 H Absolute Neuts (auto) 9.9 H Absolute Nucleated RBC 0.000 Nucleated RBC % (auto) 0.0 Anion Gap 14 Estim Creat Clear Calc 70.3 Estimated GFR > 60 Random Glucose 194 H Lactic Acid 2.4 H* Lactic Acid F/U @ 2Hr Calcium 9.6 Total Bilirubin 0.4 AST 25 ALT 18 Alkaline Phosphatase 95 Troponin I High Sens 3.8 NT-Pro-B Natriuret Pep 370.6 H Total Protein 7.3 Albumin 4.1 Lipase 10 Urine Color Yellow Urine Appearance Cloudy Urine pH 7.0 Ur Specific Prentice 1.025 Urine Protein Negative Urine Glucose (UA) Negative Urine Ketones Trace Urine Blood Negative Urine Nitrite Negative Ur Leukocyte Esterase Moderate (2+) H Urine RBC 0-2 Urine WBC 21-50 H Ur Squamous Epith Cells 11-20 Urine Bacteria 4+ Hyaline Casts 0-2 COVID-19 (ELIF) Negative COVID-19 Clin Com See Note 12/29/24 13:33 MCV MCH MCHC RDW Plt Count MPV Immature Gran % (Auto) Neut % (Auto) Lymph % (Auto) Divide % (Auto) Eos % (Auto) Baso % (Auto) Lymph # (Auto) Divide # (Auto) Eos # (Auto) Baso # (Auto) Abs Immat Gran (auto) Absolute Neuts (auto) Absolute Nucleated RBC Nucleated RBC % (auto) Anion Gap Estim Creat Clear Calc Estimated GFR Random Glucose Lactic Acid Lactic Acid F/U @ 2Hr 1.9 Calcium Total Bilirubin AST ALT Alkaline Phosphatase Troponin I High Sens NT-Pro-B Natriuret Pep Total Protein Albumin Lipase Urine Color Urine Appearance Urine pH Ur Specific Prentice Urine Protein Urine Glucose (UA) Urine Ketones Urine Blood Urine Nitrite Ur Leukocyte Esterase Urine RBC Urine WBC Ur Squamous Epith Cells Urine Bacteria Hyaline Casts COVID-19 (ELIF) COVID-19 Clin Com Imaging Radiologist's Impressions: Impressions Chest X-Ray 12/29/24 11:45 IMPRESSION: Right basilar hazy opacity could reflect atelectasis or infiltrate. Electronically signed by: Santiago Guerrero MD 12/29/2024 11:53 AM EST RP Abdomen/Pelvis CT 12/29/24 12:12 IMPRESSION: No significant abnormality to explain the patient's left lower quadrant pain and sepsis. 3 x 4 mm solid pulmonary nodule is present in the lateral right lower lobe. No further follow-up is indicated per Fleischner Society recommendations, unless the patient falls into a high risk category, in which case a 12 month follow-up CT chest without contrast is optional. High risk patients includes those with a history of smoking, first-degree relative with lung cancer, or exposure to uranium, radon, or asbestos. Fleischner guidelines were followed. Electronically signed by: Emmett Nielsen MD 12/29/2024 12:58 PM EST RP Chest CTA 12/29/24 12:12 IMPRESSION: 1. Examination is significantly motion limited although appears POSITIVE for pulmonary embolism involving the right lower lobe segmental and subsegmental pulmonary arteries. There is low clot volume. There is no evidence of right heart strain. 2. There is no evidence of aortic aneurysm or acute aortic syndrome. There is borderline cardiac enlargement. 3. There is diffuse smooth interlobular septal thickening suggesting mild interstitial pulmonary edema. There is mild diffuse thickening of the small airways, which can be seen with interstitial edema or conversely related to inflammatory airways disease. 4. Patchy groundglass opacities in the posterior right lower lobe could represent alveolar edema, microatelectasis, or possibly pneumonia. There are no pleural effusions. 5. There are additional ancillary findings as detailed in the body of the report. Electronically signed by: Maxi Enriquez MD 12/29/2024 01:12 PM [facility] Assessment and Plan (1) Pulmonary emboli: Status: Acute Plan This is a 74-year-old female with history of diabetes, history of stroke, hypertension, restrictive lung disease, depression, carotid stenosis status post left CEA who presented for left hip pain found to have acute PE Acute respiratory failure with hypoxia Due to acute PE and probable pneumonia Continue supplemental oxygen, wean as tolerated Acute PE on heparin drip no clear cause, no h/o ca, no recent travel or surgery hematology consult Severe Sepsis due to pneumonia Hypoxic but no significant respiratory symptoms lactic acid 2.4, resolved with IVF Check procalcitonin, RPP, MRSA nasal swab IV ceftriaxone and Doxycycline bnp low, CHF less likely continue supplemental oxygen as needed left hip pain denies trauma will obtain xray continue baseline robaxin, lyrica DM SSI, POCs, ADA diet hold metformin reportedly takes lantus prn on sliding scale - will check hba1c and cover with sliding scale for now to asses for 24 hour insulin needs as insulin directions are unclear HTN bp uncontrolled, did not take am bp meds continue lisinopril RLS continue lyrica, ropinirole h/o CVA/carotid dz continue plavix dvt ppx - heparin drip code status - full code Patient will likely require 2 midnight stay in the hospital for management of acute PE, pneumonia requiring IV antibiotics and specialist evaluation as well as close monitoring of respiratory status Quality Stroke Does the patient have a stroke diagnosis?: No VTE Prior VTE?: No VTE Risk Level:: Medical - moderate - high VTE Device Contraindication: Treatment Not Indicated VTE Drug Contraindication: N/A - Med Ordered
[2024-12-29] MEDS: Heparin Sodium,Porcine/1/2NS 25,000 UNIT/250 ML IV.SOLN 11.94 UNIT IVCONT (15:14)
[2024-12-29] MEDS: 0.9 % Sodium Chloride Flush 3 ML SYRINGE IVFLUSH ×2 (15:23→20:21)
[2024-12-29 15:24] LABS: Hematocrit 40.6 % (37.0-47.0); Hemoglobin 13.4 g/dl (12.0-16.0); Mean Corpuscular HGB Conc 33.0 g/dl (31.0-35.0); Mean Corpuscular Hemoglobin 27.8 pg (27.0-33.0); Mean Corpuscular Volume 84.2 fL (80.0-98.0); NRBC Abs Auto 0.000 X10*3/uL (0.0-0.012); NRBC Pct Auto 0.0 /100WBC (0.0-0.2); Platelet Count 226 X10*3/uL (160-400); Red Blood Count 4.82 X10*6/uL (4.20-5.50); White Blood Count 11.9 X10*3/uL (4.8-10.8)
--- NOTE | 2024-12-29 15:24 | PHA.MEDREC ---
Addendum entered by Steven Sun RP 12/29/24 17:02: Reviewed by [facility]. Will make provider aware about Lantus. Lantus was last filled on 10/27/24 with direction 60 units at bedtime, however pt and daughter states she takes a max of units on a SS with meals. Original Note: Pharmacy Consult ? Medication Reconciliation Pharmacy has completed the medication reconciliation. Spoke with pt and she was a poor historian and told us to call her daughter. Pt confirmed her Insulin Glargine and states she has been using it per a sliding scale depending on how much carbs pt eats in a day. I called pt daughter and she was able to confirm pt medications; confirmed pt takes Trulicity once a week on Wednesdays, Pregabalin 200mg and 50mg tabs BID together for TDD:250mg, Ropinerol 0.5mg tabs as needed for restlessness (pt has an old bottle at home filled from [facility] and pt taking Insulin Glargine per sliding scale depending on how much carbs pt eats in a day, daughter wont go over 10 units unless pt has had a big meal that day (pt has not taken it in ~3 days per daughter, pt not eating that well right now).
[2024-12-29 15:29] LABS: INTERNATIONAL NORM RATIO 1.0 (0.9-1.1); Prothrombin Time 12.5 SEC (11.2-13.5)
[2024-12-29 15:32] LABS: PTT Heparin Drip 30.4 SEC (53-77.9)
[2024-12-29 16:44] LABS: Glucose, Whole Blood 151 mg/dL (60-115)
--- NOTE | 2024-12-29 17:03 | HO.NURTONUR ---
pt came in with cc of l hip pain, found to be hypoxic and febrile with a tender l abd, sepsis protocol done, pe and pneumonia found, ? cause for hip pain and abd pain, able to use commode safely independently with minimal assistance, iv 20 l ac and 22 r fa, uses cane and a walker at baseline, heparin drip infusing, next lab draw 2100, on 02 2lpm
[2024-12-29 17:34] LABS: Procalcitonin 0.03 ng/mL
[2024-12-29 21:17] LABS: Glucose, Whole Blood 203 mg/dL (60-115)
[2024-12-29 21:41] LABS: PTT Heparin Drip 55.6 SEC (53-77.9)
--- NOTE | 2024-12-29 22:50 | PM.HEMONCCN ---
Subjective - Subjective Chief complaint: Consult for: Unprovoked PE. Patient: new to practice Consult date: 12/29/24 Requesting Physician: Guillermo. Primary Care Provider: Kina Blackburn MD Family Provider: Kina Blackburn MD Medical Summary: DIAGNOSIS: Unprovoked PE. Carpet Measurer Utilized?: No - [place] Speaking HPI - Consult Narrative Reason for consult: Consult for: Unprovoked PE. Narrative: Cat Krishna is a 74 year old lady who presented with left hip pain. She was noted to be febrile with a temperature of a 102.3 degrees. She had tachycardic as well as hypoxia, with the oxygen saturation of 86% on room air. She actually denied any chest pain, shortness of breath, fever, chills, recent sick contacts. CT scan of the abdomen and pelvis which showed no abnormality to explain left side pain. It showed pulmonary nodule in the right lateral lower lobe. Due to hypoxia she underwent CTA. This was positive for PE of the right lower lobe segmental and subsegmental pulmonary arteries. In addition showed septal thickening possible mild interstitial pulmonary edema, possible small airway disease, patchy ground-glass opacities concerning for possible pneumonia. Troponin was unremarkable, pro BNP low at 370.6. She was placed on 2 L of supplemental oxygen and started on heparin drip. 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 History of loop electrical excision procedure (LEEP) History of neck surgery Family History:) Father Heart attack Mother Cancer Dementia Breast cancer Hemorrhage. Social History:) Household Members Other:: Daughter Housing: Other Housing Other:: Mobile Home Are you a primary child care aide to a significant other at home: No Do you presently have visiting nurse or other home services: Yes (daughter is [employer]) Alcohol intake: never Comment: unsteady gait Patient Tobacco Use Status: Former Tobacco user Tobacco use type: Cigarette Review of Systems Constitutional: Denies chills and Denies fever(s) Cardiovascular: Denies chest pain and Denies palpitations Gastrointestinal: Denies abdominal pain, Denies nausea and Denies vomiting Endocrine: Denies palpitations. All other systems are reviewed and are negative Review of Systems - Constitutional Reports system reviewed and no additional complaints, except as documented, Reports fatigue, Reports weakness - Eyes Reports system reviewed and no additional complaints, except as documented - ENT Reports system reviewed and no additional complaints, except as documented - Cardiovascular Reports system reviewed and no additional complaints, except as documented - Respiratory Reports no additional respiratory complaints - Gastrointestinal Reports system reviewed and no additional complaints, except as documented - Genitourinary Reports no additional female genitourinary complaints - Musculoskeletal Reports system reviewed and no additional complaints, except as documented - Integumentary/Breasts Skin/Breast: Reports no additional skin complaints - Neurologic Reports system reviewed and no additional complaints, except as documented - Psychiatric Reports system reviewed and no additional complaints, except as documented - Endocrine Reports no additional endocrine complaints - Hematologic/Lymphatic Reports system reviewed and no additional complaints, except as documented - Allergic/Immunologic Reports system reviewed and no additional complaints, except as documented Oncology Screenings - ECOG Performance Status ECOG Performance Status: 2 [facility] Medical History: Medical History (Last Reviewed 12/29/24 @ 15:05 by CARLY Guy) Anxiety and depression Candidal intertrigo Carotid stenosis ROCKY II (cervical intraepithelial neoplasia II) Colon cancer screening Degenerative joint disease of cervical and lumbar spine Diabetic nephropathy Fall Full dentures GERD (gastroesophageal reflux disease) History of CVA (cerebrovascular accident) Hypertension Lower back pain Multifactorial gait disorder Multifactorial gait disorder Obesity (BMI 30-39.9) Osteopenia Peripheral neuropathy Personal history of malignant neoplasm of cervix uteri Restless leg syndrome Restrictive lung disease Right arm pain Routine gynecological examination Type 2 diabetes mellitus with hyperglycemia Functional capacity: uses cane/walker Family History: Family History (Last Reviewed 12/29/24 @ 15:05 by CARLY Guy) Father Heart attack Mother Cancer Dementia Breast cancer Hemorrhage Surgical History: Surgical History (Last Reviewed 12/29/24 @ 15:05 by CARLY Guy) History of bilateral cataract extraction History of carotid endarterectomy History of carpal tunnel surgery History of colonoscopy with polypectomy History of loop electrical excision procedure (LEEP) History of lumbar fusion History of neck surgery History of partial hysterectomy Social History: Social History (Last Reviewed 12/29/24 @ 15:05 by CARLY Guy) Living Situation History: Household Members: Children Household Members Other:: Daughter Housing: Other Housing Other:: mobile home Are you a primary child care aide to a significant other at home: No Do you presently have visiting nurse or other home services: Yes Alcohol History Details: 1. How often do you have a drink containing alcohol?: a. Never 3. How often do you have six or more drinks on one occasion?: a. Never AUDIT-C Alcohol total score: 0 Currently Displaying Signs/Symptoms of Alcohol Withdrawal: No Tobacco History: Patient Tobacco Use Status: Former Tobacco user Tobacco use type: Cigarette Years Smoked: stopped 1990 Smoked in Last 30 Days: No e-Cigarette/Vaping Use: Never Used Second Hand Smoke Exposure: Yes Substance Use History: Use of substances other than those prescribed or required for medical reasons: No Currently Displaying Signs/Symptoms of Drug Intoxication Withdrawal: No Domestic Abuse History: Have you been hit, kicked, punched, or otherwise hurt by someone within the past year? If so, by whom?: No Do you feel safe in your current relationship?: No Current Relationship Is there a partner from a previous relationship who is making you feel unsafe now?: No Are you made to feel afraid or neglected: No Advance Directives: Advance Directives: Yes Advance Directives on File: Yes Advance Directives Date on File: 03/03/24 Homicidal Assessment: Do you have a plan to hurt others: No Plan Nutrition Assessment: Recently lost weight without trying: No Eating poorly because of decreased appetite: No Patient : No : No Poor oral hygiene: No Occupation Assessmet: service: No Current occupational status: disabled Home Medications and Allergies Current Medications: Current Medications Acetaminophen (Acetaminophen 325 Mg Tablet) 650 mg PO Q6H PRN PRN Reason: Pain, Mild 1-3,fever,headache Calcium Carbonate (Calcium Carbonate 750 Mg Tab.Chew) 750 mg PO Q4H PRN PRN Reason: Heartburn Clopidogrel Bisulfate (Clopidogrel Bisulfate 75 Mg Tablet) 75 mg PO DAILY RAMONA Dextrose (Dextrose 50 % 25 Gm/50 Ml Syringe) 25 gm IVPUSH Q15M PRN; Protocol PRN Reason: per Hypoglycemia Standing Ord. Docusate Sodium (Docusate Sodium 100 Mg Capsule) 200 mg PO DAILY PRN PRN Reason: Constipation Fluticasone Propionate (Fluticasone Propionate Nasal 16 Gm [place]) 2 spray NOSTRIL-B DAILY PRN PRN Reason: Allergy Symptoms Glucose (Glucose Gel 15 Gm Gel..Gram.) 15 gm PO Q15M PRN; Protocol PRN Reason: per Hypoglycemia Standing Ord. Heparin Sodium (Porcine) (Heparin Sodium,Porcine 5,000 Unit/Ml Vial) 3,400 unit 40 unit/kg (3400 unit) IVPUSH PROTOCOL BOLUS PRN; Protocol PRN Reason: 40 unit/kg - Heparin Protocol Heparin Sodium (Porcine) (Heparin Sodium,Porcine 5,000 Unit/Ml Vial) 6,800 unit 80 unit/kg (6800 unit) IVPUSH PROTOCOL BOLUS PRN; Protocol PRN Reason: 80 unit/kg - Heparin Protocol Ceftriaxone Sodium 1 gm/ (Sodium Chloride) 50 mls @ 100 mls/hr IV Q24H RAMONA Doxycycline Hyclate 100 mg/ (Sodium Chloride) 250 mls @ 166.67 mls/hr IV Q12H [facility] Last Infusion: 12/29/24 18:29 Dose: Infused Heparin Sodium/Sodium Chloride (Heparin Sodium,Porcine/1/2ns) 25,000 unit in 250 mls @ 0 mls/hr IVCONT .Q0M RAMONA; Protocol Last Titration: 12/29/24 21:53 Dose: 14 units/kg/hr, 11.94 mls/hr Insulin Human Lispro (Insulin Lispro 100 Unit/Ml 3 Ml Vial) 0 unit SUBCUT QIDACHS [facility]; Protocol Last Admin: 12/29/24 21:32 Dose: 4 unit Lisinopril (Lisinopril 40 Mg Tablet) 40 mg PO DAILY [facility]; Protocol Magnesium Hydroxide (Milk Of Magnesia 30 Ml Oral.Susp) 30 ml PO DAILY PRN PRN Reason: Constipation Magnesium Oxide (Magnesium Oxide 400 Mg Tablet) 400 mg PO DAILY RAMONA Melatonin (Melatonin 3 Mg Tablet) 6 mg PO BEDTIME PRN PRN Reason: Insomnia Methocarbamol (Methocarbamol 500 Mg Tablet) 500 mg PO BEDTIME [facility] Last Admin: 12/29/24 20:21 Dose: 500 mg Morphine Sulfate (Morphine Sulfate 4 Mg/Ml Cartridge) 2 mg IVPUSH Q4H PRN; Protocol PRN Reason: Pain, Severe (Pain Scale 7-10) Pregabalin (Pregabalin 50 Mg Capsule) 50 mg PO BID [facility] Last Admin: 12/29/24 20:20 Dose: 50 mg Pregabalin (Pregabalin 200 Mg Capsule) 200 mg PO BID [facility] Last Admin: 12/29/24 20:21 Dose: 200 mg Ropinirole HCl (Ropinirole Hcl 0.5 Mg Tablet) 0.5 mg PO BEDTIME PRN PRN Reason: Restless Leg(S) Sodium Chloride (0.9 % Sodium Chloride Flush 3 Ml Syringe) 3 ml IVFLUSH QSHIFT [facility] Last Admin: 12/29/24 20:21 Dose: 3 ml Home Medications ?Medication ?Instructions ?Recorded ?Confirmed ?Type dulaglutide 3 mg/0.5 mL 3 mg subcut WE 12/29/24 12/29/24 History subcutaneous pen injector insulin glargine 100 unit/mL (3 See Protocol subcut BEDTIME 12/29/24 12/29/24 History mL) subcutaneous pen (Lantus Solostar U-100 Insulin) melatonin 10 mg tablet 10 mg PO BEDTIME PRN Sleep 12/29/24 12/29/24 History pregabalin 50 mg capsule 50 mg PO BID pain 12/29/24 12/29/24 History ropinirole 0.5 mg tablet 0.5 mg PO BEDTIME PRN Restless 12/29/24 12/29/24 History Leg(S) Allergies Allergy/AdvReac Type Severity Reaction Status Date / Time No Known Allergies (No Known Allergy Verified 12/29/24 10:43 Allergies*) Physical Exam Vital signs: Vital Signs Temp 98.1 F 12/29/24 18:52 Pulse 85 12/29/24 18:52 Resp 18 12/29/24 18:52 BP 178/79 H 12/29/24 18:52 Pulse Ox 98 12/29/24 18:52 O2 Del Method Nasal Cannula 12/29/24 18:52 O2 Flow Rate 2 12/29/24 18:52 Intake & Output 12/29/24 12/29/24 12/30/24 06:59 18:59 06:59 Intake Total 1450 / 1529.401 79.401 / 1529.401 Output Total 350 / 350 Balance 1450 / 1179.401 -270.599 / 1179.401 Urine Output (Average ml/kg/hr) 0.34 Intake: Intake, IV Amount 1450 / 1529.401 79.401 / 1529.401 Acetaminophen 1,000 mg In 100 100 / 100 ml @ 400 mls/hr IV ONCE ONE Rx# :[id number] Doxycycline Hyclate 100 mg In 0 250 / 250 .9 % Sodium Chloride 250 ml @ 166.67 mls/hr IV Q12H [facility] Rx#: [id number] cefTRIAXone sodium 2 gm In 0.9 100 / 100 % Sodium Chloride 100 ml @ 200 mls/hr IV ONCE ONE Rx#: [id number] Heparin Sodium,Porcine/1/2NS 25 79.401 / 79.401 ,000 unit In 250 ml @ Per Protocol IVCONT .Q0M [facility] Rx#: [id number] Lactated Ringers 1,000 ml @ 999 1000 / 1000 mls/hr IVCONT .Q1H1M [facility] Rx#: [id number] Output: Output, Urine Amount 350 / 350 Other: Urine Bedside Commode Urine Color Yellow Last Bowel Movement 12/28/24 Weight 84.8 kg Weight 84.8 kg - Constitutional Present: mild distress - Routine HEENT Exam Head: Present: normal inspection, normocephalic Eye: Present: normal appearance ENT: Present: mucous membranes moist - Routine Neck Exam Present: supple Hem/Onc Consult Result - Labs CBC & Chem 7: 01/01/25 07:27 12/30/24 06:56 Labs: Short CBC 12/29/24 12/29/24 Range/Units 11:14 15:08 WBC 12.3 H 11.9 H (4.8-10.8) X10*3/uL Hgb 13.9 13.4 (12.0-16.0) g/dl Hct 42.9 40.6 (37.0-47.0) % Plt Count 207 226 (160-400) X10*3/uL BMP 12/29/24 11:14 Sodium 141 Potassium 3.9 Chloride 103 Carbon Dioxide 28 BUN 9 Creatinine 0.78 Calcium 9.6 Liver Function 12/29/24 Range/Units 11:14 Total Bilirubin 0.4 (0.0-1.0) mg/dL AST 25 (5-31) U/L ALT 18 (0-31) U/L Alkaline Phosphatase 95 (39-117) U/L Albumin 4.1 (3.5-5.0) g/dL Urine 12/29/24 Range/Units 12:50 Urine Color Yellow Urine Appearance Cloudy Urine pH 7.0 (5.0-9.0) Ur Specific [place] 1.025 (1.005-1.025) Urine Protein Negative (Neg-Trace) mg/dL Urine Glucose (UA) Negative (Negative) mg/dL Assessment and Plan Patient Active problem list reviewed?: Yes (1) Pulmonary emboli Status: Acute Assessment and plan: 74-year-old lady, presented with left hip pain. CT scan of the abdomen and pelvis which showed no abnormality to explain left side pain. It showed pulmonary nodule in the right lateral lower lobe. Due to hypoxia she underwent CTA. This was positive for PE of the right lower lobe segmental and subsegmental pulmonary arteries. In addition showed septal thickening possible mild interstitial pulmonary edema, possible small airway disease, patchy ground-glass opacities concerning for possible pneumonia. She has been started on IV heparin. My guess is that she is on the Plavix for the history of stroke. According to the recommendation from the [place] society of Hematology guidelines, patients with pulmonary embolism on a heparin drip should generally discontinue aspirin and Plavix during the acute phase. This is based on the principal of minimizing the risk of bleeding complications bile effectively managing the pulmonary embolism. The heparin already provide strong anticoagulation and adding aspirin and Plavix could create an excessive risk of bleeding. PLAN: Will proceed with ultrasound of her lower extremities to look for a source for the embolus. Will wait for the acute clot to stabilize, can then do the hypercoagulable workup as an outpatient. Once the hypoxia resolves, can switch her over to a NOAC, ie. Eliquis. Will continue to monitor her O2 sat, as you are doing. Continue ceftriaxone for the pneumonia. Thank you for the consult, I will follow along with you. CC: Kina Blackburn MD Addendum: The lower extremities revealed: No evidence of deep venous thrombosis involving the bilateral lower extremities. - Time Spent With Patient Time Spent with Patient (in minutes): 30
[2024-12-30] VITALS (7 sets, daily range): BP systolic 135–170; BP diastolic 63–86; PULSE 65–87; RESP 16–18; TEMP 36.4–37.2; O2SAT 86–100
--- NOTE | 2024-12-30 02:10 | PC.NURSE ---
c/o sevre left hip pain. worsening. vitals stable. heat and repositioning ineffective. and Consuelo ROLLE notified.
[2024-12-30 03:49] LABS: PTT Heparin Drip 81.7 SEC (53-77.9)
--- NOTE | 2024-12-30 07:00 | CA_ITS ---
Transthoracic Echocardiogram Patient (Last, First, Middle): Cat Krishna J Gender: Female Date of : 1950 Age: 74 Procedure Date: 12/30/2024 Procedure Type: Transthoracic Echocardiogram [place] [facility] [place]: 167.64 cm Weight: 85.28 kg BSA: 1.95 m2 Heart Rate: 78 bpm BP: 173 / 72 mmHg Dietitian Chief: SB Referring MD: Daily CARROLL Symptoms: new PE Study Quality: Adequate w contrast ECG Rhythm: Sinus Conclusions: - Normal left ventricular cavity size. There is mildly increased left ventricular wall thickness. The left ventricular systolic function is low normal. The visually estimated ejection fraction is between 50-55%. - Normal right ventricular cavity size and systolic function. Findings Procedure Information Contrast agent, definity, is being given per protocol without apparent complications. Left Ventricle Normal left ventricular cavity size. There is mildly increased left ventricular wall thickness. The left ventricular systolic function is low normal. The visually estimated ejection fraction is between 50-55%. There is paradoxical septal motion consistent with a left bundle branch block. Diastolic function is indeterminate on the basis of available data. Right Ventricle Normal right ventricular cavity size and systolic function. Atria The left atrium is mildly dilated. The right atrium is normal in size. Aortic Valve There is a normal trileaflet aortic valve. There is mild calcification of the aortic valve. There is no aortic valve stenosis. There is no aortic valve regurgitation. Mitral Valve The mitral valve appears normal. There is trace mitral valve regurgitation. There is no mitral valve stenosis. Pulmonic Valve The pulmonic valve is normal. There is no pulmonic valve regurgitation. Tricuspid Valve Normal right atrial pressure. There is no evidence of pulmonary hypertension. Great Vessels All visible segments of the aorta are normal in size. Venous The inferior vena cava is normal in size and collapses greater than 50% with inspiration. Pericardium/Pleural There is no evidence of pericardial effusion. Prior Study Comparison Changes noted compared to prior study dated: 08/16/2019. EF 50-55% Measurements 2D Linear Measurements IVSd: 1.05 0.6-0.9/0.6-1.0 cm LVIDd: 4.92 3.9-5.3/4.2-5.9 cm LVIDd Index: 2.52 2.4-3.2/2.2-3.1 cm/m2 LVIDs: 3.73 2.0-3.6 cm LVPWd: 1.18 0.7-1.1 cm LA Diam: 3.50 2.7-3.8/3.0-4.0 cm LAIDs Index: 1.79 1.5-2.3 cm/m2 LV Mass: 256.29 67-162/88-224 g LV Mass Index: 131.43 43-95/49-115 g/m2 LVOT Diam: 2.20 3.0+(-)1.3 cm 2D Systolic Function EF 4C: 39.60 >55% EF 2C: 48.90 >55% EF BiP: 44.40 >55% Mitral Valve MV Pk E: 0.76 MV PK A: 1.15 MV Decel Time: 121.00 E/A: 0.70 E'Lateral: 4.68 E'Medial: 2.72 E/E' Med: 27.90 E/E' Lat: 16.20 PHT: 35.00 MVA PHT: 6.29 Decel [place]: 6.29 Aortic Valve AoV Pk Paul: 1.13 AoV Pk Grad: 5.00 JENNIFER: 2.86 LVOT LVOT Pk Paul: 0.80 LVOT Mn Paul: 0.56 LVOT VTI: 0.16 LVOT Pk Grad: 3.00 LVOT Mn Grad: 1.00 LVOT Diam: 2.20 LVOT Area: 3.80 Diastolic Function MV Pk E: 0.76 MV Pk A: 1.15 E/A: 0.70 E'Medial: 2.72 E/E' Med: 27.90 E' Laterial: 4.68 E/E' Lat: 16.20 Right Ventricle TAPSE (mm): 17.10 TVS' Paul: 10.70 Tricuspid Valve TR Pk Paul: 2.21 TR Pk Grad: 20.00 RA Press: 3.00 RVSP: 23.00 Great Vessels Aorta Sinus of Valsalva: 3.20 2.0-3.5 cm Ao Asc: 3.20 2.1-3.4 cm Pulmonary Veins Pulm Vein S/D 2.00 Pulmonary Valve PV Pk Paul: 0.80 Peak PV Grad: 3.00 Updated in Other Vendor System with Status of Final Ismael Green MD electronically signed on 01/01/2025 1:47:18 PM with status of Final
[2024-12-30 07:01] LABS: Glucose, Whole Blood 173 mg/dL (60-115)
[2024-12-30 07:08] LABS: Hematocrit 42.3 % (37.0-47.0); Hemoglobin 13.4 g/dl (12.0-16.0); Mean Corpuscular HGB Conc 31.7 g/dl (31.0-35.0); Mean Corpuscular Hemoglobin 26.6 pg (27.0-33.0); Mean Corpuscular Volume 84.1 fL (80.0-98.0); NRBC Abs Auto 0.000 X10*3/uL (0.0-0.012); NRBC Pct Auto 0.0 /100WBC (0.0-0.2); Platelet Count 182 X10*3/uL (160-400); Red Blood Count 5.03 X10*6/uL (4.20-5.50); White Blood Count 8.7 X10*3/uL (4.8-10.8)
[2024-12-30 07:13] LABS: INTERNATIONAL NORM RATIO 1.1 (0.9-1.1); Prothrombin Time 13.3 SEC (11.2-13.5)
[2024-12-30 07:25] LABS: Anion Gap 14 (12-20); Blood Urea Nitrogen 6 mg/dL (9-16); Calcium 9.3 mg/dL (8.4-10.2); Carbon Dioxide 27 mmol/L (22-29); Chloride 105 mmol/L (96-108); Creatinine Clr Calc Pharmacy 78.5; Estimated Glomerular Filt Rate > 60; Potassium 3.8 mmol/L (3.3-5.1); Sodium 142 mmol/L (135-145)
--- NOTE | 2024-12-30 08:24 | HO.PM.IMPN ---
Subjective Subjective Date of Service: 12/30/24 Interval History: Follow-up on acute hypoxic respiratory failure, pulmonary embolism and community-acquired pneumonia No sob, or chest, c/o hip pain Physical Exam Vital Signs: Vital Signs: Last Vital Signs Temp 98.9 F 12/30/24 07:23 Pulse 87 12/30/24 07:23 Resp 16 12/30/24 07:23 BP 160/86 H 12/30/24 07:23 Pulse Ox 97 12/30/24 07:23 O2 Del Method Nasal Cannula 12/30/24 07:23 O2 Flow Rate 2 12/30/24 07:23 BMI result Body Mass Index 30.2 Const: General: cooperative, alert and awake Nutritional Appearance: average body habitus Orientation/consciousness: patient oriented x3 Resp: Other: basilar rales Effort & Inspection: normal respiratory effort, able to speak in complete sentences, no respiratory distress and no use of accessory muscles Cardio: Rate: regular rate GI: Inspection: No distended Palpation (GI): Soft to palpation and nontender Neuro: General: patient oriented x3, moves all extremities and CN's II-XI intact bilaterally Extrem: General: No pedal edema Objective Data Active Medications Acetaminophen (Acetaminophen 325 Mg Tablet) 650 mg PO Q6H PRN PRN Reason: Pain, Mild 1-3,fever,headache Calcium Carbonate (Calcium Carbonate 750 Mg Tab.Chew) 750 mg PO Q4H PRN PRN Reason: Heartburn Dextrose (Dextrose 50 % 25 Gm/50 Ml Syringe) 25 gm IVPUSH Q15M PRN; Protocol PRN Reason: per Hypoglycemia Standing Ord. Docusate Sodium (Docusate Sodium 100 Mg Capsule) 200 mg PO DAILY PRN PRN Reason: Constipation Fluticasone Propionate (Fluticasone Propionate Nasal 16 Gm [place]) 2 spray NOSTRIL-B DAILY PRN PRN Reason: Allergy Symptoms Glucose (Glucose Gel 15 Gm Gel..Gram.) 15 gm PO Q15M PRN; Protocol PRN Reason: per Hypoglycemia Standing Ord. Heparin Sodium (Porcine) (Heparin Sodium,Porcine 5,000 Unit/Ml Vial) 3,400 unit 40 unit/kg (3400 unit) IVPUSH PROTOCOL BOLUS PRN; Protocol PRN Reason: 40 unit/kg - Heparin Protocol Heparin Sodium (Porcine) (Heparin Sodium,Porcine 5,000 Unit/Ml Vial) 6,800 unit 80 unit/kg (6800 unit) IVPUSH PROTOCOL BOLUS PRN; Protocol PRN Reason: 80 unit/kg - Heparin Protocol Ceftriaxone Sodium 1 gm/ (Sodium Chloride) 50 mls @ 100 mls/hr IV Q24H [facility] Doxycycline Hyclate 100 mg/ (Sodium Chloride) 250 mls @ 166.67 mls/hr IV Q12H [facility] Last Infusion: 12/30/24 04:57 Dose: Infused Documented By: MARK Heparin Sodium/Sodium Chloride (Heparin Sodium,Porcine/1/2ns) 25,000 unit in 250 mls @ 0 mls/hr IVCONT .Q0M [facility]; Protocol Last Titration: 12/30/24 04:30 Dose: 12 units/kg/hr, 10.24 mls/hr Documented By: MARK Co-signed By: TAINA Insulin Human Lispro (Insulin Lispro 100 Unit/Ml 3 Ml Vial) 0 unit SUBCUT QIDACHS [facility]; Protocol Last Admin: 12/30/24 08:09 Dose: Not Given Documented By: CHUY Non-Admin Reason: Patient Refused Lisinopril (Lisinopril 40 Mg Tablet) 40 mg PO DAILY [facility]; Protocol Magnesium Hydroxide (Milk Of Magnesia 30 Ml Oral.Susp) 30 ml PO DAILY PRN PRN Reason: Constipation Magnesium Oxide (Magnesium Oxide 400 Mg Tablet) 400 mg PO DAILY [facility] Melatonin (Melatonin 3 Mg Tablet) 6 mg PO BEDTIME PRN PRN Reason: Insomnia Last Admin: 12/29/24 23:33 Dose: 6 mg Documented By: MARK Methocarbamol (Methocarbamol 500 Mg Tablet) 500 mg PO BEDTIME [facility] Last Admin: 12/29/24 20:21 Dose: 500 mg Documented By: MARK Morphine Sulfate (Morphine Sulfate 4 Mg/Ml Cartridge) 2 mg IVPUSH Q4H PRN; Protocol PRN Reason: Pain, Severe (Pain Scale 7-10) Last Admin: 12/29/24 23:45 Dose: 2 mg Documented By: MARK Oxycodone HCl (Oxycodone Hcl Immed Release 5 Mg Tablet) 5 mg PO Q6H PRN PRN Reason: Pain, Moderate(Pain Scale 4-6) Pregabalin (Pregabalin 50 Mg Capsule) 50 mg PO BID [facility] Last Admin: 12/29/24 20:20 Dose: 50 mg Documented By: MARK Pregabalin (Pregabalin 200 Mg Capsule) 200 mg PO BID [facility] Last Admin: 12/29/24 20:21 Dose: 200 mg Documented By: MARK Ropinirole HCl (Ropinirole Hcl 0.5 Mg Tablet) 0.5 mg PO BEDTIME PRN PRN Reason: Restless Leg(S) Last Admin: 12/29/24 23:45 Dose: 0.5 mg Documented By: MARK Sodium Chloride (0.9 % Sodium Chloride Flush 3 Ml Syringe) 3 ml IVFLUSH QSHIFT [facility] Last Admin: 12/29/24 20:21 Dose: 3 ml Documented By: MARK Labs 12/30/24 06:56 12/30/24 06:56 Labs: Laboratory Results - last 24 hr 12/29/24 12/29/24 12/29/24 11:14 11:18 12:50 MCV 83.3 MCH 27.0 MCHC 32.4 RDW 13.5 Plt Count 207 MPV 9.8 Immature Gran % (Auto) 0.5 H Neut % (Auto) 80.6 H Lymph % (Auto) 12.9 L [place] % (Auto) 5.2 Eos % (Auto) 0.7 Baso % (Auto) 0.1 Lymph # (Auto) 1.6 [place] # (Auto) 0.6 Eos # (Auto) 0.1 Baso # (Auto) 0.0 Abs Immat Gran (auto) 0.06 H Absolute Neuts (auto) 9.9 H Absolute Nucleated RBC 0.000 Nucleated RBC % (auto) 0.0 PT INR aPTT Heparin Protocol Anion Gap 14 Estim Creat Clear Calc 70.3 Estimated GFR > 60 POC Glucose Random Glucose 194 H Estimat Average Glucose Hemoglobin A1c % Lactic Acid 2.4 H* Lactic Acid F/U @ 2Hr Calcium 9.6 Total Bilirubin 0.4 AST 25 ALT 18 Alkaline Phosphatase 95 Troponin I High Sens 3.8 NT-Pro-B Natriuret Pep 370.6 H Total Protein 7.3 Albumin 4.1 Lipase 10 Procalcitonin 0.03 Urine Color Yellow Urine Appearance Cloudy Urine pH 7.0 Ur Specific [place] 1.025 Urine Protein Negative Urine Glucose (UA) Negative Urine Ketones Trace Urine Blood Negative Urine Nitrite Negative Ur Leukocyte Esterase Moderate (2+) H Urine RBC 0-2 Urine WBC 21-50 H Ur Squamous Epith Cells 11-20 Urine Bacteria 4+ Hyaline Casts 0-2 COVID-19 (ELIF) Negative COVID-19 Clin Com See Note 12/29/24 12/29/24 12/29/24 13:33 15:08 16:39 MCV 84.2 MCH 27.8 MCHC 33.0 RDW 13.4 Plt Count 226 MPV 9.7 Immature Gran % (Auto) Neut % (Auto) Lymph % (Auto) [place] % (Auto) Eos % (Auto) Baso % (Auto) Lymph # (Auto) [place] # (Auto) Eos # (Auto) Baso # (Auto) Abs Immat Gran (auto) Absolute Neuts (auto) Absolute Nucleated RBC 0.000 Nucleated RBC % (auto) 0.0 PT 12.5 INR 1.0 aPTT Heparin Protocol 30.4 L Anion Gap Estim Creat Clear Calc Estimated GFR POC Glucose 151 H Random Glucose Estimat Average Glucose 197 Hemoglobin A1c % 8.5 H Lactic Acid Lactic Acid F/U @ 2Hr 1.9 Calcium Total Bilirubin AST ALT Alkaline Phosphatase Troponin I High Sens NT-Pro-B Natriuret Pep Total Protein Albumin Lipase Procalcitonin Urine Color Urine Appearance Urine pH Ur Specific [place] Urine Protein Urine Glucose (UA) Urine Ketones Urine Blood Urine Nitrite Ur Leukocyte Esterase Urine RBC Urine WBC Ur Squamous Epith Cells Urine Bacteria Hyaline Casts COVID-19 (ELIF) COVID-19 Clin Com 12/29/24 12/29/24 12/30/24 21:13 21:23 03:22 MCV MCH MCHC RDW Plt Count MPV Immature Gran % (Auto) Neut % (Auto) Lymph % (Auto) [place] % (Auto) Eos % (Auto) Baso % (Auto) Lymph # (Auto) [place] # (Auto) Eos # (Auto) Baso # (Auto) Abs Immat Gran (auto) Absolute Neuts (auto) Absolute Nucleated RBC Nucleated RBC % (auto) PT INR aPTT Heparin Protocol 55.6 D 81.7 H D Anion Gap Estim Creat Clear Calc Estimated GFR POC Glucose 203 H Random Glucose Estimat Average Glucose Hemoglobin A1c % Lactic Acid Lactic Acid F/U @ 2Hr Calcium Total Bilirubin AST ALT Alkaline Phosphatase Troponin I High Sens NT-Pro-B Natriuret Pep Total Protein Albumin Lipase Procalcitonin Urine Color Urine Appearance Urine pH Ur Specific [place] Urine Protein Urine Glucose (UA) Urine Ketones Urine Blood Urine Nitrite Ur Leukocyte Esterase Urine RBC Urine WBC Ur Squamous Epith Cells Urine Bacteria Hyaline Casts COVID-19 (ELIF) COVID-19 Clin Com 12/30/24 12/30/24 06:56 06:57 MCV 84.1 MCH 26.6 L MCHC 31.7 RDW 13.6 Plt Count 182 MPV 9.8 Immature Gran % (Auto) Neut % (Auto) Lymph % (Auto) [place] % (Auto) Eos % (Auto) Baso % (Auto) Lymph # (Auto) [place] # (Auto) Eos # (Auto) Baso # (Auto) Abs Immat Gran (auto) Absolute Neuts (auto) Absolute Nucleated RBC 0.000 Nucleated RBC % (auto) 0.0 PT 13.3 INR 1.1 aPTT Heparin Protocol Anion Gap 14 Estim Creat Clear Calc 78.5 Estimated GFR > 60 POC Glucose 173 H Random Glucose 162 H Estimat Average Glucose Hemoglobin A1c % Lactic Acid Lactic Acid F/U @ 2Hr Calcium 9.3 Total Bilirubin AST ALT Alkaline Phosphatase Troponin I High Sens NT-Pro-B Natriuret Pep Total Protein Albumin Lipase Procalcitonin Urine Color Urine Appearance Urine pH Ur Specific [place] Urine Protein Urine Glucose (UA) Urine Ketones Urine Blood Urine Nitrite Ur Leukocyte Esterase Urine RBC Urine WBC Ur Squamous Epith Cells Urine Bacteria Hyaline Casts COVID-19 (ELIF) COVID-19 Clin Com Assessment and Plan (1) Pulmonary emboli: Status: Acute (2) Community acquired pneumonia: Status: Acute Plan This is a 74-year-old female with history of diabetes, history of stroke, hypertension, restrictive lung disease, depression, carotid stenosis status post left CEA who presented for left hip pain found to have acute PE Acute respiratory failure with hypoxia Due to acute PE and probable pneumonia Continue supplemental oxygen, wean as tolerated Acute PE on heparin drip no clear cause, no h/o ca, no recent travel or surgery hematology consult likely change to eliquis once off O2 Severe Sepsis due to pneumonia Hypoxic but no significant respiratory symptoms lactic acid 2.4, resolved with IVF normal procalcitonin, RPP, MRSA nasal swab pending continue IV ceftriaxone and Doxycycline started 12/29 bnp low, CHF less likely continue supplemental oxygen as needed left hip pain denies trauma Xray: Minimal left hip degeneration. continue baseline robaxin, lyrica DM SSI, POCs, ADA diet hold metformin reportedly takes lantus prn on sliding scale - will check hba1c and cover with sliding scale for now to asses for 24 hour insulin needs as insulin directions are unclear HTN bp uncontrolled, did not take am bp meds continue lisinopril RLS continue lyrica, ropinirole h/o CVA/carotid dz continue plavix dvt ppx - heparin drip code status - full code Patient will likely require 2 midnight stay in the hospital for management of acute PE, pneumonia requiring IV antibiotics and specialist evaluation as well as close monitoring of respiratory status Quality Stroke Does the patient have a stroke diagnosis?: No VTE Prior VTE?: No VTE Risk Level:: Medical - moderate - high VTE Device Contraindication: Treatment Not Indicated VTE Drug Contraindication: N/A - Med Ordered
[2024-12-30 08:35] LABS: MRSA Nasal PCR NEGATIVE (Negative); SA Nasal PCR POSITIVE (Negative)
[2024-12-30] MEDS: oxyCODONE HCl Immed Release 5 MG TABLET PO ×2 (08:43→15:38)
[2024-12-30] MEDS: 0.9 % Sodium Chloride Flush 3 ML SYRINGE IVFLUSH ×2 (08:45→20:43)
[2024-12-30 09:17] LABS: Chlamydia pneumoniae PCR Not Detected (Not Detect.); Coronavirus 229E PCR Not Detected (Not Detect.); Coronavirus HKU1 PCR Not Detected (Not Detect.); Coronavirus NL63 PCR Not Detected (Not Detect.); Coronavirus OC43 PCR Not Detected (Not Detect.); RSV PCR Not Detected (Not Detect.); Rhino/Enterovirus PCR Not Detected (Not Detect.)
[2024-12-30 09:21] LABS: Influenza A H1 PCR Not Detected (Not Detect.); Influenza A H1-2009 PCR Not Detected (Not Detect.); Influenza A H3 PCR Not Detected (Not Detect.); SARS-CoV-2 PCR Not Detected (Not Detect.)
[2024-12-30 11:25] LABS: Glucose, Whole Blood 180 mg/dL (60-115)
[2024-12-30 11:29] LABS: PTT Heparin Drip 64.8 SEC (53-77.9)
--- NOTE | 2024-12-30 11:42 | MHC.CM.PN ---
IMM GIVEN 12/30. 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 HCP ON FILE NOT ACCURATE, SHE SAID HER HCP IS RADHA, COPY REQUESTED OF NEW HCP. DME: RAMIRO ARGUELLO. PATIENT STATES SHE MAY NEED ASSISTANCE WITH TRANSPORTATION HOME AT DISCHARGE. PCP: DR. YUSRA BURR
[2024-12-30] MEDS: Heparin Sodium,Porcine/1/2NS 25,000 UNIT/250 ML IV.SOLN 10.24 UNIT IVCONT (13:32)
[2024-12-30 16:33] LABS: Glucose, Whole Blood 156 mg/dL (60-115)
[2024-12-30 17:27] LABS: PTT Heparin Drip 60.8 SEC (53-77.9)
[2024-12-30 20:32] LABS: Glucose, Whole Blood 203 mg/dL (60-115)
[2024-12-31 03:08] VITALS: BP 159/71; PULSE 69; RESP 16; TEMP 36.7; O2SAT 93
[2024-12-31 06:11] LABS: PTT Heparin Drip 63.9 SEC (53-77.9)
[2024-12-31 07:36] LABS: Glucose, Whole Blood 158 mg/dL (60-115)
[2024-12-31 08:00] VITALS: BP 184/89; PULSE 70; RESP 20; TEMP 36.4; O2SAT 97
[2024-12-31 09:35] VITALS: BP 150/70
[2024-12-31] MEDS: oxyCODONE HCl Immed Release 5 MG TABLET PO ×3 (09:47→21:50)
[2024-12-31 11:09] LABS: Glucose, Whole Blood 160 mg/dL (60-115)
[2024-12-31 12:00] VITALS: BP 150/82; PULSE 83; RESP 18; TEMP 37.1; O2SAT 96
--- NOTE | 2024-12-31 12:45 | P.PNIM_ITS ---
Subjective Subjective Date of Service: 12/31/24 Interval History: Follow-up on acute hypoxic respiratory failure, pulmonary embolism and community-acquired pneumonia No sob, or chest, c/o hip pain and now adominal pain, she has had CT earlier with no acute finding Physical Exam 2 Vital Signs: Vital Signs: Last Vital Signs Temp 98.7 F 12/31/24 12:00 Pulse 83 12/31/24 12:00 Resp 18 12/31/24 12:00 BP 150/82 H 12/31/24 12:00 Pulse Ox 96 12/31/24 12:00 O2 Del Method Room Air 12/31/24 12:00 O2 Flow Rate 1 12/31/24 08:00 BMI result Body Mass Index 30.2 Const: General: cooperative, alert and awake Nutritional Appearance: a verage body habitus Orientation/consciousness: patient oriented x3 Resp: Other: basilar rales Effort & Inspection: normal respiratory effort, able to speak in complete sentences, no respiratory distress and no use of accessory muscles Cardio: Rate: regular rate GI: Inspection: No distended Palpation (GI): Soft to palpation and nontender Neuro: General: patient oriented x3, moves all extremities and CN's II-XI intact bilaterally Extrem: General: No pedal edema Objective Data Active Medications Acetaminophen (Acetaminophen 325 Mg Tablet) 650 mg PO Q6H PRN PRN Reason: Pain, Mild 1-3,fever,headache Apixaban (Apixaban 5 Mg Tablet) 5 mg PO BID [facility] Last Admin: 12/31/24 12:13 Dose: 5 mg Documented By: JUVE Calcium Carbonate (Calcium Carbonate 750 Mg Tab.Chew) 750 mg PO Q4H PRN PRN Reason: Heartburn Dextrose (Dextrose 50 % 25 Gm/50 Ml Syringe) 25 gm IVPUSH Q15M PRN; Protocol PRN Reason: per Hypoglycemia Standing Ord. Docusate Sodium (Docusate Sodium 100 Mg Capsule) 200 mg PO DAILY PRN PRN Reason: Constipation Doxycycline Monohydrate (Doxycycline Monohydrate 100 Mg Capsule) 100 mg PO Q12H [facility] Fluticasone Propionate (Fluticasone Propionate Nasal 16 Gm [place]) 2 spray NOSTRIL-B DAILY PRN PRN Reason: Allergy Symptoms Last Admin: 12/30/24 22:52 Dose: 2 spray Documented By: AIDAN Glucose (Glucose Gel 15 Gm Gel..Gram.) 15 gm PO Q15M PRN; Protocol PRN Reason: per Hypoglycemia Standing Ord. Ceftriaxone Sodium 1 gm/ (Sodium Chloride) 50 mls @ 100 mls/hr IV Q24H [facility] Last Infusion: 12/31/24 12:42 Dose: Infused Documented By: JUVE Insulin Human Lispro (Insulin Lispro 100 Unit/Ml 3 Ml Vial) 0 unit SUBCUT QIDACHS [facility]; Protocol Last Admin: 12/31/24 11:57 Dose: 2 unit Documented By: JUVE Lisinopril (Lisinopril 40 Mg Tablet) 40 mg PO DAILY [facility]; Protocol Last Admin: 12/31/24 09:35 Dose: 40 mg Documented By: CHANTE Magnesium Hydroxide (Milk Of Magnesia 30 Ml Oral.Susp) 30 ml PO DAILY PRN PRN Reason: Constipation Magnesium Oxide (Magnesium Oxide 400 Mg Tablet) 400 mg PO DAILY [facility] Last Admin: 12/31/24 09:36 Dose: 400 mg Documented By: CHANTE Melatonin (Melatonin 3 Mg Tablet) 6 mg PO BEDTIME PRN PRN Reason: Insomnia Last Admin: 12/30/24 21:13 Dose: 6 mg Documented By: AIDAN Methocarbamol (Methocarbamol 500 Mg Tablet) 500 mg PO BEDTIME [facility] Last Admin: 12/30/24 20:43 Dose: 500 mg Documented By: AIDAN Morphine Sulfate (Morphine Sulfate 4 Mg/Ml Cartridge) 2 mg IVPUSH Q4H PRN; Protocol PRN Reason: Pain, Severe (Pain Scale 7-10) Last Admin: 12/31/24 02:08 Dose: 2 mg Documented By: AIDAN Nystatin (Nystatin Powder 15 Gm Bottle) 1 appl TOPICAL BID [facility]; Protocol Last Admin: 12/31/24 09:37 Dose: 1 appl Documented By: CHANTE Comments: Under breast Oxycodone HCl (Oxycodone Hcl Immed Release 5 Mg Tablet) 5 mg PO Q6H PRN PRN Reason: Pain, Moderate(Pain Scale 4-6) Last Admin: 12/31/24 09:47 Dose: 5 mg Documented By: CHANTE Pregabalin (Pregabalin 50 Mg Capsule) 50 mg PO BID [facility] Last Admin: 12/31/24 09:38 Dose: 50 mg Documented By: CHANTE Pregabalin (Pregabalin 200 Mg Capsule) 200 mg PO BID [facility] Last Admin: 12/31/24 09:38 Dose: 200 mg Documented By: CHANTE Ropinirole HCl (Ropinirole Hcl 0.5 Mg Tablet) 0.5 mg PO BEDTIME PRN PRN Reason: Restless Leg(S) Last Admin: 12/29/24 23:45 Dose: 0.5 mg Documented By: MARK Sodium Chloride (0.9 % Sodium Chloride Flush 3 Ml Syringe) 3 ml IVFLUSH QSHIFT [facility] Last Admin: 12/31/24 10:10 Dose: Not Given Documented By: JUVE Non-Admin Reason: IV Running Labs 12/30/24 06:56 12/30/24 06:56 Labs: Laboratory Results - last 24 hr 12/30/24 12/30/24 12/30/24 16:26 17:09 20:28 aPTT Heparin Protocol 60.8 POC Glucose 156 H 203 H 12/31/24 12/31/24 12/31/24 05:57 07:27 11:02 aPTT Heparin Protocol 63.9 POC Glucose 158 H 160 H Microbiology Microbiology Results: Microbiology 12/29/24 11:19 Blood Culture - Preliminary Blood - Venous No growth after 24 hours. 12/29/24 11:14 Blood Culture - Preliminary Blood - Venous No growth after 24 hours. 12/29/24 Unknown Urine Culture - Final Urine clean catch - Clean Catch Midstream No growth. Assessment and Plan (1) Pulmonary emboli: Status: Acute (2) Community acquired pneumonia: Status: Acute Plan This is a 74-year-old female with history of diabetes, history of stroke, hypertension, restrictive lung disease, depression, carotid stenosis status post left CEA who presented for left hip pain found to have acute PE Acute respiratory failure with hypoxia, now resolved Due to acute PE and probable pneumonia weaned off O2 Acute PE Transitioning from heparin to eliquis 10 bidx 7 days, then 5 bid Severe Sepsis due to pneumonia Hypoxic but no significant respiratory symptoms lactic acid 2.4, resolved with IVF normal procalcitonin, RPP, MRSA nasal swab negative but positive for MSSA continue IV ceftriaxone and Doxycycline started 12/29 bnp low, CHF less likely continue supplemental oxygen as needed left hip pain denies trauma Xray: Minimal left hip degeneration. continue baseline robaxin, lyrica DM SSI, POCs, ADA diet hold metformin reportedly takes lantus prn on sliding scale - will check hba1c and cover with sliding scale for now to asses for 24 hour insulin needs as insulin directions are unclear HTN bp uncontrolled, did not take am bp meds continue lisinopril RLS continue lyrica, ropinirole h/o CVA/carotid dz continue plavix dvt ppx - heparin drip code status - full code Patient will likely require 2 midnight stay in the hospital for management of acute PE, pneumonia requiring IV antibiotics and specialist evaluation as well as close monitoring of respiratory status PT eval before discharge Quality Stroke Does the patient have a stroke diagnosis?: No VTE Prior VTE?: No VTE Risk Level:: Medical - moderate - high VTE Device Contraindication: Treatment Not Indicated VTE Drug Contraindication: N/A - Med Ordered
[2024-12-31 15:44] VITALS: BP 142/80; PULSE 88; RESP 16; TEMP 37.2; O2SAT 98
[2024-12-31] MEDS: 0.9 % Sodium Chloride Flush 3 ML SYRINGE IVFLUSH ×2 (15:50→21:50)
[2024-12-31 16:33] LABS: Glucose, Whole Blood 173 mg/dL (60-115)
[2024-12-31 19:43] VITALS: BP 134/76; PULSE 92; RESP 18; TEMP 36.8; O2SAT 96
[2024-12-31 20:35] LABS: Glucose, Whole Blood 197 mg/dL (60-115)
[2025-01-01] VITALS (11 sets, daily range): BP systolic 143–216; BP diastolic 70–112; PULSE 66–90; RESP 16–20; TEMP 36–36.6; O2SAT 88–98
[2025-01-01 08:04] LABS: PTT Heparin Drip 33.9 SEC (53-77.9)
[2025-01-01 08:09] LABS: Glucose, Whole Blood 173 mg/dL (60-115)
[2025-01-01] MEDS: 0.9 % Sodium Chloride Flush 3 ML SYRINGE IVFLUSH ×3 (08:35→20:26)
[2025-01-01 08:45] LABS: MANUAL DIFF FLAG NO
[2025-01-01 08:47] LABS: Hematocrit 43.8 % (37.0-47.0); Hemoglobin 14.2 g/dl (12.0-16.0); Imm Gran Abs Auto 0.03 X10*3/uL (0.00-0.03); Imm Gran Pct Auto 0.5 % (0.0-0.4); Lymphocytes Absolute Auto 1.7 X10*3/uL (1.2-4.9); Mean Corpuscular HGB Conc 32.4 g/dl (31.0-35.0); Mean Corpuscular Hemoglobin 26.7 pg (27.0-33.0); Mean Corpuscular Volume 82.3 fL (80.0-98.0); NRBC Abs Auto 0.000 X10*3/uL (0.0-0.012); NRBC Pct Auto 0.0 /100WBC (0.0-0.2); Platelet Count 246 X10*3/uL (160-400); Red Blood Count 5.32 X10*6/uL (4.20-5.50); White Blood Count 6.2 X10*3/uL (4.8-10.8)
[2025-01-01] MEDS: oxyCODONE HCl Immed Release 5 MG TABLET PO (08:57)
[2025-01-01 11:08] LABS: Glucose, Whole Blood 179 mg/dL (60-115)
[2025-01-01] MEDS: Milk of Magnesia 30 ML ORAL.SUSP PO (12:29)
--- NOTE | 2025-01-01 12:54 | HO.PM.IMPN ---
Subjective Subjective Date of Service: 01/01/25 Interval History: Follow-up on acute hypoxic respiratory failure, pulmonary embolism and community-acquired pneumonia reports that her symptoms are much better Physical Exam Vital Signs: Vital Signs: Last Vital Signs Temp 97.0 F 01/01/25 08:42 Pulse 84 01/01/25 08:42 Resp 18 01/01/25 08:42 BP 195/89 H 01/01/25 08:42 Pulse Ox 98 01/01/25 08:42 O2 Del Method Room Air 01/01/25 08:42 O2 Flow Rate 1 12/31/24 08:00 BMI result Body Mass Index 30.2 Const: General: cooperative, alert and awake Nutritional Appearance: average body habitus Orientation/consciousness: patient oriented x3 Resp: Other: basilar rales Effort & Inspection: normal respiratory effort, able to speak in complete sentences, no respiratory distress and no use of accessory muscles Cardio: Rate: regular rate GI: Inspection: No distended Palpation (GI): Soft to palpation and nontender Neuro: General: patient oriented x3, moves all extremities and CN's II-XI intact bilaterally Extrem: General: No pedal edema Objective Data Active Medications Acetaminophen (Acetaminophen 325 Mg Tablet) 650 mg PO Q6H PRN PRN Reason: Pain, Mild 1-3,fever,headache Apixaban (Apixaban 5 Mg Tablet) 10 mg PO BID [place] Calcium Carbonate (Calcium Carbonate 750 Mg Tab.Chew) 750 mg PO Q4H PRN PRN Reason: Heartburn Dextrose (Dextrose 50 % 25 Gm/50 Ml Syringe) 25 gm IVPUSH Q15M PRN; Protocol PRN Reason: per Hypoglycemia Standing Ord. Docusate Sodium (Docusate Sodium 100 Mg Capsule) 200 mg PO DAILY PRN PRN Reason: Constipation Doxycycline Monohydrate (Doxycycline Monohydrate 100 Mg Capsule) 100 mg PO Q12H [facility] Last Admin: 01/01/25 03:34 Dose: 100 mg Documented By: AIDAN Fluticasone Propionate (Fluticasone Propionate Nasal 16 Gm [place]) 2 spray NOSTRIL-B DAILY PRN PRN Reason: Allergy Symptoms Last Admin: 12/31/24 21:50 Dose: 2 spray Documented By: AIDAN Glucose (Glucose Gel 15 Gm Gel..Gram.) 15 gm PO Q15M PRN; Protocol PRN Reason: per Hypoglycemia Standing Ord. Ceftriaxone Sodium 1 gm/ (Sodium Chloride) 50 mls @ 100 mls/hr IV Q24H [facility] Last Infusion: 01/01/25 12:39 Dose: Infused Documented By: JUVE Insulin Human Lispro (Insulin Lispro 100 Unit/Ml 3 Ml Vial) 0 unit SUBCUT QIDACHS [facility]; Protocol Last Admin: 01/01/25 12:07 Dose: 2 unit Documented By: JUVE Lisinopril (Lisinopril 40 Mg Tablet) 40 mg PO DAILY [facility]; Protocol Last Admin: 01/01/25 08:43 Dose: 40 mg Documented By: JUVE Magnesium Hydroxide (Milk Of Magnesia 30 Ml Oral.Susp) 30 ml PO DAILY PRN PRN Reason: Constipation Last Admin: 01/01/25 12:29 Dose: 30 ml Documented By: JUVE Magnesium Oxide (Magnesium Oxide 400 Mg Tablet) 400 mg PO DAILY [facility] Last Admin: 01/01/25 08:36 Dose: 400 mg Documented By: JUVE Melatonin (Melatonin 3 Mg Tablet) 6 mg PO BEDTIME PRN PRN Reason: Insomnia Last Admin: 01/01/25 01:32 Dose: 6 mg Documented By: AIDAN Methocarbamol (Methocarbamol 500 Mg Tablet) 500 mg PO BEDTIME [facility] Last Admin: 12/31/24 21:50 Dose: 500 mg Documented By: AIDAN Morphine Sulfate (Morphine Sulfate 4 Mg/Ml Cartridge) 2 mg IVPUSH Q4H PRN; Protocol PRN Reason: Pain, Severe (Pain Scale 7-10) Last Admin: 01/01/25 12:21 Dose: 2 mg Documented By: JUVE Nystatin (Nystatin Powder 15 Gm Bottle) 1 appl TOPICAL BID [facility]; Protocol Last Admin: 01/01/25 08:59 Dose: 1 appl Documented By: JUVE Oxycodone HCl (Oxycodone Hcl Immed Release 5 Mg Tablet) 5 mg PO Q6H PRN PRN Reason: Pain, Moderate(Pain Scale 4-6) Last Admin: 01/01/25 08:57 Dose: 5 mg Documented By: JUVE Comments: Per Patient request Pregabalin (Pregabalin 50 Mg Capsule) 50 mg PO BID [facility] Last Admin: 01/01/25 08:35 Dose: 50 mg Documented By: JUVE Pregabalin (Pregabalin 200 Mg Capsule) 200 mg PO BID [facility] Last Admin: 01/01/25 08:35 Dose: 200 mg Documented By: JUVE Ropinirole HCl (Ropinirole Hcl 0.5 Mg Tablet) 0.5 mg PO BEDTIME PRN PRN Reason: Restless Leg(S) Last Admin: 01/01/25 01:32 Dose: 0.5 mg Documented By: AIDAN Sodium Chloride (0.9 % Sodium Chloride Flush 3 Ml Syringe) 3 ml IVFLUSH QSHIFT [facility] Last Admin: 01/01/25 08:35 Dose: 3 ml Documented By: JUVE Labs 01/01/25 07:27 12/30/24 06:56 Labs: Laboratory Results - last 24 hr 12/31/24 12/31/24 01/01/25 16:28 20:28 07:27 MCV 82.3 MCH 26.7 L MCHC 32.4 RDW 13.9 Plt Count 246 D MPV 10.4 Immature Gran % (Auto) 0.5 H Neut % (Auto) 64.1 Lymph % (Auto) 27.6 [place] % (Auto) 7.3 Eos % (Auto) 0.3 Baso % (Auto) 0.2 Lymph # (Auto) 1.7 [place] # (Auto) 0.5 Eos # (Auto) 0.0 Baso # (Auto) 0.0 Abs Immat Gran (auto) 0.03 Absolute Neuts (auto) 3.9 Absolute Nucleated RBC 0.000 Nucleated RBC % (auto) 0.0 Hold Purple Top SEE NOTE aPTT Heparin Protocol 33.9 L D POC Glucose 173 H 197 H 01/01/25 01/01/25 08:05 10:56 MCV MCH MCHC RDW Plt Count MPV Immature Gran % (Auto) Neut % (Auto) Lymph % (Auto) [place] % (Auto) Eos % (Auto) Baso % (Auto) Lymph # (Auto) [place] # (Auto) Eos # (Auto) Baso # (Auto) Abs Immat Gran (auto) Absolute Neuts (auto) Absolute Nucleated RBC Nucleated RBC % (auto) Hold Purple Top aPTT Heparin Protocol POC Glucose 173 H 179 H Microbiology Microbiology Results: Microbiology 12/29/24 11:19 Blood Culture - Preliminary Blood - Venous No growth after 48 hours. 12/29/24 11:14 Blood Culture - Preliminary Blood - Venous No growth after 48 hours. Assessment and Plan (1) Pulmonary emboli: Status: Acute (2) Community acquired pneumonia: Status: Acute Plan This is a 74-year-old female with history of diabetes, history of stroke, hypertension, restrictive lung disease, depression, carotid stenosis status post left CEA who presented for left hip pain found to have acute PE Acute respiratory failure with hypoxia, now resolved Due to acute PE and probable pneumonia weaned off O2 Acute PE Transitioning from heparin to eliquis 10 bidx 7 days, then 5 bid Severe Sepsis due to pneumonia Hypoxic but no significant respiratory symptoms, hypoxia resolved lactic acid 2.4, resolved with IVF normal procalcitonin, RPP, MRSA nasal swab negative but positive for MSSA continue IV ceftriaxone and Doxycycline started 12/29 bnp low, CHF less likely continue supplemental oxygen as needed left hip pain, overall better denies trauma Xray: Minimal left hip degeneration. continue baseline robaxin, lyrica DM SSI, POCs, ADA diet hold metformin reportedly takes lantus prn on sliding scale - will check hba1c and cover with sliding scale for now to asses for 24 hour insulin needs as insulin directions are unclear HTN bp uncontrolled, did not take am bp meds continue lisinopril RLS continue lyrica, ropinirole h/o CVA/carotid dz continue plavix dvt ppx - heparin drip code status - full code Patient will likely require 2 midnight stay in the hospital for management of acute PE, pneumonia requiring IV antibiotics and specialist evaluation as well as close monitoring of respiratory status PT eval before discharge Quality Stroke Does the patient have a stroke diagnosis?: No VTE Prior VTE?: No VTE Risk Level:: Medical - moderate - high VTE Device Contraindication: Treatment Not Indicated VTE Drug Contraindication: N/A - Med Ordered
[2025-01-01 16:15] LABS: Glucose, Whole Blood 201 mg/dL (60-115)
[2025-01-01 20:54] LABS: Glucose, Whole Blood 183 mg/dL (60-115)
[2025-01-02] VITALS: BP 144/67; PULSE 61; RESP 17; TEMP 35.9; O2SAT 96
[2025-01-02 02:25] VITALS: RESP 20
[2025-01-02 03:35] VITALS: BP 131/63; PULSE 63; RESP 18; TEMP 36; O2SAT 94
[2025-01-02] MEDS: oxyCODONE HCl Immed Release 5 MG TABLET PO (04:52)
[2025-01-02] MEDS: Milk of Magnesia 30 ML ORAL.SUSP PO (04:58)
[2025-01-02 07:09] LABS: Glucose, Whole Blood 155 mg/dL (60-115)
[2025-01-02 07:21] VITALS: BP 166/90; PULSE 80; RESP 20; TEMP 36; O2SAT 93
[2025-01-02] MEDS: 0.9 % Sodium Chloride Flush 3 ML SYRINGE IVFLUSH (09:10)
--- NOTE | 2025-01-02 10:19 | P.DS_ITS ---
DS: Providers Provider Date of Service: 01/02/25 Date of admission: 12/29/24 14:22 Date of discharge: 01/02/25 Primary care physician: Kina Blackburn MD Consults: 12/29/24 14:46 Consult to Hematology / Oncology Routine Consulting Provider: [facility] Oncology/Hematology Reason for consultation: PE Has provider been notified: No DS: Diagnosis Discharge Diagnosis (1) Pulmonary emboli: Status: Acute DS: Summary Hospital Course Hospital Course: Admission HPI Chief Complaint: left hip pain This is a 74 year old female who presented with left hip pain. On arrival to the emergency department patient was noted to be febrile with a temperature of a 102.3 degrees, tachycardic as well as hypoxic with the oxygen saturation of 86% on room air. Patient denies any chest pain, shortness of breath, fever, chills, recent sick contacts. Patient underwent CT scan of the abdomen and pelvis which showed no abnormality to explain left side pain. Did show pulmonary nodule in the right lateral lower lobe. Due to hypoxia she underwent CTA which was positive for PE of the right lower lobe segmental and subsegmental pulmonary arteries. In addition showed septal thickening possible mild interstitial pulmonary edema, possible small airway disease, patchy ground-glass opacities concerning for possible pneumonia. Troponin was unremarkable, pro BNP low at 370.6. Patient was placed on 2 L of supplemental oxygen and started on heparin drip. Hospital course: This is a 74-year-old female with history of diabetes, history of stroke, hypertension, restrictive lung disease, depression, carotid stenosis status post left CEA who presented for left hip pain found to have acute PE and community acquired pneumonia with acute hypoxic respiratory failure. Acute respiratory failure with hypoxia due to pulmonary emboli and PE. Initially required oxygen but now has been titrated off oxygen and is doing well with room air. She has no shortness of breath Acute PE, initially treated with IV heparin and once off oxygen was transitioned to Eliquis 10 mg bid for 7 days, then 5 bid thereafter. Was seen by hematology and will follow up on outpatient basis Severe Sepsis due to pneumonia she was Hypoxic but no significant respiratory symptoms, hypoxia resolved lactic acid 2.4, resolved with IVF normal procalcitonin, RPP, MRSA nasal swab negative but positive for MSSA continue IV ceftriaxone and Doxycycline started 12/29. Will discharge with Ceftin and Doxy for 5 more days. left hip pain, acute on chronicXray: Minimal left hip degeneration. overall better denies traumacontinue baseline robaxin, lyrica. Presently doing better and would like to go home DM, resume home medications. HTN resume home meds RLS continue lyrica, ropinirole Time Attestation Discharge Coordination Time (in mins): 45 Quality: Safe Use of Opioids Does Pt have an Active Cancer Diagnosis on the Problem List?: No Quality: Stroke Does the patient have a stroke diagnosis?: No Physical Exam Vital Signs: Vital Signs: Last Vital Signs Temp 96.8 F 01/02/25 07:21 Pulse 80 01/02/25 07:21 Resp 20 01/02/25 07:21 BP 166/90 H 01/02/25 07:21 Pulse Ox 93 01/02/25 07:21 O2 Del Method Room Air 01/02/25 07:21 O2 Flow Rate 1 01/02/25 03:35 BMI result Body Mass Index 30.2 DS: Data Data Completed and Pending Labs on day of discharge: Laboratory Results - last 24 hr 01/01/25 01/01/25 01/01/25 10:56 16:09 20:50 POC Glucose 179 H 201 H 183 H 01/02/25 07:05 POC Glucose 155 H Preliminary micro results at discharge 12/29/24 11:19 Blood Culture - Preliminary Blood - Venous No growth after 48 hours. 12/29/24 11:14 Blood Culture - Preliminary Blood - Venous No growth after 48 hours. Discharge Plan Discharge Anticipated Discharge Date/Time: 01/02/25 10:20 Patient Disposition: Home Health Service Discharge Diagnosis: pulmonary emboli, community-acquired pneumonia Referrals: Devonte MEEK [Outside] - 1 Week Daiana Roque MD [Physician, Hematology & Oncology] - 2 Weeks Referral Note: f/u PE Po,Kina Lemons MD [Primary Care Provider, Internal Medicine] - 1 Week Discharge Medications: New Eliquis 5 mg tablet See Rx Instructions .ROUTE .COMPLEX Qty: 150 0RF Rx Instructions: take 2 tabs twice daily for 11 more dose, Next dose this evening then after take 1 tab (5 mg ) twice daily indefinitely amoxicillin-pot clavulanate 875-125 mg tablet 1 tab PO BID Qty: 10 0RF Continued (DME) GRAB bar See Rx Instructions .Route .MEDSUPPLY Qty: 1 0RF Rx Instructions: As directed (DME) OneTouch Ultra Test Strip See Rx Instructions .ROUTE .COMPLEX Qty: 200 10RF Dose Instruction: TEST BLOOD SUGAR THREE TIMES A DAY FOR DIABETES MELLITUS Rx Instructions: TEST BLOOD SUGAR THREE TIMES A DAY FOR DIABETES MELLITUS fluticasone propionate [Flonase Allergy Relief] 50 mcg/actuation spray,suspension 2 spray intranasal DAILY PRN (Reason: Allergy Symptoms) 30 Days Qty: 16 10RF Rx Instructions: administer into each nostril docusate sodium 100 mg capsule 200 mg PO DAILY PRN (Reason: constipation) 90 Days Qty: 180 0RF magnesium oxide 400 mg (241.3 mg magnesium) tablet 400 mg PO DAILY Qty: 90 1RF (DME) pen needle, diabetic 31 gauge x 3/16 needle See Rx Instructions .ROUTE .MEDSUPPLY Qty: 100 3RF Rx Instructions: As directed inject 60 units of Lantus q.p.m. clopidogrel 75 mg tablet 75 mg PO DAILY Qty: 90 10RF lisinopril 40 mg tablet 40 mg PO DAILY Qty: 90 1RF metformin 1,000 mg tablet 1,000 mg PO BIDWM Qty: 180 1RF pregabalin [Lyrica] 200 mg capsule 200 mg PO BID 30 Days Qty: 60 0RF Rx Instructions: take with 50 mg = 250 mg BID methocarbamol 500 mg tablet 500 mg PO BEDTIME Qty: 30 0RF ropinirole 0.5 mg tablet 0.5 mg PO BEDTIME PRN (Reason: Restless Leg(S)) insulin glargine [Lantus Solostar U-100 Insulin] 100 unit/mL (3 mL) insulin pen See Protocol subcut BEDTIME Protocol: Insulin Correction Scale Less than or equal to 110 ---- Give (units): 0 111 to 150 Give (units): 0 151 to 200 Give (units): 2 201 to 250 Give (units): 4 251 to 300 Give (units): 6 301 to 350 Give (units): 8 Greater than 350 Give (units): 10 Call MD if Blood Glucose > : 350 Rx Instructions: Patient uses per sliding scale depending on the amount of carbs pt eats in a day. dulaglutide 3 mg/0.5 mL pen injector 3 mg subcut WE pregabalin 50 mg capsule 50 mg PO BID Rx Instructions: take with 200 mg = 250 mg BID melatonin 10 mg Tablet 10 mg PO BEDTIME PRN (Reason: Sleep) (DME) blood-glucose meter [Accu-Chek Guide Glucose Meter] Misc See Rx Instructions .Route Qty: 1 0RF Rx Instructions: As directed check BS TID (DME) Accu-Chek Guide test strips Strip See Rx Instructions .Route Qty: 100 12RF Rx Instructions: As directed check TID (DME) lancets [Accu-Chek Softclix Lancets] Misc See Rx Instructions .ROUTE .MEDSUPPLY Qty: 100 12RF Rx Instructions: As directed check blood sugars 3 times a day Discharge Orders: Discharge Order (Routine); Ordered 01/02/25 Ordered By: Yovanny Baez Diet: Diabetic diet Activity on Discharge: As tolerated Stand Alone Forms: Patient Portal Discharge page Print Language: Danish Care Plan Goals: Recovery from pulmonary emboli, pneumonia and hip pain Health Concerns: Pneumonia, pulmonary emboli, hip pain. Plan of Treatment: Take Augmentin as recommended Take Eliquis as recommended--take 2 tabs (10 mg) twice daily for 11 more doses (6 more days), next dose this evening, then after that take 1 tab (5 mg) daily, follow up with hematoligst Dr. roque Follow-up with your primary care physician in a week call for appointment Assessment: See above Discharge Date/Time: 01/02/25 12:27
--- NOTE | 2025-01-02 10:41 | P.F2F_ITS ---
Service Date Service Date: 01/02/25 Encounter Date of encounter: 01/02/25 Reasons for Services Signs and symptoms assessed: shortness of breathy, hypoxia, hip pain, pneumonia and pulmonary emboli Reason for care home: medication management, medication treatment and teach disease management Reason for physical therapy: therapeutic exercises, restore joint function and gait/transfer training Homebound: Leaving the home is medically contraindicated at this time without the asist of a device and/or another person due th the listed conditions above and below. Reason homebound: pain with ambulation and poor balance / fall risk Homebound supporting statement: Homebound due to hip pain, shortness of breath from pneumonia and Pulmonary embolism on blood thiners and needs the assitance of another person Certification: Based on the above findings, I certify that this patient is confined to the home and needs intermittent care home care, physical therapy and/or speech therapy, or continues to need occupational therapy. The patient is under my care, and I have initiated the establishment of the plan of care. The patient will be followed by a physician who will periodically review the plan of care. Time Spent With Patient Time: Total time managing care of this patient today ____ minutes.
[2025-01-02 11:01] LABS: Glucose, Whole Blood 170 mg/dL (60-115)
--- NOTE | 2025-01-02 12:50 | MHC.CM.PN ---
PT DISCHARGED HOME TODAY WITH [facility]
--- OUTSIDE RECORDS SUMMARY | 2025-01-31 19:00 | XMS_ITS | Clinical Summary ---
Author Organization Unknown Care Team Providers Care Finance Consultant Name Role Phone AMINAH SCHAEFER, YUSRA Unavailable Unavailable HAKEEM ROLLE, NAOMI Unavailable Unavailable Payers Payer Name Policy Type Policy Number Effective Date Expira tion Date [facility] [id number] MEDICAID [facility] [id number] MEDICARE - [facility] [id number] Problems Condition Name Condition Details Condition Category Status Onset Date Resolution Date Last Treatment Date Treating Clinician Comments ANXIETY DISORDER, UNSPECIFIED Active 04-05 00:00: 00 ESSENTIAL (PRIMARY) HYPERTENSION Active 04-18 00:00: 00 TYPE 2 DIABETES MELLITUS WITHOUT COMPLICATION S Active 04-18 00:00: 00 Allergies, Adverse Reactions, Alerts Allergy Name Allergy Type Status Severity Reaction(s) Onset Date Inactive Date Treating Clinician Comments NKA Propensity to adverse reactions Active 2024-03 11:59:4 6 Medications Ordered Medication Name Filled Medication Name Start Date Stop Date Current Medication? Ordering Clinician Indication Dosage Frequency Signature (SIG) Comments Components clopidogrel 75 mg tablet 07-23 00:00: 00 01-20 23:59 :00 No [id number] Per instruc tions DAILY Per instructio ns DAILY (route: oral) Med Classific ation: Hematolog ical Agents lisinopril 10 mg tablet 07-15 00:00: 00 07-23 00:00 :00 No [id number] Per instruc tions DAILY Per instructio ns DAILY (route: oral) Med Classific ation: Cardiovas cular Therapy Agents pregabalin 200 mg capsule 07-23 00:00: 00 01-20 23:59 :00 No [id number] Per instruc tions DAILY Per instructio ns DAILY (route: oral) Med Classific ation: Central Nervous System Agents Lantus Solostar U-100 Insulin 100 unit/mL (3 mL) subcutaneou s pen 07-23 00:00: 00 01-20 23:59 :00 No [id number] Per instruc tions (06 ML) SUBCUTANEO USLY AT BEDTIME Per instructio ns (06 ML) SUBCUTANEO USLY AT BEDTIME (route: subcutaneo us) Med Classific ation: Endocrine clonazepam 1 mg tablet 07-23 00:00: 00 01-20 23:59 :00 No [id number] Per instruc tions AT BEDTIME NEEDED Per instructio ns AT BEDTIME NEEDED (route: oral) Med Classific ation: Central Nervous System Agents atorvastati n 40 mg tablet 07-23 00:00: 00 01-20 23:59 :00 No [id number] 1 tablet DAILY 1 tablet DAILY (route: oral) Med Classific ation: Cardiovas cular Therapy Agents buspirone 10 mg tablet 07-23 00:00: 00 01-20 23:59 :00 No [id number] 1 tablet 2 TIMES DAILY 1 tablet 2 TIMES DAILY (route: oral) Med Classific ation: Central Nervous System Agents duloxetine 60 mg capsule,del ayed release 07-23 00:00: 00 01-20 23:59 :00 No [id number] 1 capsule DAILY 1 capsule DAILY (route: oral) Med Classific ation: Central Nervous System Agents magnesium 400 mg (as magnesium oxide) tablet 07-23 00:00: 00 01-20 23:59 :00 No [id number] 1 tablet DAILY 1 tablet DAILY (route: oral) Med Classific ation: Electroly te Balance-N utritiona l Products metformin 1,000 mg tablet 07-23 00:00: 00 01-20 23:59 :00 No [id number] 1 tablet 2 TIMES DAILY 1 tablet 2 TIMES DAILY (route: oral) Med Classific ation: Endocrine pregabalin 50 mg capsule 07-23 00:00: 00 01-20 23:59 :00 No [id number] 1 capsule DAILY 1 capsule DAILY (route: oral) Med Classific ation: Central Nervous System Agents Trulicity 0.75 mg/0.5 mL subcutaneou s pen injector 07-23 00:00: 00 08-10 23:59 :00 No [id number] 0.5 mL WEEKLY 0.5 mL WEEKLY ([facility] Med Classific ation: Endocrine lisinopril 20 mg tablet 07-23 00:00: 00 01-20 23:59 :00 No [id number] 1 tablet DAILY 1 tablet DAILY (route: oral) Med Classific ation: Cardiovas cular Therapy Agents Trulicity 0.75 mg/0.5 mL subcutaneou s pen injector 08-10 00:00: 00 01-20 23:59 :00 No [id number] 0.75 mg WEEKLY 0.75 mg WEEKLY ([facility] Med Classific ation: Endocrine acetaminoph en 325 mg capsule 2023-02 00:00: 00 04-04 23:59 :00 No [id number] 1 capsule EVERY 4 HOURS 1 capsule EVERY 4 HOURS (route: oral) Med Classific ation: Analgesic , Anti-infl ammatory or Antipyret ic acetaminoph en 325 mg capsule 2023-02 00:00: 00 04-04 23:59 :00 No [id number] 3 capsule EVERY 8 HOURS 3 capsule EVERY 8 HOURS (route: oral) Med Classific ation: Analgesic , Anti-infl ammatory or Antipyret ic Admelog U-100 Insulin lispro 100 unit/mL subcutaneou s solution 2023-02 00:00: 00 02-08 23:59 :00 No [id number] 2-12 unit 3 TIMES DAILY 2-12 unit 3 TIMES DAILY ([facility] Med Classific ation: Endocrine amlodipine 5 mg tablet 2023-02- 00:00: 00 04-04 23:59 :00 No [id number] 1 tablet BEDTIME 1 tablet BEDTIME (route: oral) Med Classific ation: Cardiovas cular Therapy Agents Dulcolax (bisacodyl) 10 mg rectal suppository 2023-02 00:00: 00 04-04 23:59 :00 No [id number] 1 supposi tory, rectal EVERY PM 1 suppositor y, rectal EVERY PM (route: rectal) Med Classific ation: Gastroint estinal Therapy Agents duloxetine 30 mg capsule,del ayed release 2023-02 00:00: 00 04-04 23:59 :00 No [id number] 1 capsule 2 TIMES DAILY 1 capsule 2 TIMES DAILY (route: oral) Med Classific ation: Central Nervous System Agents folic acid 1 mg tablet 2023-02 00:00: 00 04-04 23:59 :00 No [id number] 1 tablet EVERY AM 1 tablet EVERY AM (route: oral) Med Classific ation: Electroly te Balance-N utritiona l Products insulin glargine-yf gn (U-100) 100 unit/mL subcutaneou s solution 2023-02 00:00: 00 04-04 23:59 :00 No [id number] 50 unit BEDTIME 50 unit BEDTIME (route: subcutaneo us) Med Classific ation: Endocrine lidocaine 5 % topical cream 2023-02 00:00: 00 04-04 23:59 :00 No [id number] 1 inch 4 TIMES DAILY 1 inch 4 TIMES DAILY (route: topical) Med Classific ation: Dermatolo gical lisinopril 40 mg tablet 2023-02 00:00: 00 04-04 23:59 :00 No [id number] 1 tablet EVERY AM 1 tablet EVERY AM (route: oral) Med Classific ation: Cardiovas cular Therapy Agents magnesium 400 mg (as magnesium oxide) capsule 2023-02 00:00: 00 04-04 23:59 :00 No [id number] 1 capsule EVERY AM 1 capsule EVERY AM (route: oral) Med Classific ation: Electroly te Balance-N utritiona l Products metformin 1,000 mg tablet 2023-02 00:00: 00 04-04 23:59 :00 No [id number] 1 tablet 2 TIMES DAILY 1 tablet 2 TIMES DAILY (route: oral) Med Classific ation: Endocrine mirtazapine 15 mg tablet 2023-02 00:00: 00 04-04 23:59 :00 No [id number] 1 tablet BEDTIME 1 tablet BEDTIME (route: oral) Med Classific ation: Central Nervous System Agents oxycodone 5 mg capsule 2023-02 00:00: 00 04-04 23:59 :00 No [id number] 1 capsule DIRECTED 1 capsule DIRECTED (route: oral) Med Classific ation: Analgesic , Anti-infl ammatory or Antipyret ic Plavix 75 mg tablet 2023-02 00:00: 00 04-04 23:59 :00 No [id number] 1 tablet EVERY PM 1 tablet EVERY PM (route: oral) Med Classific ation: Hematolog ical Agents pregabalin 225 mg capsule 2023-02 00:00: 00 04-04 23:59 :00 No [id number] 1 capsule 2 TIMES DAILY 1 capsule 2 TIMES DAILY (route: oral) Med Classific ation: Central Nervous System Agents ropinirole 0.25 mg tablet 2023-02 00:00: 00 04-04 23:59 :00 No [id number] 1 tablet EVERY PM 1 tablet EVERY PM (route: oral) Med Classific ation: Central Nervous System Agents simvastatin 80 mg tablet 2023-02 00:00: 00 04-04 23:59 :00 No [id number] 1 tablet BEDTIME 1 tablet BEDTIME (route: oral) Med Classific ation: Cardiovas cular Therapy Agents aspirin 81 mg tablet,alicia yed release 2023-02 00:00: 00 04-04 23:59 :00 No [id number] 1 tablet EVERY AM 1 tablet EVERY AM (route: oral) Med Classific ation: Hematolog ical Agents cefdinir 300 mg capsule 2023-02 00:00: 00 04-04 23:59 :00 No [id number] 1 capsule BEDTIME 1 capsule BEDTIME (route: oral) Med Classific ation: Anti-Infe ctive Agents ClearLax 17 gram oral powder packet 2023-02 00:00: 00 04-04 23:59 :00 No [id number] 1 powder in packet EVERY AM 1 powder in packet EVERY AM (route: oral) Med Classific ation: Gastroint estinal Therapy Agents naloxone 4 mg/actuatio n nasal spray 2023-02 00:00: 00 04-04 23:59 :00 No [id number] Per instruc tions NEEDED Per instructio ns NEEDED (route: nasal) Med Classific ation: Antidotes and other Reversal Agents omega-3 acid ethyl esters 1 gram capsule 2023-02 00:00: 00 04-04 23:59 :00 No [id number] 2 capsule 2 TIMES DAILY 2 capsule 2 TIMES DAILY (route: oral) Med Classific ation: Cardiovas cular Therapy Agents ondansetron 4 mg disintegrat ing tablet 2023-02 00:00: 00 04-04 23:59 :00 No [id number] 1 tablet EVERY 8 HOURS 1 tablet EVERY 8 HOURS (route: oral) Med Classific ation: Gastroint estinal Therapy Agents simethicone 80 mg chewable tablet 2023-02 00:00: 00 04-04 23:59 :00 No [id number] 1 tablet 2 TIMES DAILY 1 tablet 2 TIMES DAILY (route: oral) Med Classific ation: Gastroint estinal Therapy Agents Trulicity 0.75 mg/0.5 mL subcutaneou s pen injector 2023-02 00:00: 00 04-04 23:59 :00 No [id number] 0.5 mL WEEKLY 0.5 mL WEEKLY (route: subcutane[facility] us) Med Classific ation: Endocrine acetaminoph en 325 mg capsule 04-05 00:00: 00 12-28 23:59 :00 No [id number] 3 capsule EVERY 8 HOURS 3 capsule EVERY 8 HOURS (route: oral) Med Classific ation: Analgesic , Anti-infl ammatory or Antipyret ic amlodipine 5 mg tablet 04-05 00:00: 00 12-28 23:59 :00 No [id number] 1 tablet BEDTIME 1 tablet BEDTIME (route: oral) Med Classific ation: Cardiovas cular Therapy Agents aspirin 81 mg tablet,alicia yed release 04-05 00:00: 00 12-28 23:59 :00 No [id number] 1 tablet EVERY AM 1 tablet EVERY AM (route: oral) Med Classific ation: Hematolog ical Agents duloxetine 30 mg capsule,del ayed release 04-05 00:00: 00 12-28 23:59 :00 No [id number] 1 capsule 2 TIMES DAILY 1 capsule 2 TIMES DAILY (route: oral) Med Classific ation: Central Nervous System Agents folic acid 1 mg tablet 04-05 00:00: 00 12-28 23:59 :00 No [id number] 1 tablet EVERY AM 1 tablet EVERY AM (route: oral) Med Classific ation: Electroly te Balance-N utritiona l Products insulin glargine (U-100) 100 unit/mL subcutaneou s solution 04-05 00:00: 00 12-28 23:59 :00 No [id number] 50 unit BEDTIME 50 unit BEDTIME (route: subcutaneo us) Med Classific ation: Endocrine lidocaine 5 % topical cream 04-05 00:00: 00 12-28 23:59 :00 No [id number] 1 inch 4 TIMES DAILY 1 inch 4 TIMES DAILY (route: topical) Med Classific ation: Dermatolo gical lisinopril 40 mg tablet 04-05 00:00: 00 12-28 23:59 :00 No [id number] 1 tablet EVERY AM 1 tablet EVERY AM (route: oral) Med Classific ation: Cardiovas cular Therapy Agents magnesium 400 mg (as magnesium oxide) capsule 04-05 00:00: 00 12-28 23:59 :00 No [id number] 1 capsule EVERY AM 1 capsule EVERY AM (route: oral) Med Classific ation: Electroly te Balance-N utritiona l Products metformin 1,000 mg tablet 04-05 00:00: 00 12-28 23:59 :00 No [id number] 1 tablet 2 TIMES DAILY 1 tablet 2 TIMES DAILY (route: oral) Med Classific ation: Endocrine mirtazapine 15 mg tablet 2-11 00:00: 00 12-28 23:59 :00 No [id number] 1 tablet BEDTIME 1 tablet BEDTIME (route: oral) Med Classific ation: Central Nervous System Agents omega-3 acid ethyl esters 1 gram capsule 2- 00:00: 00 12-28 23:59 :00 No [id number] 2 capsule 2 TIMES DAILY 2 capsule 2 TIMES DAILY (route: oral) Med Classific ation: Cardiovas cular Therapy Agents Plavix 75 mg tablet - 00:00: 00 12-28 23:59 :00 No [id number] 1 tablet BEDTIME 1 tablet BEDTIME (route: oral) Med Classific ation: Hematolog ical Agents pregabalin 225 mg capsule 2- 00:00: 00 06-02 23:59 :00 No [id number] 1 capsule 2 TIMES DAILY 1 capsule 2 TIMES DAILY (route: oral) Med Classific ation: Central Nervous System Agents ropinirole 0.25 mg tablet - 00:00: 00 12-28 23:59 :00 No [id number] 1 tablet BEDTIME 1 tablet BEDTIME (route: oral) Med Classific ation: Central Nervous System Agents simethicone 80 mg chewable tablet 2-11 00:00: 00 12-28 23:59 :00 No [id number] 1 tablet 2 TIMES DAILY 1 tablet 2 TIMES DAILY (route: oral) Med Classific ation: Gastroint estinal Therapy Agents simvastatin 80 mg tablet 2-11 00:00: 00 12-28 23:59 :00 No [id number] 1 tablet BEDTIME 1 tablet BEDTIME (route: oral) Med Classific ation: Cardiovas cular Therapy Agents Trulicity 0.75 mg/0.5 mL subcutaneou s pen injector 2-11 00:00: 00 12-20 23:59 :00 No [id number] Per instruc tions DIRECTED Per instructio ns DIRECTED (route: subcutaneo us) Med Classific ation: Endocrine methocarbam ol 500 mg tablet 4-16 00:00: 00 12-28 23:59 :00 No [id number] 1 tablet BEDTIME 1 tablet BEDTIME (route: oral) Med Classific ation: Locomotor System methocarbam ol 500 mg tablet 4-15 00:00: 00 12-28 23:59 :00 No [id number] 1 tablet BEDTIME 1 tablet BEDTIME (route: oral) Med Classific ation: Locomotor System Trulicity 3 mg/0.5 mL subcutaneou s pen injector 2024-02 00:00: 00 12-28 23:59 :00 No [id number] Per instruc tions WEEKLY Per instructio ns WEEKLY (route: subcutaneo us) Med Classific ation: Endocrine Lyrica 200 mg capsule 2024-02 00:00: 00 Yes [id number] 1 capsule 2 TIMES DAILY 1 capsule 2 TIMES DAILY (route: oral) Med Classific ation: Central Nervous System Agents Lyrica 50 mg capsule 2024-02 00:00: 00 Yes [id number] 1 capsule 2 TIMES DAILY 1 capsule 2 TIMES DAILY (route: oral) Med Classific ation: Central Nervous System Agents acetaminoph en 325 mg capsule 2024-02 00:00: 00 Yes [id number] 3 capsule EVERY 8 HOURS 3 capsule EVERY 8 HOURS (route: oral) Med Classific ation: Analgesic , Anti-infl ammatory or Antipyret ic amlodipine 5 mg tablet 2024-02 00:00: 00 Yes [id number] 1 tablet BEDTIME 1 tablet BEDTIME (route: oral) Med Classific ation: Cardiovas cular Therapy Agents aspirin 81 mg tablet,alicia yed release 2024-02 00:00: 00 Yes [id number] 1 tablet EVERY AM 1 tablet EVERY AM (route: oral) Med Classific ation: Hematolog ical Agents duloxetine 30 mg capsule,del ayed release 2024-02 00:00: 00 Yes [id number] 1 capsule 2 TIMES DAILY 1 capsule 2 TIMES DAILY (route: oral) Med Classific ation: Central Nervous System Agents folic acid 1 mg tablet 2024-02 00:00: 00 Yes [id number] 1 tablet EVERY AM 1 tablet EVERY AM (route: oral) Med Classific ation: Electroly te Balance-N utritiona l Products insulin glargine (U-100) 100 unit/mL subcutaneou s solution 2024-02 00:00: 00 Yes [id number] 50 unit BEDTIME 50 unit BEDTIME (route: subcutaneo us) Med Classific ation: Endocrine lidocaine 5 % topical cream 2024-02 00:00: 00 Yes [id number] 1 inch 4 TIMES DAILY 1 inch 4 TIMES DAILY (route: topical) Med Classific ation: Dermatolo gical lisinopril 40 mg tablet 2024-02 00:00: 00 Yes [id number] 1 tablet EVERY AM 1 tablet EVERY AM (route: oral) Med Classific ation: Cardiovas cular Therapy Agents magnesium 400 mg (as magnesium oxide) capsule 2024-02 00:00: 00 Yes [id number] 1 capsule EVERY AM 1 capsule EVERY AM (route: oral) Med Classific ation: Electroly te Balance-N utritiona l Products metformin 1,000 mg tablet 2024-02 00:00: 00 Yes [id number] 1 tablet 2 TIMES DAILY 1 tablet 2 TIMES DAILY (route: oral) Med Classific ation: Endocrine methocarbam ol 500 mg tablet 2024-02 00:00: 00 Yes [id number] 1 tablet BEDTIME 1 tablet BEDTIME (route: oral) Med Classific ation: Locomotor System mirtazapine 15 mg tablet 2024-02 00:00: 00 Yes [id number] 1 tablet BEDTIME 1 tablet BEDTIME (route: oral) Med Classific ation: Central Nervous System Agents omega-3 acid ethyl esters 1 gram capsule 2024-02 00:00: 00 Yes [id number] 2 capsule 2 TIMES DAILY 2 capsule 2 TIMES DAILY (route: oral) Med Classific ation: Cardiovas cular Therapy Agents Plavix 75 mg tablet 2024-02 00:00: 00 Yes [id number] 1 tablet BEDTIME 1 tablet BEDTIME (route: oral) Med Classific ation: Hematolog ical Agents ropinirole 0.25 mg tablet 2024-02 00:00: 00 Yes [id number] 1 tablet BEDTIME 1 tablet BEDTIME (route: oral) Med Classific ation: Central Nervous System Agents simethicone 80 mg chewable tablet 2024-02 00:00: 00 Yes [id number] 1 tablet 2 TIMES DAILY 1 tablet 2 TIMES DAILY (route: oral) Med Classific ation: Gastroint estinal Therapy Agents simvastatin 80 mg tablet 2024-02 00:00: 00 Yes [id number] 1 tablet BEDTIME 1 tablet BEDTIME (route: oral) Med Classific ation: Cardiovas cular Therapy Agents Trulicity 3 mg/0.5 mL subcutaneou s pen injector 2024-02 00:00: 00 Yes [id number] Per instruc tions WEEKLY Per instructio ns WEEKLY (route: subcutaneo us) Med Classific ation: Endocrine Vital Signs Vital Name Observation Time Observation Value Commen ts Pulse 2024-12-20 12:44:00.000 71 /min O2 Saturation (%) 2024-12-20 12:44:00.000 96 % Respirations 2024-12-20 12:44:00.000 20 /min Systolic Blood Pressure 2024-12-20 12:44:00.000 110 mm [Hg] Diastolic Blood Pressure 2024-12-20 12:44:00.000 60 mm [Hg] Plan of Treatment Planned Activity [...] AWARENESS FOR SAFETY AND WILL NOTIFY CLINICAL MULTIPLE RESAW OPERATOR AND PHYSICIAN/PROVIDER WITH ANY CHANGE IN CONDITION. [code = SKILLED NURSE WILL MAINTAIN SITUATIONAL AWARENESS FOR SAFETY AND WILL NOTIFY CLINICAL MULTIPLE RESAW OPERATOR AND PHYSICIAN/PROVIDER WITH ANY CHANGE IN CONDITION.] Future Scheduled Test SKILLED NU RSE TO O/A OF PATIENTS MENTAL/BEHAVIORAL STATUS, ASSESS VITAL SIGNS 1WK8 ALLOW 2 PRNS FOR MEDICATION MANAGEMENT. [code = SKILLED NURSE TO O/A OF PATIENTS MENTAL/BEHAVIORAL STATUS, ASSESS VITAL SIGNS 1WK8 ALLOW 2 PRNS FOR MEDICATION MANAGEMENT.] Future Scheduled Test SKILLED NU RSE FOR O/A OF GENERAL HEALTH STATUS OF PAIN, CARDIAC, RESPIRATORY, GASTROINTESTINAL, GENITOURINARY, SKIN, NEUROLOGIC, ENDOCRINE SYSTEMS TO IDENTIFY CHANGES ASSOCIATED WITH EXACERBATION FOR EARLY INTERVENTION OF COMPLICATIONS WEEKLY [code = SKILLED NURSE FOR O/A OF GENERAL HEALTH STATUS OF PAIN, CARDIAC, RESPIRATORY, GASTROINTESTINAL, GENITOURINARY, SKIN, NEUROLOGIC, ENDOCRINE SYSTEMS TO IDENTIFY CHANGES ASSOCIATED WITH EXACERBATION FOR EARLY INTERVENTION OF COMPLICATIONS WEEKLY] Future Scheduled Test SKILLED NU RSE TO [...] INTERVENTION.] Future Scheduled Test SKILLED NU RSE FOR O/A AND SKILLED TEACHING OF COPING SKILLS TO MANAGE ANXIETY AND MAINTAIN SAFETY. [code = SKILLED NURSE FOR O/A AND SKILLED TEACHING OF COPING SKILLS TO MANAGE ANXIETY AND MAINTAIN SAFETY.] Future Scheduled Test SKILLED NU RSE TO ASSESS PATIENT S PSYCHOSOCIAL STATUS TO IDENTIFY POTENTIAL ISSUES THAT MAY COMPLICATE THE PROVISION OF THE PLAN OF CARE INCLUDING THE PATIENT S ABILITY TO ACCESS COMMUNITY RESOURCES AND PSYCHOSOCIAL SUPPORT SERVICES. [code = SKILLED NURSE TO ASSESS PATIENT S PSYCHOSOCIAL STATUS TO IDENTIFY POTENTIAL ISSUES THAT MAY COMPLICATE THE PROVISION OF THE PLAN OF CARE INCLUDING THE PATIENT S ABILITY TO ACCESS COMMUNITY RESOURCES AND PSYCHOSOCIAL SUPPORT SERVICES.] Future Scheduled Test SKILLED NU RSE MAY PICKUP AND TRANSPORT MEDICATIONS [code = SKILLED NURSE MAY PICKUP AND TRANSPORT MEDICATIONS] Future Scheduled Test SKILLED NU RSE TO PROVIDE TEACHING ON SIGNS AND SYMPTOMS AND MANAGEMENT OF HYPERTENSION. [code = SKILLED NURSE TO PROVIDE TEACHING ON SIGNS AND SYMPTOMS AND MANAGEMENT OF HYPERTENSION.] Future Scheduled Test SKILLED NU RSE FOR [...] AND SIGNS AND SYMPTOMS HYPO/HYPERGLYCEMIA TO REPORT.] Goal 2024-06-02 Patient Goal - BE ABLE TO DO MORE Goal Patient Goal - HAVE LESS RADHA N Goal 2024-12-01 Patient Goal - B E ABLE TO MOVE BETTER WITH LESS PAIN Goal 2024-09-30 Patient Goal - BE ABLE TO BE MORE ACTIVE Goal 2024-08-03 Patient Goal - M ANAGE MY PAIN MUCH I CAN Goal Provider Goal - A PLAN OF CARE WILL BE ESTABLISHED THAT MEETS PATIENT'S ALF NEEDS AND INCLUDES PATIENT GOAL FOR HOME HEALTH. Goal Provider Goal - PATIENT WILL REMAIN SAFE IN THE COMMUNITY AND WILL BE FREE OF DANGER TO SELF AND OTHERS THROUGHOUT THE CERTIFICATION PERIOD. Goal Provider Goal - ALTERED MENTAL/BEHAVIORAL STATUS WILL BE IDENTIFIED PROMPTLY AND INTERVENTION INITIATED QUICKLY TO MINIMIZE ASSOCIATED RISKS THROUGHOUT CERTIFICATION PERIOD. Goal Provider Goal - CHANGE IN GENERAL HEALTH STATUS WILL BE IDENTIFIED AND REPORTED TO PHYSICIAN FOR PROMPT INTERVENTION TO MINIMIZE ASSOCIATED RISKS THROUGHOUT CERTIFICATION PERIOD. [...] THROUGHOUT CERTIFICATION PERIOD. Goal Provider Goal - SKILLED NURSE PICKED UP AND TRANSPORTED MEDICATIONS FOR SAFETY. Goal Provider Goal - PATIENT/CAREGIVER WILL VERBALIZE SIGNS AND SYMPTOMS OF HYPERTENSION AND WILL BE ABLE TO DEMONSTRATE ABILITY TO MANAGE EXACERBATION BY END OF THE EPISODE. Goal Provider Goal - PATIENT/CAREGIVER WILL VERBALIZE/DEMONSTRATE KNOWLEDGE OF DIABETIC MANAGEMENT. CHANGES IN DIABETIC STATUS WILL BE IDENTIFIED AND REPORTED TO PHYSICIAN FOR PROMPT INTERVENTION THROUGHOUT THE CERTIFICATION PERIOD. Encounters Start Date/Time End Date/Time Encounter Type Admission Type Attending [facility] Care Facility Care Department Encounter ID Discharge Date Discharge Status Discharge Condition Discharge Reason Percent Goals Met 2024-12-04 00:00:00 2025-02-01 00:00:00 Outpatient RECERTIFIC ATION [facility] [id number]
== END 2025-01-02 12:27 | disposition home health service (06) | DRG 871 ==
LOC: HO.ED 11:09 → HO.EDOVER 14:26 → HO.IMC 16:38
PROVIDERS: Hospitalist; Admitting Provider Physician Assistant Medical; Emergency Provider Emergency Medicine; PCP Internal Medicine; Visit Provider Internal Medicine
DX: A41.9 Sepsis, unspecified organism (principal); I26.99 Other pulmonary embolism without acute cor pulmonale; J96.01 Acute respiratory failure with hypoxia; R65.20 Severe sepsis without septic shock; I10 Essential (primary) hypertension; M25.552 Pain in left hip; E11.9 Type 2 diabetes mellitus without complications; G25.81 Restless legs syndrome; Z20.822 Contact with and (suspected) exposure to COVID-19; Z87.891 Personal history of nicotine dependence; Z79.02 Long term (current) use of antithrombotics/antiplatelets; Z79.84 Long term (current) use of oral hypoglycemic drugs; Z79.899 Other long term (current) drug therapy
CPT/HCPCS: 36415; 71045; 71275; 73502; 74177; 80048; 80053; 81001; 82947; 83036; 83605; 83690; 83880; 84145; 84484; 85025; 85027; 85610; 85730; 87040; 87086; 87633; 87635; 87640; 87641; 93005; 93306; 93970; 99285; J0131; J0696; J1171; J1271; J1644; J2270; J2405; J7120; Q9957; Q9967

== ENCOUNTER → 2024-12-29 10:41 | Outpatient (BNV) | payer OTHER, SELFPAY | PROVIDERS: Emergency Provider Emergency Medicine; PCP Internal Medicine; Visit Provider Internal Medicine Cardiovascular Disease | DX: R00.0 Tachycardia, unspecified (principal); I44.7 Left bundle-branch block, unspecified | CPT/HCPCS: 93010 ==

== ENCOUNTER → 2024-12-29 10:51 | Outpatient (BNV) | payer OTHER, SELFPAY | PROVIDERS: Emergency Provider Emergency Medicine; PCP Internal Medicine; Visit Provider Radiology Diagnostic Ultrasound | DX: A41.9 Sepsis, unspecified organism (principal); R10.32 Left lower quadrant pain; R09.02 Hypoxemia; M25.552 Pain in left hip | CPT/HCPCS: 71045; 71275; 73502; 74177 ==

== ENCOUNTER 2024-12-29 14:22 | Outpatient (BNV) | payer OTHER, SELFPAY | END 2024-12-30 16:56 | PROVIDERS: Admitting Provider Physician Assistant Medical; Emergency Provider Emergency Medicine; PCP Internal Medicine; Visit Provider Radiology Diagnostic Radiology | DX: I26.99 Other pulmonary embolism without acute cor pulmonale (principal) | CPT/HCPCS: 93970 ==

== ENCOUNTER 2024-12-29 14:22 | Outpatient (BNV) | payer OTHER, SELFPAY | END 2024-12-30 07:00 | PROVIDERS: Admitting Provider Physician Assistant Medical; Emergency Provider Emergency Medicine; PCP Internal Medicine; Visit Provider Internal Medicine Cardiovascular Disease | DX: R93.1 Abnormal findings on diagnostic imaging of heart and coronary circulation (principal) | CPT/HCPCS: 93306 ==

== ENCOUNTER → 2024-12-29 14:22 | Outpatient (BNV) | payer OTHER, SELFPAY | PROVIDERS: Admitting Provider Physician Assistant Medical; Emergency Provider Emergency Medicine; PCP Internal Medicine; Visit Provider Physician Assistant Medical | DX: I26.99 Other pulmonary embolism without acute cor pulmonale (principal); J18.9 Pneumonia, unspecified organism | CPT/HCPCS: 99223; 99232; 99233 ==

== ENCOUNTER → 2024-12-29 14:22 | Outpatient (BNV) | payer OTHER, SELFPAY | PROVIDERS: Admitting Provider Physician Assistant Medical; Emergency Provider Emergency Medicine; PCP Internal Medicine; Visit Provider Internal Medicine Medical Oncology | DX: I26.99 Other pulmonary embolism without acute cor pulmonale (principal); R91.1 Solitary pulmonary nodule | CPT/HCPCS: 99222 ==